=== PATIENT | male | born 1955 | race Caucasian/White ===

== ENCOUNTER → 2016-06-24 | Outpatient (CLI) | payer BC ==
[~2016-06-24] MED LIST: ASPI81TA28 PO; ATOR-22 PO; ETOD300C20 PO; IBUP600T44 PO; LISI-725 PO; PRLSR20 PO; VNTHFA/IN INH
--- NOTE | 2016-06-24 09:14 | DIAGNOSTIC IMAGING REPORT ---
LEFT SHOULDER MIN 2 VIEWS ROUTINE CLINICAL HISTORY: POLYARTHRITIS Nos, multiple Sites, arm PAIN, LEFT pain COMPARISON: None. DISCUSSION: The bones and joint spaces appear intact. There is no evidence of fracture, dislocation or bony disease. There is no evidence for soft tissue swelling. IMPRESSION: Negative study. Electronically signed by: Harrison Gore M.D. 06/24/2016 9:13 AM Dictated Date/Time: 06/24/2016 9:12 AM
== END | disposition home or self-care (01) ==
LOC: C.RAD 08:50
PROVIDERS: ATTEND Family Medicine
DX: M13.0 Polyarthritis, unspecified (principal); M79.602 Pain in left arm

== ENCOUNTER → 2016-06-27 | Outpatient (CLI) | payer BC ==
--- NOTE | 2016-07-01 14:34 | PULMONARY FUNCTION TEST ---
CLINICAL DATA: A 61-year-old male with a height of 73 inches and a weight of 243 pounds, referred for evaluation of dyspnea on exertion. Spirometry pre- and post-bronchodilator, lung volumes and DLCO were performed. FINDINGS: Pre-bronchodilator spirometry demonstrates moderate obstructive airways disease. FVC was 78% predicted. FEV1 was 60% of predicted. UGU23-03 was 28% of predicted. There was significant improvement after inhaled bronchodilator. FVC improved 7% to 83% of predicted. FEV1 improved 17% to 70% of predicted. CAM20-66 improved 33% to 38% of predicted. Lung volumes demonstrated mild to moderate air trapping with a residual volume of 174% of predicted. DLCO was normal at 95% of predicted. IMPRESSION: Moderate obstructive airways disease with improvement after inhaled bronchodilator with evidence of air trapping on lung volume testing. RECOMMENDATIONS: The patient may benefit from a trial of inhaled bronchodilators, inhaled steroids, and/or inhaled anticholinergic agents. Clinical correlation is needed. MTDD
== END | disposition home or self-care (01) ==
LOC: C.RC 08:53
PROVIDERS: ATTEND Family Medicine
DX: R06.02 Shortness of breath (principal)

== ENCOUNTER 2016-07-27 00:31 | Emergency (ER) | payer OTHER, BC ==
[~2016-07-27] VITALS: Ht 185.4 cm; Wt 112.0 kg
[~2016-07-27 00:31] MED LIST changes: -IBUP600T44 PO
[2016-07-27 00:38] VITALS: TEMP 36.7; Ht 185.4 cm; Wt 112.0 kg
[2016-07-27] MEDS ORDERED: IBUPROFEN 600 MG TAB PO STA (01:01)
[2016-07-27] MEDS ORDERED: IBUP600T44 PO (01:04)
--- NOTE | 2016-07-27 01:08 | EMERGENCY ROOM VISIT NOTE ---
History Report prepared by Blancaibfaby: Peri Adler Under the Supervision of: Dr. Farzad Sorenson M.D. First contact with patient: 00:47 Chief Complaint: LEG PAIN,LEG INJURY Stated Complaint: FELL AND HURT RIGHT UPPER LEG - History of Present Illness The patient is a 61 year old male who presents to the Emergency Room via EMS with complaints of worsening upper right leg pain with onset one hour ago after an episode of a fall. The patient works for [employer]. Tonight he was at work, collecting some papers that had fallen to the floor when a metal clip fell out of the pile of papers. The patient stepped on the metal clip and slipped on the clip and the marble floors. The patient states that he can walk, although the area is sore. He denies knee pain, hip pain, taking blood thinners , history of heart attack. The patient notes that he takes an aspirin daily. Source of History: patient Onset: one hour ago Position: leg (right) Symptom Intensity: 5/10 Quality: other (right leg pain) Timing: other (episode ) Modifying Factors (Worsening): movement (leg becomes sore) Note: He denies knee pain, hip pain. Review of Systems See HPI for pertinent positives & negatives. A total of 6 systems reviewed and were otherwise negative. Past Medical & Surgical Medical Problems: (1) GERD (gastroesophageal reflux disease) (2) High cholesterol (3) Hypertension Family History FH: heart disease Social History Smoking Status: Never Smoker Drug Use: none Marital Status: Housing Status: lives with family Occupation Status: employed Current/Historical Medications Scheduled Albuterol Hfa (Ventolin Hfa), 2 PUFFS INH q4-6h Aspirin (Aspirin Ec), 81 MG PO DAILY Atorvastatin (Lipitor), 20 MG PO DAILY Etodolac (Etodolac), 300 MG PO TID Ibuprofen (Motrin), 600 MG PO TID Lisinopril (Zestril), 20 MG PO QAM Omeprazole (Prilosec), 20 MG PO DAILY Allergies Coded Allergies: No Known Allergies (Verified , 07/27/16) Physical Exam Vital Signs Date Time Temp Pulse Resp B/P Pulse Ox O2 Delivery O2 Flow Rate FiO2 07/27/16 00:38 36.7 91 18 152/92 95 Room Air Physical Exam GENERAL: The patient is lying on the stretcher in no significant distress. NEUROLOGIC: He is awake, alert and oriented x3. EXTREMITIES: The right lower extremity is examined. He has soreness and some swelling of the mid portion of the anterior quadriceps. No large defect to suggest significant tear. Quadriceps tendon is intact, his knee and hip are nontender, there is no contusion, no neurovascular compromise. Medical Decision & Procedures Medications Administered Medications (Trade) Dose Ordered Sig/Arabella Route Start Time Stop Time Status Last Admin Dose Admin Ibuprofen (Motrin Tab) 600 mg NOW STAT PO 07/27/16 01:01 07/27/16 01:02 DC 07/27/16 01:16 600 MG ED Course 0047: The patient was evaluated in room B3. A complete history and physical exam was performed. 0101: Ibuprofen 600 mg PO 0102: Reevaluated the patient. Discussed results and discharge instructions: He verbalized understanding and agreement. The patient is ready for discharge. Medical Decision The patient is a 61 year old male who presents to the ED with complaints of right upper leg pain. Differential diagnoses considered include: hip or knee fracture/dislocation, quadriceps tear, muscle pull. Patient complains of pain in his right quadriceps after slipping and falling. He has no hip pain or knee pain. He can walk but it hurts in the right quadriceps when he walks. By exam, he appears to have a muscle strain/tear. There was no quadriceps tendon rupture. There was no large hematoma. No neurovascular compromise. The patient was given oral Motrin, he will be using Motrin, ice, rest. This injury should improve with some time, if worsening, he can return. Impression Primary Impression: Strain of right quadriceps Scribe Attestation The scribe's documentation has been prepared under my direction and personally reviewed by me in its entirety. I confirm that the note above accurately reflects all work, treatment, procedures, and medical decision making performed by me. Departure Information Dispostion Home / Self-Care Prescriptions Ibuprofen (Motrin) 600 Mg Tab 600 MG PO TID, #15 TAB With Food Prov: Farzad Sorenson M.D. 07/27/16 Referrals Joanna Baker PA-C (PCP) Forms HOME CARE DOCUMENTATION FORM, IMPORTANT VISIT INFORMATION, Work Instructions Patient Instructions My [facility] Additional Instructions ice to the area for 30 minutes at a time for 2 days and then after 2 days switch to using heat try to stay off the feet and use the leg less for a few days motrin 600 mg 3x per day for 5 days return if worsening
[2016-07-27 01:21] VITALS: BP 143/88; PULSE 84; O2SAT 96
== END 2016-07-27 01:23 | disposition home or self-care (01) ==
LOC: C.EDB 00:32
DX: S76.111A Strain of right quadriceps muscle, fascia and tendon, initial encounter (principal); W01.0XXA Fall on same level from slipping, tripping and stumbling without subsequent striking against object, initial encounter; Y99.0 Civilian activity done for income or pay; Y92.89 Other specified places as the place of occurrence of the external cause; Y93.89 Activity, other specified; Z79.82 Long term (current) use of aspirin; K21.9 Gastro-esophageal reflux disease without esophagitis; I10 Essential (primary) hypertension; E78.00 Pure hypercholesterolemia, unspecified; Z79.899 Other long term (current) drug therapy

== ENCOUNTER 2019-01-06 13:42 | Observation (INO) ==
[2019-01-06 14:39] LABS: Basophils # (auto) 0.03 K/uL (0-0.2); Basophils % (auto) 0.5 %; Eosinophils # (auto) 0.13 K/uL (0-0.5); Eosinophils % (auto) 2.2 %; Hematocrit (blood only) 43.2 % (42-52); Hemoglobin 15.7 g/dL (14.0-18.0); Immature Granulocytes # (auto) 0.02 K/uL (0.00-0.02); Immature Granulocytes % (auto) 0.3 %; Lymphocytes # (auto) 1.51 K/uL (1.2-3.4); Lymphocytes % (auto) 25.6 %; Mean Corpuscular Hgb Conc 36.3 g/dL (32-36); Mean Corpuscular Volume 87.1 fL (80-100); Mean Platelet Volume 8.4 fL (7.4-10.4); Monocytes # (auto) 0.46 K/uL (0.11-0.59); Monocytes % (auto) 7.8 %; Neutrophils # (auto) 3.74 K/uL (1.4-6.5); Neutrophils % (auto) 63.6 %; Platelet Count 126 K/uL (130-400); RDW Coefficient of Variation 13.6 % (11.5-14.5); RDW Standard Deviation 43.3 fL (36.4-46.3); Red Blood Count 4.96 M/uL (4.7-6.1); White Blood Count 5.89 K/uL (4.8-10.8)
[2019-01-06 15:12] LABS: Alanine Aminotransferase 54 U/L (12-78); Albumin Level 3.9 gm/dl (3.4-5.0); Aspartate Aminotransferase 26 U/L (15-37); Blood Urea Nitrogen 25 mg/dl (7-18); Calcium 9.5 mg/dl (8.5-10.1); Carbon Dioxide 23 mmol/L (21-32); Chloride 104 mmol/L (98-107); Creatinine Clr Calc Pharmacy 74.4 ml/min; Est GFR (African American) 65.8; Est GFR (Non-African American) 56.8; Glucose 170 mg/dl (70-99); Potassium 4.4 mmol/L (3.5-5.1); Sodium 135 mmol/L (136-145)
[2019-01-06 15:17] LABS: Albumin Globulin Ratio 1.1 (0.9-2); Alkaline Phosphatase 60 U/L (45-117); Bilirubin,Total 0.7 mg/dl (0.2-1); Globulin 3.4 gm/dl (2.5-4.0); NT Pro B Type Natriuretic Pept 13 pg/ml (0-900); Total Protein 7.3 gm/dl (6.4-8.2); Troponin I < 0.015 ng/ml (0-0.045)
[2019-01-06] MEDS ORDERED: OPTIRAY 320 125ml IV PRN (15:36)
--- NOTE | 2019-01-06 15:51 | CT Scan Report ---
CT ANGIOGRAM OF THE CHEST CLINICAL HISTORY: Atypical chest pain. COMPARISON STUDY: Chest x-ray dated 12/30/2018. TECHNIQUE: Following the IV administration of 116 cc of Optiray 320, CT angiogram of the chest was pe rformed from the upper abdomen to the thoracic inlet utilizing the pulmonary embolus protocol. Images are reviewed in the axial, sagittal, and coronal planes. 3-D MIPS images are created and assessed. I V contrast was administered without complication. A dose lowering technique was utilized adhering to the principles of ALARA. CT DOSE: 644.62 mGy.cm FINDINGS: Thyroid: Imaged portions of the thyroid gland are normal in size and attenuation. Thoracic aorta: The thoracic aorta is normal in caliber and demonstrates standard 3-vessel arch anato my. No dissection is seen. Pulmonary vasculature: The pulmonary trunk is normal in caliber. There are no filling defects identif ied in main, lobar, or segmental pulmonary branches to suggest pulmonary embolus. Heart: The heart is normal in size and without pericardial effusion. Lungs and pleural spaces: There is a 4 mm right upper lobe nodule seen on image #198. There are scatt ered calcified granulomas. No airspace consolidation or pleural effusion is identified. The trachea a nd central airways are clear. Mediastinum: There is no mediastinal lymphadenopathy. Georgie: Clear. Axillae: There is no axillary lymphadenopathy. Upper abdomen: Cholecystectomy clips are noted. The liver is enlarged and steatotic. A small hiatal h ernia is noted. The spleen is enlarged, measuring 14.6 cm in length. A calcified granuloma is noted i n the right hepatic lobe. Skeletal structures: No lytic or blastic bony lesions are seen. IMPRESSION: 1. There is no evidence of pulmonary embolus in the main, lobar, or segmental pulmonary arteries. 2. There is no airspace consolidation or pleural effusion. 3. There is a pathologically indeterminant 4 mm pulmonary nodule in the right upper lobe. This can be followed if clinically warranted. See below. 4. Hepatomegaly and hepatic steatosis. 5. Splenomegaly. Please refer to below summary of Fleischner criteria recommendations for follow-up of incidental CT n odules (Evaristo Couch, Guidelines for management of small pulmonary nodules detected on CT scans: A sta tement from the Fleischner [employer], Radiology 237: [phone].) SOLID NODULES Solitary nodule size: <6 mm * low risk patients: no follow-up needed * high risk patients: optional CT at 12 months Solitary nodule size: 6-8 mm * low risk patients: follow-up at 6-12 months, then consider further follow-up at 18-24 months * high risk patients: initial follow-up CT at 6-12 months and then at 18-24 months if no change Solitary nodule size: >8 mm * either low or high risk patients - consider follow-up CT at 3 months, and/or CT-PET, and/or biopsy Multiple nodules size: <6 mm * low risk patients: no routine follow-up * high risk patients: optional CT at 12 months Multiple nodules size: 6-8 mm * low risk patients: follow-up at 3-6 months, then consider further follow-up at 18-24 months * high risk patients: follow-up at 3-6 months, then at 18-24 months if no change Multiple nodules size: >8 mm * low risk patients: follow-up at 3-6 months, then consider further follow-up at 18-24 months * high risk patients: follow-up at 3-6 months, then at 18-24 months if no change Note: newly detected indeterminate nodule in persons 35 years of age or older. * low risk patients: minimal or absent history of smoking and/or other known risk factors * high risk patients: history of smoking or of other known risk factors (e.g. first degree relative with lung cancer, or exposure to asbestos, radon, uranium) * if a nodule up to 8 mm is partly solid or is ground glass further follow-up is required after 24 m onths to exclude possible slow growing adenocarcinoma (JAZMÍN) SUBSOLID NODULES Solitary pure ground-glass nodule * nodule size <6 mm - no CT follow-up required * nodule size >=6 mm - follow-up CT at 6-12 months, then every 2 years until 5 years Solitary part-solid nodule * nodule size <6 mm - no CT follow-up required * nodule size >=6 mm - follow-up CT at 3-6 months. If unchanged, and solid component remains <6 mm, then annual follow-up for 5 years Multiple subsolid nodules * nodule size <6 mm - follow-up CT at 3-6 months, consider further follow-up at 2 and 4 years if sta ble * nodule size >=6 mm - follow-up CT at 3-6 months, subsequent management based on the most suspiciou s nodule(s) Electronically signed by: Farzad Isidro M.D. 01/06/2019 3:49 PM
[2019-01-06] MEDS ORDERED: ACETAMINOPHEN 1,000 MG/100 ML VIAL IV STA (17:11)
[2019-01-06] MEDS ORDERED: ALUMINUM/MAGNESIUM SUSP 18 ML, LIDOCAINE HCL VISCOUS 2% 6 ML, BARCODE IDENTIFIER 1 EA PO ONE (17:11)
[2019-01-06] MEDS ORDERED: GI COCKTAIL ED USE PO ONE (17:49)
--- NOTE | 2019-01-06 18:08 | History & Physical Report ---
Date of Service January 06, 2019 Assessment & Plan (1) Atypical chest pain: Patient presently CP free. Does not seem to be pleuritic, exertional, positional or related to meals. BP is equal in both arms, no concern for dissection. Suspect GI etiology in patient with GERD, hiatal hernia. However, history of HTN, HLP and family history of CAD raises suspicion. Patient is quite active, he camps, hunts, hikes and rides bikes. He denies exertional dyspnea or CP, no limit to activity level. -Observation to medical floor with telemetry -Trend troponin x 3 set -If negative will obtain stress echocardiogram in AM -Continue ASA, Metoprolol, Lisinopril Present on Admission?: Yes (2) High cholesterol: Chronic. Uncertain why patient is not on statin -Consider initiating statin prior to DC Present on Admission?: Yes (3) Hypertension: Blood pressure well controlled. -Continue Lisinopril -Continue to monitor Present on Admission?: Yes (4) GERD (gastroesophageal reflux disease): Suspect this as etiology of discomfort -Initiate Protonix 40mg po BID -Continue Sucralfate -Maalox PRN F/E/N - Heplock. Monitor electrolytes and replete as needed. Heart healthy diet, NPO after midnight Ppx - Lovenox Code - Full Dispo - Observation to medical floor with telemetry Present on Admission?: Yes History of Present Illness Chief Complaint: chest pain Primary Care Provider: ELAINE Davila Mr. Ellis is a 63yo C male with history of HTN, HLP, FH of CAD in father/uncles at age 60 presenting with epigastric/substernal chest discomfort. Pain has been present for weeks, intermittent, lasts minutes to hours. 8/10 in severity, associated with mild SOB and diaphoresis. Pain is non-pleuritic, non- exertional and non-positional. Some relief provided with Mylanta. He recently saw his PCP and was prescribed sucralfate and Pepcid with no relief provided. Patient reports that he has indigestion as well but that discomfort is different than the pain he feels in his upper chest. ER Course: Tylenol, Maalox Allergies Allergy/AdvReac Type Severity Reaction Status Date / Time No Known Allergies Allergy Verified 01/06/19 14:46 Home Medications Home Medications Medication Instructions Recorded Confirmed Type albuterol sulfate [Ventolin HFA] 2 puff INHALATION Q4 PRN 12/30/18 01/06/19 Hist ory aspirin 81 mg PO QAM 12/30/18 01/06/19 History famotidine 20 mg PO BID #20 tab 12/30/18 01/06/19 Rx lisinopril 20 mg PO QAM 12/30/18 01/06/19 History metoprolol succinate 12.5 mg PO QPM 12/30/18 01/06/19 History omeprazole 20 mg PO QAM 12/30/18 01/06/19 History tiotropium bromide [Spiriva 2 puff INHALATION QAM 12/30/18 01/06/19 History Respimat] sucralfate 1 g PO ACHS 01/06/19 01/06/19 History Past Med/Surg History Medical History Chest pain (Acute) Hypertension (Chronic) High cholesterol (Chronic) GERD (gastroesophageal reflux disease) (Chronic) Acute kidney injury (Acute) Surgical History History of appendectomy History of cholecystectomy Hx of cardiac cath Family History Other Myocardial infarction Social History marital status: Current Living Situation: Spouse current occupational status: employed Feels Safe at Home: Yes Smoking Status: Never smoker Hx Alcohol Use: No Hx Substance Use: No Review of Systems Review of Systems: All systems reviewed & are unremarkable except as noted in HPI & below +indigestion Physical Exam Physical Exam: General: patient resting comfortably, NAD, non-toxic in appearance, AA&O x 4 Skin: warm, dry, intact, no rashes or lesions HEENT: NC/AT, PERRL, EOMI, anicteric sclera, conjunctiva without injection, external ear normal to inspection and nontender, nares patent, moist mucus membranes, dentition intact, no oropharyngeal lesions, neck supple, trachea midline, no LAD, no thyromegaly, no JVD Heart: +S1/S2, regular, no m/r/g, BP in LUE 123/70 BP in RUE 128/75 Lungs: equal air entry bilaterally, no rales/rhonchi/wheezes Abd: +BS, soft, NT/ND, no masses/organomegaly/ascites Ext: warm, 2+ pulses in UE/LE bilaterally, no clubbing/cyanosis or edema Neuro: nonfocal, patient AA&O x 4, speech intact, no facial droop, moving all ex tremities on command with equal strength 5/5 Results & Data Vital Signs (Past 12 Hours) Vital Signs Temp Pulse Resp BP Pulse Ox 01/06/19 17:30 71 14 123/70 97 01/06/19 17:00 74 25 H 157/100 H 97 01/06/19 16:30 69 14 134/77 97 01/06/19 16:01 76 28 H 96 01/06/19 15:30 73 18 123/80 95 01/06/19 15:00 78 20 122/78 94 01/06/19 14:30 82 19 132/78 01/06/19 14:00 80 19 127/72 96 01/06/19 13:56 82 16 96 01/06/19 13:53 88 19 139/73 98 01/06/19 13:45 36.7 C 78 20 130/75 97 Laboratory Results Lab Results 01/06/19 01/06/19 Range/Units 14:31 14:31 WBC 5.89 (4.8-10.8) K/uL RBC 4.96 (4.7-6.1) M/uL Hgb 15.7 (14.0-18.0) g/dL Hct 43.2 (42-52) % MCV 87.1 (80-100) fL MCH 31.7 (25-34) pg MCHC 36.3 H (32-36) g/dL RDW Std Deviation 43.3 (36.4-46.3) fL RDW Coeff of Alyssa 13.6 (11.5-14.5) % Plt Count 126 L (130-400) K/uL MPV 8.4 (7.4-10.4) fL Immature Gran % (Auto) 0.3 % Neut % (Auto) 63.6 % Lymph % (Auto) 25.6 % [place] % (Auto) 7.8 % Eos % (Auto) 2.2 % Baso % (Auto) 0.5 % Immature Gran # (Auto) 0.02 (0.00-0.02) K/uL Neut # (Auto) 3.74 (1.4-6.5) K/uL Lymph # (Auto) 1.51 (1.2-3.4) K/uL [place] # (Auto) 0.46 (0.11-0.59) K/uL Eos # (Auto) 0.13 (0-0.5) K/uL Baso # (Auto) 0.03 (0-0.2) K/uL Sodium 135 L (136-145) mmol/L Potassium 4.4 (3.5-5.1) mmol/L Chloride 104 (98-107) mmol/L Carbon Dioxide 23 (21-32) mmol/L Anion Gap 8.0 (3-11) BUN 25 H (7-18) mg/dl Creatinine 1.34 (0.6-1.4) mg/dl Est Cr Clr Drug Dosing 74.4 ml/min Est GFR ( Amer) 65.8 Est GFR (Non-Af Amer) 56.8 BUN/Creatinine Ratio 19.0 (10-20) Glucose 170 H (70-99) mg/dl Calcium 9.5 (8.5-10.1) mg/dl Total Bilirubin 0.7 (0.2-1) mg/dl AST 26 (15-37) U/L ALT 54 (12-78) U/L Alkaline Phosphatase 60 (45-117) U/L Troponin I < 0.015 (0-0.045) ng/ml NT-Pro-B Natriuret Pep 13 (0-900) pg/ml Total Protein 7.3 (6.4-8.2) gm/dl Albumin 3.9 (3.4-5.0) gm/dl Globulin 3.4 (2.5-4.0) gm/dl Albumin/Globulin Ratio 1.1 (0.9-2) Lipase 109 (73-393) U/L Diagnostic Findings CT ANGIOGRAM OF THE CHEST CLINICAL HISTORY: Atypical chest pain. COMPARISON STUDY: Chest x-ray dated 12/30/2018. TECHNIQUE: Following the IV administration of 116 cc of Optiray 320, CT angiogram of the chest was performed from the upper abdomen to the thoracic inlet utilizing the pulmonary embolus protocol. Images are reviewed in the axial, sagittal, and coronal planes. 3-D MIPS images are created and assessed. IV contrast was administered without complication. A dose lowering technique was utilized adhering to the principles of ALARA. CT DOSE: 644.62 mGy.cm FINDINGS: Thyroid: Imaged portions of the thyroid gland are normal in size and attenuation. Thoracic aorta: The thoracic aorta is normal in caliber and demonstrates standard 3-vessel arch anatomy. No dissection is seen. Pulmonary vasculature: The pulmonary trunk is normal in caliber. There are no filling defects identified in main, lobar, or segmental pulmonary branches to suggest pulmonary embolus. Heart: The heart is normal in size and without pericardial effusion. Lungs and pleural spaces: There is a 4 mm right upper lobe nodule seen on image #198. There are scattered calcified granulomas. No airspace consolidation or pleural effusion is identified. The trachea and central airways are clear. Mediastinum: There is no mediastinal lymphadenopathy. Georgie: Clear. Axillae: There is no axillary lymphadenopathy. Upper abdomen: Cholecystectomy clips are noted. The liver is enlarged and steatotic. A small hiatal hernia is noted. The spleen is enlarged, measuring 14.6 cm in length. A calcified granuloma is noted in the right hepatic lobe. Skeletal structures: No lytic or blastic bony lesions are seen. IMPRESSION: 1. There is no evidence of pulmonary embolus in the main, lobar, or segmental pulmonary arteries. 2. There is no airspace consolidation or pleural effusion. 3. There is a pathologically indeterminant 4 mm pulmonary nodule in the right upper lobe. This can be followed if clinically warranted. See below. 4. Hepatomegaly and hepatic steatosis. 5. Splenomegaly. Please refer to below summary of Fleischner criteria recommendations for follow- up of incidental CT nodules (Evaristo Couch, Guidelines for management of small pulmonary nodules detected on CT scans: A statement from the Fleischner [employer], Radiology 237: [phone].) SOLID NODULES Solitary nodule size: <6 mm * low risk patients: no follow-up needed * high risk patients: optional CT at 12 months Solitary nodule size: 6-8 mm * low risk patients: follow-up at 6-12 months, then consider further follow-up at 18-24 months * high risk patients: initial follow-up CT at 6-12 months and then at 18-24 months if no change Solitary nodule size: >8 mm * either low or high risk patients - consider follow-up CT at 3 months, and/or CT-PET, and/or biopsy Multiple nodules size: <6 mm * low risk patients: no routine follow-up * high risk patients: optional CT at 12 months Multiple nodules size: 6-8 mm * low risk patients: follow-up at 3-6 months, then consider further follow-up at 18-24 months * high risk patients: follow-up at 3-6 months, then at 18-24 months if no change Multiple nodules size: >8 mm * low risk patients: follow-up at 3-6 months, then consider further follow-up at 18-24 months * high risk patients: follow-up at 3-6 months, then at 18-24 months if no change Note: newly detected indeterminate nodule in persons 35 years of age or older. * low risk patients: minimal or absent history of smoking and/or other known risk factors * high risk patients: history of smoking or of other known risk factors (e.g. first degree relative with lung cancer, or exposure to asbestos, radon, uranium) * if a nodule up to 8 mm is partly solid or is ground glass further follow-up is required after 24 months to exclude possible slow growing adenocarcinoma (JAZMÍN) SUBSOLID NODULES Solitary pure ground-glass nodule * nodule size <6 mm - no CT follow-up required * nodule size >=6 mm - follow-up CT at 6-12 months, then every 2 years until 5 years Solitary part-solid nodule * nodule size <6 mm - no CT follow-up required * nodule size >=6 mm - follow-up CT at 3-6 months. If unchanged, and solid component remains <6 mm, then annual follow-up for 5 years Multiple subsolid nodules * nodule size <6 mm - follow-up CT at 3-6 months, consider further follow-up at 2 and 4 years if stable * nodule size >=6 mm - follow-up CT at 3-6 months, subsequent management based on the most suspicious nodule(s) Electronically signed by: Farzad Isidro M.D. 01/06/2019 3:49 PM Dictated: 01/06/19 1544 Transcribed: 01/06/19 1544 ECG Additional Comments: The study shows NSR at 82bpm, normal axis and intervals, no acute ischemic changes, no change from prior study Code Status & VTE Plan Code Status FULL VTE Prophylaxis Plan VTE Prophylaxis will be ordered: Yes PG Care Time/CCT Total # of Minutes Spent Total Time Spent with Patient: Total time spent is greater than 50% in coordination of care (as documented) at patient's floor/unit and/or counseling patient: (1) GERD (gastroesophageal reflux disease) Esophagitis presence: esophagitis presence not specified Qualified Code(s): K21.9 - Gastro-esophageal reflux disease without esophagitis (2) Hypertension Hypertension type: essential hypertension Qualified Code(s): I10 - Essential (primary) hypertension
[2019-01-06] MEDS ORDERED: ONDANSETRON INJ 2 MG/ML 2 ML VIAL IV PRN (19:27)
[2019-01-06] MEDS ORDERED: ALBUTEROL HFA 8 GM INHALER INH PRN (19:27)
[2019-01-06] MEDS ORDERED: ALUMINUM/MAGNESIUM SUSP 30 ML UDC PO PRN (19:27)
[2019-01-06] MEDS ORDERED: ACETAMINOPHEN 325 MG TAB PO PRN (19:27)
[2019-01-06] MEDS ORDERED: METOPROLOL SUCC 25MG EXT REL TAB PO SCH (21:00)
[2019-01-06] MEDS ORDERED: ENOXAPARIN INJ 40 MG/0.4 ML SYR SQ SCH (21:00)
[2019-01-06] MEDS: PANTOprazole 40 MG TAB PO SCH (21:05)
[2019-01-06] MEDS: SUCRALFATE 1 GM TAB PO SCH (21:06)
[2019-01-07] MEDS: SUCRALFATE 1 GM TAB PO SCH ×2 (07:59→12:32)
[2019-01-07] MEDS: PANTOprazole 40 MG TAB PO SCH (08:01)
[2019-01-07 08:34] LABS: Estimated Average Glucose 140 mg/dl; Hemoglobin A1C 6.5 % (4.5-5.6)
[2019-01-07 08:41] LABS: Chol HDL Ratio 7; Cholesterol 218 mg/dl (0-200); HDL Cholesterol 33 mg/dl; Triglycerides 462 mg/dl (0-150)
[2019-01-07] MEDS ORDERED: ASPIRIN 81 MG ECTAB PO SCH (09:00)
[2019-01-07] MEDS ORDERED: LISINOPRIL 20 MG TAB PO SCH (09:00)
[2019-01-07] MEDS ORDERED: TIOTROPIUM BROMIDE 5 PUFF/90 MCG INH INH SCH (09:00)
[2019-01-07] MEDS ORDERED: PERFLUTREN LIPID MICROSPHERE (DEFINITY) IV ONE (12:17)
--- NOTE | 2019-01-07 14:25 | Discharge Summary ---
Date of Service January 07, 2019 Admission HPI Per Admitting Provider Mr. Ellis is a 63yo C male with history of HTN, HLP, FH of CAD in father/uncles at age 62 presenting with epigastric/substernal chest discomfort. Pain has been present for weeks, intermittent, lasts minutes to hours. 8/10 in severity, associated with mild SOB and diaphoresis. Pain is non-pleuritic, non-exertional and non-positional. Some relief provided with Mylanta. He recently saw his PCP and was prescribed sucralfate and Pepcid with no relief provided. Patient reports that he has indigestion as well but that discomfort is different than the pain he feels in his upper chest. ER Course: Tylenol, Maalox Principal Diagnosis atypical chest pain, new diagnosis of diabetes Discharge Exam Vitals noted and within normal limits GENERAL: Awake, alert to person, place, and time, nontoxic-appearing, in no distress. HENT: Normocephalic, atraumatic. Mucus membranes appear moist. EYES: Normal conjunctiva. Sclera non-icteric. EOMI. NECK: Supple. Full range of motion. No JVD. RESPIRATORY: Clear to auscultation. Normal work of breathing. CARDIAC: Regular rate, normal rhythm. Extremities warm and well perfused, 2+ radial pulses bilaterally; 2+ posterior tibialis pulses bilaterally. ABDOMEN: Soft, non-distended. No tenderness to palpation in all four quadrants. No rebound or guarding. No masses. Bowel sounds are normal. No chest wall tenderness. LOWER EXTREMITIES: Inspection of calves reveal equal size bilaterally. They are non-tender. No edema. No discoloration. NEURO: No gross focal motor deficits noted. Sensation in tact. CN II-XII grossly in tact. . SKIN: Rash not present. No jaundice noted. Significant lesions not present. PSYCH: Appropriate mood and affect. Cooperative. Pt's is present for the exam. Exam as done by Rosibel Samayoa MD, Wearing Apparel Assembler. Discharge Data Allergies Allergy/AdvReac Type Severity Reaction Status Date / Time No Known Allergies Allergy Verified 01/06/19 14:46 Consultations 01/06/19 17:11 ED Decision to Admit Stat Ordered Studies 01/06/19 14:16 CT angio chest PE protocol Stat Negative for PE Stress Echocardiogram Negative for Ischemia, EF 55-60% Hospital Course (1) Atypical chest pain: 63 yo M here for atypical substernal chest pain. Observed overnight on telemetry with no EKG changes, remained normotensive, afebrile, not tachypneic. CTA negative for PE, and CXR shows no abnormalities. Stress echocardiogram was without evidence of ischemia, normal EF. Lipid profile shows hypercholesterolemia and triglyceridemia. A1C reveals diabetes 6.5%. Discussed at length with the primary team for lifestyle changes as well as medication changes. Pt is receptive, agrees with recommendations as below. Recommend: -resume statin -- intolerant of simvastatin (muscle aches) (and fenofibrates apparently). Recommend try atorvastatin. -Recommend close follow up with diet/exercise counseling, and with trial of metformin to follow if no significant change - defer to PCP. -continue lisinopril for HTN. -increase PPI medication as written and avoid triggers, as this may have been a component of uncontrolled GERD. Chao Samayoa MD (2) GERD (gastroesophageal reflux disease): (3) Hypertension: (4) High cholesterol: (5) Type 2 diabetes mellitus: Total Time Total Time Spent Total Time Spent (In Minutes): 30 Discharge Plan Discharge Items Patient Disposition: Home - Self-Care Reason For Visit: CHEST PAIN Discharge Diagnosis: CHest Pain Activity: Resume your previous activity Non-emergency contact: Primary Care Provider Call non-emergency contact if: you have any medication questions, your symptoms worsen and your pain is not controlled Follow-up/Referrals: Catalina Mccollum CRNP [Primary Care Provider] - Diet: Carb Consistent or DM2 Addtl Attending Provider Instructions: Mr. Ellis, It was our pleasure to evaluate you for your chest pain. We are always concerned with what could be a very serious symptom and gave you a throrough workup. Your initial (And subsequent) ECG's or electrocardiogram of your heart has looked completely normal showing no evidence of blockage or heart injury or electrical problems, Your blood work has been negative for any sign of infection or any heart enzyme that we often see leaked when there is damage to the heart which is reassuring, and finally a stress echo test done to induce ischemia or show a blockage was negative. We believe that your chest pain is likely due to GERD and we recommend continuing to take your omeprazole but I would recommend taking two 20 mg pills for a total of 40 mg of omeprazole once daily. While investigating your chest pain we also performed an A1C test to screen for diabetes. We found that your A1C level (WHich is a measure of your average blood sugar level over the past three months) was elevated to 6.5. This is just enough to qualify you for a diagnosis of diabetes, we recommend following up with your primary care provider in the next week to further discuss this diagnosis and treatment options. We will hold off on any medication at this time. We also noticed an abnormal lipid panel, I will be sending you home with a prescription for atorvastatin. This is to help lower your cholesterol and prevent heart disease and stroke risk. I have given you a one month supply sent to your local pharmacy. Please contact your primary care provider for further management. Sincerely, Jordan Vázquez MD Pending Studies at Discharge: No Stand-Alone Forms: Call Back Authorization, [facility], Work/School Release (Inpt) Medications and DC Order Prescriptions: New atorvastatin 20 mg tablet 20 mg PO DAILY Qty: 30 RF: 0 Continued lisinopril 20 mg tablet 20 mg PO QAM RF: 0 aspirin 81 mg Tablet,Delayed Release (Dr/Ec) 81 mg PO QAM RF: 0 metoprolol succinate 25 mg tablet extended release 24 hr 12.5 mg PO QPM RF: 0 albuterol sulfate [Ventolin HFA] 90 mcg/actuation Hfa Aerosol Inhaler 2 puff INHALATION Q4 PRN (Reason: Shortness Of Breath Or Wheezing) RF: 0 Spiriva Respimat 2.5 mcg/actuation mist 2 puff inhalation QAM RF: 0 famotidine 20 mg tablet 20 mg PO BID Qty: 20 RF: 0 sucralfate 1 gram tablet 1 g PO ACHS RF: 0 Changed omeprazole 20 mg capsule,delayed release(DR/EC) 40 mg PO QAM Qty: 0 RF: 0 Discharge Orders: Discharge Order (Routine); Ordered 01/07/19 Ordered By: Jordan Mendoza/Other Patient Handouts: Diabetes Heart Disease, Diabetes Telephone Station Repairer Complications, Diabetes Type 2 Coping, Diabetes Healthy Meals, Diabetes Carbs, Diabetes Exercise Benefits, Diabetes Exercise Get Started, Diabetes Activity Tips, Diabetes Manage A1C Test Admission Data Admit Date/Time: 01/06/19 18:00 Attending Provider: Rosas Epps Admit Provider: Yana Fallon Primary Care Provider: Catalina Mccollum Other Providers: Yana Fallon ; Rosibel Samayoa Other Interventions: Discharge Summary Assessment (RN) Last Done: 01/07/19 16:43 DC Date/Time DO NOT enter until pt leaves facility: 01/07/19 16:56 Supervising Physician Co-Signing Physician Notes Attending attestation Pt seen and examined in concert with Dr. Samayoa. In agreement with the documented findings as noted in the resident documentation with any exceptions or additions as noted here. Persistent epigastric and substernal pressure/burning sensation worse with food/position w/ h/o hiatal hernia reported by pt. On examination, S1/S2 nl RRR no MCG. CTAB. Abd NT/ND BS+ve Atypical chest pain - unremarkable stress echo w/ neg troponin x 3. Outpatient follow up through PCP. GERD w/ h/o hiatal hernia - increase PPI, consider increased BID H2 therapy if persistent symptoms. Hyperlipidemia - despite previous statin intolerance w/ simvastatin, will start trial of atorvastatin at discharge. DMII - recommend initiation for management through PCP Else see resident documentation as noted. Resident Activity Tracking Resident Involvement: Resident Care Provided Care Provided: Adult Hospital Medicine
--- NOTE | 2019-01-08 13:42 | Emergency Department Note ---
Entered by Lexi Dillard acting as a scribe for History of Present Illness General Chief complaint: Chest Pain Stated complaint: CHEST PAIN, PAIN IN BETWEEN SHOULDERS Time Seen by Provider: 01/06/19 13:58 Source: patient History of Present Illness Provider complaint: Chest Pain Onset (ago): day(s) 3 Location: chest Radiation: back Pain Consistency: + intermittent Maximum Pain Intensity: 5 Exacerbated By: + none Associated symptoms: + diaphoresis and + nausea/vomiting (Positive nausea. Negative vomiting. ); no shortness of breath The patient is a 63 year old male who presents to the Emergency Room with complaints of intermittent chest pain that began about 3 days ago. The patient states that the pain radiates to his back and is not exacerbated by anything. The patient reports experiencing diaphoresis and nausea but denies any vomiting. The patient denies experiencing any shortness of breath recently but does use an inhaler for occasional breathing issues. The patient mentioned that he was at the ED last week for similar symptoms and saw his doctor on Friday. The patient states the doctor prescribed the patient medication for acid reflux. The patient reports that he worked at the [employer] and likely has breathing problems from inhaling dust there. The patient mentioned he has a history of acid reflux and has a family history of heart disease. Pt has previously seen Dr. Knapp. States had a cardiac cath many years ago without any stenting. Last stress test was 2 years ago. Home Medications Home Medications Medication Instructions Recorded Confirmed Type Spiriva Respimat 2 puff INHALATION QAM 12/30/18 01/06/19 History albuterol sulfate [Ventolin HFA] 2 puff INHALATION Q4 PRN 12/30/18 01/06/19 History aspirin 81 mg PO QAM 12/30/18 01/06/19 History famotidine 20 mg PO BID #20 tab 12/30/18 01/06/19 Rx lisinopril 20 mg PO QAM 12/30/18 01/06/19 History metoprolol succinate 12.5 mg PO QPM 12/30/18 01/06/19 History sucralfate 1 g PO ACHS 01/06/19 01/06/19 History atorvastatin 20 mg PO DAILY #30 tab 01/07/19 Rx omeprazole 40 mg PO QAM #0 cap 01/07/19 01/06/19 Rx Allergies Allergy/AdvReac Type Severity Reaction Status Date / Time No Known Allergies Allergy Verified 01/06/19 14:46 Past Med/Surg History Medical History Type 2 diabetes mellitus Chest pain (Acute) Hypertension (Chronic) High cholesterol (Chronic) GERD (gastroesophageal reflux disease) (Chronic) Acute kidney injury (Acute) Surgical History History of appendectomy History of cholecystectomy Hx of cardiac cath Family History Other Myocardial infarction Social History Preferred Language: Swedish Communication Ability: Effective Rn Palliative Care Required: No Beliefs That Will Affect Care: None marital status: Current Living Situation: Spouse current occupational status: employed Feels Safe at Home: Yes Smoking Status: Never smoker Hx Alcohol Use: Yes Hx Substance Use: No Review of Systems See HPI for pertinent positives & negatives. and A total of 10 systems reviewed and were otherwise negative Physical Exam Vital Signs Vital Signs - 24 hr 01/06/19 13:45 01/06/19 13:53 01/06/19 13:56 Temperature 36.7 C Temperature Source Oral Sepsis Recent Fever Within 48 Hours No Sepsis New/Unexplained Change in Mental Status No Sepsis Action Taken by Nursing No Action Required Pulse Rate 78 88 82 Pulse Rate from SpO2 Sensor 84 82 Pulse Rhythm Regular Pulse Strength Normal Respiratory Rate 20 19 16 Respiratory Effort / Characteristics Non-Labored Spontaneous Respiratory Depth Normal Respiratory Pattern Regular Blood Pressure 130/75 139/73 Blood Pressure Mean 93 95 Pulse Oximetry 97 98 96 Oxygen Delivery Method Room Air 01/06/19 14:00 01/06/19 14:30 01/06/19 15:00 Temperature Temperature Source Sepsis Recent Fever Within 48 Hours Sepsis New/Unexplained Change in Mental Status Sepsis Action Taken by Nursing Pulse Rate 80 82 78 Pulse Rate from SpO2 Sensor 81 75 Pulse Rhythm Pulse Strength Respiratory Rate 19 19 20 Respiratory Effort / Characteristics Respiratory Depth Respiratory Pattern Blood Pressure 127/72 132/78 122/78 Blood Pressure Mean 90 96 92 Pulse Oximetry 96 94 Oxygen Delivery Method GENERAL: alert, well appearing, well nourished, no distress, non-toxic EYE EXAM: normal conjunctiva, PERRL and EOM's grossly intact OROPHARYNX: no exudate, no erythema, lips, buccal mucosa, and tongue normal and mucous membranes are moist NECK: supple, no nuchal rigidity, no adenopathy, non-tender LUNGS: Clear to auscultation. Normal chest wall mechanics, no w/r/r HEART: no murmurs, S1 normal and S2 normal. No reproducible chest wall tenderness. ABDOMEN: abdomen soft, non-tender, normo-active bowel sounds, no masses, no rebound or guarding. BACK: Back is symmetrical on inspection and there is no deformity, no midline tenderness, no CVA tenderness. SKIN: no rashes and no bruising UPPER EXTREMITIES: upper extremities are grossly normal. FROM, nml pulses b/l. LOWER EXTREMITIES: No pitting edema. FROM, nml pulses b/l. NEURO EXAM: Normal sensorium, cranial nerves II-XII grossly intact, normal speech, no gross weakness of arms, no gross weakness of legs. Course 1414: Past medical records reviewed. The patient was evaluated in room C11B. A complete history and physical exam was performed. 1615: I spoke with Dr. Vargas- Cardiology about the patient's case and he recommends the patient to stay overnight. 1647: I reevaluated and discussed the results with the patient. The patient is aware that he will stay overnight and verbalized his understanding and is agreeable with the plan. 1715: I spoke with Dr. Fallon about the patient's case and she will evaluate the patient for further evaluation. Administered Medications Discontinued Medications Al Hydrox/Mg Hydrox/Simethicone () Confirm Administered Dose 1 dose PO .STK-MED ONE Stop: 01/06/19 17:50 Last Admin: 01/06/19 17:56 Dose: 1 dose Documented by: [id number] Aspirin (Ecotrin Ectab) 81 mg PO QAM [facility] Stop: 02/06/19 08:59 Last Admin: 01/07/19 08:00 Dose: 81 mg Documented by: [id number] Al Hydrox/Mg Hydrox/Simethicone 18 ml/ Lidocaine HCl 6 ml/ [employer]CODE IDENTIFIER 1 ea 0 ml PO ONE ONE Stop: 01/06/19 17:12 Last Admin: 01/06/19 17:56 Dose: Not Given Documented by: [id number] Enoxaparin Sodium (Lovenox) 40 mg SQ Q24H [facility] Stop: 02/05/19 20:59 Last Admin: 01/06/19 21:06 Dose: 40 mg Documented by: [id number] Acetaminophen (Ofirmev) 1,000 mg in 100 mls @ 400 mls/hr IV NOW STA Stop: 09/11/19 17:25 Last Infusion: 01/06/19 18:26 Dose: 0 mls/hr Documented by: [id number] Admin: 01/06/19 17:56 Dose: 400 mls/hr Documented by: [id number] Ioversol (Optiray 320 125ml) 116 ml IV ONCE PRN PRN Reason: Interaction Checking Stop: 01/10/19 15:35 Last Admin: 01/06/19 15:37 Dose: 116 ml Documented by: [id number] Lisinopril (Zestril) 20 mg PO QAM [facility] Stop: 02/06/19 08:59 Last Admin: 01/07/19 07:59 Dose: 20 mg Documented by: [id number] Metoprolol Succinate (Toprol Xl) 12.5 mg PO QPM [facility] Stop: 02/05/19 20:59 Last Admin: 01/06/19 21:03 Dose: Not Given Documented by: [id number] Pantoprazole Sodium (Protonix) 40 mg PO BID [facility] Stop: 02/05/19 20:59 Last Admin: 01/07/19 08:01 Dose: 40 mg Documented by: [id number] Admin: 01/06/19 21:05 Dose: 40 mg Documented by: [id number] Perflutren Lipid Microsphere (Definity) 2 ml IV ONCE ONE Stop: 01/07/19 12:18 Last Admin: 01/07/19 12:19 Dose: 2 ml Documented by: [id number] Sucralfate (Carafate Tab) 1 gm PO ACHS [facility] Stop: 02/05/19 20:59 Last Admin: 01/07/19 12:32 Dose: 1 gm Documented by: [id number] Admin: 01/07/19 07:59 Dose: 1 gm Documented by: [id number] Admin: 01/06/19 21:06 Dose: 1 gm Documented by: [id number] Tiotropium Orange (Spiriva) 1 puffs INH DAILY [facility] Stop: 02/06/19 08:59 Last Admin: 01/07/19 08:00 Dose: 1 puffs Documented by: [id number] Medical Decision Making Differential Diagnosis Differential diagnosis: Etiologies such as shingles, musculoskeletal pain, pericarditis, myocarditis, cardiac ischemia, pericardial tamponade, pneumonia, pneumothorax, pleural effusion, hemothorax, pleurisy, aortic pathology, pulmonary embolism, intra- abdominal process, as well as others were considered. Medical Records Attestation: I reviewed the patient's medical records. Home Medications Current Medication List: was personally reviewed by me Laboratory Data Attestation: I reviewed the patient's lab results. Result diagrams: 01/06/19 14:31 01/06/19 14:31 Lab Results 01/06/19 01/06/19 01/06/19 Range/Units 14:31 14:31 14:31 WBC 5.89 (4.8-10.8) K/uL RBC 4.96 (4.7-6.1) M/uL Hgb 15.7 (14.0-18.0) g/dL Hct 43.2 (42-52) % MCV 87.1 (80-100) fL MCH 31.7 (25-34) pg MCHC 36.3 H (32-36) g/dL RDW Std Deviation 43.3 (36.4-46.3) fL RDW Coeff of Alyssa 13.6 (11.5-14.5) % Plt Count 126 L (130-400) K/uL MPV 8.4 (7.4-10.4) fL Immature Gran % (Auto) 0.3 % Neut % (Auto) 63.6 % Lymph % (Auto) 25.6 % Graves % (Auto) 7.8 % Eos % (Auto) 2.2 % Baso % (Auto) 0.5 % Immature Gran # (Auto) 0.02 (0.00-0.02) K/uL Neut # (Auto) 3.74 (1.4-6.5) K/uL Lymph # (Auto) 1.51 (1.2-3.4) K/uL Graves # (Auto) 0.46 (0.11-0.59) K/uL Eos # (Auto) 0.13 (0-0.5) K/uL Baso # (Auto) 0.03 (0-0.2) K/uL Sodium 135 L (136-145) mmol/L Potassium 4.4 (3.5-5.1) mmol/L Chloride 104 (98-107) mmol/L Carbon Dioxide 23 (21-32) mmol/L Anion Gap 8.0 (3-11) BUN 25 H (7-18) mg/dl Creatinine 1.34 (0.6-1.4) mg/dl Est Cr Clr Drug Dosing 74.4 ml/min Est GFR ( Amer) 65.8 Est GFR (Non-Af Amer) 56.8 BUN/Creatinine Ratio 19.0 (10-20) Glucose 170 H (70-99) mg/dl Estimat Average Glucose 140 mg/dl Hemoglobin A1c 6.5 H (4.5-5.6) % Calcium 9.5 (8.5-10.1) mg/dl Total Bilirubin 0.7 (0.2-1) mg/dl AST 26 (15-37) U/L ALT 54 (12-78) U/L Alkaline Phosphatase 60 (45-117) U/L Troponin I < 0.015 (0-0.045) ng/ml NT-Pro-B Natriuret Pep 13 (0-900) pg/ml Total Protein 7.3 (6.4-8.2) gm/dl Albumin 3.9 (3.4-5.0) gm/dl Globulin 3.4 (2.5-4.0) gm/dl Albumin/Globulin Ratio 1.1 (0.9-2) Lipase 109 (73-393) U/L Imaging Data Radiologist's Impression: Radiology results as stated below per my review and the radiologist's interpretation: CT ANGIOGRAM OF THE CHEST CLINICAL HISTORY: Atypical chest pain. COMPARISON STUDY: Chest x-ray dated 12/30/2018. TECHNIQUE: Following the IV administration of 116 cc of Optiray 320, CT angiogram of the chest was performed from the upper abdomen to the thoracic inlet utilizing the pulmonary embolus protocol. Images are reviewed in the axial, sagittal, and coronal planes. 3-D MIPS images are created and assessed. IV contrast was administered without complication. A dose lowering technique was utilized adhering to the principles of ALARA. CT DOSE: 644.62 mGy.cm FINDINGS: Thyroid: Imaged portions of the thyroid gland are normal in size and attenuation. Thoracic aorta: The thoracic aorta is normal in caliber and demonstrates standard 3-vessel arch anatomy. No dissection is seen. Pulmonary vasculature: The pulmonary trunk is normal in caliber. There are no filling defects identified in main, lobar, or segmental pulmonary branches to suggest pulmonary embolus. Heart: The heart is normal in size and without pericardial effusion. Lungs and pleural spaces: There is a 4 mm right upper lobe nodule seen on image #198. There are scattered calcified granulomas. No airspace consolidation or pleural effusion is identified. The trachea and central airways are clear. Mediastinum: There is no mediastinal lymphadenopathy. Georgie: Clear. Axillae: There is no axillary lymphadenopathy. Upper abdomen: Cholecystectomy clips are noted. The liver is enlarged and steatotic. A small hiatal hernia is noted. The spleen is enlarged, measuring 14.6 cm in length. A calcified granuloma is noted in the right hepatic lobe. Skeletal structures: No lytic or blastic bony lesions are seen. IMPRESSION: 1. There is no evidence of pulmonary embolus in the main, lobar, or segmental pulmonary arteries. 2. There is no airspace consolidation or pleural effusion. 3. There is a pathologically indeterminant 4 mm pulmonary nodule in the right upper lobe. This can be followed if clinically warranted. See below. 4. Hepatomegaly and hepatic steatosis. 5. Splenomegaly. Please refer to below summary of Fleischner criteria recommendations for follow- up of incidental CT nodules (Evaristo Couch, Guidelines for management of small pulmonary nodules detected on CT scans: A statement from the Fleischner Society, Radiology 237: [phone].) SOLID NODULES Solitary nodule size: <6 mm * low risk patients: no follow-up needed * high risk patients: optional CT at 12 months Solitary nodule size: 6-8 mm * low risk patients: follow-up at 6-12 months, then consider further follow-up at 18-24 months * high risk patients: initial follow-up CT at 6-12 months and then at 18-24 months if no change Solitary nodule size: >8 mm * either low or high risk patients - consider follow-up CT at 3 months, and/or CT-PET, and/or biopsy Multiple nodules size: <6 mm * low risk patients: no routine follow-up * high risk patients: optional CT at 12 months Multiple nodules size: 6-8 mm * low risk patients: follow-up at 3-6 months, then consider further follow-up at 18-24 months * high risk patients: follow-up at 3-6 months, then at 18-24 months if no change Multiple nodules size: >8 mm * low risk patients: follow-up at 3-6 months, then consider further follow-up at 18-24 months * high risk patients: follow-up at 3-6 months, then at 18-24 months if no change Note: newly detected indeterminate nodule in persons 35 years of age or older. * low risk patients: minimal or absent history of smoking and/or other known risk factors * high risk patients: history of smoking or of other known risk factors (e.g. first degree relative with lung cancer, or exposure to asbestos, radon, uranium) * if a nodule up to 8 mm is partly solid or is ground glass further follow-up is required after 24 months to exclude possible slow growing adenocarcinoma (JAZMÍN) SUBSOLID NODULES Solitary pure ground-glass nodule * nodule size <6 mm - no CT follow-up required * nodule size >=6 mm - follow-up CT at 6-12 months, then every 2 years until 5 years Solitary part-solid nodule * nodule size <6 mm - no CT follow-up required * nodule size >=6 mm - follow-up CT at 3-6 months. If unchanged, and solid component remains <6 mm, then annual follow-up for 5 years Multiple subsolid nodules * nodule size <6 mm - follow-up CT at 3-6 months, consider further follow-up at 2 and 4 years if stable * nodule size >=6 mm - follow-up CT at 3-6 months, subsequent management based on the most suspicious nodule(s) Electronically signed by: Farzad Isidro M.D. 01/06/2019 3:49 PM ECG Data Attestation: I personally reviewed and interpreted this ECG as follows: Indication: chest pain Rate (beats per minute): 82 Rhythm: normal sinus Findings: + other (Normal axis, normal intervals, ); no PVC and no acute ischemic change Blood Pressure Blood Pressure Findings: Normal blood pressure Blood Pressure Disposition: further management by hospitalist [facility] Narrative HEART score 4 Pt here for the 2nd time in two weeks for evaluation of atypical chest pain radiating into back. Pt did follow up with PCP and sucralfate was added to his daily meds given his hx of GERD. No improvement in symptoms. Given risk factors for ACS, persistent pain, labs sent and CT angio performed. Both reassuring. Case discussed with cardiology who recommended additional inpatient evaluation. Pt made aware of all results and recommendation and in agreement with plan. Case discussed with hospitalist for admission. I do not suspect PE, dissection, tamponade, perforation, active GI bleed, pneumonia, effusion. VS stable while in the ER. Impression & Plan Chest pain, GERD (gastroesophageal reflux disease) Discharge Plan Visit Data *Final* Discharge Date/Time: 01/06/19 18:29 Chief Complaint: Chest Pain Stated Complaint: CHEST PAIN, PAIN IN BETWEEN SHOULDERS ED Provider: Pat Bustamante Discharge Problem: Chest pain, GERD (gastroesophageal reflux disease) Patient Disposition: Admitted As Inpatient Condition: Good Discharge Instructions Interventions: ED Discharge Assessment Last Done: 01/06/19 18:29 The scribe's documentation has been prepared under my direction and personally reviewed by me in its entirety. I confirm that the note above accurately reflects all work, treatment, procedures, and medical decision making performed by me.
== END 2019-01-07 16:56 | disposition home or self-care (01) ==
LOC: 2N 13:42 → ED 13:42 → SUATTDRO 18:00 → 2N 18:29

== ENCOUNTER 2019-12-18 09:39 | Observation (INO) ==
--- NOTE | 2019-12-18 09:57 | Emergency Department Note ---
Impression & Plan Transient global amnesia ED Provider Note INFORMANT: Patient ED PROVIDER(S): Chidi Castle MD CHIEF COMPLAINT: Memory loss PLAN: Disposition: admitted Condition: Good MEDICAL DECISION MAKING: Patient presented and was made a stroke alert. He was taken emergently to CT imaging. I did evaluate the patient immediately after CT imaging when he arrived back in his room. The patient had a nonfocal examination however had significant memory impairment to the recent events. He had an unremarkable head CT as well as CT angiography. I did discuss the case with Dr. Cheney of [facility] per protocol. The history seems to be very consistent with possible global amnesia and she was in agreement. The patient is still symptomatic and therefore will be admitted. She recommended a baby aspirin and the patient had already taken this. Consultation was made with the hospitalist service, Dr. Abreu. On reassessment the patient was feeling well however still had memory impairment. I discussed this with the patient and his . I gave my usual and customary discussion regarding this issue. Triage Nursing notes reviewed and agree them. Additional history obtained from the patient's . Vital Signs: reviewed and remarkable for mild hypertension Differential diagnosis: TIA, CVA, TGA, Infection, dehydration, metabolic abnormality, hypo/hyperglycemia, electrolyte disturbance, anemia, hypoxia, cardiac sources, intracerebral event, toxicologic, neurologic, as well as other pathologies. Diagnostics interpreted by me: ECG: Rate: 81 Rhythm:Normal sinus Schwertner:Normal QRS:Normal ST segements:No elevation or depression Other:No PACs or PVCs Cardiac Monitoring:Cardiac monitoring ordered by me: The patient was placed on continuous cardiac monitoring and observed. It revealed a normal sinus rhythm at 84 beats per minute without ectopy or evidence of dysrhythmia. Imaging studies: Chest x-ray. Findings: A chest x-ray was performed and revealed no pneumothorax, effusion, infiltrate, pulmonary edema, free air under the diaphragm, or wide mediastinum. Impression: No acute disease. Head CT: A noncontrast CT scan of the head was performed and was negative for tumor, fracture, intracranial hemorrhage, or other acute pathology. CT angiography of the head and neck did not reveal any acute vessel occlusion, aneurysm or stroke. Consultation(s): Dr. Cheney, [place] tele-stroke Dr. Abreu, [facility] hospitalist HPI: The patient is a 64 year old male who presents to the Emergency Room with complaints of memory loss. This started 0815 and is persisting. The patient also notes the following associated symptoms, headache last night. The patient has found no relieving factors. Current pain is rated as 0/10. noted he was asking questions and couldn't remember details about this week and even events this morning. Woke up today without issues per . Pt denies LOC, headache, fevers, chills, diaphoresis, visual changes, neck pain, chest pain, breathing difficulties, nausea, vomiting, abdominal pain, back pain, melena, hematochezia, urinary symptoms, numbness, weakness, lymphadenopathy, rash, or other complaints. ROS: See above HPI for pertinent positives & negatives. A total of 10 systems reviewed and were otherwise negative. PAST MEDICAL HISTORY:See Below HTN PAST SURGICAL HISTORY:See Below FAMILY HISTORY:See Below SOCIAL HISTORY:See Below HOME MEDICATIONS:See Below ALLERGIES:See Below VITALS:See Below PHYSICAL EXAMINATION: GENERAL: Awake, alert, well appearing, no distress HENT: Normocephalic, atraumatic. Oropharynx unremarkable. EYES: PERRL. EOMI. Normal conjunctiva. Sclera non-icteric. NECK: Supple. Normal inspection. Non-tender. No nuchal rigidity. FROM. No bruit. RESPIRATORY: Breath sounds equal. No wheezes. No rhonchi. Normal respiratory effort. CARDIAC: Normal rate. Regular rhythm. No murmurs. No rubs. No JVD. GI: Soft, non distended. No tenderness to palpation. No rebound or guarding. No masses. RECTAL: Deferred. MUSCULOSKELETAL: Unremarkable. No edema. No discoloration. Gross motor strength symmetric. NEURO: Cranial nerves 2-12 grossly intact. Normal sensorium. No sensory or motor deficits noted. Speech normal. No pronator drift. Normal rapid alternating movements. NML heel to hunter. SKIN: No rash or jaundice noted. LYMPH: No adenopathy. ED COURSE: Critical Care: None Chidi Castle MD Past Med/Surg History Medical History (Updated 12/18/19 @ 18:41 by Chidi Castle MD) Acute kidney injury Chest pain GERD (gastroesophageal reflux disease) High cholesterol Hypertension Peripheral neuropathy Rheumatoid arthritis Type 2 diabetes mellitus Surgical History (Updated 01/06/19 @ 19:44 by Yana Fallon DO) History of appendectomy History of cholecystectomy Hx of cardiac cath Family History Other Myocardial infarction Social History (Updated 01/06/19 @ 19:45 by Yana Fallon DO) Smoking Status: Never smoker Hx Alcohol Use: No Hx Substance Use: No Preferred Language: Citizen Of [place] Communication Ability: Effective Valet Parker Required: No Beliefs That Will Affect Care: None marital status: Current Living Situation: Spouse Current Living Situation Comment: , Evelin current occupational status: employed Other Information That Helps Us Care for You: No Feels Safe at Home: Yes Safety Concerns: Feels Safe At This Time Allergies Allergies Allergy/AdvReac Type Severity Reaction Status Date / Time No Known Allergies Allergy Verified 01/06/19 14:46 Home Meds Home Medications Medication Instructions Recorded Confirmed Spiriva Respimat 2 puff INHALATION QAM 12/30/18 12/18/19 albuterol sulfate [Ventolin HFA] 2 puff INHALATION Q4 PRN 12/30/18 12/18/19 aspirin 81 mg PO QAM 12/30/18 12/18/19 lisinopril 20 mg PO QAM 12/30/18 12/18/19 metoprolol succinate 12.5 mg PO HS 12/30/18 12/18/19 atorvastatin 20 mg PO DAILY 12/18/19 12/18/19 hydroxychloroquine 200 mg PO BID 12/18/19 12/18/19 omeprazole 40 mg PO QAM 12/18/19 12/18/19 Results & Data (ED) Vital Signs Vital Signs - 24 hr 12/18/19 09:44 12/18/19 09:48 12/18/19 10:00 Temperature 37.0 C Temperature Source Oral Pulse Rate 80 Pulse Rate from SpO2 Sensor 93 H Respiratory Rate 18 Respiratory Effort / Characteristics Non-Labored Spontaneous Respiratory Depth Normal Blood Pressure 178/94 H Blood Pressure Mean 122 Blood Pressure Position Sitting Pulse Oximetry 98 97 97 Oxygen Delivery Method Room Air Room Air Sepsis Recent Fever Within 48 Hours No Sepsis New/Unexplained Change in Mental Status No Sepsis Action Taken by Nursing No Action Required 12/18/19 10:02 12/18/19 10:15 12/18/19 10:16 Temperature Temperature Source Pulse Rate 85 70 70 Pulse Rate from SpO2 Sensor 85 73 70 Respiratory Rate 21 22 15 Respiratory Effort / Characteristics Respiratory Depth Blood Pressure 175/101 H 148/85 H Blood Pressure Mean 131 97 Blood Pressure Position Pulse Oximetry 97 98 97 Oxygen Delivery Method Sepsis Recent Fever Within 48 Hours Sepsis New/Unexplained Change in Mental Status Sepsis Action Taken by Nursing 12/18/19 10:30 12/18/19 10:40 12/18/19 10:45 Temperature Temperature Source Pulse Rate 73 93 H 72 Pulse Rate from SpO2 Sensor 74 89 71 Respiratory Rate 19 22 20 Respiratory Effort / Characteristics Respiratory Depth Blood Pressure 148/95 H 141/101 H Blood Pressure Mean 114 106 Blood Pressure Position Pulse Oximetry 97 99 97 Oxygen Delivery Method Sepsis Recent Fever Within 48 Hours Sepsis New/Unexplained Change in Mental Status Sepsis Action Taken by Nursing 12/18/19 10:50 12/18/19 11:00 12/18/19 11:01 Temperature Temperature Source Pulse Rate 76 81 78 Pulse Rate from SpO2 Sensor 76 81 79 Respiratory Rate 18 19 20 Respiratory Effort / Characteristics Respiratory Depth Blood Pressure 152/94 H Blood Pressure Mean 123 Blood Pressure Position Pulse Oximetry 97 93 97 Oxygen Delivery Method Sepsis Recent Fever Within 48 Hours Sepsis New/Unexplained Change in Mental Status Sepsis Action Taken by Nursing 12/18/19 11:10 12/18/19 11:15 12/18/19 11:20 Temperature Temperature Source Pulse Rate 73 83 75 Pulse Rate from SpO2 Sensor 75 82 74 Respiratory Rate 19 16 21 Respiratory Effort / Characteristics Respiratory Depth Blood Pressure 165/100 H Blood Pressure Mean 121 Blood Pressure Position Pulse Oximetry 97 95 97 Oxygen Delivery Method Sepsis Recent Fever Within 48 Hours Sepsis New/Unexplained Change in Mental Status Sepsis Action Taken by Nursing 12/18/19 11:30 12/18/19 11:34 12/18/19 11:35 Temperature Temperature Source Pulse Rate 72 78 71 Pulse Rate from SpO2 Sensor 71 78 73 Respiratory Rate 18 18 16 Respiratory Effort / Characteristics Respiratory Depth Blood Pressure 154/93 H 140/86 Blood Pressure Mean 109 91 Blood Pressure Position Pulse Oximetry 96 96 97 Oxygen Delivery Method Sepsis Recent Fever Within 48 Hours Sepsis New/Unexplained Change in Mental Status Sepsis Action Taken by Nursing 12/18/19 11:40 Temperature Temperature Source Pulse Rate 72 Pulse Rate from SpO2 Sensor 72 Respiratory Rate 16 Respiratory Effort / Characteristics Respiratory Depth Blood Pressure Blood Pressure Mean Blood Pressure Position Pulse Oximetry 96 Oxygen Delivery Method Sepsis Recent Fever Within 48 Hours Sepsis New/Unexplained Change in Mental Status Sepsis Action Taken by Nursing Laboratory Data Result diagrams: 12/18/19 10:04 12/18/19 10:04 Lab Results 12/18/19 12/18/19 12/18/19 Range/Units 10:03 10:03 10:04 WBC (4.8-10.8) K/uL RBC (4.7-6.1) M/uL Hgb (14.0-18.0) g/dL POC Hgb (14.0-18.0) g/dl Hct (42-52) % POC Hct (42-52) % MCV (80-100) fL MCH (25-34) pg MCHC (32-36) g/dL RDW Std Deviation (36.4-46.3) fL RDW Coeff of Alyssa (11.5-14.5) % Plt Count (130-400) K/uL MPV (7.4-10.4) fL Immature Gran % (Auto) % Neut % (Auto) % Lymph % (Auto) % Cameron % (Auto) % Eos % (Auto) % Baso % (Auto) % Neut # (Auto) (1.4-6.5) K/uL Lymph # (Auto) (1.2-3.4) K/uL Cameron # (Auto) (0.11-0.59) K/uL Eos # (Auto) (0-0.5) K/uL Baso # (Auto) (0-0.2) K/uL Immature Gran # (Auto) (0.00-0.02) K/uL PT 11.7 (9.0-12.0) Seconds INR 1.1 (0.9-1.1) APTT 28.8 (21.0-31.0) Seconds PTT Ratio 1.0 POC Sodium (135-144) mmol/L Sodium (136-145) mmol/L POC Potassium (3.3-5.0) mmol/L Potassium (3.5-5.1) mmol/L POC Chloride (101-112) mmol/L Chloride (98-107) mmol/L Carbon Dioxide (21-32) mmol/L POC Total CO2 (24-31) mmol/L Anion Gap (3-11) POC Anion Gap (16-25) mmol/L POC BUN (7-18) mg/dl BUN (7-18) mg/dl Creatinine (0.6-1.4) mg/dl POC Creatinine (0.6-1.3) mg/dl Est Cr Clr Drug Dosing ml/min Est GFR ( Amer) Est GFR (Non-Af Amer) BUN/Creatinine Ratio (10-20) Glucose (70-99) mg/dl POC Glucose 150 H (70-99) mg/dl POC Glucose (other) (70-99) mg/dl Calcium (8.5-10.1) mg/dl POC Ioniz Calcium Maxime (1.12-1.32) mmol/l Magnesium (1.8-2.4) mg/dl Total Bilirubin (0.2-1) mg/dl AST (15-37) U/L ALT (12-78) U/L Alkaline Phosphatase (45-117) U/L Troponin I (0-0.045) ng/ml Total Protein (6.4-8.2) gm/dl Albumin (3.4-5.0) gm/dl Globulin (2.5-4.0) gm/dl Albumin/Globulin Ratio (0.9-2) Urine Color Urine Appearance (Clear) Urine pH (4.5-7.5) Ur Specific [place] (1.000-1.030) Urine Protein (Negative) Urine Glucose (UA) (Negative) Urine Ketones (Negative) Urine Blood (Negative) Urine Nitrite (Negative) Urine Bilirubin (Negative) Urine Urobilinogen (Negative) Ur Leukocyte Esterase (Negative) Blood Type O Positive Antibody Screen NEGATIVE 12/18/19 12/18/19 12/18/19 Range/Units 10:04 10:04 10:14 WBC 6.14 (4.8-10.8) K/uL RBC 5.03 (4.7-6.1) M/uL Hgb 15.5 (14.0-18.0) g/dL POC Hgb 14.6 (14.0-18.0) g/dl Hct 43.1 (42-52) % POC Hct 43 (42-52) % MCV 85.7 (80-100) fL MCH 30.8 (25-34) pg MCHC 36.0 (32-36) g/dL RDW Std Deviation 41.8 (36.4-46.3) fL RDW Coeff of Alyssa 13.4 (11.5-14.5) % Plt Count 110 L (130-400) K/uL MPV 8.5 (7.4-10.4) fL Immature Gran % (Auto) 0.3 % Neut % (Auto) 65.8 % Lymph % (Auto) 23.8 % Cameron % (Auto) 7.8 % Eos % (Auto) 2.0 % Baso % (Auto) 0.3 % Neut # (Auto) 4.04 (1.4-6.5) K/uL Lymph # (Auto) 1.46 (1.2-3.4) K/uL Cameron # (Auto) 0.48 (0.11-0.59) K/uL Eos # (Auto) 0.12 (0-0.5) K/uL Baso # (Auto) 0.02 (0-0.2) K/uL Immature Gran # (Auto) 0.02 (0.00-0.02) K/uL PT (9.0-12.0) Seconds INR (0.9-1.1) APTT (21.0-31.0) Seconds PTT Ratio POC Sodium 138 (135-144) mmol/L Sodium 138 (136-145) mmol/L POC Potassium 4.0 (3.3-5.0) mmol/L Potassium 3.9 (3.5-5.1) mmol/L POC Chloride 100 L (101-112) mmol/L Chloride 105 (98-107) mmol/L Carbon Dioxide 27 (21-32) mmol/L POC Total CO2 24 (24-31) mmol/L Anion Gap 5.0 (3-11) POC Anion Gap 19.0 (16-25) mmol/L POC BUN 10 (7-18) mg/dl BUN 10 (7-18) mg/dl Creatinine 0.99 (0.6-1.4) mg/dl POC Creatinine 0.9 (0.6-1.3) mg/dl Est Cr Clr Drug Dosing 101.0 ml/min Est GFR ( Amer) 94.2 Est GFR (Non-Af Amer) 81.3 BUN/Creatinine Ratio 9.8 L (10-20) Glucose 143 H (70-99) mg/dl POC Glucose (70-99) mg/dl POC Glucose (other) 145 H (70-99) mg/dl Calcium 8.6 (8.5-10.1) mg/dl POC Ioniz Calcium Maxime 1.25 (1.12-1.32) mmol/l Magnesium 1.8 (1.8-2.4) mg/dl Total Bilirubin 0.4 (0.2-1) mg/dl AST 24 (15-37) U/L ALT 42 (12-78) U/L Alkaline Phosphatase 80 (45-117) U/L Troponin I < 0.015 (0-0.045) ng/ml Total Protein 6.8 (6.4-8.2) gm/dl Albumin 3.6 (3.4-5.0) gm/dl Globulin 3.2 (2.5-4.0) gm/dl Albumin/Globulin Ratio 1.1 (0.9-2) Urine Color Urine Appearance (Clear) Urine pH (4.5-7.5) Ur Specific [place] (1.000-1.030) Urine Protein (Negative) Urine Glucose (UA) (Negative) Urine Ketones (Negative) Urine Blood (Negative) Urine Nitrite (Negative) Urine Bilirubin (Negative) Urine Urobilinogen (Negative) Ur Leukocyte Esterase (Negative) Blood Type Antibody Screen 12/18/19 Range/Units 10:15 WBC (4.8-10.8) K/uL RBC (4.7-6.1) M/uL Hgb (14.0-18.0) g/dL POC Hgb (14.0-18.0) g/dl Hct (42-52) % POC Hct (42-52) % MCV (80-100) fL MCH (25-34) pg MCHC (32-36) g/dL RDW Std Deviation (36.4-46.3) fL RDW Coeff of Alyssa (11.5-14.5) % Plt Count (130-400) K/uL MPV (7.4-10.4) fL Immature Gran % (Auto) % Neut % (Auto) % Lymph % (Auto) % Cameron % (Auto) % Eos % (Auto) % Baso % (Auto) % Neut # (Auto) (1.4-6.5) K/uL Lymph # (Auto) (1.2-3.4) K/uL Cameron # (Auto) (0.11-0.59) K/uL Eos # (Auto) (0-0.5) K/uL Baso # (Auto) (0-0.2) K/uL Immature Gran # (Auto) (0.00-0.02) K/uL PT (9.0-12.0) Seconds INR (0.9-1.1) APTT (21.0-31.0) Seconds PTT Ratio POC Sodium (135-144) mmol/L Sodium (136-145) mmol/L POC Potassium (3.3-5.0) mmol/L Potassium (3.5-5.1) mmol/L POC Chloride (101-112) mmol/L Chloride (98-107) mmol/L Carbon Dioxide (21-32) mmol/L POC Total CO2 (24-31) mmol/L Anion Gap (3-11) POC Anion Gap (16-25) mmol/L POC BUN (7-18) mg/dl BUN (7-18) mg/dl Creatinine (0.6-1.4) mg/dl POC Creatinine (0.6-1.3) mg/dl Est Cr Clr Drug Dosing ml/min Est GFR ( Amer) Est GFR (Non-Af Amer) BUN/Creatinine Ratio (10-20) Glucose (70-99) mg/dl POC Glucose (70-99) mg/dl POC Glucose (other) (70-99) mg/dl Calcium (8.5-10.1) mg/dl POC Ioniz Calcium Maxime (1.12-1.32) mmol/l Magnesium (1.8-2.4) mg/dl Total Bilirubin (0.2-1) mg/dl AST (15-37) U/L ALT (12-78) U/L Alkaline Phosphatase (45-117) U/L Troponin I (0-0.045) ng/ml Total Protein (6.4-8.2) gm/dl Albumin (3.4-5.0) gm/dl Globulin (2.5-4.0) gm/dl Albumin/Globulin Ratio (0.9-2) Urine Color Yellow Urine Appearance Clear (Clear) Urine pH 6.0 (4.5-7.5) Ur Specific [place] 1.033 H (1.000-1.030) Urine Protein Negative (Negative) Urine Glucose (UA) Negative (Negative) Urine Ketones Negative (Negative) Urine Blood Negative (Negative) Urine Nitrite Negative (Negative) Urine Bilirubin Negative (Negative) Urine Urobilinogen Negative (Negative) Ur Leukocyte Esterase Negative (Negative) Blood Type Antibody Screen Administered Medications Sodium Chloride (Nss 1000ml) 1,000 mls @ 125 mls/hr IV .Q8H BENITO Stop: 12/18/19 22:14 Last Admin: 12/18/19 14:14 Dose: 125 mls/hr Documented by: [id number] Insulin Aspart (Insulin Aspart 100 Units/Ml 3 Ml Pen) 0 units SC ACHS BENITO Stop: 01/17/20 16:29 Last Admin: 12/18/19 17:22 Dose: Not Given Documented by: [id number] Cosigned by: [id number] Discontinued Medications Aspirin (Aspirin 81 Mg Ectab) 81 mg PO NOW STA Stop: 12/18/19 12:48 Last Admin: 12/18/19 13:20 Dose: Not Given Documented by: [id number] Sodium Chloride (Nss 1000ml) 1,000 mls @ 125 mls/hr IV .Q8H BENITO Stop: 12/18/19 17:59 Last Infusion: 12/18/19 14:09 Dose: 0 mls/hr Documented by: [id number] Admin: 12/18/19 10:37 Dose: 50 mls/hr Documented by: [id number] Ioversol (Optiray 320 125ml) 119 ml IV ONCE ONE Stop: 12/18/19 10:06 Last Admin: 12/18/19 10:06 Dose: 119 ml Documented by: [id number] Lisinopril (Lisinopril 20 Mg Tab) 20 mg PO NOW ONE Stop: 12/18/19 14:16 Last Admin: 12/18/19 16:25 Dose: 20 mg Documented by: [id number] Pantoprazole Sodium (Pantoprazole 40 Mg Tab) 40 mg PO NOW STA Stop: 12/18/19 12:48 Last Admin: 12/18/19 13:24 Dose: 40 mg Documented by: [id number] Discharge Plan Visit Data Chief Complaint: Stroke/CVA Symptoms Stated Complaint: NO MEMORY ED Provider: Chidi Castle Discharge Problem: Transient global amnesia Patient Disposition: Admitted As Inpatient Discharge Instructions Interventions: ED Discharge Assessment Last Done: 12/18/19 13:31
[2019-12-18] MEDS ORDERED: SODIUM CHLORIDE 0.9% 1000ML 1,000 ML IV SCH ×3 (10:00→14:15)
--- NOTE | 2019-12-18 10:04 | CT Scan Report ---
HEAD CT NONCONTRAST CT DOSE: HISTORY: Stroke evaluation TECHNIQUE: Multiaxial CT images of the head were performed without the use of intravenous contrast. A utomated exposure control was utilized for this study. A dose lowering technique was utilized adheri ng to the principles of ALARA. Comparison: None. Findings: Small retention cyst within the left maxillary sinus. The mastoid air cells are clear. The calvarium and skull base are intact. The ventricles and sulci are within normal limits. There is no m ass, hematoma, midline shift, or acute infarct. Impression: No acute intracranial abnormality. ACT 112: Negative or not required by law. Electronically signed by: Skyler Naylor M.D. 12/18/2019 10:03 AM
[2019-12-18] MEDS ORDERED: OPTIRAY 320 125ml IV ONE (10:05)
--- NOTE | 2019-12-18 10:12 | CT Scan Report ---
HEAD & NECK CTA HISTORY: Disorientation. Stroke evaluation TECHNIQUE: Multiaxial CT images of the head were performed following the intravenous administration o f contrast to evaluate the major cerebral vessels. Multiaxial CT images of the neck were also perform ed following the intravenous administration of contrast to evaluate the major cervical vessels. Maxim um intensity projection images were also obtained. A dose lowering technique was utilized adhering to the principles of ALARA. COMPARISON: None. FINDINGS: There is no mass, hematoma, midline shift, or acute infarct. Visualized intracranial internal carotid arteries, distal vertebral arteries, and basilar artery are widely patent. There is no significant s tenosis, occlusion, or aneurysm seen within the bilateral ACAs, MCAs, or facility worker. The major dural venous structures are patent. The aortic arch and proximal great vessels are widely patent. There is no significant stenosis, occ lusion, or dissection identified within the bilateral common carotid, internal carotid, or vertebral arteries. IMPRESSION: 1. No significant stenosis, occlusion, or aneurysm within the [place]. 2. No significant stenosis, occlusion, or dissection identified within the carotid or vertebral arter ies. ACT 112: Negative or not required by law. Electronically signed by: Skyler Naylor M.D. 12/18/2019 10:11 AM
--- NOTE | 2019-12-18 10:12 | CT Scan Report ---
HEAD & NECK CTA HISTORY: Disorientation. Stroke evaluation TECHNIQUE: Multiaxial CT images of the head were performed following the intravenous administration o f contrast to evaluate the major cerebral vessels. Multiaxial CT images of the neck were also perform ed following the intravenous administration of contrast to evaluate the major cervical vessels. Maxim um intensity projection images were also obtained. A dose lowering technique was utilized adhering to the principles of ALARA. COMPARISON: None. FINDINGS: There is no mass, hematoma, midline shift, or acute infarct. Visualized intracranial internal carotid arteries, distal vertebral arteries, and basilar artery are widely patent. There is no significant s tenosis, occlusion, or aneurysm seen within the bilateral ACAs, MCAs, or horse exerciser. The major dural venous structures are patent. The aortic arch and proximal great vessels are widely patent. There is no significant stenosis, occ lusion, or dissection identified within the bilateral common carotid, internal carotid, or vertebral arteries. IMPRESSION: 1. No significant stenosis, occlusion, or aneurysm within the [place]. 2. No significant stenosis, occlusion, or dissection identified within the carotid or vertebral arter ies. ACT 112: Negative or not required by law. Electronically signed by: Skyler Naylor M.D. 12/18/2019 10:11 AM
--- NOTE | 2019-12-18 10:17 | XRay Report ---
XR chest 1V portable HISTORY: Disoriented. Stroke symptoms. COMPARISON: Chest 12/30/2018. FINDINGS: The lungs are clear. Cardiac silhouette is normal in size. No pleural effusions. No pneumot horax. IMPRESSION: No acute process. ACT 112: Negative or not required by law. Electronically signed by: Skyler Naylor M.D. 12/18/2019 10:16 AM
[2019-12-18 10:21] LABS: Basophils # (auto) 0.02 K/uL (0-0.2); Basophils % (auto) 0.3 %; Eosinophils # (auto) 0.12 K/uL (0-0.5); Hematocrit (blood only) 43.1 % (42-52); Hemoglobin 15.5 g/dL (14.0-18.0); Immature Granulocytes # (auto) 0.02 K/uL (0.00-0.02); Immature Granulocytes % (auto) 0.3 %; Lymphocytes # (auto) 1.46 K/uL (1.2-3.4); Lymphocytes % (auto) 23.8 %; Mean Corpuscular Hemoglobin 30.8 pg (25-34); Mean Corpuscular Volume 85.7 fL (80-100); Mean Platelet Volume 8.5 fL (7.4-10.4); Monocytes # (auto) 0.48 K/uL (0.11-0.59); Monocytes % (auto) 7.8 %; Neutrophils # (auto) 4.04 K/uL (1.4-6.5); Neutrophils % (auto) 65.8 %; Platelet Count 110 K/uL (130-400); RDW Coefficient of Variation 13.4 % (11.5-14.5); RDW Standard Deviation 41.8 fL (36.4-46.3); Red Blood Count 5.03 M/uL (4.7-6.1); White Blood Count 6.14 K/uL (4.8-10.8)
[2019-12-18 10:26] LABS: Appearance Urine Clear (Clear); Bilirubin Urine Negative (Negative); Blood Urine Negative (Negative); Color Urine Yellow; Glucose Urine UA Negative (Negative); Ketones Urine Negative (Negative); Leukocyte Esterase Urine Negative (Negative); Nitrite Urine Negative (Negative); Protein Urine Negative (Negative); Specific Gravity Urine 1.033 (1.000-1.030); Urobilinogen Urine Negative (Negative)
[2019-12-18 10:31] LABS: iSTAT Creatinine 0.9 mg/dl (0.6-1.3); iSTAT Hemoglobin 14.6 g/dl (14.0-18.0); iSTAT Ionized Calcium 1.25 mmol/l (1.12-1.32)
[2019-12-18 10:33] LABS: INR 1.1 (0.9-1.1); Partial Thromboplastin Time 28.8 Seconds (21.0-31.0); Prothrombin Time 11.7 Seconds (9.0-12.0)
[2019-12-18 10:42] LABS: Alanine Aminotransferase 42 U/L (12-78); Albumin Level 3.6 gm/dl (3.4-5.0); Aspartate Aminotransferase 24 U/L (15-37); BUN Creatinine Ratio 9.8 (10-20); Blood Urea Nitrogen 10 mg/dl (7-18); Calcium 8.6 mg/dl (8.5-10.1); Carbon Dioxide 27 mmol/L (21-32); Chloride 105 mmol/L (98-107); Est GFR (African American) 94.2; Est GFR (Non-African American) 81.3; Glucose 143 mg/dl (70-99); Magnesium 1.8 mg/dl (1.8-2.4); Potassium 3.9 mmol/L (3.5-5.1); Sodium 138 mmol/L (136-145)
[2019-12-18 10:47] LABS: Albumin Globulin Ratio 1.1 (0.9-2); Alkaline Phosphatase 80 U/L (45-117); Bilirubin,Total 0.4 mg/dl (0.2-1); Globulin 3.2 gm/dl (2.5-4.0); Total Protein 6.8 gm/dl (6.4-8.2); Troponin I < 0.015 ng/ml (0-0.045)
--- NOTE | 2019-12-18 12:11 | History & Physical Report ---
Date of Service December 18, 2019 Assessment & Plan (1) Transient global amnesia: MRI Brain w/wo IV contrast Expected resolution of symptoms within 24 hours Avoid sedating anti-histamines and phenylephrine/pseudoephedrine Discussed with Dr Mckeon - if MRI shows no acute pathology he can follow up outpatient (patient already has a [facility] neurology appointment in December for peripheral neuropathy). (2) Type 2 diabetes mellitus: Borderline on HbA1c 6.5 in December 2018. Type II diabetic diet BSG AC at bedtime with NovoLog for correction only. (3) Hypertension: Continue lisinopril 20 mg p.o. daily, metoprolol succinate 12.5 mg p.o. at bedtime with hold parameters. (4) High cholesterol: Continue atorvastatin 20 mg p.o. daily. (5) GERD (gastroesophageal reflux disease): Switch omeprazole for pantoprazole as per hospital formulary. (6) Peripheral neuropathy: Workup pending for this. He is recently diagnosed borderline diabetic however unlikely to explain acuity of his symptoms ?rheumatoid arthritis. Follow-up with neurology outpatient. (7) Tension headache: "Sinus" headaches appear more consistent with tension with associated neck pain. No current headache on admission. No history of migraines and this headache last night does not appear consistent with migraine. (8) DVT prophylaxis: Not indicated given observation status and patient mobile Admission and Anticipated Discharge Date Admission Date: 12/18/2019 History of Present Illness Chief Complaint: Amnesia Primary Care Provider: ELAINE Davila Kali Ellis is a 64 year old male who presents to the ER with loss of memory for the last week. Occurred suddenly this morning around 8:15am. Found by his confused about a car appointment he didn't remember making. Rapid p rogression to the point where he was unable to remember what he was doing in the previous minutes. Appeared to get increasingly confused. He thinks he took his meds this morning but his found his pill packet and he had not taken them for that day. No extremity weakness, facial droop, change in speech, vision, hearing. No history of migraines but had headache last night and took a cold and flu tablet containing doxylamine and phenylephrine. His reports he gets these " sinus headaches" across the front of his head very intermittently. Recent history of peripheral neuropathy for which she has an appointment in December to see a neurologist for further work-up of this. Unknown work-up so far. He also has a recent diagnosis of rheumatoid arthritis and was started on hydroxychloroquine in August. Allergies Allergy/AdvReac Type Severity Reaction Status Date / Time No Known Allergies Allergy Verified 01/06/19 14:46 Home Medications Home Medications Medication Instructions Recorded Confirmed Type Spiriva Respimat 2 puff INHALATION QAM 12/30/18 12/18/19 History albuterol sulfate [Ventolin HFA] 2 puff INHALATION Q4 PRN 12/30/18 12/18/19 History aspirin 81 mg PO QAM 12/30/18 12/18/19 History lisinopril 20 mg PO QAM 12/30/18 12/18/19 History metoprolol succinate 12.5 mg PO HS 12/30/18 12/18/19 History atorvastatin 20 mg PO DAILY 12/18/19 12/18/19 History hydroxychloroquine 200 mg PO BID 12/18/19 12/18/19 History omeprazole 40 mg PO QAM 12/18/19 12/18/19 History Past Med/Surg History Medical History Acute kidney injury Chest pain GERD (gastroesophageal reflux disease) High cholesterol Hypertension Peripheral neuropathy Rheumatoid arthritis Type 2 diabetes mellitus Surgical History History of appendectomy History of cholecystectomy Hx of cardiac cath Family History Other Myocardial infarction Social History Smoking Status: Never smoker Hx Alcohol Use: No Hx Substance Use: No Preferred Language: Bulgarian Communication Ability: Effective Client Liaison Required: No Beliefs That Will Affect Care: None marital status: Current Living Situation: Spouse Current Living Situation Comment: , Evelin current occupational status: employed Other Information That Helps Us Care for You: No Feels Safe at Home: Yes Safety Concerns: Feels Safe At This Time Review of Systems Review of Systems: All systems reviewed & are unremarkable except as noted in HPI & below Physical Exam 2 Constitutional: well developed and well nourished; no acute distress Eyes: PERRL, conjunctivae normal, anicteric sclerae EOM intact bilaterally; no nystagmus ENMT: external ear and nose normal, oropharynx normal Ears: no TM abnormali ty Neck: trachea midline, no thyromegaly Respiratory: normal respiratory effort, lungs clear to auscultation Cardiovascular: RRR, no murmur, no edema Gastrointestinal (Abdomen): normal bowel sounds, soft, nontender, no hepatosplenomegaly Musculoskeletal: no cyanosis or clubbing, extremities motor strength 5/5 Skin: no rashes, warm and dry Neurologic: deep tendon reflexes 2+ bilaterally, moves all extremities and awake; no focal motor deficits and not confused Speech / Cognition: normal speech Motor/Sensory: + sensory deficit (Stocking distribution numbness in his toes bilaterally); no tremor and no pronator drift Cranial Nerves: PERRL, EOM intact bilaterally, normal facial strength, tongue midline, normal hearing, able to rotate head bilaterally, able to elevate shoulders bilaterally, no nystagmus and symmetric palate elevation Coordination: normal kufyfy-oc-mivm test and normal fiyv-ns-rqcq test Psychiatric: A+Ox3, euthymic affect Cognition: remote memory grossly intact; + recent memory not intact Genitourinary: no CVA tenderness Lymphatic: no cervical or axillary lymphadenopathy Results & Data Results & Data ([facility]) Vital Signs (Past 12 Hours) Vital Signs Temp Pulse Resp BP Pulse Ox 12/18/19 11:40 72 16 96 12/18/19 11:35 71 16 140/86 97 12/18/19 11:34 78 18 96 12/18/19 11:30 72 18 154/93 H 96 12/18/19 11:20 75 21 97 12/18/19 11:15 83 16 165/100 H 95 12/18/19 11:10 73 19 97 12/18/19 11:01 78 20 97 12/18/19 11:00 81 19 152/94 H 93 12/18/19 10:50 76 18 97 12/18/19 10:45 72 20 141/101 H 97 12/18/19 10:40 93 H 22 99 12/18/19 10:30 73 19 148/95 H 97 12/18/19 10:16 70 15 148/85 H 97 12/18/19 10:15 70 22 98 12/18/19 10:02 85 21 175/101 H 97 12/18/19 10:00 97 12/18/19 09:48 97 12/18/19 09:44 37.0 C 80 18 178/94 H [address] NONCONTRAST Impression: No acute intracranial abnormality. HEAD & NECK CTA IMPRESSION: 1. No significant stenosis, occlusion, or aneurysm within the [place]. 2. No significant stenosis, occlusion, or dissection identified within the carotid or vertebral arteries. XR chest 1V portable IMPRESSION: No acute process. ECG Indication: altered mental status Rate (beats per minute): 81 Rhythm: normal sinus Findings: no acute ischemic change Comparison ECG Date: from (January 06, 2019) Change: no significant change Code Status & VTE Plan Code Status Full VTE Prophylaxis Plan VTE Prophylaxis will be ordered: No PG Care Time/CCT Total # of Minutes Spent Total Time Spent with Patient: Total time spent is greater than 50% in coordination of care (as documented) at patient's floor/unit and/or counseling patient: Coding Level of Care Code 37889 OBS Care - Level 3 Diagnoses Transient global amnesia G45.4 Type 2 diabetes mellitus E11.9 Hypertension I10 Hypertension type: essential hypertension High cholesterol E78.00 GERD (gastroesophageal reflux disease) K21.9 Peripheral neuropathy G62.9 Tension headache G44.209 DVT prophylaxis Z29.9 (1) Hypertension Hypertension type: essential hypertension Qualified Code(s): I10 - Essential (primary) hypertension
[2019-12-18] MEDS ORDERED: PANTOprazole 40 MG TAB PO STA (12:47)
[2019-12-18] MEDS ORDERED: ASPIRIN 81 MG ECTAB PO STA (12:47)
[2019-12-18] MEDS ORDERED: DEXTROSE 50% 50 ML SYRINGE IV PRN (14:04)
[2019-12-18] MEDS ORDERED: CARBOHYDRATES FOR HYPOGLYCEMIA PO PRN (14:04)
[2019-12-18] MEDS ORDERED: GLUCAGON FOR INJ 1 MG VIAL SQ PRN (14:04)
[2019-12-18] MEDS ORDERED: GLUCOSE 40% GEL 15 GM TUBE PO PRN (14:04)
[2019-12-18] MEDS ORDERED: GLUCOSE 10 TABS/TUBE PO PRN (14:04)
[2019-12-18] MEDS ORDERED: POLYETHYLENE (MIRALAX) 17 GM PACK PO PRN (14:04)
[2019-12-18] MEDS ORDERED: ALUMINUM/MAGNESIUM SUSP 30 ML UDC PO PRN (14:04)
[2019-12-18] MEDS ORDERED: lisinopriL 20 MG TAB PO ONE (14:15)
[2019-12-18] MEDS: INSULIN ASPART 100 UNITS/ML 3 ML PEN SC SCH ×2 (17:22→21:06)
[2019-12-18] MEDS: HYDROXYCHLOROQUINE SULFATE 200 MG TAB PO SCH (20:20)
[2019-12-18] MEDS: ACETAMINOPHEN 325 MG TAB PO PRN (20:20)
[2019-12-18] MEDS ORDERED: METOPROLOL SUCC 25MG EXT REL TAB PO SCH (21:00)
[2019-12-18] MEDS ORDERED: GABAPENTIN 100 MG CAP PO STA (22:40)
[2019-12-18] MEDS ORDERED: SODIUM CHLORIDE 0.9% 1000ML 1,000 ML IV ONE (22:42)
[2019-12-18] MEDS ORDERED: IBUPROFEN 200 MG TAB PO STA (22:42)
[2019-12-19] MEDS: LACTATED RINGER'S 1,000 ML IV SCH ×2 (00:28→07:59)
[2019-12-19 06:12] LABS: Hematocrit (blood only) 41.8 % (42-52); Hemoglobin 14.5 g/dL (14.0-18.0); Mean Corpuscular Hemoglobin 30.5 pg (25-34); Mean Corpuscular Hgb Conc 34.7 g/dL (32-36); Mean Platelet Volume 8.6 fL (7.4-10.4); Platelet Count 110 K/uL (130-400); RDW Coefficient of Variation 13.4 % (11.5-14.5); RDW Standard Deviation 43.2 fL (36.4-46.3); Red Blood Count 4.75 M/uL (4.7-6.1)
[2019-12-19 06:52] LABS: Albumin Globulin Ratio 1.2 (0.9-2); Albumin Level 3.3 gm/dl (3.4-5.0); BUN Creatinine Ratio 13.4 (10-20); Bilirubin,Total 0.8 mg/dl (0.2-1); Calcium 8.2 mg/dl (8.5-10.1); Creatinine Clr Calc Pharmacy 116.4 ml/min; Est GFR (African American) 107.7; Est GFR (Non-African American) 92.9; Globulin 2.8 gm/dl (2.5-4.0); Potassium 3.8 mmol/L (3.5-5.1); Total Protein 6.1 gm/dl (6.4-8.2)
[2019-12-19 07:05] LABS: Thyroid Stimulating Hormone 2.3 uIu/ml (0.300-4.500)
[2019-12-19] MEDS: HYDROXYCHLOROQUINE SULFATE 200 MG TAB PO SCH (07:57)
[2019-12-19] MEDS: ACETAMINOPHEN 325 MG TAB PO PRN (07:57)
[2019-12-19] MEDS: INSULIN ASPART 100 UNITS/ML 3 ML PEN SC SCH ×2 (08:36→12:30)
--- NOTE | 2019-12-19 08:55 | XRay Report ---
XR chest 1V portable CLINICAL HISTORY: SOB, Hypoxia COMPARISON STUDY: Chest CT January 06, 2019. Chest radiograph December 18, 2019. FINDINGS: Lung volumes are normal. Lungs are clear. There is no pneumothorax or pleural effusion. Car diac size is normal. Mediastinal contours are normal. There is no evidence for pulmonary edema. IMPRESSION: No acute cardiopulmonary findings. ACT 112: Negative or not required by law. Electronically signed by: Shivam Wylie M.D. 12/19/2019 8:53 AM
[2019-12-19] MEDS ORDERED: ATORVASTATIN 20 MG TAB PO SCH (09:00)
[2019-12-19] MEDS ORDERED: lisinopriL 20 MG TAB PO SCH (09:00)
[2019-12-19] MEDS ORDERED: PANTOprazole 40 MG TAB PO SCH (09:00)
[2019-12-19] MEDS ORDERED: ASPIRIN 81 MG ECTAB PO SCH (09:00)
[2019-12-19] MEDS ORDERED: LORazepam 0.5 MG/1 ML VIAL IV STA (10:34)
[2019-12-19] MEDS ORDERED: OXYCODONE HCL IR 5 MG TAB (IMMEDIATE RELEASE) PO PRN (10:34)
[2019-12-19] MEDS ORDERED: ONDANSETRON 4 MG OD TAB PO PRN (10:36)
[2019-12-19] MEDS ORDERED: GADOBUTROL 30ML VIAL IV ONE (11:25)
--- NOTE | 2019-12-19 11:40 | Magnetic Resonance Report ---
MRI OF THE BRAIN WITHOUT AND WITH IV CONTRAST CLINICAL HISTORY: Transient global amnesia, ?temporal lobe pathology COMPARISON STUDY: Head CT and CTA of the head December 18, 2019. TECHNIQUE: Utilizing a 1.5 Tova magnet and dedicated coil, multiplanar, multiecho imaging of the br ain was performed pre and postcontrast administration. IV administration of 11 mL of [address] contra st was uneventful. FINDINGS: There are no foci of restricted diffusion to suggest acute infarct. No acute intracranial m idline shift or mass effect is present. Brain findings normal. Ventricular system is normal. Basilar cisterns are patent. There are no extra-axial collections. Flow-voids for the major intracranial vess els are present. There is no intracranial mass or pathologic enhancement. A few punctate white matter T2 hyperintense foci within the bilateral frontal lobes suggest minimal small vessel disease. Calvar ial signal is normal. Orbits are unremarkable. Mucous retention cysts within left maxillary and front al sinuses are incidentally noted. IMPRESSION: 1. No acute intracranial findings. 2. No intracranial masses or pathologic enhancement. 3. Unremarkable MRI of the brain. A few punctate white matter T2 hyperintense foci which suggest mini mal small vessel disease. ACT 112: Negative or not required by law. Electronically signed by: Shivam Wylie M.D. 12/19/2019 11:39 AM
[2019-12-19] MEDS ORDERED: SODIUM CHLORIDE 0.65% NA SOLN 45 ML (OCEAN) ONE (12:12)
--- NOTE | 2019-12-19 14:44 | Discharge Summary ---
Date of Service December 19, 2019 Admission HPI Per Admitting Provider Kali Ellis is a 64 year old male who presents to the ER with loss of memory for the last week. Occurred suddenly this morning around 8:15am. Found by his confused about a car appointment he didn't remember making. Rapid progression to the point where he was unable to remember what he was doing in the previous minutes. Appeared to get increasingly confused. He thinks he took his meds this morning but his found his pill packet and he had not taken them for that day. No extremity weakness, facial droop, change in speech, vision, hearing. No history of migraines but had headache last night and took a cold and flu tablet containing doxylamine and phenylephrine. His reports he gets these " sinus headaches" across the front of his head very intermittently. Recent history of peripheral neuropathy for which she has an appointment in December to see a neurologist for further work-up of this. Unknown work-up so far. He also has a recent diagnosis of rheumatoid arthritis and was started on hydroxychloroquine in August. Admission Exam Per Admitting Provider Constitutional: well developed and well nourished; no acute distress Eyes: PERRL, conjunctivae normal, anicteric sclerae EOM intact bilaterally; no nystagmus ENMT: external ear and nose normal, oropharynx normal Ears: no TM abnormality Neck: trachea midline, no thyromegaly Respiratory: normal respiratory effort, lungs clear to auscultation Cardiovascular: RRR, no murmur, no edema Gastrointestinal (Abdomen): normal bowel sounds, soft, nontender, no hepatosplenomegaly Musculoskeletal: no cyanosis or clubbing, extremities motor strength 5/5 Skin: no rashes, warm and dry Neurologic: deep tendon reflexes 2+ bilaterally, moves all extremities and awake; no focal motor deficits and not confused Speech / Cognition: normal speech Motor/Sensory: + sensory deficit (Stocking distribution numbness in his toes bilaterally); no tremor and no pronator drift Cranial Nerves: PERRL, EOM intact bilaterally, normal facial strength, tongue midline, normal hearing, able to rotate head bilaterally, able to elevate shoulders bilaterally, no nystagmus and symmetric palate elevation Coordination: normal msluel-fx-jybg test and normal quzu-hq-qvdz test Psychiatric: A+Ox3, euthymic affect Cognition: remote memory grossly intact; + recent memory not intact Genitourinary: no CVA tenderness Lymphatic: no cervical or axillary lymphadenopathy Principal Diagnosis Transient amnesia versus migraine versus tension headache Discharge Exam GENERAL : No acute distress. Sitting in bedside chair. No slurred speech. EYES: No icterus, gaze conjugate. Pupils equal round and reactive to light. No extraocular movement. NOSE: No evidence of epistaxis MOUTH: No lesions or candidiasis. Tongue midline. No facial droop. NECK: Supple. No carotid bruits appreciated LUNGS: CTA B/L, no wheezes, rales or rhonchi HEART: Regular, rate controlled. No appreciation of ectopic beats ABDOMEN: Soft, NT, ND, BS Present EXTREMITIES: No LE edema, pedal pulses intact. NEURO: A&OX3. No trauma to the head. Pupils equal round and react to light. Extraocular movement intact. Cerebellar function intact with wqjibs-oc-fdag rapid alternating movements and jijn-ik-lcub. No facial droop or slurred speech. Tongue is midline. Strength is equal and appropriate bilaterally upper and lower extremities. Negative pronator drift. Toes are downgoing bilaterally. No focal deficits appreciated. Discharge Data Allergies Allergy/AdvReac Type Severity Reaction Status Date / Time No Known Allergies Allergy Verified 01/06/19 14:46 Consultations 12/18/19 14:22 ED Decision to Admit Stat Ordered Studies 12/18/19 09:48 CT angio head w con Stat CT angio neck with con Stat HEAD & NECK CTA HISTORY: Disorientation. Stroke evaluation TECHNIQUE: Multiaxial CT images of the head were performed following the intravenous administration of contrast to evaluate the major cerebral vessels. Multiaxial CT images of the neck were also performed following the intravenous administration of contrast to evaluate the major cervical vessels. Maximum intensity projection images were also obtained. A dose lowering technique was utilized adhering to the principles of ALARA. COMPARISON: None. FINDINGS: There is no mass, hematoma, midline shift, or acute infarct. Visualized intracranial internal carotid arteries, distal vertebral arteries, and basilar artery are widely patent. There is no significant stenosis, occlusion, or aneurysm seen within the bilateral ACAs, MCAs, or sportspersons. The major dural venous structures are patent. The aortic arch and proximal great vessels are widely patent. There is no significant stenosis, occlusion, or dissection identified within the bilateral common carotid, internal carotid, or vertebral arteries. IMPRESSION: 1. No significant stenosis, occlusion, or aneurysm within the [place] of [place]. 2. No significant stenosis, occlusion, or dissection identified within the carotid or vertebral arteries. ACT 112: Negative or not required by law. Electronically signed by: Skyler Naylor M.D. 12/18/2019 10:[address] head/brain wo con Stat HEAD CT NONCONTRAST CT DOSE: HISTORY: Stroke evaluation TECHNIQUE: Multiaxial CT images of the head were performed without the use of intravenous contrast. Automated exposure control was utilized for this study. A dose lowering technique was utilized adhering to the principles of ALARA. Comparison: None. Findings: Small retention cyst within the left maxillary sinus. The mastoid air cells are clear. The calvarium and skull base are intact. The ventricles and sulci are within normal limits. There is no mass, hematoma, midline shift, or acute infarct. Impression: No acute intracranial abnormality. Electronically signed by: Skyler Naylor M.D. 12/18/2019 10:03 AM 12/19/19 09:00 MR brain wo/w con Routine MRI OF THE BRAIN WITHOUT AND WITH IV CONTRAST CLINICAL HISTORY: Transient global amnesia, ?temporal lobe pathology COMPARISON STUDY: Head CT and CTA of the head December 18, 2019. TECHNIQUE: Utilizing a 1.5 Tova magnet and dedicated coil, multiplanar, multiecho imaging of the brain was performed pre and postcontrast administration. IV administration of 11 mL of Gadavist contrast was uneventful. FINDINGS: There are no foci of restricted diffusion to suggest acute infarct. No acute intracranial midline shift or mass effect is present. Brain findings normal. Ventricular system is normal. Basilar cisterns are patent. There are no extra-axial collections. Flow-voids for the major intracranial vessels are present. There is no intracranial mass or pathologic enhancement. A few punctate white matter T2 hyperintense foci within the bilateral frontal lobes suggest minimal small vessel disease. Calvarial signal is normal. Orbits are unremarkable. Mucous retention cysts within left maxillary and frontal sinuses are incidentally noted. IMPRESSION: 1. No acute intracranial findings. 2. No intracranial masses or pathologic enhancement. 3. Unremarkable MRI of the brain. A few punctate white matter T2 hyperintense foci which suggest minimal small vessel disease. Electronically signed by: Shivam Wylie M.D. 12/19/2019 11:39 AM 12/19/19 05:15 12/19/19 05:15 Diabetes Follow up Patient that he follows regularly with his PCP Hospital Course (1) Transient global amnesia: There is a 64-year-old male that presented yesterday for transient amnesia. His noticed that he was forgetful about things he done in the morning. She also reports that he forgot what he did earlier in the week. Apparently he drove to get a registration card for his car for inspection and then noticed the cart on the table and could not remember where it came from. Today the patient is completely resolved of all symptoms. He does have a headache but this is improved. He denies history of migraine, seizures, dementia, Parkinson's, other neurological dysfunction. He reports that he does have a neurology appointment set up in [place] for Friday but would prefer to see a neurologist with the [facility]. He has no other acute complaints today. Patient had full imaging with a CT of the head, CTA of the head, CTA of the neck, and brain MRI which were all negative for acute findings. There is no evidence of mass-effect or midline shift. There is no evidence of bleeding. There is no evidence of early dementia. We discussed the possibility of seizures versus migraine versus other etiologies. At this time the patient would like to be discharged home and follow-up as an outpatient with neurology We will attempt to get the patient an appointment [place] [facility] [place]. In the event that we cannot get an appointment early this week, patient does already have an appointment set up in [place] with Femi [place]. In the meantime I have instructed the patient not to drive, operate any power equipment, and not to work until seen by neurology and cleared (2) Peripheral neuropathy: Patient does have rheumatoid arthritis as well as diabetes mellitus type 2. He had previously been scheduled a neurology appointment for this coming 12/21/2019 with [facility] and [place] Patient would prefer to follow with neurology here in [place] We will attempt to get an outpatient appointment as a new patient. (3) Type 2 diabetes mellitus: Hemoglobin A1c is 6.5 Recommend patient to follow-up with primary care as he may benefit from oral control Glucose is fairly well controlled now with a high of 154 this hospital stay. He is trending between 107 and 129 Continue diabetic diet (4) Hypertension: Continue lisinopril and metoprolol succinate on discharge (5) GERD (gastroesophageal reflux disease): Continue omeprazole 40 mg p.o. daily (6) Rheumatoid arthritis: Continue Plaquenil Continue follow-up with outpatient mental retardation aide Total Time Total Time Spent Total Time Spent (In Minutes): 60 Total Time Includes: Examination of the Patient, Discharge Planning, Medication Reconciliation and Communication With Other Providers Discharge Plan Discharge Items Patient Disposition: Home - Self-Care Reason For Visit: TRANSIENT GLOBAL AMNESIA Discharge Diagnosis: Transient amnesia, atypical migraine, tension headache Condition on Discharge: Good Activity: As commented below Activity Comment: No driving, operating equipment, work until cleared by neurology Lifting: Gradually increase as tolerated Bathing: No limitations Sexual Activity: When tolerated Exercise/Sports: Gradually increase as tolerated Driving/Machine Use: Until cleared with neurology Weightbearing: Full weightbearing Non-emergency contact: Primary Care Provider and Neurologist Call non-emergency contact if: your pain is worsening, your pain is concerning for you and your temperature is above 101.5 Follow-up/Referrals: Catalina Mccollum CRNP [Primary Care Provider] - Diet: Carb Consistent or DM2 and Heart Healthy Addtl Attending Provider Instructions: No driving, operating equipment, work until cleared by neurology Pending Studies at Discharge: No Stand-Alone Forms: My [facility], Work/School Release (Inpt) Medications and DC Order Prescriptions: Continued hydroxychloroquine 200 mg Tablet 200 mg PO BID RF: 0 atorvastatin 20 mg tablet 20 mg PO DAILY RF: 0 omeprazole 20 mg capsule,delayed release(DR/EC) 40 mg PO QAM RF: 0 lisinopril 20 mg tablet 20 mg PO QAM RF: 0 aspirin 81 mg Tablet,Delayed Release (Dr/Ec) 81 mg PO QAM RF: 0 metoprolol succinate 25 mg tablet extended release 24 hr 12.5 mg PO HS RF: 0 albuterol sulfate [Ventolin HFA] 90 mcg/actuation Hfa Aerosol Inhaler 2 puff INHALATION Q4 PRN (Reason: Shortness Of Breath Or Wheezing) RF: 0 Spiriva Respimat 2.5 mcg/actuation mist 2 puff inhalation QAM RF: 0 Discharge Orders: Discharge Order (Routine); Ordered 12/19/19 Ordered By: Farzad Marsh Admission Data Admit Date/Time: 12/18/19 12:04 Attending Provider: Tye Abreu Admit Provider: Tye Abreu Primary Care Provider: Catalina Mccollum Other Providers: Tye Abreu Other Interventions: Discharge Summary Assessment (RN) Last Done: 12/19/19 14:41 Supervising Physician Co-Signing Physician Notes During my face to face encounter with the patient, I discussed discharge plan with the patient and performed a physical examination. Patient had no further questions. I reviewed above document and agree with it after discussing case with Farzad GODWIN. Patient was evaluated for global transient amnesia. Imaging was negative. Patient will be evaluated by [facility] [place]. Coding Level of Care Code Admit/DC Same Day >8hr Level 3 Diagnoses Transient global amnesia G45.4 Peripheral neuropathy G62.9 Type 2 diabetes mellitus E11.9 Hypertension I10 Hypertension type: essential hypertension GERD (gastroesophageal reflux disease) K21.9 Rheumatoid arthritis M06.9 Time Spent (min) 60
[2019-12-20 07:52] LABS: Estimated Average Glucose 114 mg/dl; Hemoglobin A1C 5.6 % (4.5-5.6)
--- NOTE | 2019-12-20 09:06 | Electrocardiogram Report ---
Test Reason : Blood Pressure : / mmHG Vent. Rate : 081 BPM Atrial Rate : 082 BPM P-R Int : 146 ms QRS Dur : 094 ms QT Int : 346 ms P-R-T Axes : 048 -06 048 degrees QTc Int : 401 ms Normal sinus rhythm Normal ECG When compared with ECG of 06-JAN-2019 13:47, No significant change was found Confirmed by James Irene ([id number]) on 12/20/2019 9:05:58 AM Referred By: REFERRED SELF Confirmed By:James Irene
== END 2019-12-19 15:31 | disposition home or self-care (01) ==
LOC: ED 09:39 → 2N 09:39

== ENCOUNTER 2021-06-25 10:15 | Observation (INO) ==
[2021-06-25 10:49] LABS: Basophils # (auto) 0.02 K/uL (0-0.2); Basophils % (auto) 0.3 %; Eosinophils # (auto) 0.08 K/uL (0-0.5); Eosinophils % (auto) 1.2 %; Hematocrit (blood only) 43.8 % (42-52); Hemoglobin 15.6 g/dL (14.0-18.0); Immature Granulocytes # (auto) 0.02 K/uL (0.00-0.02); Immature Granulocytes % (auto) 0.3 %; Lymphocytes % (auto) 22.8 %; Mean Corpuscular Hemoglobin 30.8 pg (25-34); Mean Corpuscular Hgb Conc 35.6 g/dL (32-36); Mean Corpuscular Volume 86.6 fL (80-100); Mean Platelet Volume 8.5 fL (7.4-10.4); Monocytes % (auto) 9.1 %; Neutrophils # (auto) 4.37 K/uL (1.4-6.5); Neutrophils % (auto) 66.3 %; Platelet Count 137 K/uL (130-400); RDW Coefficient of Variation 13.4 % (11.5-14.5); RDW Standard Deviation 42.5 fL (36.4-46.3); Red Blood Count 5.06 M/uL (4.7-6.1); White Blood Count 6.59 K/uL (4.8-10.8)
[2021-06-25] MEDS ORDERED: NITROGLYCERIN 2% OINTMENT 30GM TUBE EXT STA (10:56)
[2021-06-25] MEDS ORDERED: ASPIRIN CHEW 324 MG PO STA (10:56)
--- NOTE | 2021-06-25 11:04 | XRay Report ---
XR chest 1V portable HISTORY: Atypical Chest Pain COMPARISON: Chest 06/14/2021. FINDINGS: The lungs are clear. Cardiac silhouette is normal in size. No pleural effusions. No pneumot horax. IMPRESSION: No acute process. ACT 112: Negative or not required by law. Electronically signed by: Skyler Naylor M.D. 06/25/2021 11:02 AM
[2021-06-25 11:05] LABS: INR 1.1 (0.9-1.1); Partial Thromboplastin Ratio 1.2; Partial Thromboplastin Time 30.8 Seconds (21.0-31.0); Prothrombin Time 10.9 Seconds (9.0-12.0)
--- NOTE | 2021-06-25 11:05 | Emergency Department Note ---
Impression & Plan Precordial chest pain, SOB (shortness of breath) ED Provider Note NAME: YESICA COFFEY AGE: 66 SEX: M : 1955 ARRIVES VIA: Walk-In INFORMANT: [Patient] ED PROVIDER(S): [Farzad Sorenson MD] CHIEF COMPLAINT: Cardiac assessment HISTORY OF PRESENT ILLNESS: The patient is a 66-year-old male who has been dealing with intermittent chest pain for weeks. He was in our ED about a week and a half ago and things were okay. He presents back today with the same symptoms. Patient has intermittent central chest pain which radiates to his left arm. He feels a bit short of breath and a bit nauseated with it. The pain comes on at a 4 on a scale of 1- 10. The pain lasts for an hour or so then seems up to subside on its own. He does not notice it with exertion, he has no known coronary disease. He did have a cardiac catheterization in 2018. He has had some stress tests since and has done well. The patient was referred in for a recheck today. He states that his doctor has been trying to schedule a stress test but, he still does not have anything pending. REVIEW OF SYSTEMS: See HPI for pertinent positives and negatives. A total of ten systems were reviewed and were otherwise negative. PMHx/PSHx: See Below SOCIAL HISTORY: See Below. PHYSICAL EXAM: GENERAL: Patient is in no acute distress. HEENT: No acute trauma, normocephalic atraumatic, mucous membranes moist, no nasal congestion, no scleral icterus. NECK: No stridor, no adenopathy, no meningismus, trachea is midline. LUNGS: Clear to auscultation bilaterally, no wheeze, no rhonchi, breath sounds equal. Chest: Nontender chest wall. HEART: Without murmurs gallops or rubs, regular rate and rhythm. ABDOMEN: Soft, nontender, bowel sounds positive, no hernias, no peritonitis. EXTREMITIES: No cyanosis or edema, full range of motion of all the joints without pain or difficulty, no signs for acute trauma. NEUROLOGIC: Oriented x 3, no acute motor or sensory deficits, no focal weakness. SKIN: No rash, no jaundice, no diaphoresis. DIFFERENTIAL DIAGNOSIS: Cardiac ischemia, aortic dissection, pulmonary embolism, pneumothorax, pneumonia, pericarditis, myocarditis, esophageal rupture, GERD, cholecystitis, pancreatitis, musculoskeletal, as well as other pathologies. EMERGENCY DEPARTMENT COURSE/PROCEDURES: ECG: Indication was chest pain. The ECG shows a normal sinus rhythm with a rate of 80. There is no ST elevation, no PVCs. The QTc is 396. Continuous Cardiac Monitoring: An order was placed for continuous cardiac monitoring. The monitor shows a rate of 99 with normal sinus rhythm. MEDICAL DECISION MAKING: There is no leukocytosis or concerning anemia. There is a normal platelet count. No coagulopathy. No significant electrolyte abnormality or kidney failure. No concerning liver enzyme elevation. ECG shows a normal sinus rhythm, no obvious ischemia. Cardiac enzyme testing x1 is not consistent with acute cardiac injury. Covid testing is negative. Chest film does not show mediastinal widening, pneumonia or pneumothorax. On exam, the chest pain was not reproducible with palpation. The patient was given oral aspirin, nitroglycerin paste. The Nitropaste helped his pain some but the pain did not completely resolve. I spoke with cardiology. The patient deserves a cardiac work-up/hospital stay. He will likely require a stress test and/or potentially a cardiac catheterization. I spoke with the patient about his findings, case management has been involved. The on-call hospitalist was consulted. 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 Emphysema, unspecified GERD (gastroesophageal reflux disease) Hyperlipidemia Hypertension IBS (irritable bowel syndrome) IFG (impaired fasting glucose) Peripheral neuropathy Pulmonary nodule Rheumatoid arthritis Rupture of left rectus femoris tendon Surgical History History of appendectomy History of cholecystectomy Hx of cardiac cath S/P repair of hydrocele Status post surgery (2009) TUNA procedure, Dr Swanson Family History Sister Breast cancer, Onset Age: 40 Father Myocardial infarction Uncle Myocardial infarction Grandfather (Maternal) Myocardial infarction Mother Diabetes Denies family history of Ovarian cancer Prostate cancer Colorectal cancer Social History Smoking Status: Never smoker Second Hand Exposure: No; Hx Alcohol Use: Yes Alcohol Intake Frequency: Monthly or Less Hx Substance Use: No Preferred Language: Mexican Communication Ability: Effective Visual Impairment: Limited Hearing Ability: Normal [employer] Required: No Beliefs That Will Affect Care: None marital status: Current Living Situation: Spouse Current Living Situation Comment: , Evelin current occupational status: retired How many Children do You have: 2 Feels Safe at Home: Yes Childhood Exposure to Second-Hand Smoke: No caffeine: Yes during the past year weight has: remained stable Dental Care, Regularly: No Physical Activity Frequency: Daily Seatbelt Use: always Sunscreen Use: No Assistive Devices: Glasses Allergies Allergies Allergy/AdvReac Type Severity Reaction Status Date / Time No Known Allergies Allergy Verified 06/25/21 11:10 Home Meds Home Medications Medication Instructions Recorded Confirmed aspirin 81 mg tablet,delayed 81 mg PO QAM 12/30/18 06/25/21 release hydroxychloroquine 200 mg tablet 200 mg PO BID 12/18/19 06/25/21 gabapentin 300 mg capsule 300 mg PO TID cap 02/20/21 06/25/21 amlodipine 10 mg tablet 10 mg PO QAM 06/14/21 06/25/21 finasteride 5 mg tablet 5 mg PO QAM 06/14/21 06/25/21 tamsulosin 0.4 mg capsule (Flomax) 0.4 mg PO QAM 06/14/21 06/25/21 Previous Rx's Medication Instructions Recorded tiotropium bromide 2.5 2 puff INHALATION QAM #4 g 02/20/21 mcg/actuation mist for inhalation (Spiriva Respimat) metoprolol succinate 25 mg 25 mg PO HS #90 tab 05/10/21 tablet,extended release 24 hr omeprazole 20 mg capsule,delayed 40 mg PO QAM #180 cap 05/10/21 release lisinopril 40 mg tablet 40 mg PO QAM #90 tab 05/16/21 atorvastatin 40 mg tablet 40 mg PO DAILY #90 tab 06/19/21 Results & Data (ED) Vital Signs Vital Signs - 24 hr 06/25/21 10:17 06/25/21 10:30 06/25/21 10:40 Temperature 36.6 C Temperature Source Temporal Artery Scan Pulse Rate 100 H 82 76 Pulse Rate [Apical] Pulse Rate from SpO2 Sensor Pulse Rhythm Regular Pulse Strength Normal Respiratory Rate 20 17 16 Respiratory Effort / Characteristics Non-Labored Spontaneous Respiratory Depth Normal Respiratory Pattern Regular Blood Pressure 144/90 H Blood Pressure [Right Arm] Blood Pressure Mean 108 Blood Pressure Mean [Right Arm] Blood Pressure Position Sitting Pulse Oximetry 96 Oxygen Delivery Method Room Air Sepsis Recent Fever Within 48 Hours No Sepsis New/Unexplained Change in Mental Status No Sepsis Action Taken by Nursing No Action Required 06/25/21 10:43 06/25/21 10:45 06/25/21 10:50 Temperature Temperature Source Pulse Rate 83 92 H Pulse Rate [Apical] Pulse Rate from SpO2 Sensor 83 88 Pulse Rhythm Pulse Strength Respiratory Rate 19 15 Respiratory Effort / Characteristics Respiratory Depth Respiratory Pattern Blood Pressure 136/75 Blood Pressure [Right Arm] Blood Pressure Mean 95 Blood Pressure Mean [Right Arm] Blood Pressure Position Pulse Oximetry 98 98 Oxygen Delivery Method Room Air Sepsis Recent Fever Within 48 Hours Sepsis New/Unexplained Change in Mental Status Sepsis Action Taken by Nursing 06/25/21 11:00 06/25/21 11:09 06/25/21 11:10 Temperature Temperature Source Pulse Rate 84 78 Pulse Rate [Apical] 81 Pulse Rate from SpO2 Sensor 83 81 Pulse Rhythm Pulse Strength Respiratory Rate 26 H 20 19 Respiratory Effort / Characteristics Respiratory Depth Respiratory Pattern Blood Pressure 136/75 Blood Pressure [Right Arm] 136/75 Blood Pressure Mean 95 Blood Pressure Mean [Right Arm] 95 Blood Pressure Position Pulse Oximetry 99 97 97 Oxygen Delivery Method Room Air Sepsis Recent Fever Within 48 Hours Sepsis New/Unexplained Change in Mental Status Sepsis Action Taken by Nursing 06/25/21 11:20 06/25/21 11:30 06/25/21 11:40 Temperature Temperature Source Pulse Rate 75 75 81 Pulse Rate [Apical] Pulse Rate from SpO2 Sensor 75 75 81 Pulse Rhythm Pulse Strength Respiratory Rate 19 18 17 Respiratory Effort / Characteristics Respiratory Depth Respiratory Pattern Blood Pressure Blood Pressure [Right Arm] Blood Pressure Mean Blood Pressure Mean [Right Arm] Blood Pressure Position Pulse Oximetry 95 95 96 Oxygen Delivery Method Sepsis Recent Fever Within 48 Hours Sepsis New/Unexplained Change in Mental Status Sepsis Action Taken by Nursing 06/25/21 11:50 Temperature Temperature Source Pulse Rate 74 Pulse Rate [Apical] Pulse Rate from SpO2 Sensor 75 Pulse Rhythm Pulse Strength Respiratory Rate 17 Respiratory Effort / Characteristics Respiratory Depth Respiratory Pattern Blood Pressure Blood Pressure [Right Arm] Blood Pressure Mean Blood Pressure Mean [Right Arm] Blood Pressure Position Pulse Oximetry 97 Oxygen Delivery Method Sepsis Recent Fever Within 48 Hours Sepsis New/Unexplained Change in Mental Status Sepsis Action Taken by Intermediate Medications Current Medication List: was personally reviewed by nv Laboratory Data Attestation: I reviewed the patient's lab results. Result diagrams: 06/25/21 10:39 06/25/21 10:39 Lab Results 06/25/21 06/25/21 06/25/21 Range/Units 10:39 10:39 10:39 WBC 6.59 (4.8-10.8) K/uL RBC 5.06 (4.7-6.1) M/uL Hgb 15.6 (14.0-18.0) g/dL Hct 43.8 (42-52) % MCV 86.6 (80-100) fL MCH 30.8 (25-34) pg MCHC 35.6 (32-36) g/dL RDW Std Deviation 42.5 (36.4-46.3) fL RDW Coeff of Alyssa 13.4 (11.5-14.5) % Plt Count 137 (130-400) K/uL MPV 8.5 (7.4-10.4) fL Immature Gran % (Auto) 0.3 % Neut % (Auto) 66.3 % Lymph % (Auto) 22.8 % Mccone % (Auto) 9.1 % Eos % (Auto) 1.2 % Baso % (Auto) 0.3 % Neut # (Auto) 4.37 (1.4-6.5) K/uL Lymph # (Auto) 1.50 (1.2-3.4) K/uL Mccone # (Auto) 0.60 H (0.11-0.59) K/uL Eos # (Auto) 0.08 (0-0.5) K/uL Baso # (Auto) 0.02 (0-0.2) K/uL Immature Gran # (Auto) 0.02 (0.00-0.02) K/uL PT 10.9 (9.0-12.0) Seconds INR 1.1 (0.9-1.1) APTT 30.8 (21.0-31.0) Seconds PTT Ratio 1.2 Sodium 136 (136-145) mmol/L Potassium 4.8 (3.5-5.1) mmol/L Chloride 104 (98-107) mmol/L Carbon Dioxide 25 (21-32) mmol/L Anion Gap 7 (3-11) BUN 21 (6-23) mg/dl Creatinine 1.23 (0.6-1.4) mg/dl Est Cr Clr Drug Dosing 78.4 ml/min Est GFR ( Amer) 71.5 ml/min Est GFR (Non-Af Amer) 61.7 ml/min BUN/Creatinine Ratio 17.1 (10-20) Glucose 143 H (70-99(Fasting)) mg/dl Calcium 10.2 H (8.5-10.1) mg/dl Magnesium (1.7-2.4) mg/dl Total Bilirubin 0.7 (0.2-1.0) mg/dl AST 23 (13-39) U/L ALT 32 (7-52) U/L Alkaline Phosphatase 61 (34-104) U/L Troponin I < 0.03 (0-0.04) ng/ml Total Protein 7.3 (6.0-8.3) gm/dl Albumin 4.7 (3.4-5.0) gm/dl Globulin 2.6 (2.5-4.0) gm/dl Albumin/Globulin Ratio 1.8 (0.9-2) 06/25/21 Range/Units 10:39 WBC (4.8-10.8) K/uL RBC (4.7-6.1) M/uL Hgb (14.0-18.0) g/dL Hct (42-52) % MCV (80-100) fL MCH (25-34) pg MCHC (32-36) g/dL RDW Std Deviation (36.4-46.3) fL RDW Coeff of Alyssa (11.5-14.5) % Plt Count (130-400) K/uL MPV (7.4-10.4) fL Immature Gran % (Auto) % Neut % (Auto) % Lymph % (Auto) % Mccone % (Auto) % Eos % (Auto) % Baso % (Auto) % Neut # (Auto) (1.4-6.5) K/uL Lymph # (Auto) (1.2-3.4) K/uL Mccone # (Auto) (0.11-0.59) K/uL Eos # (Auto) (0-0.5) K/uL Baso # (Auto) (0-0.2) K/uL Immature Gran # (Auto) (0.00-0.02) K/uL PT (9.0-12.0) Seconds INR (0.9-1.1) APTT (21.0-31.0) Seconds PTT Ratio Sodium (136-145) mmol/L Potassium (3.5-5.1) mmol/L Chloride (98-107) mmol/L Carbon Dioxide (21-32) mmol/L Anion Gap (3-11) BUN (6-23) mg/dl Creatinine (0.6-1.4) mg/dl Est Cr Clr Drug Dosing ml/min Est GFR ( Amer) ml/min Est GFR (Non-Af Amer) ml/min BUN/Creatinine Ratio (10-20) Glucose (70-99(Fasting)) mg/dl Calcium (8.5-10.1) mg/dl Magnesium 1.9 (1.7-2.4) mg/dl Total Bilirubin (0.2-1.0) mg/dl AST (13-39) U/L ALT (7-52) U/L Alkaline Phosphatase (34-104) U/L Troponin I (0-0.04) ng/ml Total Protein (6.0-8.3) gm/dl Albumin (3.4-5.0) gm/dl Globulin (2.5-4.0) gm/dl Albumin/Globulin Ratio (0.9-2) Administered Medications Discontinued Medications Aspirin (Aspirin Chew 324 Mg) 324 mg PO NOW STA Stop: 06/25/21 10:57 Last Admin: 06/25/21 11:08 Dose: 324 mg Documented by: [id number] Atropine Sulfate (Atropine Sulfate 0.1 Mg/Ml 10ml Syr) Confirm Administered Dose 2 mg IV .STK-MED ONE Stop: 06/25/21 14:03 Last Admin: 06/25/21 14:43 Dose: 0.25 mg Documented by: [id number] Dobutamine HCl (Dobutamine Hcl 12.5 Mg/Ml 20 Ml Vial) Confirm Administered Dose 250 mg IV .STK-MED ONE Stop: 06/25/21 14:03 Last Admin: 06/25/21 14:44 Dose: 1 dose Documented by: [id number] Metoprolol Tartrate (Metoprolol Tartrate 1 Mg/Ml Vial) Confirm Administered Dose 10 mg IV .STK-MED ONE Stop: 06/25/21 14:03 Last Admin: 06/25/21 14:44 Dose: 5 mg Documented by: [id number] Nitroglycerin (Nitroglycerin 2% Ointment 30gm Tube) 2 inch EXT NOW STA Stop: 06/25/21 10:57 Last Admin: 06/25/21 11:09 Dose: 2 inch Documented by: [id number] Nitroglycerin (Nitroglycerin Sl 0.4 Mg/Tab Tab) Confirm Administered Dose 0.4 mg .ROUTE .STK-MED ONE Stop: 06/25/21 14:04 Last Admin: 06/25/21 14:45 Dose: Not Given Documented by: [id number] Imaging Data Radiologist's Impression: Chest X-Ray 06/25/21 10:42 XR chest 1V portable HISTORY: Atypical Chest Pain COMPARISON: Chest 06/14/2021. FINDINGS: The lungs are clear. Cardiac silhouette is normal in size. No pleural effusions. No pneumothorax. IMPRESSION: No acute process. ACT 112: Negative or not required by law. Electronically signed by: Skyler Naylor M.D. 06/25/2021 11:02 AM Discharge Plan Visit Data Chief Complaint: Cardiac Assessment Stated Complaint: PAIN IN LT ARM, CHEST PAIN, NAUSESA, SOB ED Provider: Farzad Sorenson Discharge Problem: Precordial chest pain, SOB (shortness of breath) Patient Disposition: Admitted As Inpatient Condition: Good Discharge Instructions Interventions: ED Discharge Assessment Last Done: 06/25/21 13:58
[2021-06-25 11:14] LABS: Troponin I < 0.03 ng/ml (0-0.04)
[2021-06-25 11:16] LABS: Alanine Aminotransferase 32 U/L (7-52); Albumin Globulin Ratio 1.8 (0.9-2); Albumin Level 4.7 gm/dl (3.4-5.0); Alkaline Phosphatase 61 U/L (34-104); Anion Gap 7 (3-11); Aspartate Aminotransferase 23 U/L (13-39); BUN Creatinine Ratio 17.1 (10-20); Bilirubin,Total 0.7 mg/dl (0.2-1.0); Blood Urea Nitrogen 21 mg/dl (6-23); Calcium 10.2 mg/dl (8.5-10.1); Carbon Dioxide 25 mmol/L (21-32); Chloride 104 mmol/L (98-107); Creatinine Clr Calc Pharmacy 78.4 ml/min; Est GFR (African American) 71.5 ml/min; Est GFR (Non-African American) 61.7 ml/min; Globulin 2.6 gm/dl (2.5-4.0); Glucose 143 mg/dl (70-99(Fasting)); Potassium 4.8 mmol/L (3.5-5.1); Sodium 136 mmol/L (136-145); Total Protein 7.3 gm/dl (6.0-8.3)
--- NOTE | 2021-06-25 11:46 | History & Physical Report ---
Date of Service June 25, 2021 Assessment & Plan (1) Chest pain: Plan: Differential includes angina vs exacerbation of reflux disease. ACS less likely as the chest pain is typical and intermittent, ongoing for several weeks lasting minutes to hours. Last occurrence was last evening around 6PM. No elevated troponin or EKG changes in ED today to indicate an acute process has occurred. Patient has several risk factors for cardiac dz including HTN, hyperlipidemia, as well as a strong family history for cardiac disease. Has had previous cardiac caths and stress tests which were unremarkable. -Follows with Dr. Knapp @ [facility] -Observation on telemetry. -SL nitro prn for chest pain, continue daily ASA for primary prevention. -Troponin recheck this evening. -NPO at midnight for stress echo in AM. (2) Hypertension: Plan: -Continue amlodipine 10 mg, metoprolol succ 25 mg, and lisinopril 40mg daily. (3) Hyperlipidemia: Plan: -Continue atorvastatin 40 mg daily. (4) GERD (gastroesophageal reflux disease): Plan: -Continue PPI daily. (5) Emphysema, unspecified: Plan: -No evidence of acute exacerbation today. On room air. -Continue Spiriva daily. (6) IFG (impaired fasting glucose): Plan: -Glucose 143 today in ED, per PCP notes, this is stable, patient has a1c checked ever 6 months. Last a1c 5.7 on 06/12/21. -Heart healthy/CC diet, will check BGs achs, can consider sliding scale insulin for consistently elevated sugars. (7) Benign prostatic hyperplasia with urinary obstruction: Plan: -Continue flomax .4 mg and finasteride 5mg daily. (8) Rheumatoid arthritis: Plan: -Continue Plaquenil 200mg BID per rheumatology. (9) Peripheral neuropathy: Plan: -Continue gabapentin 300mg TID. Plan: -Observation med surg w/ tele -SCDs with Lovenox for DVT ppx. -Full code. History of Present Illness Chief Complaint: chest pain Primary Care Provider: Apmaro Chadwick DO Patient is a 66 y/o male with a PMH of HTN, hyperlipidemia, GERD, RA, peripheral neuropathy, emphysema, and BPH who presents today with complaints of chest pain. This has been ongoing and intermittent over the past several weeks. He reports onset both in morning and evenings, with exertion, and at rest. No association with meals, is not positional, exacerbated by respirations, or reproducible. The chest pain is sternal, achy, and radiates to his left arm usually, sometimes radiating between his shoulder blades. It lasts anywhere from several minutes to several hours. It is associated with nausea and mild SOB. Last occurrence was last evening around 6 pm, states it lasted several hours. He notes he has perhaps been belching more frequently than usual, so he initially thought it may be his acid reflux, prompting him to take Mylanta in addition to his daily PPI, however this has not provided alleviation. He denies fever/chills, diaphoresis, myalgias, palpitations, sour brash, vomiting, abdominal pain, diarrhea, back pain, dizziness, weakness, syncope. Patient follows with Dr. Knapp at [facility], has had a cardiac cath in 2007 which was unremarkable and several stress tests, most recently in 2019 which he reports was "normal". Patient was seen in [facility] ED on 06/14 for a similar presentation, at which time he had normal EKGs and serial troponins and discharged home with recommendations to avoid strenuous activity and follow up with PCP to schedules a stress test as an outpatient. Vital signs stable, winthing normal limits in ED. CBC and BMP within normal limits, initial troponin negative, EKG with NSR, regular rate. CXR showed no acute process. ED provider called Dr. knapp who recommended patient be admitted for a cardiac workup and stress test in AM. Allergies Allergy/AdvReac Type Severity Reaction Status Date / Time No Known Allergies Allergy Verified 06/25/21 11:10 Home Medications Medication Instructions Recorded Confirmed Type aspirin 81 mg tablet,delayed 81 mg PO QAM 12/30/18 06/25/21 History release hydroxychloroquine 200 mg tablet 200 mg PO BID 12/18/19 06/25/21 History gabapentin 300 mg capsule 300 mg PO TID cap 02/20/21 06/25/21 History tiotropium bromide 2.5 2 puff INHALATION QAM #4 g 02/20/21 06/25/21 Rx mcg/actuation mist for inhalation (Spiriva Respimat) metoprolol succinate 25 mg 25 mg PO HS #90 tab 05/10/21 06/25/21 Rx tablet,extended release 24 hr omeprazole 20 mg capsule,delayed 40 mg PO QAM #180 cap 05/10/21 06/25/21 Rx release lisinopril 40 mg tablet 40 mg PO QAM #90 tab 05/16/21 06/25/21 Rx amlodipine 10 mg tablet 10 mg PO QAM 06/14/21 06/25/21 History finasteride 5 mg tablet 5 mg PO QAM 06/14/21 06/25/21 History tamsulosin 0.4 mg capsule (Flomax) 0.4 mg PO QAM 06/14/21 06/25/21 History atorvastatin 40 mg tablet 40 mg PO DAILY #90 tab 06/19/21 06/25/21 Rx 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 Emphysema, unspecified GERD (gastroesophageal reflux disease) Hyperlipidemia Hypertension IBS (irritable bowel syndrome) IFG (impaired fasting glucose) Peripheral neuropathy Pulmonary nodule Rheumatoid arthritis Rupture of left rectus femoris tendon Surgical History History of appendectomy History of cholecystectomy Hx of cardiac cath S/P repair of hydrocele Status post surgery (2009) TUNA procedure, Dr Swanson Family History Sister Breast cancer, Onset Age: 40 Father Myocardial infarction Uncle Myocardial infarction Grandfather (Maternal) Myocardial infarction Mother Diabetes Denies family history of Ovarian cancer Prostate cancer Colorectal cancer Social History Smoking Status: Never smoker Second Hand Exposure: No; Hx Alcohol Use: Yes Alcohol Intake Frequency: Monthly or Less Hx Substance Use: No Preferred Language: Kenyan Communication Ability: Effective Visual Impairment: Limited Hearing Ability: Normal 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 Beliefs That Will Affect Care: None marital status: Current Living Situation: Spouse Current Living Situation Comment: , Evelin current occupational status: retired How many Children do You have: 2 Feels Safe at Home: Yes Childhood Exposure to Second-Hand Smoke: No caffeine: Yes during the past year weight has: remained stable Dental Care, Regularly: No Physical Activity Frequency: Daily Seatbelt Use: always Sunscreen Use: No Assistive Devices: Glasses Review of Systems Review of Systems: Review of systems: Constitutional: No fever, sweats or chills Eyes: No diplopia, no worsening or blurred vision ENT: normal hearing, no trouble swallowing Respiratory: reports SOB with onset of chest pain; otherwise no cough, sputum, dyspnea at rest or on exertion Cardiovascular: Intermittent chest pain with exertion and at rest that lasts for several minutes-hours; no tightness or palpitations Abdomen: Nausea with chest pain, increased dyspepsia; No pain, vomiting, diarrhea or constipation Musculoskeletal: No joint pain, calf pain, swelling Neurologic: No weakness, numbness/tingling, or balance problems Psychiatric: No anxiety or depression Skin: No rash or itch Physical Exam Physical Exam: General: awake, alert, no apparent distress Head: Normocephalic, atraumatic ENT: PERRL, EOMI, no pharyngeal exudate, mucous membranes moist Chest: Clear to auscultation, on room air, no adventitious breath sounds Cardiac: Regular rate and rhythm, no murmur, no JVD, normal peripheral pulses, good capillary refill Abdominal: NABS x 4 quadrants, soft, nontender to palpation, no rebound, guarding or tenderness Extremities: Normal inspection, no peripheral edema or erythema, calfs nontender to palpation Psych: Normal mood and affect Neuro: AAO x 3, strength intact bilaterally and rated 5/5, no motor deficits, speech is clear, no peripheral sensory deficits Skin: no rash or erythema Results & Data Results & Data ([facility]) Vital Signs (Past 12 Hours) Vital Signs Temp Pulse Pulse Resp BP BP Pulse Ox 06/25/21 11:09 81 20 136/75 97 06/25/21 10:17 36.6 C 100 H 20 144/90 H 96 Laboratory Results Abnormal lab results 06/25/21 06/25/21 Range/Units 10:39 10:39 Kershaw # (Auto) 0.60 H (0.11-0.59) K/uL Glucose 143 H (70-99(Fasting)) mg/dl Calcium 10.2 H (8.5-10.1) mg/dl Diagnostic Findings Chest X-Ray 06/25/21 10:42 XR chest 1V portable HISTORY: Atypical Chest Pain COMPARISON: Chest 06/14/2021. FINDINGS: The lungs are clear. Cardiac silhouette is normal in size. No pleural effusions. No pneumothorax. IMPRESSION: No acute process. ACT 112: Negative or not required by law. Electronically signed by: Skyler Naylor M.D. 06/25/2021 11:02 AM ECG Additional Comments: Normal sinus rhythm Normal ECG When compared with ECG of 14-JUN-2021 08:49, No significant change was found Code Status & VTE Plan Code Status Full code. VTE Prophylaxis Plan VTE Prophylaxis will be ordered: Yes Supervising Physician Co-Signing Physician Notes I personally saw and examined the patient. I verified all perkins points and agree with Tia Olmos PA-C with the following exceptions and/or additions: 66 year old male admission for chest pain. Non exertional, positional, inspirational. Increased eructation. O/E No acute distress, HS1+2, no murmurs, Chest CTAB, Abdo SNT A/P Chest pain - low suspicion of angina from history however patient with elevated risk Heart score 3 - patient with recurrent ER visits for same. Stress echo today to r/o cardiac cause. More likely reflux related although lack of positional nature or change with food unable to confirm this. If stress echo negative will add famotidine to home regimen and consider GI referral if still persistent with PCP. PG Care Time/CCT Total # of Minutes Spent Total Time Spent with Patient: Total time spent is greater than 50% in coordination of care (as documented) at patient's floor/unit and/or counseling patient: Coding Level of Care Code INT OBSERVATION CARE 70M LVL 3 Diagnoses Chest pain R07.9 Hypertension I10 Hypertension type: essential hypertension Hyperlipidemia E78.5 GERD (gastroesophageal reflux disease) K21.9 Emphysema, unspecified J43.9 IFG (impaired fasting glucose) R73.01 Benign prostatic hyperplasia with urinary obstruction N40.1; N13.8 Rheumatoid arthritis M06.9 Peripheral neuropathy G62.9 (1) Hypertension Hypertension type: essential hypertension Qualified Code(s): I10 - Essential (primary) hypertension
--- NOTE | 2021-06-25 12:09 | Cardiology Consultation ---
Date of Consultation June 25, 2021 Assessment & Plan (1) Chest pain: (2) Hyperlipidemia: (3) Hypertension: (4) Peripheral neuropathy: Patient is a 66-year-old male with multiple cardiovascular risk factors who presents now with chest pain discomfort without specific exertional relatio nship. Evaluations initially by EKG and cardiac enzymes negative for injury. Plan for for dobutamine stress echocardiogram today with further recommendations pending testing. History of Present Illness Reason for Consultation: Chest and left arm pain Requesting Physician: Dr. Sorenson Attending Physician: Dr. Abreu History of Present Illness Patient is a 66-year-old male with ongoing issues which include 1.Familial history of coronary artery disease. 2.Hyperlipidemia, dyslipidemia with elevated triglycerides. 3.Past noncardiac chest pain with cardiac catheterization 2007 without obstructive coronary disease. Negative stress testing in September 2015 and February 2017, December 2018 4.Mild hyperglycemia. 5. Peripheral neuropathy, hereditary Patient presented to the emergency room for second visit this month with symptoms of chest pressure pain radiating to left shoulder and left arm. Pain occasionally associated with nausea and shortness of breath. No specific relationship to exercise or activity. Symptoms generally spontaneously resolve after 1 hour. Patient evaluated in the emergency room on 06/14/2021 without revealing finding. He presents with similar complaints again today. EKG normal, troponin negative He has no prior history of known structural heart disease. Denies recent symptoms of TIA or stroke. No orthopnea PND or peripheral edema. No fevers chills or unexplained infections. No bleeding difficulties. Appetite and weight have been stable. No sleep disruption. Main ongoing issue of chronic neuropathic changes of his feet and hands limiting activity though still active about home Did recently discontinue rosuvastatin due to pelvic pain and cramping. Restarted on atorvastatin earlier this past week Allergies Allergy/AdvReac Type Severity Reaction Status Date / Time No Known Allergies Allergy Verified 06/25/21 11:10 Home Medications Medication Instructions Recorded Confirmed Type aspirin 81 mg tablet,delayed 81 mg PO QAM 12/30/18 06/25/21 History release hydroxychloroquine 200 mg tablet 200 mg PO BID 12/18/19 06/25/21 History gabapentin 300 mg capsule 300 mg PO TID cap 02/20/21 06/25/21 History tiotropium bromide 2.5 2 puff INHALATION QAM #4 g 02/20/21 06/25/21 Rx mcg/actuation mist for inhalation (Spiriva Respimat) metoprolol succinate 25 mg 25 mg PO HS #90 tab 05/10/21 06/25/21 Rx tablet,extended release 24 hr omeprazole 20 mg capsule,delayed 40 mg PO QAM #180 cap 05/10/21 06/25/21 Rx release lisinopril 40 mg tablet 40 mg PO QAM #90 tab 05/16/21 06/25/21 Rx amlodipine 10 mg tablet 10 mg PO QAM 06/14/21 06/25/21 History finasteride 5 mg tablet 5 mg PO QAM 06/14/21 06/25/21 History tamsulosin 0.4 mg capsule (Flomax) 0.4 mg PO QAM 06/14/21 06/25/21 History atorvastatin 40 mg tablet 40 mg PO DAILY #90 tab 06/19/21 06/25/21 Rx Patient History Medical History Allergic rhinitis Benign prostatic hyperplasia with urinary obstruction 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 Emphysema, unspecified GERD (gastroesophageal reflux disease) Hyperlipidemia Hypertension IBS (irritable bowel syndrome) IFG (impaired fasting glucose) Peripheral neuropathy Pulmonary nodule Rheumatoid arthritis Rupture of left rectus femoris tendon Surgical History History of appendectomy History of cholecystectomy Hx of cardiac cath S/P repair of hydrocele Status post surgery (2009) TUNA procedure, Dr Swanson Family History Sister Breast cancer, Onset Age: 40 Father Myocardial infarction Uncle Myocardial infarction Grandfather (Maternal) Myocardial infarction Mother Diabetes Denies family history of Ovarian cancer Prostate cancer Colorectal cancer Social History Smoking Status: Never smoker Second Hand Exposure: No; Hx Alcohol Use: Yes Alcohol Intake Frequency: Monthly or Less Hx Substance Use: No Preferred Language: Kazakh Communication Ability: Effective Visual Impairment: Limited Hearing Ability: Normal Treasurer Required: No Beliefs That Will Affect Care: None marital status: Current Living Situation: Spouse Current Living Situation Comment: , Evelin current occupational status: retired How many Children do You have: 2 Feels Safe at Home: Yes Childhood Exposure to Second-Hand Smoke: No caffeine: Yes during the past year weight has: remained stable Dental Care, Regularly: No Physical Activity Frequency: Daily Seatbelt Use: always Sunscreen Use: No Assistive Devices: Glasses Review of Systems Review of Systems: All systems reviewed & are unremarkable except as noted in HPI & below Physical Exam Constitutional: WD/WN, vitals as above Eyes: PERRL, conjunctivae normal, anicteric sclerae ENMT: external ear and nose normal, oropharynx normal Neck: trachea midline, no thyromegaly Respiratory: normal respiratory effort, lungs clear to auscultation Cardiovascular: Rate/Rhythm: regular rate and regular rhythm Heart Sounds: normal S1 and normal S2; no gallop and no murmur Palpation: normal PMI Vessels: normal carotid upstroke and radial pulses present; no JVD and no car otid bruit Extremities: no edema Gastrointestinal (Abdomen): normal bowel sounds, soft, nontender, no hepatosplenomegaly Musculoskeletal: no cyanosis or clubbing, extremities motor strength 5/5 Skin: no rashes, warm and dry Neurologic: PERRL, EOMI, accommodation nl, no face palsy, no dysarthria Psychiatric: A+Ox3, euthymic affect Results & Data ([facility]) Vital Signs (Past 12 Hours) Vital Signs Temp Pulse Pulse Resp BP BP Pulse Ox 06/25/21 11:09 81 20 136/75 97 06/25/21 10:17 36.6 C 100 H 20 144/90 H 96 Laboratory Results Laboratory Results - last 24 hr 06/25/21 06/25/21 06/25/21 10:39 10:39 10:39 WBC 6.59 RBC 5.06 Hgb 15.6 Hct 43.8 MCV 86.6 MCH 30.8 MCHC 35.6 RDW Std Deviation 42.5 RDW Coeff of Alyssa 13.4 Plt Count 137 MPV 8.5 Immature Gran % (Auto) 0.3 Neut % (Auto) 66.3 Lymph % (Auto) 22.8 Starr % (Auto) 9.1 Eos % (Auto) 1.2 Baso % (Auto) 0.3 Neut # (Auto) 4.37 Lymph # (Auto) 1.50 Starr # (Auto) 0.60 H Eos # (Auto) 0.08 Baso # (Auto) 0.02 Immature Gran # (Auto) 0.02 PT 10.9 INR 1.1 APTT 30.8 PTT Ratio 1.2 Sodium 136 Potassium 4.8 Chloride 104 Carbon Dioxide 25 Anion Gap 7 BUN 21 Creatinine 1.23 Est Cr Clr Drug Dosing 78.4 Est GFR ( Amer) 71.5 Est GFR (Non-Af Amer) 61.7 BUN/Creatinine Ratio 17.1 Glucose 143 H Calcium 10.2 H Magnesium Total Bilirubin 0.7 AST 23 ALT 32 Alkaline Phosphatase 61 Troponin I < 0.03 Total Protein 7.3 Albumin 4.7 Globulin 2.6 Albumin/Globulin Ratio 1.8 SARS-CoV-2, RNA, NAAT 06/25/21 06/25/21 10:39 12:42 WBC RBC Hgb Hct MCV MCH MCHC RDW Std Deviation RDW Coeff of Alyssa Plt Count MPV Immature Gran % (Auto) Neut % (Auto) Lymph % (Auto) Starr % (Auto) Eos % (Auto) Baso % (Auto) Neut # (Auto) Lymph # (Auto) Starr # (Auto) Eos # (Auto) Baso # (Auto) Immature Gran # (Auto) PT INR APTT PTT Ratio Sodium Potassium Chloride Carbon Dioxide Anion Gap BUN Creatinine Est Cr Clr Drug Dosing Est GFR ( Amer) Est GFR (Non-Af Amer) BUN/Creatinine Ratio Glucose Calcium Magnesium 1.9 Total Bilirubin AST ALT Alkaline Phosphatase Troponin I Total Protein Albumin Globulin Albumin/Globulin Ratio SARS-CoV-2, RNA, NAAT NEGATIVE (1) Hypertension Hypertension type: essential hypertension Qualified Code(s): I10 - Essential (primary) hypertension
--- NOTE | 2021-06-25 13:07 | Electrocardiogram Report ---
Test Reason : Blood Pressure : / mmHG Vent. Rate : 080 BPM Atrial Rate : 080 BPM P-R Int : 144 ms QRS Dur : 090 ms QT Int : 344 ms P-R-T Axes : 028 -03 044 degrees QTc Int : 396 ms Normal sinus rhythm Normal ECG When compared with ECG of 14-JUN-2021 08:49, No significant change was found Confirmed by Michele Badillo ([id number]) on 06/25/2021 1:06:36 PM Referred By: Confirmed By:Michele Badillo
[2021-06-25] MEDS ORDERED: DOBUTamine HCL 12.5 MG/ML 20 ML VIAL IV ONE (14:02)
[2021-06-25] MEDS ORDERED: ATROPINE SULFATE 0.1 MG/ML 10ML SYR IV ONE (14:02)
[2021-06-25] MEDS ORDERED: METOPROLOL TARTRATE 1 MG/ML VIAL IV ONE (14:02)
[2021-06-25] MEDS ORDERED: NITROGLYCERIN SL 0.4 MG/TAB TAB ONE (14:03)
[2021-06-25] MEDS ORDERED: NITROGLYCERIN SL 0.4 MG/TAB TAB SL PRN (15:12)
[2021-06-25] MEDS ORDERED: ACETAMINOPHEN 325 MG TAB PO PRN (15:12)
[2021-06-25] MEDS ORDERED: ENOXAPARIN INJ 40 MG/0.4 ML SYR SQ SCH (15:12)
[2021-06-25] MEDS ORDERED: POLYETHYLENE (MIRALAX) 17 GM PACK PO PRN (15:12)
[2021-06-25] MEDS ORDERED: MoRPHine SULFATE 2 MG/ML CARP IV PRN (15:12)
[2021-06-25] MEDS ORDERED: ONDANSETRON INJ 2 MG/ML 2 ML VIAL IV PRN (15:12)
--- NOTE | 2021-06-25 20:16 | Discharge Summary ---
Date of Service June 25, 2021 Admission HPI Per Admitting Provider Patient is a 66 y/o male with a PMH of HTN, hyperlipidemia, GERD, RA, peripheral neuropathy, emphysema, and BPH who presents today with complaints of chest pain. This has been ongoing and intermittent over the past several weeks. He reports onset both in morning and evenings, with exertion, and at rest. No association with meals, is not positional, exacerbated by respirations, or reproducible. The chest pain is sternal, achy, and radiates to his left arm usually, sometimes radiating between his shoulder blades. It lasts anywhere from several minutes to several hours. It is associated with nausea and mild SOB. Last occurrence was last evening around 6 pm, states it lasted several hours. He notes he has perhaps been belching more frequently than usual, so he initially thought it may be his acid reflux, prompting him to take Mylanta in addition to his daily PPI, however this has not provided alleviation. He denies fever/chills, diaphoresis, myalgias, palpitations, sour brash, vomiting, abdominal pain, diarrhea, back pain, dizziness, weakness, syncope. Patient follows with Dr. Knapp at [facility], has had a cardiac cath in 2007 which was unremarkable and several stress tests, most recently in 2019 which he reports was "normal". Patient was seen in [facility] ED on 06/14 for a similar presentation, at which time he had normal EKGs and serial troponins and discharged home with recommendations to avoid strenuous activity and follow up with PCP to schedules a stress test as an outpatient. Vital signs stable, winthing normal limits in ED. CBC and BMP within normal limits, initial troponin negative, EKG with NSR, regular rate. CXR showed no acute process. ED provider called Dr. knapp who recommended patient be admitted for a cardiac workup and stress test in AM. Admission Exam Per Admitting Provider General: awake, alert, no apparent distress Head: Normocephalic, atraumatic ENT: PERRL, EOMI, no pharyngeal exudate, mucous membranes moist Chest: Clear to auscultation, on room air, no adventitious breath sounds Cardiac: Regular rate and rhythm, no murmur, no JVD, normal peripheral pulses, good capillary refill Abdominal: NABS x 4 quadrants, soft, nontender to palpation, no rebound, guarding or tenderness Extremities: Normal inspection, no peripheral edema or erythema, calfs nontender to palpation Psych: Normal mood and affect Neuro: AAO x 3, strength intact bilaterally and rated 5/5, no motor deficits, speech is clear, no peripheral sensory deficits Skin: no rash or erythema Principal Diagnosis GERD Discharge Exam General: awake, alert, no apparent distress Head: Normocephalic, atraumatic ENT: PERRL, EOMI, no pharyngeal exudate, mucous membranes moist Chest: Clear to auscultation, on room air, no adventitious breath sounds Cardiac: Regular rate and rhythm, no murmur, no JVD, normal peripheral pulses, good capillary refill Abdominal: NABS x 4 quadrants, soft, nontender to palpation, no rebound, guarding or tenderness Extremities: Normal inspection, no peripheral edema or erythema, calfs nontender to palpation Psych: Normal mood and affect Neuro: AAO x 3, strength intact bilaterally and rated 5/5, no motor deficits, speech is clear, no peripheral sensory deficits Skin: no rash or erythema Discharge Data Allergies Allergy/AdvReac Type Severity Reaction Status Date / Time No Known Allergies Allergy Verified 06/25/21 11:10 Consultations 06/25/21 11:39 ED Decision to Admit Stat 06/25/21 11:39 ED Decision to Admit Stat Comment: Consulting Provider: Tye Abreu Reason For Exam: cp Decision to Admit: Admit from Emergency Rm Ordered Studies Chest X-Ray 06/25/21 10:42 XR chest 1V portable HISTORY: Atypical Chest Pain COMPARISON: Chest 06/14/2021. FINDINGS: The lungs are clear. Cardiac silhouette is normal in size. No pleural effusions. No pneumothorax. IMPRESSION: No acute process. ACT 112: Negative or not required by law. Electronically signed by: Skyler Naylor M.D. 06/25/2021 11:02 AM Hospital Course (1) Chest pain: -Original ddx included angina vs exacerbation of reflux disease. ACS less likely as the chest pain is typical and intermittent, ongoing for several weeks lasting minutes to hours. Last occurrence was last evening around 6PM. No elevated troponin or EKG changes in ED today to indicate an acute process has occurred. Patient has several risk factors for cardiac dz including HTN, hyperlipidemia, as well as a strong family history for cardiac disease. Has had previous cardiac caths and stress tests which were unremarkable. -Follows with Dr. Knpap @ [facility] who was able to perform a dobutamine echo today which did not show evidence of myocardial ischemia. This, along with negative serial troponins and no EKG changes is reassuring that this chest pain is most likely due to reflux disease. (2) Hypertension: -Continue amlodipine 10 mg, metoprolol succ 25 mg, and lisinopril 40mg daily. (3) Hyperlipidemia: -Continue atorvastatin 40 mg daily. (4) GERD (gastroesophageal reflux disease): -Continue PPI daily. -Recommended that patient also start taking Pepcid daily in addition to PPI. (5) Emphysema, unspecified: -No evidence of acute exacerbation today. On room air. -Continue Spiriva daily. (6) IFG (impaired fasting glucose): -Glucose 143 today in ED, per PCP notes, this is stable, patient has a1c checked ever 6 months. Last a1c 5.7 on 06/12/21. (7) Benign prostatic hyperplasia with urinary obstruction: -Continue flomax .4 mg and finasteride 5mg daily. (8) Rheumatoid arthritis: -Continue Plaquenil 200mg BID per rheumatology. (9) Peripheral neuropathy: -Continue gabapentin 300mg TID. -Observation med surg w/ tele -SCDs with Lovenox for DVT ppx. -Full code. Total Time Total Time Spent Total Time Spent (In Minutes): 60 Discharge Plan Discharge Items Patient Disposition: Home - Self-Care Reason For Visit: CHEST PAIN Discharge Diagnosis: Acid reflux Condition on Discharge: Good Activity: Resume your previous activity Exercise/Sports: As tolerated Driving/Machine Use: No limitations Non-emergency contact: Primary Care Provider Call non-emergency contact if: you have any medication questions, your symptoms worsen, your pain is not controlled and your pain is worsening Follow-up/Referrals: Amparo Chadwick DO [Primary Care Provider] - Diet: Heart Healthy Addtl Attending Provider Instructions: You were admitted to [facility] on 06/25/2021 for chest pain. While you were here, a troponin level was checked, an EKG was performed, and a stress echocardiogram was performed which all showed no evidence of myocardial ischemia or heart disease requiring further intervention. This is reassuring that the origin of your chest pain is related to your GERD (acid reflux). We recommend adding Pepcid to your daily medication regimen in addition to the omeprazole that you are already taking. We also recommend that you follow up with your PCP for further evaluation and possible referral to GI for your ongoing acid reflux. Pending Studies at Discharge: No Stand-Alone Forms: [facility] Medications and DC Order Prescriptions: Continued metoprolol succinate 25 mg tablet extended release 24 hr 25 mg PO HS Qty: 90 RF: 1 omeprazole 20 mg capsule,delayed release(DR/EC) 40 mg PO QAM Qty: 180 RF: 1 lisinopril 40 mg tablet 40 mg PO QAM Qty: 90 RF: 1 gabapentin 300 mg capsule 300 mg PO TID RF: 0 Spiriva Respimat 2.5 mcg/actuation mist 2 puff inhalation QAM Qty: 4 RF: 5 atorvastatin 40 mg tablet 40 mg PO DAILY Qty: 90 RF: 1 hydroxychloroquine 200 mg Tablet 200 mg PO BID RF: 0 aspirin 81 mg Tablet,Delayed Release (Dr/Ec) 81 mg PO QAM RF: 0 tamsulosin [Flomax] 0.4 mg capsule 0.4 mg PO QAM RF: 0 amlodipine 10 mg tablet 10 mg PO QAM RF: 0 finasteride 5 mg tablet 5 mg PO QAM RF: 0 Discharge Orders: Discharge Order (Routine); Ordered 06/25/21 Ordered By: Tia Mendoza/Other Patient Handouts: What Is GERD?, GERD Lifestyle Changes, GERD Dc Admission Data Admit Date/Time: 06/25/21 11:52 Attending Provider: Tye Abreu Admit Provider: Tye Abreu Primary Care Provider: Amparo Chadwick Other Providers: Tye Abreu Other Interventions: Discharge Summary Assessment (RN) Last Done: 06/25/21 16:54 Supervising Physician Co-Signing Physician Notes I personally saw and examined the patient. I verified all perkins points and agree with Tia Olmos PA-C with the following exceptions and/or additions: 66 year old male admission for chest pain. Non exertional, positional or inspirational. Currently chest pain free but can last for hours at a time. Associated increased eructation. O/E No acute distress, HS1+2, no murmurs, Chest CTAB, Abdo SNT A/P Chest pain - low suspicion of angina from history however patient with elevated risk Heart score 3 - patient with recurrent ER visits for same therefore underwent stress echo today. Dobutamine stress echo negative for inducible ischemia. More likely reflux related although lack of positional nature or change with food unable to confirm this. Add famotidine to his usual PPI and follow up with PCP for possible need to refer to gastroenterology since he already takes a PPI. Coding Level of Care Code None Diagnoses Chest pain R07.9 Hypertension I10 Hypertension type: essential hypertension Hyperlipidemia E78.5 GERD (gastroesophageal reflux disease) K21.9 Emphysema, unspecified J43.9 IFG (impaired fasting glucose) R73.01 Benign prostatic hyperplasia with urinary obstruction N40.1; N13.8 Rheumatoid arthritis M06.9 Peripheral neuropathy G62.9 Comment obs/discharge same day < 8 hours
[2021-06-25] MEDS ORDERED: METOPROLOL SUCC 25MG EXT REL TAB PO SCH (21:00)
[2021-06-25] MEDS ORDERED: GABAPENTIN 300 MG CAP PO SCH (21:00)
[2021-06-25] MEDS ORDERED: HYDROXYCHLOROQUINE SULFATE 200 MG TAB PO SCH (21:00)
[2021-06-26] MEDS ORDERED: amLODIPine BESYLATE 5 MG TAB PO SCH (09:00)
[2021-06-26] MEDS ORDERED: FINASTERIDE 5 MG TAB PO SCH (09:00)
[2021-06-26] MEDS ORDERED: UMECLIDINIUM BROMIDE 62.5MCG/BLISTER 7 PUFFS/INHALER INH SCH (09:00)
[2021-06-26] MEDS ORDERED: ASPIRIN 81 MG ECTAB PO SCH (09:00)
[2021-06-26] MEDS ORDERED: lisinopril 40 MG TAB PO SCH (09:00)
[2021-06-26] MEDS ORDERED: ATORVASTATIN 40 MG TAB PO SCH (09:00)
[2021-06-26] MEDS ORDERED: PANTOprazole 40 MG TAB PO SCH (09:00)
[2021-06-26] MEDS ORDERED: TAMSULOSIN HCL 0.4 MG CAP PO SCH (09:00)
== END 2021-06-25 17:01 | disposition home or self-care (01) ==
LOC: ED 10:15 → EDINP 10:15

== ENCOUNTER 2022-10-09 15:56 | Observation (INO) ==
--- NOTE | 2022-10-09 16:12 | ED Triage Note ---
Date of Service October 09, 2022 History of Present Illness This patient was briefly evaluated while in triage. An abbreviated physical exam was performed. This patient is a 67-year-old Male who presents to the ED for evaluation of left sided chest pain with radiation into arm. Seen in ED 2 weeks ago for same symptoms and diagnosed with muscular pain. Saw [employer] Dr. Knapp on Friday and is scheduled for stress test in November. States symptoms aren't getting any better with conservative measures which is why he returns today. Denies fever/chills, shortness of breath, abdominal pain. Physical Exam Constitutional: alert and oriented x3. no acute distress. HEENT: normocephalic, atraumatic. normal conjunctiva.PERRLA. EOM's grossly intact. Respiratory: lungs are clear to auscultation without wheezes, rhonchi, or rales bilaterally. equal chest rise. normal respiratory effort, no accessory muscle use. Cardiovascular: normal heart sounds without murmur. regular rate and rhythm. GI: abdomen is soft, nontender. No palpable masses. No rebound tenderness or guarding. MSK: moves all 4 extremities spontaneously Psych:appropriate mood and affect. Initial orders for labs and / or imaging were placed and patient was placed in the waiting area until a bed is available. Please see further documentation for the full ED course.
[2022-10-09 17:03] LABS: Albumin Globulin Ratio 1.8 (0.9-2); Albumin Level 4.8 gm/dl (3.4-5.0); BUN Creatinine Ratio 21.2 (10-20); Bilirubin,Total 0.7 mg/dl (0.2-1.0); Calcium 9.8 mg/dl (8.6-10.3); Est GFR (African American) 78.6 ml/min; Est GFR (Non-African American) 67.8 ml/min; Globulin 2.7 gm/dl (2.5-4.0); Potassium 4.8 mmol/L (3.5-5.1); Total Protein 7.5 gm/dl (6.0-8.3)
[2022-10-09 17:06] LABS: Troponin I High Sensitivity 4.1 pg/ml (0-20)
--- NOTE | 2022-10-09 17:14 | XRay Report ---
XR chest 1V not portable CLINICAL HISTORY: Atypical chest pain. COMPARISON STUDY: Chest radiograph September 21, 2022. Chest CT January 06, 2019. FINDINGS: Lung volumes are normal. Lungs are clear. There is no pneumothorax or pleural effusion. Car diac size is normal. Mediastinal contours are normal. There is no evidence for pulmonary edema. IMPRESSION: No acute cardiopulmonary findings. ACT 112: Negative or not required by law. Electronically signed by: Shivam Wylie M.D. 10/09/2022 5:13 PM
--- NOTE | 2022-10-09 17:55 | Emergency Department Note ---
Impression & Plan Chest pain, Arm pain ED Provider Note NAME: YESICA COFFEY AGE: 67 SEX: M : 1955 ARRIVES VIA: Walk-In INFORMANT: Patient ED PROVIDER(S): Chinedu Beth DO CHIEF COMPLAINT: Chest pain HPI: Patient is a 67-year-old male who presents the ER for chest pain which has been present on the left side of his chest. He describes as a tightness associate with shortness of breath and some tightness in his left elbow. This has been coming going for the past 2 weeks. Is been coming more frequently. He admits to shortness of breath with it. He does not believe that it specifically tied to exertion. Intermittently it does go through to the back. No dysuria urgency or frequency. No other exacerbating or remitting factors. Does have a history of hyperlipidemia, borderline diabetic as well as hypertension. PAST MEDICAL HISTORY:See Below PAST SURGICAL HISTORY:See Below FAMILY HISTORY:See Below SOCIAL HISTORY:See Below HOME MEDICATIONS:See Below ALLERGIES:See Below VITALS:See Below PHYSICAL EXAMINATION: GENERAL: Sitting up in bed, alert, well appearing, well nourished, no distress, non-toxic EYE EXAM: normal conjunctiva. OROPHARYNX: no exudate, no erythema, lips, buccal mucosa, and tongue normal and mucous membranes are moist NECK: supple, no nuchal rigidity, no adenopathy, non-tender LUNGS: Clear to auscultation. Normal chest wall mechanics HEART: no murmurs, S1 normal and S2 normal ABDOMEN: abdomen soft, non-tender, normo-active bowel sounds, no masses, no rebound or guarding. BACK: Back is symmetrical on inspection and there is no deformity, no midline tenderness, no CVA tenderness. UPPER EXTREMITIES: upper extremities are grossly normal. LOWER EXTREMITIES: No pitting edema. Calves are equal bilateral. NEURO EXAM: Normal sensorium, cranial nerves II-XII grossly intact, normal speech, no gross weakness of arms, no gross weakness of legs. No drift. Finger to nose intact. Gross sensation intact. MEDICAL DECISION MAKING: Patient is a 67-year-old male who presents ER for above-stated complaint. IV was established blood work is obtained. External records were reviewed. Labs show no significant leukocytosis or anemia. BMP with mild hyponatremia at 134. Glucose slightly up at 220. LFTs bilirubin was unremarkable. Troponin was neg ative. Lipase was normal. COVID-negative. Chest x-ray was clean. EKG was nondiagnostic. He was given aspirin. He was chest pain-free upon arrival. He was updated bedside. Discussed the case with the hospitalist for further evaluation management treatment with his history and presentation. Triage Nursing notes reviewed. Limited review of prior medical records performed Vital Signs: reviewed and remarkable for no significant abnormalities Differential diagnosis: Cardiac ischemia, aortic dissection, pulmonary embolism, pneumothorax, pne umonia, pericarditis, myocarditis, esophageal rupture, GERD, cholecystitis, pancreatitis, musculoskeletal, as well as other pathologies. ER treatment provided: See below Diagnostics interpreted by me include EKG and cardiac monitoring as listed below: -Cardiac Monitoring: An order was placed for continuous cardiac monitoring. The monitor shows a rate of 80 with sinus rhythm. -ECG: Sinus rhythm rate 82 Normal axis PVC QTc 401 -Laboratory studies:Interpreted by me as stated above in MDM and shown below. 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 Emphysema, unspecified GERD (gastroesophageal reflux disease) Hyperlipidemia Hypertension IBS (irritable bowel syndrome) Peripheral neuropathy Pulmonary nodule Rheumatoid arthritis Rupture of left rectus femoris tendon Surgical History History of appendectomy History of cholecystectomy History of colonoscopy History of esophagogastroduodenoscopy (EGD) History of tooth extraction Hx of cardiac cath (~01/2008) S/P repair of hydrocele Status post surgery (2009) Family History Sister Breast cancer, Onset Age: 40 Father Myocardial infarction Uncle Myocardial infarction Grandfather (Maternal) Myocardial infarction Mother Diabetes Denies family history of Ovarian cancer Prostate cancer Colorectal cancer Social History Smoking Status: Never smoker Second Hand Exposure: No; Do You Dip or Chew Tobacco: No; Hx Alcohol Use: Yes Alcohol type: beer Alcohol Intake Frequency: Monthly or Less Hx Substance Use: No Preferred Language: Scottish Communication Ability: Effective Visual Impairment: Limited Hearing Ability: Normal Registered Safety Engineer Required: No Beliefs That Will Affect Care: None marital status: Current Living Situation: Spouse current occupational status: retired How many Children do You have: 2 Feels Safe at Home: Yes Childhood Exposure to Second-Hand Smoke: No Diet: regular caffeine: Yes during the past year weight has: remained stable Dental Care, Regularly: No Physical Activity Frequency: Daily Seatbelt Use: always Sunscreen Use: No Assistive Devices: Denture - Upper and Glasses Allergies Allergies Allergy/AdvReac Type Severity Reaction Status Date / Time No Known Allergies Allergy Verified 10/09/22 18:51 Home Meds Home Medications Medication Instructions Recorded Confirmed aspirin 81 mg tablet,delayed 81 mg PO QAM 12/30/18 10/09/22 release hydroxychloroquine 200 mg tablet 200 mg PO BID 12/18/19 10/09/22 gabapentin 600 mg tablet 600 mg PO TID 09/21/22 10/09/22 Previous Rx's Medication Instructions Recorded tamsulosin 0.4 mg capsule (Flomax) 0.4 mg PO QAM #90 caps 11/13/21 atorvastatin 40 mg tablet 40 mg PO QAM #90 tabs 01/08/22 metoprolol succinate 25 mg 25 mg PO HS #90 tabs 01/08/22 tablet,extended release 24 hr tadalafil 5 mg tablet 5 mg PO DAILY #90 tabs 02/05/22 finasteride 5 mg tablet 5 mg PO QAM #90 tabs 04/10/22 levothyroxine 50 mcg tablet 50 mcg PO DAILY #90 tabs 09/24/22 amlodipine 10 mg tablet 10 mg PO QAM #90 tabs 09/26/22 lisinopril 40 mg tablet 40 mg PO QAM blood pressure #90 09/26/22 tabs omeprazole 20 mg capsule,delayed 40 mg PO QAM acid refulx #180 caps 09/26/22 release tiotropium bromide 2.5 2 puff inhalation QAM #4 grams 09/26/22 mcg/actuation mist for inhalation (Spiriva Respimat) Results & Data (ED) Vital Signs Vital Signs - 24 hr 10/09/22 16:09 10/09/22 17:35 10/09/22 17:39 Temperature 36.5 C Temperature Source Temporal Artery Scan Pulse Rate 79 74 Pulse Rate [Right Apical] 86 Pulse Rate from SpO2 Sensor Respiratory Rate 18 13 Respiratory Effort / Characteristics Non-Labored Non-Labored Spontaneous Respiratory Depth Normal Normal Respiratory Pattern Regular Blood Pressure 138/80 Blood Pressure [Left Arm] 157/79 H Blood Pressure Mean 99 Blood Pressure Mean [Left Arm] 105 Pulse Oximetry 98 99 Oxygen Delivery Method Room Air Room Air Sepsis Recent Fever Within 48 Hours No Sepsis New/Unexplained Change in Mental Status No Sepsis Action Taken by Nursing No Action Required 10/09/22 19:06 Temperature Temperature Source Pulse Rate 68 Pulse Rate [Right Apical] Pulse Rate from SpO2 Sensor 68 Respiratory Rate 17 Respiratory Effort / Characteristics Respiratory Depth Respiratory Pattern Blood Pressure 130/81 Blood Pressure [Left Arm] Blood Pressure Mean 97 Blood Pressure Mean [Left Arm] Pulse Oximetry 96 Oxygen Delivery Method Room Air Sepsis Recent Fever Within 48 Hours Sepsis New/Unexplained Change in Mental Status Sepsis Action Taken by Nursing Laboratory Data 10/09/22 16:28 10/09/22 16:28 Lab Results 10/09/22 10/09/22 10/09/22 Range/Units 16:28 16:28 17:52 WBC Cancelled 10.33 RBC Cancelled 4.81 Hgb Cancelled 14.6 Hct Cancelled 40.1 L MCV Cancelled 83.4 MCH Cancelled 30.4 MCHC Cancelled 36.4 H RDW Std Deviation Cancelled 40.9 RDW Coeff of Alyssa Cancelled 13.5 Plt Count Cancelled 141 MPV Cancelled 8.4 L Immature Gran % (Auto) Cancelled 1.6 Neut % (Auto) Cancelled 74.0 Lymph % (Auto) Cancelled 17.0 [place] % (Auto) Cancelled 6.4 Eos % (Auto) Cancelled 0.6 Baso % (Auto) Cancelled 0.4 Neut # (Auto) Cancelled 7.64 H Lymph # (Auto) Cancelled 1.76 [place] # (Auto) Cancelled 0.66 H Eos # (Auto) Cancelled 0.06 Baso # (Auto) Cancelled 0.04 Immature Gran # (Auto) Cancelled 0.17 Absolute Nucleated RBC Cancelled Nucleated RBC % (auto) Cancelled Neutrophils % (Manual) Cancelled Band Neutrophils % Cancelled Lymphocytes % (Manual) Cancelled Prolymphocyte % Cancelled Reactive Lymphs % (Man) Cancelled Monocytes % (Manual) Cancelled Eosinophils % (Manual) Cancelled Basophils % (Manual) Cancelled Metamyelocytes % (Man) Cancelled Myelocytes % (Man) Cancelled Promyelocytes % (Man) Cancelled Blast Cells % (Manual) Cancelled Plasma Cell % (Manual) Cancelled Other Cells % Cancelled Nucleated RBC % Cancelled Neutrophils # (Manual) Cancelled Band Neutrophils # Cancelled Total Absolute Neuts Cancelled Lymphocytes # (Manual) Cancelled Prolymphocyte # Cancelled Reactive Lymphs # Cancelled Total Abs Lymphocytes Cancelled Monocytes # (Manual) Cancelled Eosinophils # (Manual) Cancelled Basophils # (Manual) Cancelled Metamyelocytes # (Man) Cancelled Myelocytes # (Manual) Cancelled Promyelocytes # (Man) Cancelled Blast Cells # (Man) Cancelled Plasma Cell # (Manual) Cancelled Other Cells # Cancelled Nucleated RBCs # (Man) Cancelled Hypersegmented Neuts Cancelled Hyposegmented Neuts Cancelled Hypogranular Neuts Cancelled Large Granular Lymphs Cancelled # Lrg Granular Lymphs Cancelled Hairy Cells Cancelled Smudge Cells Cancelled Toxic Granulation Cancelled Toxic Vacuolation Cancelled Dohle Bodies Cancelled Sara Rods Cancelled Platelet Estimate Cancelled Hypogranular Platelets Cancelled Giant Platelets Cancelled Platelet Satelliting Cancelled RBC Morphology Cancelled Polychromasia Cancelled Hypochromasia Cancelled Poikilocytosis Cancelled Basophilic Stippling Cancelled Anisocytosis Cancelled Microcytosis Cancelled Macrocytosis Cancelled Spherocytes Cancelled Pappenheimer Bodies Cancelled Sickle Cells Cancelled Target Cells Cancelled Tear Drop Cells Cancelled Ovalocytes Cancelled Stomatocytes Cancelled Acharya-Socastee Bodies Cancelled Echinocytes Cancelled Acanthocytes (Spur) Cancelled Rouleaux Cancelled RBC Agglutinates Cancelled Schistocytes Cancelled Sezary Cell Cancelled Sodium 134 L (136-145) mmol/L Potassium 4.8 (3.5-5.1) mmol/L Chloride 104 (98-107) mmol/L Carbon Dioxide 21 (21-32) mmol/L Anion Gap 9 (3-11) BUN 24 H (6-23) mg/dl Creatinine 1.13 (0.6-1.4) mg/dl Est Cr Clr Drug Dosing 85.0 ml/min Est GFR ( Amer) 78.6 ml/min Est GFR (Non-Af Amer) 67.8 ml/min BUN/Creatinine Ratio 21.2 H (10-20) Glucose 228 H (70-99(Fasting)) mg/dl Calcium 9.8 (8.6-10.3) mg/dl Total Bilirubin 0.7 (0.2-1.0) mg/dl AST 24 (13-39) U/L ALT 38 (7-52) U/L Alkaline Phosphatase 71 (34-104) U/L Troponin I High Sens 4.1 (0-20) pg/ml Total Protein 7.5 (6.0-8.3) gm/dl Albumin 4.8 (3.4-5.0) gm/dl Globulin 2.7 (2.5-4.0) gm/dl Albumin/Globulin Ratio 1.8 (0.9-2) Lipase 25 (11-82) U/L SARS-CoV-2, RNA, NAAT (NEGATIVE) Blood Parasites ID Cancelled 10/09/22 Range/Units 18:30 WBC RBC Hgb Hct MCV MCH MCHC RDW Std Deviation RDW Coeff of Alyssa Plt Count MPV Immature Gran % (Auto) Neut % (Auto) Lymph % (Auto) [place] % (Auto) Eos % (Auto) Baso % (Auto) Neut # (Auto) Lymph # (Auto) [place] # (Auto) Eos # (Auto) Baso # (Auto) Immature Gran # (Auto) Absolute Nucleated RBC Nucleated RBC % (auto) Neutrophils % (Manual) Band Neutrophils % Lymphocytes % (Manual) Prolymphocyte % Reactive Lymphs % (Man) Monocytes % (Manual) Eosinophils % (Manual) Basophils % (Manual) Metamyelocytes % (Man) Myelocytes % (Man) Promyelocytes % (Man) Blast Cells % (Manual) Plasma Cell % (Manual) Other Cells % Nucleated RBC % Neutrophils # (Manual) Band Neutrophils # Total Absolute Neuts Lymphocytes # (Manual) Prolymphocyte # Reactive Lymphs # Total Abs Lymphocytes Monocytes # (Manual) Eosinophils # (Manual) Basophils # (Manual) Metamyelocytes # (Man) Myelocytes # (Manual) Promyelocytes # (Man) Blast Cells # (Man) Plasma Cell # (Manual) Other Cells # Nucleated RBCs # (Man) Hypersegmented Neuts Hyposegmented Neuts Hypogranular Neuts Large Granular Lymphs # Lrg Granular Lymphs Hairy Cells Smudge Cells Toxic Granulation Toxic Vacuolation Dohle Bodies Sara Rods Platelet Estimate Hypogranular Platelets Giant Platelets Platelet Satelliting RBC Morphology Polychromasia Hypochromasia Poikilocytosis Basophilic Stippling Anisocytosis Microcytosis Macrocytosis Spherocytes Pappenheimer Bodies Sickle Cells Target Cells Tear Drop Cells Ovalocytes Stomatocytes Acharya-[place] Bodies Echinocytes Acanthocytes (Spur) Rouleaux RBC Agglutinates Schistocytes Sezary Cell Sodium (136-145) mmol/L Potassium (3.5-5.1) mmol/L Chloride (98-107) mmol/L Carbon Dioxide (21-32) mmol/L Anion Gap (3-11) BUN (6-23) mg/dl Creatinine (0.6-1.4) mg/dl Est Cr Clr Drug Dosing ml/min Est GFR ( Amer) ml/min Est GFR (Non-Af Amer) ml/min BUN/Creatinine Ratio (10-20) Glucose (70-99(Fasting)) mg/dl Calcium (8.6-10.3) mg/dl Total Bilirubin (0.2-1.0) mg/dl AST (13-39) U/L ALT (7-52) U/L Alkaline Phosphatase (34-104) U/L Troponin I High Sens (0-20) pg/ml Total Protein (6.0-8.3) gm/dl Albumin (3.4-5.0) gm/dl Globulin (2.5-4.0) gm/dl Albumin/Globulin Ratio (0.9-2) Lipase (11-82) U/L SARS-CoV-2, RNA, NAAT NEGATIVE (NEGATIVE) Blood Parasites ID Administered Medications Enoxaparin Sodium (Enoxaparin Inj 40 Mg/0.4 Ml Syr) 40 mg SQ Q24H BENITO Stop: 11/08/22 21:59 Last Admin: 10/09/22 21:55 Dose: 40 mg Documented By: MERON Gabapentin (Gabapentin 600 Mg Tab) 600 mg PO TID BENITO Stop: 11/08/22 21:09 Last Admin: 10/09/22 21:56 Dose: 600 mg Documented By: MERON Hydroxychloroquine Sulfate (Hydroxychloroquine Sulfate 200 Mg Tab) 200 mg PO BID BENITO Stop: 11/08/22 21:09 Last Admin: 10/09/22 21:55 Dose: 200 mg Documented By: MERON Insulin Aspart (Insulin Aspart Per Unit Charge) 0 units SC ACHS BENITO Stop: 11/08/22 20:59 Last Admin: 10/09/22 21:54 Dose: 1 units Documented By: MERON Co-signed By: SABI Metoprolol Succinate (Metoprolol Succ 25mg Ext Rel Tab) 25 mg PO HS BENITO Stop: 11/08/22 21:09 Last Admin: 10/09/22 21:55 Dose: 25 mg Documented By: MERON Discontinued Medications Aspirin (Aspirin Chew 324 Mg) 324 mg PO NOW STA Stop: 10/09/22 18:10 Last Admin: 10/09/22 18:30 Dose: 324 mg Documented By: DONOVAN Famotidine (Famotidine 20 Mg Tab) 20 mg PO NOW ONE Stop: 10/09/22 19:46 Last Admin: 10/09/22 19:50 Dose: 20 mg Documented By: DONOVAN Lidocaine (Lidocaine 5% 1 Patch) 1 patch TD NOW STA Stop: 10/09/22 19:46 Last Admin: 10/09/22 19:50 Dose: 1 patch Documented By: DONOVAN Imaging Data Radiologist's Impression: Chest X-Ray 10/09/22 16:12 XR chest 1V not portable CLINICAL HISTORY: Atypical chest pain. COMPARISON STUDY: Chest radiograph September 21, 2022. Chest CT January 06, 2019. FINDINGS: Lung volumes are normal. Lungs are clear. There is no pneumothorax or pleural effusion. Cardiac size is normal. Mediastinal contours are normal. There is no evidence for pulmonary edema. IMPRESSION: No acute cardiopulmonary findings. ACT 112: Negative or not required by law. Electronically signed by: Shivam Wylie M.D. 10/09/2022 5:13 PM Discharge Plan Visit Data Chief Complaint: Illness Stated Complaint: NAUSEA,LIGHT HEADEDNESS,PAIN LEFT SHOULDER/ARM ED Provider: Chinedu Beth Discharge Problem: Chest pain, Arm pain Patient Disposition: Admitted As Inpatient Discharge Instructions Interventions: ED Discharge Assessment Last Done: 10/09/22 20:07
[2022-10-09 18:06] LABS: Basophils # (auto) 0.04 K/uL (0-0.2); Basophils % (auto) 0.4 %; Eosinophils # (auto) 0.06 K/uL (0-0.50); Eosinophils % (auto) 0.6 %; Hematocrit (blood only) 40.1 % (42.0-52.0); Hemoglobin 14.6 g/dl (14.0-18.0); Immature Granulocytes # (auto) 0.17 K/uL (0.01-0.20); Immature Granulocytes % (auto) 1.6 %; Lymphocytes # (auto) 1.76 K/uL (1.2-3.4); Mean Corpuscular Hemoglobin 30.4 pg (25.0-34.0); Mean Corpuscular Hgb Conc 36.4 g/dL (32.0-36.0); Mean Corpuscular Volume 83.4 fL (80.0-100.0); Mean Platelet Volume 8.4 fL (9.4-12.4); Monocytes # (auto) 0.66 K/uL (0.11-0.59); Monocytes % (auto) 6.4 %; Neutrophils # (auto) 7.64 K/uL (1.40-6.50); Platelet Count 141 K/uL (130-400); RDW Coefficient of Variation 13.5 % (11.5-14.5); RDW Standard Deviation 40.9 fL (36.4-46.3); Red Blood Count 4.81 M/uL (4.70-6.10); White Blood Count 10.33 K/ul (4.8-10.8)
[2022-10-09] MEDS ORDERED: ASPIRIN CHEW 324 MG PO STA (18:09)
--- NOTE | 2022-10-09 19:10 | History & Physical Report ---
Date of Service October 09, 2022 Assessment & Plan (1) Chest pain: Plan: -Admit to med/tele -Currently stable -Has been having ongoing episodes of LUE pain which radiates to the left shoulder/chest -Cardiac workup today as been unremarkable -Had a negative stress test in January, completed a course of prednisone and PRN baclofen for the same symptoms after his last ED visit 2 weeks ago -Spoke to Dr. Oglesby of [facility], appreciate his quick response, he will see the patient tomorrow and will determine if a repeat dobutamine stress echo needs to be completed during this admission -Will continue to monitor on tele and trend trop q6h overnight -BL SCD's and Sub-Q lovenox for DVT PPX -AM CBC, BMP (2) Back pain: Plan: -I believe that his thoracic back pain is musculoskeletal in nature -He has easily reproducible pain on palpation of the paraspinal muscles between the thoracic spine and right scapula -Will place a lidocaine patch, start a heating pad, and use prn tylenol for now, continue to monitor (3) Erectile dysfunction: Plan: -Continue daily Cialias (4) GERD (gastroesophageal reflux disease): Plan: -Will switch omeprazole to Pantoprazole and start daily famotidine to see if it improves any of his symtpoms (5) Hypertension: Plan: -Stable -Continue amlodipine, lisinopril, metoprolol (6) Rheumatoid arthritis: Plan: -Continue plaquenil and (7) Hyperlipidemia: Plan: -Contnue statin (8) Emphysema, unspecified: Plan: -Stable on RA, no wheezing on exam -Continue Spiriva (9) DM II (diabetes mellitus, type II), controlled: Plan: -Diet controlled -Monitor BSG ACHS, goal is 110-140 -Start with CF of 50 ACHS for now -AM A1C as last in May was 6.2 Plan The patient was discussed with Dr. Abreu at the time of the admission History of Present Illness Chief Complaint: Chest pain, LUE pain, lightheadedness Primary Care Provider: DO Kali Arora is a 67 year old male with a PMH significant for HTN, hyperlipidemia, DMII (diet controlled), GERD, RA, peripheral neuropathy, emphysema, [hypothyroidism and BPHwho presented to the [facility] ED on 10/09/22 due to chest p ain radiating to the LUE and associated lightheadedness. In the ED vitals were stable. Labs were significant for a glucose of 228 and high sen trop WNL. ECG was without acute ST segment or T-wave changes. Prior to admission the patient was given 324 mg Aspirin. At the time of the exam the patient was sitting in bed in no acute distress with is sitting bedside, history was obtained from both. He states that he has been having recurrent episodes of LUE, chest and back pain, he was last seen in the ED approximately 2 weeks ago for the same symptoms. He states that the symptoms always started with pain/discomfort in the LUE around the forearm/elbow. The pain the moves proximally to the left shoulder and into the left chest, substernal chest, and then to the back, between his shoulder blades. There are times where he will have associated nausea, but this doesn't occur each time. He was seen by his PCP on 09/30 and was given a tapering dose of prednisone and prn baclofen for possible musculoskeletal pain but these did not improve his symptoms. Since then he has been having multiple episodes of the same symptoms daily. They occur at rest and during times of activity, such as yard work. He will also experience episodes of lightheadedness/dizziness but these occur with positional changes only. The episodes last for approximately one hour and typically resolve spontaneously. Per chart review, the patient had a negative dobutamine stress test last January. He states that he was seen by his Woven Label Designer (Dr. Knapp of [facility]) on Friday of this week. He states that Dr. Knapp ordered a Dobutamine stress test but it is not until December 09. He is currently without symptoms at the time of the exam. He is a full code. Please refer to Dr. Abreu's attestation for any changes to the treatment plan Allergies Allergy/AdvReac Type Severity Reaction Status Date / Time No Known Allergies Allergy Verified 10/09/22 18:51 Home Medications Medication Instructions Recorded Confirmed Type aspirin 81 mg tablet,delayed 81 mg PO QAM 12/30/18 10/09/22 History release hydroxychloroquine 200 mg tablet 200 mg PO BID 12/18/19 10/09/22 History tamsulosin 0.4 mg capsule (Flomax) 0.4 mg PO QAM #90 caps 11/13/21 10/09/22 Rx atorvastatin 40 mg tablet 40 mg PO QAM #90 tabs 01/08/22 10/09/22 Rx metoprolol succinate 25 mg 25 mg PO HS #90 tabs 01/08/22 10/09/22 Rx tablet,extended release 24 hr tadalafil 5 mg tablet 5 mg PO DAILY #90 tabs 02/05/22 10/09/22 Rx finasteride 5 mg tablet 5 mg PO QAM #90 tabs 04/10/22 10/09/22 Rx gabapentin 600 mg tablet 600 mg PO TID 09/21/22 10/09/22 History levothyroxine 50 mcg tablet 50 mcg PO DAILY #90 tabs 09/24/22 10/09/22 Rx amlodipine 10 mg tablet 10 mg PO QAM #90 tabs 09/26/22 10/09/22 Rx lisinopril 40 mg tablet 40 mg PO QAM blood pressure #90 09/26/22 10/09/22 Rx tabs omeprazole 20 mg capsule,delayed 40 mg PO QAM acid refulx #180 caps 09/26/22 10/09/22 Rx release tiotropium bromide 2.5 2 puff inhalation QAM #4 grams 09/26/22 10/09/22 Rx mcg/actuation mist for inhalation (Spiriva Respimat) 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 Emphysema, unspecified GERD (gastroesophageal reflux disease) Hyperlipidemia Hypertension IBS (irritable bowel syndrome) Peripheral neuropathy Pulmonary nodule Rheumatoid arthritis Rupture of left rectus femoris tendon Surgical History History of appendectomy History of cholecystectomy History of colonoscopy History of esophagogastroduodenoscopy (EGD) History of tooth extraction Hx of cardiac cath (~01/2008) S/P repair of hydrocele Status post surgery (2009) Family History Sister Breast cancer, Onset Age: 40 Father Myocardial infarction Uncle Myocardial infarction Grandfather (Maternal) Myocardial infarction Mother Diabetes Denies family history of Ovarian cancer Prostate cancer Colorectal cancer Social History Smoking Status: Never smoker Second Hand Exposure: No; Do You Dip or Chew Tobacco: No; Hx Alcohol Use: No Hx Substance Use: No Preferred Language: Qatari Communication Ability: Effective Visual Impairment: Limited Hearing Ability: Normal Automat Watcher Required: No Beliefs That Will Affect Care: None marital status: Current Living Situation: Spouse Current Living Situation Comment: lives at home with current occupational status: retired How many Children do You have: 2 Feels Safe at Home: Yes Safety Concerns: Feels Safe At This Time Childhood Exposure to Second-Hand Smoke: No Diet: regular caffeine: Yes during the past year weight has: remained stable Dental Care, Regularly: No Physical Activity Frequency: Daily Seatbelt Use: always Sunscreen Use: No Assistive Devices: Denture - Upper and Glasses Physical Exam Physical Exam: Physical Exam: General: In no acute distress, stated age, well-nourished, good hygiene HEENT: Normocephalic, atraumatic, no scleral icterus, pupils around round, symmetrical, and reactive to light, moist mucus membranes, trachea midline, no thyromegaly Chest/Pulm: No respiratory distress, no reproducible chest pain on palpation, symmetrical chest expansion, clear breath sounds throughout Cardiac: RRR, no murmurs noted Abdomen: Negative for ascites and bruising, normoactive bowel sounds, soft, non-tender to palpation throughout Musculoskeletal: Symmetrical and without signs of acute trauma, upper and lower extremities with full ROM, no atrophy, spasticity, or flaccidity. Tenderness to palpation over the paraspinal muscles between the thoracic spine and the right scapula, no tenderness over the vertebrae Extremities: Radial, dorsalis pedis, and posterior tibial pulses are intact and symmetrical, no edema noted in the BL LE's Skin: Warm, dry, no rashes , lesions, or scars noted Neuro: Alert and oriented to person, place, month, year, and president, no focal defects, CN II-XII tested and intact, no tremors noted Psych: No acute distress, calm and cooperative during the exam Results & Data Results & Data Vital Signs (Past 12 Hours) Vital Signs Temp Pulse Pulse Resp BP BP Pulse Ox 10/09/22 17:39 86 13 157/79 H 99 10/09/22 17:35 74 10/09/22 16:09 36.5 C 79 18 138/80 98 O2 Del Method 10/09/22 17:39 Room Air 10/09/22 17:35 10/09/22 16:09 Room Air Laboratory Results Abnormal lab results 10/09/22 10/09/22 Range/Units 16:28 17:52 Hct 40.1 L (42.0-52.0) % MCHC 36.4 H (32.0-36.0) g/dL MPV 8.4 L (9.4-12.4) fL Neut # (Auto) 7.64 H (1.40-6.50) K/uL [place] # (Auto) 0.66 H (0.11-0.59) K/uL Sodium 134 L (136-145) mmol/L BUN 24 H (6-23) mg/dl BUN/Creatinine Ratio 21.2 H (10-20) Glucose 228 H (70-99(Fasting)) mg/dl Diagnostic Findings Chest X-Ray 10/09/22 16:12 XR chest 1V not portable CLINICAL HISTORY: Atypical chest pain. COMPARISON STUDY: Chest radiograph September 21, 2022. Chest CT January 06, 2019. FINDINGS: Lung volumes are normal. Lungs are clear. There is no pneumothorax or pleural effusion. Cardiac size is normal. Mediastinal contours are normal. There is no evidence for pulmonary edema. IMPRESSION: No acute cardiopulmonary findings. ACT 112: Negative or not required by law. Electronically signed by: Shivam Wylie M.D. 10/09/2022 5:13 PM ECG Additional Comments: Poor data quality, interpretation may be adversely affected Sinus rhythm with occasional Premature ventricular complexes Otherwise normal ECG When compared with ECG of 21-SEP-2022 17:21, Premature ventricular complexes are now Present Criteria for Septal infarct are no longer Present Code Status & VTE Plan Code Status Full code VTE Prophylaxis Plan VTE Prophylaxis will be ordered: Yes Supervising Physician Co-Signing Physician Notes I personally saw and examined the patient. I verified all perkins points and agree with Wu Slaughter PA-C with the following exceptions and/or additions: 67 year old male presents to the ER with chest pain lasting for 10 minutes radiating to left upper extremity. Planned stress testing with outpatient construction equipment overhauler. O/E HS RRR, no murmurs, Chest CTAB, Abdo SNT A/P Chest pain - multiple prior troponins normal however pain also very intermittent and not long lasting. PA discussed with cardiology and recommend consult for them to evaluate in AM regarding further testing if warranted. PG Care Time/CCT Total # of Minutes Spent Total Time Spent with Patient: Total time spent is greater than 50% in coordination of care (as documented) at patient's floor/unit and/or counseling patient: [place] [address] INT INP/OBS CARE 2/55MIN Patient Type Established Medical Decision Making High Complexity Diagnoses Chest pain R07.9 Chest pain type: unspecified Back pain M54.9 Erectile dysfunction N52.9 GERD (gastroesophageal reflux disease) K21.9 Hypertension I10 Hypertension type: essential hypertension Rheumatoid arthritis M06.9 Hyperlipidemia E78.5 Emphysema, unspecified J43.9 DM II (diabetes mellitus, type II), controlled E11.9 (1) Chest pain Chest pain type: unspecified Qualified Code(s): R07.9 - Chest pain, unspecified (5) Hypertension Hypertension type: essential hypertension Qualified Code(s): I10 - Essential (primary) hypertension
[2022-10-09] MEDS ORDERED: LIDOCAINE 5% 1 PATCH TD STA (19:45)
[2022-10-09] MEDS ORDERED: FAMOTIDINE 20 MG TAB PO ONE (19:45)
[2022-10-09] MEDS ORDERED: GLUCAGON FOR INJ 1 MG VIAL SQ PRN (20:13)
[2022-10-09] MEDS ORDERED: CARBOHYDRATES FOR HYPOGLYCEMIA PO PRN (20:13)
[2022-10-09] MEDS ORDERED: DEXTROSE 50% 50 ML SYRINGE IV PRN (20:13)
[2022-10-09] MEDS ORDERED: GLUCOSE 10 TAB/TUBE PO PRN (20:13)
[2022-10-09] MEDS ORDERED: GLUCOSE 40% GEL 15 GM TUBE PO PRN (20:13)
[2022-10-09] MEDS ORDERED: METOPROLOL SUCC 25MG EXT REL TAB PO SCH (21:10)
[2022-10-09] MEDS ORDERED: ACETAMINOPHEN 325 MG TAB PO PRN (21:10)
[2022-10-09] MEDS: INSULIN ASPART PER UNIT CHARGE SC SCH (21:54)
[2022-10-09] MEDS: HYDROXYCHLOROQUINE SULFATE 200 MG TAB PO SCH (21:55)
[2022-10-09] MEDS: GABAPENTIN 600 MG TAB PO SCH (21:56)
[2022-10-09] MEDS ORDERED: ENOXAPARIN INJ 40 MG/0.4 ML SYR SQ SCH (22:00)
[2022-10-10] MEDS ORDERED: LEVOTHYROXINE SODIUM 50 MCG TABLET PO SCH (06:30)
[2022-10-10 08:29] LABS: Hematocrit (blood only) 40.3 % (42.0-52.0); Hemoglobin 14.5 g/dl (14.0-18.0); Mean Corpuscular Volume 83.4 fL (80.0-100.0); Mean Platelet Volume 8.4 fL (9.4-12.4); Platelet Count 143 K/uL (130-400); RDW Coefficient of Variation 13.4 % (11.5-14.5); RDW Standard Deviation 41.1 fL (36.4-46.3); Red Blood Count 4.83 M/uL (4.70-6.10); White Blood Count 9.31 K/ul (4.8-10.8)
[2022-10-10 08:35] LABS: Estimated Average Glucose 140 mg/dl; Hemoglobin A1C 6.5 % (4.5-5.6)
[2022-10-10 08:37] LABS: Calcium 9.6 mg/dl (8.6-10.3); Creatinine Clr Calc Pharmacy 95.9 ml/min; Est GFR (African American) 91.1 ml/min; Est GFR (Non-African American) 78.6 ml/min; Potassium 4.2 mmol/L (3.5-5.1)
[2022-10-10] MEDS: INSULIN ASPART PER UNIT CHARGE SC SCH (08:53)
[2022-10-10] MEDS: GABAPENTIN 600 MG TAB PO SCH (08:55)
[2022-10-10] MEDS: HYDROXYCHLOROQUINE SULFATE 200 MG TAB PO SCH (08:55)
[2022-10-10] MEDS ORDERED: ATORVASTATIN 40 MG TAB PO SCH (09:00)
[2022-10-10] MEDS ORDERED: lisinopril 40 MG TAB PO SCH (09:00)
[2022-10-10] MEDS ORDERED: ASPIRIN 81 MG ECTAB PO SCH (09:00)
[2022-10-10] MEDS ORDERED: amLODIPine BESYLATE 5 MG TAB PO SCH (09:00)
[2022-10-10] MEDS ORDERED: TAMSULOSIN HCL 0.4 MG CAP PO SCH (09:00)
[2022-10-10] MEDS ORDERED: UMECLIDINIUM BROMIDE 62.5MCG/BLISTER 7 PUFFS/INHALER INH SCH (09:00)
[2022-10-10] MEDS ORDERED: NON-FORMULARY MEDICATION (Tiotropium Bromide [Spiriva Respimat] 2.5 mcg/actuation mist) INH SCH (09:00)
[2022-10-10] MEDS ORDERED: FAMOTIDINE 20 MG TAB PO SCH (09:00)
[2022-10-10] MEDS ORDERED: FINASTERIDE 5 MG TAB PO SCH (09:00)
[2022-10-10] MEDS ORDERED: PANTOprazole 40 MG TAB PO SCH (09:00)
--- NOTE | 2022-10-10 09:02 | Cardiology Consultation ---
Date of Consultation October 10, 2022 Assessment & Plan (1) Chest pain: (2) Arm pain: -EKG , Troponin normal. -Unable to walk on treadmill due to neuropathy -proceed with dobutamine stress echo. (3) Hyperlipidemia: -Continue atorvastatin History of Present Illness Attending Physician: Kali Block MD History of Present Illness Kali Ellis is a 67-year-old male seen in cardiology consultation per the request of Wu Slaughter PA-C for the evaluation of chest discomfort radiating to the left arm. Patient had recently been seen in cardiology follow-up by Dr. Knapp of our practice on 10/07/2022 with noted recent emergency department visit on 09/21/2022 for left shoulder pain. A pharmacologic nuclear stress test was tentatively scheduled as an outpatient per patient presented again to the emergency room yesterday with recurrent symptoms. Patient notes intermittent left chest pain that radiates to his left shoulder, arm, and back between the shoulder blades . Since the ED visit on 09/21 , has had a course of prednisone , but this did not help. Notes the symptoms at rest and with activity. The stress test performed in 02/2022 was for different symptoms of HIDALGO at that time. Outpatient Problem List: 1.Familial history of coronary artery disease. 2.Hyperlipidemia, dyslipidemia with elevated triglycerides. 3.Past noncardiac chest pain with cardiac catheterization 2007 without obstructive coronary disease. Negative stress testing in September 2015 and February 2017, December 2018, January 4.Mild hyperglycemia. 5. Rheumatoid Arthritis Allergies Allergy/AdvReac Type Severity Reaction Status Date / Time No Known Allergies Allergy Verified 10/09/22 18:51 Home Medications Medication Instructions Recorded Confirmed Type aspirin 81 mg tablet,delayed 81 mg PO QAM 12/30/18 10/09/22 History release hydroxychloroquine 200 mg tablet 200 mg PO BID 12/18/19 10/09/22 History tamsulosin 0.4 mg capsule (Flomax) 0.4 mg PO QAM #90 caps 11/13/21 10/09/22 Rx atorvastatin 40 mg tablet 40 mg PO QAM #90 tabs 01/08/22 10/09/22 Rx metoprolol succinate 25 mg 25 mg PO HS #90 tabs 01/08/22 10/09/22 Rx tablet,extended release 24 hr tadalafil 5 mg tablet 5 mg PO DAILY #90 tabs 02/05/22 10/09/22 Rx finasteride 5 mg tablet 5 mg PO QAM #90 tabs 04/10/22 10/09/22 Rx gabapentin 600 mg tablet 600 mg PO TID 09/21/22 10/09/22 History levothyroxine 50 mcg tablet 50 mcg PO DAILY #90 tabs 09/24/22 10/09/22 Rx amlodipine 10 mg tablet 10 mg PO QAM #90 tabs 09/26/22 10/09/22 Rx lisinopril 40 mg tablet 40 mg PO QAM blood pressure #90 09/26/22 10/09/22 Rx tabs omeprazole 20 mg capsule,delayed 40 mg PO QAM acid refulx #180 caps 09/26/22 10/09/22 Rx release tiotropium bromide 2.5 2 puff inhalation QAM #4 grams 09/26/22 10/09/22 Rx mcg/actuation mist for inhalation (Spiriva Respimat) Patient History Medical History Allergic rhinitis Benign prostatic hyperplasia with urinary obstruction 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 Emphysema, unspecified inhaler daily GERD (gastroesophageal reflux disease) Hyperlipidemia Hypertension IBS (irritable bowel syndrome) Peripheral neuropathy Pulmonary nodule Rheumatoid arthritis Rupture of left rectus femoris tendon hx of 08/2020--no surgery Surgical History History of appendectomy History of cholecystectomy History of colonoscopy History of esophagogastroduodenoscopy (EGD) History of tooth extraction all teeth removed Hx of cardiac cath (~01/2008) @ [facility]--no stents S/P repair of hydrocele Status post surgery (2009) SANJIV procedure, Dr Swanson Family History Sister Breast cancer, Onset Age: 40 Father Myocardial infarction Uncle Myocardial infarction Grandfather (Maternal) Myocardial infarction Mother Diabetes Denies family history of Ovarian cancer Prostate cancer Colorectal cancer Social History Smoking Status: Never smoker Second Hand Exposure: No; Do You Dip or Chew Tobacco: No; Hx Alcohol Use: No Hx Substance Use: No Preferred Language: Colombian Communication Ability: Effective Visual Impairment: Limited Hearing Ability: Normal Crater And Packer Required: No Beliefs That Will Affect Care: None marital status: Current Living Situation: Spouse Current Living Situation Comment: lives at home with current occupational status: retired How many Children do You have: 2 Feels Safe at Home: Yes Safety Concerns: Feels Safe At This Time Childhood Exposure to Second-Hand Smoke: No Diet: regular caffeine: Yes during the past year weight has: remained stable Dental Care, Regularly: No Physical Activity Frequency: Daily Seatbelt Use: always Sunscreen Use: No Assistive Devices: Denture - Upper and Glasses Review of Systems Review of Systems: All systems reviewed & are unremarkable except as noted in HPI & below Physical Exam Constitutional: WD/WN, vitals as above Respiratory: normal respiratory effort, lungs clear to auscultation Cardiovascular: RRR, no murmur, no edema Gastrointestinal (Abdomen): normal bowel sounds, soft, nontender, no hepatosplenomegaly Neurologic: PERRL, EOMI, accommodation nl, no face palsy, no dysarthria Psychiatric: A+Ox3, euthymic affect Results & Data Vital Signs (Past 12 Hours) Vital Signs Temp Pulse Pulse Resp BP Pulse Ox O2 Del Method 10/10/22 08:41 36.6 C 61 18 132/80 96 Room Air 10/10/22 01:00 73 10/10/22 04:00 36.8 C 59 L 20 113/70 96 Room Air 10/09/22 22:00 37 C 68 18 141/76 H 96 Room Air 10/09/22 22:00 37 C 64 20 126/73 96 Room Air Laboratory Results Cardiac Enzymes 10/09/22 10/09/22 10/10/22 Range/Units 16:28 20:11 01:18 AST 24 (13-39) U/L Troponin I High Sens 4.1 5.1 5.9 (0-20) pg/ml 10/10/22 Range/Units 07:44 AST (13-39) U/L Troponin I High Sens 5.0 (0-20) pg/ml CBC 10/09/22 10/09/22 10/10/22 Range/Units 16:28 17:52 07:44 WBC Cancelled 10.33 9.31 RBC Cancelled 4.81 4.83 Hgb Cancelled 14.6 14.5 Hct Cancelled 40.1 L 40.3 L Plt Count Cancelled 141 143 Neut # (Auto) Cancelled 7.64 H Lymph # (Auto) Cancelled 1.76 [place] # (Auto) Cancelled 0.66 H Eos # (Auto) Cancelled 0.06 Baso # (Auto) Cancelled 0.04 Comprehensive Metabolic Panel 10/09/22 10/10/22 Range/Units 16:28 07:44 Sodium 134 L 137 (136-145) mmol/L Potassium 4.8 4.2 (3.5-5.1) mmol/L Chloride 104 104 (98-107) mmol/L Carbon Dioxide 21 27 (21-32) mmol/L BUN 24 H 19 (6-23) mg/dl Creatinine 1.13 1.00 (0.6-1.4) mg/dl Glucose 228 H 137 H (70-99(Fasting)) mg/dl Calcium 9.8 9.6 (8.6-10.3) mg/dl AST 24 (13-39) U/L ALT 38 (7-52) U/L Alkaline Phosphatase 71 (34-104) U/L Total Protein 7.5 (6.0-8.3) gm/dl Albumin 4.8 (3.4-5.0) gm/dl Intake and Output 10/09/22 10/10/22 10/10/22 22:59 06:59 14:59 Intake Total 200 / 350 150 / 350 Balance 200 / 350 150 / 350 Intake: Oral 200 / 350 150 / 350 Other: Weight 110.2 kg Weight Measurement Method Standing Scale Diagnostic Findings EKG performed 10/09/2022 revealed sinus rhythm 82 bpm. Longer present. Occasional PVCs observed. Compared to the previous dated 09/21/2022, the age- indeterminate septal infarction pattern Most recent lipid panel available in the outpatient record dates back to November,, with triglycerides of 379, total cholesterol 128, HDL 28, LDL 24
[2022-10-10] MEDS ORDERED: DOBUTamine HCL 12.5 MG/ML 20 ML VIAL IV ONE (11:17)
[2022-10-10] MEDS ORDERED: METOPROLOL TARTRATE 1 MG/ML VIAL IV ONE (11:17)
[2022-10-10] MEDS ORDERED: ATROPINE SULFATE 0.1 MG/ML 10ML SYR IV ONE (11:17)
--- NOTE | 2022-10-10 12:14 | Communication Note ---
Date of Service: October 10, 2022 Dobutamine stress echo is negative for ischemia. Full report to follow. Stable for discharge from a cardiac perspective.
--- NOTE | 2022-10-10 13:16 | Discharge Summary ---
Date of Service October 10, 2022 Admission HPI Per Admitting Provider Kali is a 67 year old male with a PMH significant for HTN, hyperlipidemia, DMII (diet controlled), GERD, RA, peripheral neuropathy, emphysema, [hypothyroidism and BPHwho presented to the [facility] ED on 10/09/22 due to chest pain radiating to the LUE and associated lightheadedness. In the ED vitals were stable. Labs were significant for a glucose of 228 and high sen trop WNL. ECG was without acute ST segment or T-wave changes. Prior to admission the patient was given 324 mg Aspirin. At the time of the exam the patient was sitting in bed in no acute distress with is sitting bedside, history was obtained from both. He states that he has been having recurrent episodes of LUE, chest and back pain, he was last seen in the ED approximately 2 weeks ago for the same symptoms. He states that the symptoms always started with pain/discomfort in the LUE around the forearm/elbow. The pain the moves proximally to the left shoulder and into the left chest, substernal chest, and then to the back, between his shoulder blades. There are times where he will have associated nausea, but this doesn't occur each time. He was seen by his PCP on 09/30 and was given a tapering dose of prednisone and prn baclofen for possible musculoskeletal pain but these did not improve his symptoms. Since then he has been having multiple episodes of the same symptoms daily. They occur at rest and during times of activity, such as yard work. He will also experience episodes of lightheadedness/dizziness but these occur with positional changes only. The episodes last for approximately one hour and typically resolve spontaneously. Per chart review, the patient had a negative dobutamine stress test last January. He states that he was seen by his [employer]ed Teacher (Dr. Knapp of [facility]) on Friday of this week. He states that Dr. Knapp ordered a Dobutamine stress test but it is not until December 09. He is currently without symptoms at the time of the exam. He is a full code. Please refer to Dr. Abreu's attestation for any changes to the treatment plan Principal Diagnosis Noncardiac chest pain Discharge Exam General-alert and oriented x3, no fevers, no chills HEENT-head atraumatic and normocephalic, pupils equal and reactive to light, extraocular muscles intact Neck-no lymphadenopathy or thyromegaly, trachea midline Chest-clear to auscultation percussion. No rales wheezing or rhonchi Cardiac-regular rate and rhythm, normal S1 and S2 Abdomen-normal bowel sounds, nontender, no hepatosplenomegaly Extremities-no cyanosis, clubbing, or edema Neuro-cranial nerves II through XII intact, motor and sensory function within normal limits, strength symmetrical 5/5, no focal deficits Psych-normal affect, normal mood Discharge Data Allergies Allergy/AdvReac Type Severity Reaction Status Date / Time No Known Allergies Allergy Verified 10/09/22 18:51 Consultations 10/09/22 18:09 ED Decision to Admit Stat 10/09/22 19:30 Consult Cardiology Routine Hospital Course (1) Chest pain: Noncardiac. No acute EKG changes. Troponin series normal. Dobutamine stress echo today was normal. Cardiology consultation appreciated. (2) Back pain: Appears to be musculoskeletal in nature. Treated while hospitalized with lidocaine patch and heat (3) Erectile dysfunction: Continue daily Cialias (4) GERD (gastroesophageal reflux disease): Stable. Continue PPI therapy (5) Hypertension: Stable . Continue amlodipine, lisinopril, metoprolol (6) Rheumatoid arthritis: Stable. Continue plaquenil and (7) Hyperlipidemia: Stable. Contnue statin (8) Emphysema, unspecified: Stable . Continue Spiriva (9) DM II (diabetes mellitus, type II), controlled: ADA diet. Sliding scale insulin as needed. Continue current medical management Plan Dobutamine stress echo was negative for ischemia. He will be discharged home today, October 10 Total Time Total Time Spent Total Time Spent (In Minutes): 40 minutes Discharge Plan Discharge Items Patient Disposition: Home - Self-Care Reason For Visit: CHEST PAIN Discharge Diagnosis: Noncardiac chest pain Activity: Resume your previous activity Non-emergency contact: Primary Care Provider Call non-emergency contact if: your symptoms worsen Follow-up/Referrals: Amparo Chadwick DO [Primary Care Provider] - Diet: Carb Consistent or DM2 and Heart Healthy Addtl Attending Provider Instructions: All medications remain the same Pending Studies at Discharge: No Stand-Alone Forms: [employer], Smoking Cessation Medications and DC Order Prescriptions: Continued atorvastatin 40 mg tablet 40 mg PO QAM Qty: 90 3RF metoprolol succinate 25 mg tablet extended release 24 hr 25 mg PO HS Qty: 90 3RF tadalafil 5 mg tablet 5 mg PO DAILY Qty: 90 3RF finasteride 5 mg tablet 5 mg PO QAM Qty: 90 3RF levothyroxine 50 mcg tablet 50 mcg PO DAILY Qty: 90 1RF amlodipine 10 mg tablet 10 mg PO QAM Qty: 90 3RF lisinopril 40 mg tablet 40 mg PO QAM Qty: 90 3RF omeprazole 20 mg capsule,delayed release(DR/EC) 40 mg PO QAM Qty: 180 3RF Spiriva Respimat 2.5 mcg/actuation mist 2 puff inhalation QAM Qty: 4 5RF tamsulosin [Flomax] 0.4 mg capsule 0.4 mg PO QAM Qty: 90 3RF hydroxychloroquine 200 mg Tablet 200 mg PO BID aspirin 81 mg Tablet,Delayed Release (Dr/Ec) 81 mg PO QAM gabapentin 600 mg tablet 600 mg PO TID Discharge Orders: Discharge Order (Routine); Ordered 10/10/22 Ordered By: Kali Mendoza/Other Patient Handouts: Managing Type 2 Diabetes, Diabetes: Meal Planning Admission Data Admit Date/Time: 10/09/22 19:11 Attending Provider: Kali Block Admit Provider: Tye Abreu Primary Care Provider: Amparo Chadwick Other Providers: Tye Abreu ; Gagan Oglesby Coding Level of Care Code 55151 INP/OBS DISCH >30 MIN Diagnoses Chest pain R07.9 Chest pain type: unspecified Back pain M54.9 Erectile dysfunction N52.9 GERD (gastroesophageal reflux disease) K21.9 Hypertension I10 Hypertension type: essential hypertension Rheumatoid arthritis M06.9 Hyperlipidemia E78.5 Emphysema, unspecified J43.9 DM II (diabetes mellitus, type II), controlled E11.9
--- NOTE | 2022-10-10 18:58 | Electrocardiogram Report ---
Test Reason : Blood Pressure : / mmHG Vent. Rate : 082 BPM Atrial Rate : 082 BPM P-R Int : 130 ms QRS Dur : 086 ms QT Int : 344 ms P-R-T Axes : 029 -08 046 degrees QTc Int : 401 ms Poor data quality, interpretation may be adversely affected Sinus rhythm with occasional Premature ventricular complexes Otherwise normal ECG When compared with ECG of 21-SEP-2022 17:21, Premature ventricular complexes are now Present Criteria for Septal infarct are no longer Present Confirmed by Duy Faust ([id number]) on 10/10/2022 6:57:39 PM Referred By: REFERRED SELF Confirmed By:Pieter Faust
== END 2022-10-10 13:30 | disposition home or self-care (01) ==
LOC: ED 15:56 → 2N 15:56 → SUATTDRO 19:11 → 2N 20:07

== ENCOUNTER 2022-10-10 22:28 | Inpatient (IN) ==
[2022-10-10 22:58] LABS: Appearance Urine Clear (Clear); Bilirubin Urine Negative (Negative); Blood Urine Negative (Negative); Color Urine Dark Yellow; Glucose Urine UA Negative (Negative); Ketones Urine Trace (Negative); Leukocyte Esterase Urine Negative (Negative); Nitrite Urine Negative (Negative); Protein Urine Negative (Negative); Urobilinogen Urine Negative (Negative)
[2022-10-10] MEDS ORDERED: ACETAMINOPHEN 1,000 MG/100 ML VIAL IV STA (23:10)
[2022-10-10] MEDS ORDERED: FAMOTIDINE 20MG IV PUSH 20 MG/5 ML SYR IV STA (23:11)
[2022-10-10] MEDS ORDERED: SODIUM CHLORIDE 0.9% 1000ML 1,000 ML IV SCH (23:15)
[2022-10-10 23:17] LABS: Basophils # (auto) 0.03 K/uL (0-0.2); Basophils % (auto) 0.2 %; Eosinophils # (auto) 0.06 K/uL (0-0.50); Eosinophils % (auto) 0.3 %; Hematocrit (blood only) 41.7 % (42.0-52.0); Immature Granulocytes % (auto) 0.6 %; Lymphocytes # (auto) 1.12 K/uL (1.2-3.4); Lymphocytes % (auto) 6.5 %; Mean Corpuscular Hemoglobin 30.1 pg (25.0-34.0); Mean Corpuscular Volume 83.7 fL (80.0-100.0); Mean Platelet Volume 8.6 fL (9.4-12.4); Monocytes # (auto) 0.98 K/uL (0.11-0.59); Monocytes % (auto) 5.7 %; Neutrophils % (auto) 86.7 %; Platelet Count 148 K/uL (130-400); RDW Coefficient of Variation 13.7 % (11.5-14.5); RDW Standard Deviation 41.7 fL (36.4-46.3); Red Blood Count 4.98 M/uL (4.70-6.10); White Blood Count 17.29 K/ul (4.8-10.8)
--- NOTE | 2022-10-10 23:27 | Emergency Department Note ---
Impression & Plan Abdominal pain, Diarrhea ED Provider Note ED Provider Note NAME: YESICA COFFEY AGE:67 SEX: Male : 1955 ARRIVES VIA: Private vehicle INFORMANT: Patient ED PROVIDER(s): Pat Bustamante DO CHIEF COMPLAINT: Abdominal pain HPI: This is a 67-year-old male presents emergency department due to concern for abdominal pain. Patient was discharged earlier today from the hospital following an evaluation for chest pain. He states he did undergo a stress test. He states he felt no sense of abdominal discomfort during his stay here and symptoms began upon returning home. He states the pain was initially centrally located but now seems worse on the right lower quadrant. Patient has had a prior appendectomy. He denies any sense of a mass or bulge in that area. He denies any change in his urine or stools. Patient states after the pain started he did have 2-3 episodes of nonbloody loose stools. No recent change in diet or new medications. He states he does have a history of IBS although this feels different. He is also had a prior cholecystectomy. Patient states he has had chills to the point of shaking, no sense of fevers. He states has had accompanying nausea and dry heaving. PAST MEDICAL HISTORY:See Below PAST SURGICAL HISTORY:See Below FAMILY HISTORY:See Below SOCIAL HISTORY:See Below HOME MEDICATIONS:See Below ALLERGIES:See Below VITALS:See Below PHYSICAL EXAMINATION: GENERAL: alert, well appearing, well nourished, no distress, non-toxic EYE EXAM: normal conjunctiva, PERRL and EOM's grossly intact OROPHARYNX: no exudate, no erythema, lips, buccal mucosa, and tongue normal and mucous membranes are moist NECK: supple, no nuchal rigidity, no adenopathy, non-tender LUNGS: Clear to auscultation. Normal chest wall mechanics, no w/r/r HEART: no murmurs, S1 normal and S2 normal ABDOMEN: abdomen soft, nondistended, tenderness with palpation in the right lower quadrant, normo-active bowel sounds, no masses, no rebound or guarding. BACK: Back is symmetrical on inspection and there is no deformity, no midline tenderness, no CVA tenderness. SKIN: no rashes, petechiae, orbruising UPPER EXTREMITIES: upper extremities are grossly normal. FROM, nml pulses b/l. LOWER EXTREMITIES: No pitting edema. FROM, nml pulses b/l. NEURO EXAM: Normal sensorium, cranial nerves II-XII grossly intact, normal speech, no facial droop,nogross weakness of arms, no gross weakness of legs. Gross sensation intact. No ataxia. Vital Signs: reviewed and remarkable Differential Diagnosis: Colitis, SBO, ureterolithiasis, UTI, volvulus, mesenteric ischemia, enteritis, perforation, viral syndrome, as well as others were considered MEDICAL DECISION MAKING: This is a 67-year-old male who presents to the emergency room complaining of abdominal pain. Patient was afebrile and vital signs stable. Labs drawn and sent, IV established, EKG and chest x-ray performed at bedside interpreted by me and patient monitored on telemetry. Patient sent for CT of the abdomen and pelvis. He was given gentle IV fluid rehydration as well as IV Tylenol, IV Pepcid, and IV morphine. CT with concerning findings for bowel inflammation as well as pneumoperitoneum. Case discussed with on-call general surgery. After their bedside evaluation and discussion of findings as well as review of imaging, they requested hospitalist evaluation as they do not feel patient would benefit from emergency surgery at this time. Patient was given IV Zosyn while in the emergency room. Case discussed with on-call [facility] hospitalist for additional inpatient management. Patient hemodynamically stable while in the emergency room. Consultation(s): 0112: Discussed with general surgery PABrian. 0202: Disussed with Dr. Fallon, [facility] hospitalist. ER Treatment Provided: See below 0120: Patient updated on CT results and plan for gen surg evaluation at bedside. 0140: Patient seen by GEN lenora SANCHEZ at bedside who discussed the case with his attending. At this time they recommend admission to hospitalist service and they will follow in consult. They do not feel patient requires urgent surgical intervention at this time. Diagnostics Interpreted By Me: -ECG: Normal sinus at 82, normal axis, normal intervals, no acute ST/T wave changes -Cardiac Monitoring: An order was placed for continuous cardiac monitoring. The monitor shows a rate of 82 with normal sinus rhythm. -Laboratory studies: As stated above and show below. -Imaging studies: X-ray Chest: A single view study of the chest was reviewed and was negative for cardiomegaly, focal infiltrate, effusion, pulmonary edema, or wide mediastinum. Triage Nursing Note Reviewed Prior/Outside Records Reviewed - recent cardiology evaluation 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 Emphysema, unspecified inhaler daily GERD (gastroesophageal reflux disease) Hyperlipidemia Hypertension IBS (irritable bowel syndrome) Peripheral neuropathy Pulmonary nodule Rheumatoid arthritis Rupture of left rectus femoris tendon hx of 08/2020--no surgery Surgical History History of appendectomy History of cholecystectomy History of colonoscopy History of esophagogastroduodenoscopy (EGD) History of tooth extraction all teeth removed Hx of cardiac cath (~01/2008) @ [facility]--no stents S/P repair of hydrocele Status post surgery (2009) TUNA procedure, Dr Swanson Family History Sister Breast cancer, Onset Age: 40 Father Myocardial infarction Uncle Myocardial infarction Grandfather (Maternal) Myocardial infarction Mother Diabetes Denies family history of Ovarian cancer Prostate cancer Colorectal cancer Social History Smoking Status: Never smoker Second Hand Exposure: No; Do You Dip or Chew Tobacco: No; Hx Alcohol Use: No Hx Substance Use: No Preferred Language: Nepali Communication Ability: Effective Visual Impairment: Limited Hearing Ability: Normal Billing Representative Required: No Beliefs That Will Affect Care: None marital status: Current Living Situation: Spouse Current Living Situation Comment: lives at home with current occupational status: retired How many Children do You have: 2 Feels Safe at Home: Yes Childhood Exposure to Second-Hand Smoke: No Diet: regular caffeine: Yes during the past year weight has: remained stable Dental Care, Regularly: No Physical Activity Frequency: Daily Seatbelt Use: always Sunscreen Use: No Assistive Devices: Denture - Upper and Glasses Allergies Allergies Allergy/AdvReac Type Severity Reaction Status Date / Time No Known Allergies Allergy Verified 10/11/22 00:17 Home Meds Home Medications Medication Instructions Recorded Confirmed aspirin 81 mg tablet,delayed 81 mg PO QAM 12/30/18 10/11/22 release hydroxychloroquine 200 mg tablet 200 mg PO BID 12/18/19 10/11/22 gabapentin 600 mg tablet 600 mg PO TID 09/21/22 10/11/22 Previous Rx's Medication Instructions Recorded tamsulosin 0.4 mg capsule (Flomax) 0.4 mg PO QAM #90 caps 11/13/21 atorvastatin 40 mg tablet 40 mg PO QAM #90 tabs 01/08/22 metoprolol succinate 25 mg 25 mg PO HS #90 tabs 01/08/22 tablet,extended release 24 hr tadalafil 5 mg tablet 5 mg PO DAILY #90 tabs 02/05/22 finasteride 5 mg tablet 5 mg PO QAM #90 tabs 04/10/22 levothyroxine 50 mcg tablet 50 mcg PO DAILY #90 tabs 09/24/22 amlodipine 10 mg tablet 10 mg PO QAM #90 tabs 09/26/22 lisinopril 40 mg tablet 40 mg PO QAM blood pressure #90 09/26/22 tabs omeprazole 20 mg capsule,delayed 40 mg PO QAM acid refulx #180 caps 09/26/22 release tiotropium bromide 2.5 2 puff inhalation QAM #4 grams 09/26/22 mcg/actuation mist for inhalation (Spiriva Respimat) Results & Data (ED) Vital Signs Vital Signs - 24 hr 10/10/22 22:30 10/10/22 23:02 10/10/22 23:37 Temperature 36.6 C Temperature Source Temporal Artery Scan Pulse Rate 80 92 H Pulse Rate [Finger] 83 Pulse Strength [Finger] Respiratory Rate 18 18 Respiratory Effort / Characteristics Non-Labored Spontaneous Non-Labored Spontaneous Respiratory Depth Normal Normal Blood Pressure 90/56 L Blood Pressure [Left Arm] 119/72 Blood Pressure Mean 67 Blood Pressure Mean [Left Arm] 87 Blood Pressure Position Sitting Pulse Oximetry 95 95 Oxygen Delivery Method Room Air Room Air Sepsis Recent Fever Within 48 Hours No Sepsis New/Unexplained Change in Mental Status No Sepsis Action Taken by Nursing No Action Required 10/10/22 23:30 10/11/22 00:04 10/11/22 00:39 Temperature Temperature Source Pulse Rate Pulse Rate [Finger] 86 87 Pulse Strength [Finger] Respiratory Rate 18 16 Respiratory Effort / Characteristics Non-Labored Spontaneous Non-Labored Spontaneous Respiratory Depth Normal Normal Blood Pressure Blood Pressure [Left Arm] 121/68 134/63 Blood Pressure Mean Blood Pressure Mean [Left Arm] 85 86 Blood Pressure Position Pulse Oximetry 94 94 96 Oxygen Delivery Method Room Air Room Air Room Air Sepsis Recent Fever Within 48 Hours Sepsis New/Unexplained Change in Mental Status Sepsis Action Taken by Nursing 10/11/22 01:00 10/11/22 01:30 10/11/22 02:00 Temperature Temperature Source Pulse Rate Pulse Rate [Finger] 80 80 81 Pulse Strength [Finger] Weak Respiratory Rate 17 16 16 Respiratory Effort / Characteristics Respiratory Depth Blood Pressure Blood Pressure [Left Arm] 120/63 116/65 120/67 Blood Pressure Mean Blood Pressure Mean [Left Arm] 82 82 84 Blood Pressure Position Pulse Oximetry 93 95 94 Oxygen Delivery Method Room Air Room Air Room Air Sepsis Recent Fever Within 48 Hours Sepsis New/Unexplained Change in Mental Status Sepsis Action Taken by Nursing 10/11/22 02:30 10/11/22 03:00 Temperature Temperature Source Pulse Rate Pulse Rate [Finger] 78 77 Pulse Strength [Finger] Respiratory Rate 17 16 Respiratory Effort / Characteristics Respiratory Depth Blood Pressure Blood Pressure [Left Arm] 120/66 114/63 Blood Pressure Mean Blood Pressure Mean [Left Arm] 84 80 Blood Pressure Position Pulse Oximetry 95 94 Oxygen Delivery Method Room Air Room Air Sepsis Recent Fever Within 48 Hours Sepsis New/Unexplained Change in Mental Status Sepsis Action Taken by Nursing Laboratory Data 10/10/22 22:40 10/10/22 22:40 Lab Results 10/10/22 10/10/22 10/10/22 Range/Units 22:40 22:40 22:40 WBC 17.29 H (4.8-10.8) K/ul RBC 4.98 (4.70-6.10) M/uL Hgb 15.0 (14.0-18.0) g/dl Hct 41.7 L (42.0-52.0) % MCV 83.7 (80.0-100.0) fL MCH 30.1 (25.0-34.0) pg MCHC 36.0 (32.0-36.0) g/dL RDW Std Deviation 41.7 (36.4-46.3) fL RDW Coeff of Alyssa 13.7 (11.5-14.5) % Plt Count 148 (130-400) K/uL MPV 8.6 L (9.4-12.4) fL Immature Gran % (Auto) 0.6 % Neut % (Auto) 86.7 % Lymph % (Auto) 6.5 % [place] % (Auto) 5.7 % Eos % (Auto) 0.3 % Baso % (Auto) 0.2 % Neut # (Auto) 15.00 H (1.40-6.50) K/uL Lymph # (Auto) 1.12 L (1.2-3.4) K/uL [place] # (Auto) 0.98 H (0.11-0.59) K/uL Eos # (Auto) 0.06 (0-0.50) K/uL Baso # (Auto) 0.03 (0-0.2) K/uL Immature Gran # (Auto) 0.10 (0.01-0.20) K/uL Sodium 135 L (136-145) mmol/L Potassium 4.5 (3.5-5.1) mmol/L Chloride 101 (98-107) mmol/L Carbon Dioxide 25 (21-32) mmol/L Anion Gap 9 (3-11) BUN 31 H (6-23) mg/dl Creatinine 1.47 H D (0.6-1.4) mg/dl Est Cr Clr Drug Dosing 66.2 ml/min Est GFR ( Amer) 57.2 ml/min Est GFR (Non-Af Amer) 49.4 ml/min BUN/Creatinine Ratio 21.1 H (10-20) Glucose 176 H (70-99(Fasting)) mg/dl Lactate (0.4-2.0) mmol/L Calcium 9.6 (8.6-10.3) mg/dl Magnesium 1.6 L (1.7-2.4) mg/dl Total Bilirubin 1.0 (0.2-1.0) mg/dl AST 20 (13-39) U/L ALT 31 (7-52) U/L Alkaline Phosphatase 55 (34-104) U/L Troponin I High Sens 5.3 (0-20) pg/ml Total Protein 6.9 (6.0-8.3) gm/dl Albumin 4.5 (3.4-5.0) gm/dl Globulin 2.4 L (2.5-4.0) gm/dl Albumin/Globulin Ratio 1.9 (0.9-2) Lipase 17 (11-82) U/L Procalcitonin (0-0.5) ng/ml Urine Color Dark Yellow Urine Appearance Clear (Clear) Urine pH 5.0 (4.5-7.5) Ur Specific Hartman 1.030 (1.000-1.030) Urine Protein Negative (Negative) Urine Glucose (UA) Negative (Negative) Urine Ketones Trace H (Negative) Urine Blood Negative (Negative) Urine Nitrite Negative (Negative) Urine Bilirubin Negative (Negative) Urine Urobilinogen Negative (Negative) Ur Leukocyte Esterase Negative (Negative) SARS-CoV-2, RNA, NAAT (NEGATIVE) 10/10/22 10/11/22 10/11/22 Range/Units 22:40 00:07 01:42 WBC (4.8-10.8) K/ul RBC (4.70-6.10) M/uL Hgb (14.0-18.0) g/dl Hct (42.0-52.0) % MCV (80.0-100.0) fL MCH (25.0-34.0) pg MCHC (32.0-36.0) g/dL RDW Std Deviation (36.4-46.3) fL RDW Coeff of Alyssa (11.5-14.5) % Plt Count (130-400) K/uL MPV (9.4-12.4) fL Immature Gran % (Auto) % Neut % (Auto) % Lymph % (Auto) % [place] % (Auto) % Eos % (Auto) % Baso % (Auto) % Neut # (Auto) (1.40-6.50) K/uL Lymph # (Auto) (1.2-3.4) K/uL [place] # (Auto) (0.11-0.59) K/uL Eos # (Auto) (0-0.50) K/uL Baso # (Auto) (0-0.2) K/uL Immature Gran # (Auto) (0.01-0.20) K/uL Sodium (136-145) mmol/L Potassium (3.5-5.1) mmol/L Chloride (98-107) mmol/L Carbon Dioxide (21-32) mmol/L Anion Gap (3-11) BUN (6-23) mg/dl Creatinine (0.6-1.4) mg/dl Est Cr Clr Drug Dosing ml/min Est GFR ( Amer) ml/min Est GFR (Non-Af Amer) ml/min BUN/Creatinine Ratio (10-20) Glucose (70-99(Fasting)) mg/dl Lactate 1.9 (0.4-2.0) mmol/L Calcium (8.6-10.3) mg/dl Magnesium (1.7-2.4) mg/dl Total Bilirubin (0.2-1.0) mg/dl AST (13-39) U/L ALT (7-52) U/L Alkaline Phosphatase (34-104) U/L Troponin I High Sens (0-20) pg/ml Total Protein (6.0-8.3) gm/dl Albumin (3.4-5.0) gm/dl Globulin (2.5-4.0) gm/dl Albumin/Globulin Ratio (0.9-2) Lipase (11-82) U/L Procalcitonin < 0.05 (0-0.5) ng/ml Urine Color Urine Appearance (Clear) Urine pH (4.5-7.5) Ur Specific Hartman (1.000-1.030) Urine Protein (Negative) Urine Glucose (UA) (Negative) Urine Ketones (Negative) Urine Blood (Negative) Urine Nitrite (Negative) Urine Bilirubin (Negative) Urine Urobilinogen (Negative) Ur Leukocyte Esterase (Negative) SARS-CoV-2, RNA, NAAT NEGATIVE (NEGATIVE) Administered Medications Lactated Ringer's (Lr) 1,000 mls @ 125 mls/hr IV .Q8H BENITO Stop: 11/10/22 01:44 Last Admin: 10/11/22 02:01 Dose: 125 mls/hr Documented By: AN Discontinued Medications Sodium Chloride (Nss 1000ml) 1,000 mls @ 999 mls/hr IV .Q1H1M BENITO Stop: 10/11/22 00:15 Last Infusion: 10/11/22 00:41 Dose: 0 mls/hr Documented By: Admin: 10/10/22 23:35 Dose: 999 mls/hr Documented By: AN Acetaminophen (Ofirmev) 1,000 mg in 100 mls @ 400 mls/hr IV NOW STA Stop: 10/10/22 23:24 Last Infusion: 10/11/22 00:01 Dose: 0 mls/hr Documented By: Admin: 10/10/22 23:35 Dose: 400 mls/hr Documented By: AN Famotidine (Pepcid 20mg Iv Push) 20 mg in 5 mls @ 2.5 mls/min IV NOW STA Stop: 10/10/22 23:12 Last Admin: 10/10/22 23:35 Dose: 2.5 mls/min Documented By: AN Magnesium Sulfate/Dextrose (Magnesium Sulfate / D5w) 1 gm in 100 mls @ 100 mls/hr IV NOW STA Stop: 10/11/22 01:03 Last Infusion: 10/11/22 01:46 Dose: 0 mls/hr Documented By: Admin: 10/11/22 00:37 Dose: 100 mls/hr Documented By: AN Piperacillin Sod/Tazobactam Sod (Zosyn) 4.5 gm in 120 mls @ 240 mls/hr IV NOW ONE Stop: 10/11/22 01:42 Last Infusion: 10/11/22 02:11 Dose: 0 mls/hr Documented By: Admin: 10/11/22 01:41 Dose: 240 mls/hr Documented By: AN Ioversol (Optiray 320 100ml) 94 ml IV ONCE ONE Stop: 10/11/22 00:31 Last Admin: 10/11/22 00:33 Dose: 94 ml Documented By: RYAN Morphine Sulfate (Morphine Sulfate 2 Mg/Ml Carp) 2 mg IV NOW STA Stop: 10/11/22 00:47 Last Admin: 10/11/22 00:55 Dose: 2 mg Documented By: AN Imaging Data Radiologist's Impression: Abdomen/Pelvis CT 10/10/22 23:09 CR Exam(s): CT ABDOMEN + PELVIS With Contrast IV Amt: 94ml of otiray 320 EXAM: CT Abdomen and Pelvis With Intravenous Contrast CLINICAL HISTORY: Reason for exam: rlq pain. TECHNIQUE: Axial computed tomography images of the abdomen and pelvis with intravenous contrast. CTDI is 27.31 mGy and DLP is 1626.67 mGy-cm. Automated exposure control was utilized for the study. A dose lowering technique was utilized adhering to the principles of ALARA. CONTRAST: Patient received 94ml of otiray 320 of IV contrast COMPARISON: No relevant prior studies available. FINDINGS: Lung bases: Unremarkable. No mass. No consolidation. ABDOMEN: Liver: There is portal venous gas (image 26 series 300). Gallbladder and bile ducts: Unremarkable. No calcified stones. No ductal dilation. Pancreas: Unremarkable. No mass. No ductal dilation. Spleen: Unremarkable. No splenomegaly. Adrenals: Unremarkable. No mass. Kidneys and ureters: There are multiple left-sided parapelvic and renal cysts. No hydronephrosis. Stomach and bowel: Unremarkable. No obstruction. No mucosal thickening. PELVIS: Appendix: The appendix is not clearly visualized. The patient is status post appendectomy. Bladder: Unremarkable. No mass. Reproductive: Unremarkable as visualized. ABDOMEN and PELVIS: Intraperitoneal space: There is moderate pericolonic inflammatory change involving the right large bowel with small locules of adjacent pneumoperitoneum. No significant fluid collection. Bones/joints: There are degenerative changes of the thoracolumbar spine. No acute fracture. No dislocation. Soft tissues: Unremarkable. Vasculature: Aortic calcification. Lymph nodes: Unremarkable. No enlarged lymph nodes. IMPRESSION: Moderate inflammation of the right large bowel with small locules of adjacent pneumoperitoneum concerning for perforation. Small focal areas of portal venous gas which could reflect bowel ischemia. Communications: Verify Receipt Electronically signed by: Damian Ny MD 10/11/22 01:04 AM Discharge Plan Visit Data Chief Complaint: Kidney Stone Stated Complaint: VOMIT,NAUSEA,ABDOMINAL PAIN,KIDNEY STONE ED Provider: Pat Bustamante Discharge Problem: Abdominal pain, Diarrhea Forms Stand Alone Forms: [facility] [employer] Prescriptions Prescriptions: No Action atorvastatin 40 mg tablet 40 mg PO QAM Qty: 90 3RF metoprolol succinate 25 mg tablet extended release 24 hr 25 mg PO HS Qty: 90 3RF tadalafil 5 mg tablet 5 mg PO DAILY Qty: 90 3RF finasteride 5 mg tablet 5 mg PO QAM Qty: 90 3RF levothyroxine 50 mcg tablet 50 mcg PO DAILY Qty: 90 1RF amlodipine 10 mg tablet 10 mg PO QAM Qty: 90 3RF lisinopril 40 mg tablet 40 mg PO QAM Qty: 90 3RF omeprazole 20 mg capsule,delayed release(DR/EC) 40 mg PO QAM Qty: 180 3RF Spiriva Respimat 2.5 mcg/actuation mist 2 puff inhalation QAM Qty: 4 5RF tamsulosin [Flomax] 0.4 mg capsule 0.4 mg PO QAM Qty: 90 3RF hydroxychloroquine 200 mg Tablet 200 mg PO BID aspirin 81 mg Tablet,Delayed Release (Dr/Ec) 81 mg PO QAM gabapentin 600 mg tablet 600 mg PO TID Referrals Referrals: Amparo Chadwick DO [Primary Care Provider] -
[2022-10-10 23:50] LABS: Albumin Globulin Ratio 1.9 (0.9-2); Albumin Level 4.5 gm/dl (3.4-5.0); BUN Creatinine Ratio 21.1 (10-20); Calcium 9.6 mg/dl (8.6-10.3); Creatinine Clr Calc Pharmacy 66.2 ml/min; Est GFR (African American) 57.2 ml/min; Est GFR (Non-African American) 49.4 ml/min; Globulin 2.4 gm/dl (2.5-4.0); Magnesium 1.6 mg/dl (1.7-2.4); Potassium 4.5 mmol/L (3.5-5.1); Total Protein 6.9 gm/dl (6.0-8.3)
[2022-10-10 23:56] LABS: Troponin I High Sensitivity 5.3 pg/ml (0-20)
[2022-10-11] MEDS ORDERED: MAGNESIUM SULFATE / D5W 1 GM/100 ML BAG IV STA (00:04)
[2022-10-11] MEDS ORDERED: OPTIRAY 320 100ml IV ONE (00:30)
[2022-10-11] MEDS ORDERED: MoRPHine SULFATE 2 MG/ML CARP IV STA ×2 (00:46→06:01)
--- NOTE | 2022-10-11 01:05 | CT Scan Report ---
Exam(s): CT ABDOMEN + PELVIS With Contrast IV Amt: 94ml of otiray 320 EXAM: CT Abdomen and Pelvis With Intravenous Contrast CLINICAL HISTORY: Reason for exam: rlq pain. TECHNIQUE: Axial computed tomography images of the abdomen and pelvis with intravenous contrast. CTDI is 27.31 mGy and DLP is 1626.67 mGy-cm. Automated exposure control was utilized for the study. A dose lowering technique was utilized adhering to the principles of ALARA. CONTRAST: Patient received 94ml of otiray 320 of IV contrast COMPARISON: No relevant prior studies available. FINDINGS: Lung bases: Unremarkable. No mass. No consolidation. ABDOMEN: Liver: There is portal venous gas (image 26 series 300). Gallbladder and bile ducts: Unremarkable. No calcified stones. No ductal dilation. Pancreas: Unremarkable. No mass. No ductal dilation. Spleen: Unremarkable. No splenomegaly. Adrenals: Unremarkable. No mass. Kidneys and ureters: There are multiple left-sided parapelvic and renal cysts. No hydronephrosis. Stomach and bowel: Unremarkable. No obstruction. No mucosal thickening. PELVIS: Appendix: The appendix is not clearly visualized. The patient is status post appendectomy. Bladder: Unremarkable. No mass. Reproductive: Unremarkable as visualized. ABDOMEN and PELVIS: Intraperitoneal space: There is moderate pericolonic inflammatory change involving the right large bowel with small locules of adjacent pneumoperitoneum. No significant fluid collection. Bones/joints: There are degenerative changes of the thoracolumbar spine. No acute fracture. No dislocation. Soft tissues: Unremarkable. Vasculature: Aortic calcification. Lymph nodes: Unremarkable. No enlarged lymph nodes. IMPRESSION: Moderate inflammation of the right large bowel with small locules of adjacent pneumoperitoneum concerning for perforation. Small focal areas of portal venous gas which could reflect bowel ischemia. Communications: Verify Receipt Electronically signed by: Damian Ny MD 10/11/22 01:04 AM
[2022-10-11] MEDS ORDERED: PIPERACILLIN/TAZOBACTAM 4.5 GM/120 ML BAG IV ONE (01:13)
[2022-10-11] MEDS: LACTATED RINGER'S 1,000 ML IV SCH ×3 (02:01→19:45)
--- NOTE | 2022-10-11 02:04 | Surgery Consultation ---
Date of Consultation October 11, 2022 Assessment & Plan (1) Abdominal pain: I discussed with the treating emergency room physician and the patient is going to be admitted on the hospitalist service. The cause of patient's abdominal pain and findings on CT scan could include etiologies such as a nonspecific colitis, diverticulitis, or bowel ischemia. From a surgical perspective we recommend proceeding as follows: At the present time it does not appear that the patient requires an emergent operation as he is normotensive without tachycardia or fever. He also does not have peritoneal signs on his physical exam. Implement n.p.o. status Provide IV fluid for resuscitation/hydrationThus far the treating emergency room physician is given 1 L of normal saline solution. I have ordered maintenance fluids in the form of lactated Ringer's at 125 cc/h and have asked the nurses to start this immediately Initiate broad-spectrum antibiotics. The treating emergency room physician has already initiated Zosyn and this should continue Analgesics should be provided Antiemetics to be provided Serial labs should be followedI have ordered the patient's next set of labs to be drawn at approximate 4:00 AM on 10/11/2022 including a CBC, PRP, magnesium, and repeat lactate level. Appropriate electrolyte supplementation should be provided. The treating emergency room physician has already supplemented the patient's low magnesium levels noted on his initial labs. Consideration should be given to obtaining a gastroenterology consultation Would recommend utilizing SCDs for DVT prevention. Would avoid chemical means for the present time until it is ascertain whether or not the patient requires any type of procedural intervention Additional recommendations to be forthcoming based on the patient's clinical course as it unfolds as well as serial labs when completed Addendum: As noted in the above plan serial labs were to be followed. Repeat labs were drawn approximately 3-1/2 to 4 hours following patient's initial labs. A CBC revealed white blood cell count remained stable at 17.4. Hemoglobin and hematocrit are 14.3 and 39.1 which did not represent a significant drop in these values. The patient's platelet count is 109,000. Chemistry profile shows sodium is 132 with a normal potassium. BUN is 28 which represents a slight decrease from his initial values. Creatinine is now within the normal range at 1.2. Patient did have a repeat lactic acid level that is now increased/elevated at 3.4 (initial value was 1.9 which was nonelevated) Patient was revisited at bedside at approximately 4:45 AM. The patient notes he continues to have abdominal pain greatest on the right side of his abdomen as noted before. He notes that the pain does not seem to be any worse but is still present. He has not had any nausea or vomiting. He denies any fevers, shakes, or chills. On physical exam the patient remains normotensive with a blood pressure of 142/62. He remains without tachycardia as his heart rate is in the 70s. Respirations are 16 and nonlabored and he is afebrile. Pulse ox is 94% on room air. The patient's abdominal exam is similar to what was noted at time of admissionhis abdomen remains soft and nonrigid without significant distention. He continues to have pain with palpation of the right lower quadrant without guarding but again slight rebound tenderness is noted. I discussed the above with my attending physician and we will continue with the current treatment plan of n.p.o. status, IV antibiotics, and intravenous fluid resuscitation. We will repeat another lactic acid level approximately 4 hours from the most recent value which will be at approximately 7:30 AM. Addendum: The patient was revisited at the bedside at approximately 6:15 AM. Lactic acid level was repeated approximately 30 minutes ago and has decreased to 2.5 from his most recent value of 3.4. The patient's abdominal exam has remained essentially unchanged from what was noted previously. The patient notes that his pain does not appear to any worse but he does have some nausea. He remains normotensive without tachycardia. Supervising Physician Co-Signing Physician Notes Patient was discussed with Francis Andersen overnight, labs and imaging reviewed, agree with above. See today's progress note for further details. History of Present Illness Reason for Consultation: Abdominal pain History of Present Illness This is a 67-year-old male who presented to the emergency department at [facility] secondary to sudden onset of abdominal pain. Patient says that he underwent a chemical stress test earlier today and on the drive home from the hospital at approximately 4:00 PM on 10/10/2022 he developed sudden onset of abdominal pain. He does note that the abdominal pain was generalized but has since localized to the right lower quadrant of his abdomen. He says that the pain is non- radiating without any provocative factors. He does note the pain was improved with medicines that were administered in the emergency department. With his chest pain he had some nausea and vomiting along with chills and cold sweats. To the best of his knowledge he did not have a fever. The patient does note that he had did have a loose bowel movement since his ab dominal pain began but denies any melena, hematochezia, or bright blood per rectum. Patient notes that he has had prior abdominal surgeries in the form of an appendectomy and a cholecystectomy. In addition the patient reports that he has had a colonoscopy within the last 1-2 years His records were reviewed and the patient did have a colonoscopy on August 14, 2021. During the study the patient was noted to have some nonspecific proctosigmoid colitis. Pathology from this study was reviewed which showed a nonspecific colitis. Since arrival to the emergency department the patient has had labs and imaging which I independently reviewed. The patient had a CT scan of the abdomen and pelvis that showed moderate inflammation of the right-sided large bowel with some small locules of adjacent pneumoperitoneum which were concerning for perforation. He did have some small focal areas of portal venous gas which could potentially zoila bowel ischemia. A chest x-ray was performed which did not show any pleural effusions or pneumonia. An EKG showed normal sinus rhythm without changes indicative of acute ischemia. Labs included a CBC her white blood cell count was elevated 17.2. Hemoglobin was normal and his hematocrit was slightly low at 41.7. Platelet count was normal. Chemistry profile showed sodium was 135 with a normal potassium. BUN and creatinine were both elevated at 31 and 1.4. (The patient's labs were reviewed and baseline creatinine runs from 0.9-1.2). Magnesium was slightly low at 1.6. The patient did have a troponin that was nonelevated. There is no elevation of patient's LFTs or lipase. Lactic acid level was normal at 1.9. Urinalysis was not indicative of infection. As noted above the patient did undergo a stress test earlier today. I questioned the patient on why he underwent a stress test and the patient says that he has been getting random episodes of left-sided chest pain radiating down his arm and sometimes into the center of his back. He says he did see his primary care team for this problem and they initially thought this was a musculoskeletal problem and therefore placed the patient on a prednisone taper which he says he completed approximately 3 days ago. The results of patient's stress test were reviewed and he did undergo a dobutamine stress echo. There was no echocardiographic or EKG evidence of myocardial ischemia during the study. The study also revealed that patient had an ejection fraction of 55 to 60% and there were no stress-induced areas of wall motion abnormality. Since arrival to the emergency department the patient has had analgesics in the form of 2 mg of intravenous morphine and 1000 mg of intravenous Tylenol. The patient does note that he has had significant relief of his pain since arrival to the emergency department and he was in no distress at the time of my exam. Allergies Allergy/AdvReac Type Severity Reaction Status Date / Time No Known Allergies Allergy Verified 10/11/22 00:17 Home Medications Medication Instructions Recorded Confirmed Type aspirin 81 mg tablet,delayed 81 mg PO QAM 12/30/18 10/11/22 History release hydroxychloroquine 200 mg tablet 200 mg PO BID 12/18/19 10/11/22 History tamsulosin 0.4 mg capsule (Flomax) 0.4 mg PO QAM #90 caps 11/13/21 10/11/22 Rx atorvastatin 40 mg tablet 40 mg PO QAM #90 tabs 01/08/22 10/11/22 Rx metoprolol succinate 25 mg 25 mg PO HS #90 tabs 01/08/22 10/11/22 Rx tablet,extended release 24 hr tadalafil 5 mg tablet 5 mg PO DAILY #90 tabs 02/05/22 10/11/22 Rx finasteride 5 mg tablet 5 mg PO QAM #90 tabs 04/10/22 10/11/22 Rx gabapentin 600 mg tablet 600 mg PO TID 09/21/22 10/11/22 History levothyroxine 50 mcg tablet 50 mcg PO DAILY #90 tabs 09/24/22 10/11/22 Rx amlodipine 10 mg tablet 10 mg PO QAM #90 tabs 09/26/22 10/11/22 Rx lisinopril 40 mg tablet 40 mg PO QAM blood pressure #90 09/26/22 10/11/22 Rx tabs omeprazole 20 mg capsule,delayed 40 mg PO QAM acid refulx #180 caps 09/26/22 10/11/22 Rx release tiotropium bromide 2.5 2 puff inhalation QAM #4 grams 09/26/22 10/11/22 Rx mcg/actuation mist for inhalation (Spiriva Respimat) Patient History Medical History Allergic rhinitis Benign prostatic hyperplasia with urinary obstruction 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 Emphysema, unspecified inhaler daily GERD (gastroesophageal reflux disease) Hyperlipidemia Hypertension IBS (irritable bowel syndrome) Peripheral neuropathy Pulmonary nodule Rheumatoid arthritis Rupture of left rectus femoris tendon hx of 08/2020--no surgery Surgical History History of appendectomy History of cholecystectomy History of colonoscopy History of esophagogastroduodenoscopy (EGD) History of tooth extraction all teeth removed Hx of cardiac cath (~01/2008) @ [facility]--no stents S/P repair of hydrocele Status post surgery (2009) SANJIV procedure, Dr Swanson Family History Sister Breast cancer, Onset Age: 40 Father Myocardial infarction Uncle Myocardial infarction Grandfather (Maternal) Myocardial infarction Mother Diabetes Denies family history of Ovarian cancer Prostate cancer Colorectal cancer Social History Smoking Status: Never smoker Second Hand Exposure: No; Do You Dip or Chew Tobacco: No; Hx Alcohol Use: No Hx Substance Use: No Preferred Language: Hebrew Communication Ability: Effective Visual Impairment: Limited Hearing Ability: Normal Education Research Analyst Required: No Beliefs That Will Affect Care: None marital status: Current Living Situation: Spouse Current Living Situation Comment: lives at home with current occupational status: retired How many Children do You have: 2 Feels Safe at Home: Yes Childhood Exposure to Second-Hand Smoke: No Diet: regular caffeine: Yes during the past year weight has: remained stable Dental Care, Regularly: No Physical Activity Frequency: Daily Seatbelt Use: always Sunscreen Use: No Assistive Devices: Denture - Upper and Glasses Review of Systems Constitutional: + chills and + sweats; no fever Eyes: + corrective lenses Ear, Nose, Mouth, Throat: no ear pain Respiratory: no cough and no dyspnea Cardiovascular: + chest pain (As described in the HPI) Gastrointestinal: as per Subjective / HPI, + abdominal pain, + nausea and + vomiting; no blood in stools Genitourinary: no dysuria Musculoskeletal: no back pain Integumentary: no rash Neurologic: no localized weakness Physical Exam Constitutional: WD/WN, vitals as above Eyes: no conjunctival abnormality Wears glasses ENMT: Ears: no hearing impairment and no external ear abnormality Mouth: no oropharynx abnormality Neck: trachea midline Respiratory: normal respiratory effort, lungs clear to auscultation Cardiovascular: Rate/Rhythm: regular rate and regular rhythm Vessels: dorsalis pedis pulses present and radial pulses present Gastrointestinal (Abdomen): Abdomen is rotund but soft. It is nondistended. His abdomen is also nonrigid. Bowel sounds are present but hypoactive. The patient did have pain with palpation in the right lower quadrant of his abdomen. There is no guarding. There is slight rebound tenderness. No other peritoneal signs were noted. A rectal examination was performed by myselfthe patient was noted to have normal sphincter tone and stool was noted to be heme positive by Hemoccult. Musculoskeletal: No calf tenderness. No lower extremity edema. The patient's feet are warm and well-perfused with palpable pulses as noted above. He was also noted to have palpable pulses in his upper extremities. Skin: no rashes Neurologic: moves all extremities Psychiatric: A+Ox3, euthymic affect Results & Data Vital Signs (Past 12 Hours) Vital Signs Temp Pulse Pulse Resp BP BP Pulse Ox 10/11/22 01:30 80 16 116/65 95 10/11/22 01:00 80 17 120/63 93 10/11/22 00:39 87 16 134/63 96 10/11/22 00:04 94 10/10/22 23:30 86 18 121/68 94 10/10/22 23:37 92 H 10/10/22 23:02 83 18 119/72 95 10/10/22 22:30 36.6 C 80 18 90/56 L 95 O2 Del Method 10/11/22 01:30 Room Air 10/11/22 01:00 Room Air 10/11/22 00:39 Room Air 10/11/22 00:04 Room Air 10/10/22 23:30 Room Air 10/10/22 23:37 10/10/22 23:02 Room Air 10/10/22 22:30 Room Air PG Care Time/CCT Total # of Minutes Spent Total Time Spent with Patient: Total time spent is greater than 50% in coordination of care (as documented) at patient's floor/unit and/or counseling patient: Coding Level of Care Code 07281 INT INP/OBS CARE 75MIN Diagnoses Abdominal pain R10.9
--- NOTE | 2022-10-11 02:28 | History & Physical Report ---
Date of Service October 11, 2022 Assessment & Plan (1) Abdominal pain: Plan: 67yo male presenting with abdominal pain that started yesterday 10/10/22 around 16:00. Pain initially central abdomen now located in the RLQ. He is non-toxic in appearance. Mild abdominal discomfort with palpation in the RLQ but abdomen is soft with out peritonitis. Labs significant for elevated WBC=17.29 with neutrophil predominance which is new. Mildly elevated BUN of 31 (increased from 19) and Cr of 1.47 (increased from 1). CT of the abdomen per STAT-rad with moderate inflammation of the right large bowel with small locules of adjacent pneumoperitoneum concerning for perforation. Small focal areas of portal venous gas which could reflect bowel ischemia. Lactate is normal. No anion gap -Admit to medical with telemetry -Maintain NPO status -Continue gentle IVF with LR -Pain control with Morphine PRN -Zosyn -Repeat BMP, CBC, Lactate now and again today at 16:00 -General Surgery consultation appreciated (2) DM II (diabetes mellitus, type II), controlled: Plan: Diet controlled DM -Monitor blood sugar (3) Benign prostatic hyperplasia with urinary obstruction: Plan: Chronic -Continue Finasteride and Flomax -Bladder scan as needed (4) Hyperlipidemia: Plan: Chronic. Stable -Hold Atorvastatin for now (5) Rheumatoid arthritis: Plan: Chronic -Continue Hydroxychloroquine (6) Hypertension: Plan: Blood pressure adequately controlled at present -Hold Amlodipine and Lisinopril for now -Monitor (7) GERD (gastroesophageal reflux disease): Plan: Well controlled. Patient is on Omeprazole at home -Continue Protonix while inpatient F/E/N - LR at 125mL/hr, electrolytes WNL, continue to monitor, NPO for now Ppx - SCDs to bilateral LE Code - Full per discussion with patient Dispo - Admit to medical with telemetry History of Present Illness Chief Complaint: Abdominal pain Primary Care Provider: DO Kali Arora Rhonda is a pleasant 67yo male presenting with abdominal pain. Patient was recently admitted from 10/09- 10/10/22 with left sided chest discomfort. Workup included normal troponin series, normal EKG and normal dobutamine stress echo. Thought to be musculoskeletal in nature. Patient was discharged home in stable condition. On his way home at 16:00 he developed some central abdominal pain, severe 10/10, episodic. His pain persisted throughout the day. Now with predominantly RLQ pain as well as nausea with dry heaving. He had several episodes of non-bloody diarrhea. He has returned to the ER with these complaints. No fever, chills, abdominal distention. He reports eating normally during his hospitalization with normal BMs. No urinary complaints. No additional co mplaints at this time. In the ER he is afebrile, HD stable, NAD. Patient was evaluated by the Surgical team due to abdominal CT findings concerning for possible perforation. ER Course: Tylenol 1gm NSS x 1L Pepcid 20mg IV Magnesium 1gm Mmorphine 2mg Zosyn 4.5gm LR x 1L Allergies Allergy/AdvReac Type Severity Reaction Status Date / Time No Known Allergies Allergy Verified 10/11/22 00:17 Home Medications Medication Instructions Recorded Confirmed Type aspirin 81 mg tablet,delayed 81 mg PO QAM 12/30/18 10/11/22 History release hydroxychloroquine 200 mg tablet 200 mg PO BID 12/18/19 10/11/22 History tamsulosin 0.4 mg capsule (Flomax) 0.4 mg PO QAM #90 caps 11/13/21 10/11/22 Rx atorvastatin 40 mg tablet 40 mg PO QAM #90 tabs 01/08/22 10/11/22 Rx metoprolol succinate 25 mg 25 mg PO HS #90 tabs 01/08/22 10/11/22 Rx tablet,extended release 24 hr tadalafil 5 mg tablet 5 mg PO DAILY #90 tabs 02/05/22 10/11/22 Rx finasteride 5 mg tablet 5 mg PO QAM #90 tabs 04/10/22 10/11/22 Rx gabapentin 600 mg tablet 600 mg PO TID 09/21/22 10/11/22 History levothyroxine 50 mcg tablet 50 mcg PO DAILY #90 tabs 09/24/22 10/11/22 Rx amlodipine 10 mg tablet 10 mg PO QAM #90 tabs 09/26/22 10/11/22 Rx lisinopril 40 mg tablet 40 mg PO QAM blood pressure #90 09/26/22 10/11/22 Rx tabs omeprazole 20 mg capsule,delayed 40 mg PO QAM acid refulx #180 caps 09/26/22 10/11/22 Rx release tiotropium bromide 2.5 2 puff inhalation QAM #4 grams 09/26/22 10/11/22 Rx mcg/actuation mist for inhalation (Spiriva Respimat) 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 Emphysema, unspecified inhaler daily GERD (gastroesophageal reflux disease) Hyperlipidemia Hypertension IBS (irritable bowel syndrome) Peripheral neuropathy Pulmonary nodule Rheumatoid arthritis Rupture of left rectus femoris tendon hx of 08/2020--no surgery Surgical History History of appendectomy History of cholecystectomy History of colonoscopy History of esophagogastroduodenoscopy (EGD) History of tooth extraction all teeth removed Hx of cardiac cath (~01/2008) @ [facility]--no stents S/P repair of hydrocele Status post surgery (2009) SANJIV procedure, Dr Swanson Family History Sister Breast cancer, Onset Age: 40 Father Myocardial infarction Uncle Myocardial infarction Grandfather (Maternal) Myocardial infarction Mother Diabetes Denies family history of Ovarian cancer Prostate cancer Colorectal cancer Social History Smoking Status: Never smoker Second Hand Exposure: No; Do You Dip or Chew Tobacco: No; Hx Alcohol Use: No Hx Substance Use: No Preferred Language: Turkish Communication Ability: Effective Visual Impairment: Limited Hearing Ability: Normal Architectural Administrative Assistant Required: No Beliefs That Will Affect Care: None marital status: Current Living Situation: Spouse Current Living Situation Comment: lives at home with current occupational status: retired How many Children do You have: 2 Feels Safe at Home: Yes Childhood Exposure to Second-Hand Smoke: No Diet: regular caffeine: Yes during the past year weight has: remained stable Dental Care, Regularly: No Physical Activity Frequency: Daily Seatbelt Use: always Sunscreen Use: No Assistive Devices: Denture - Upper and Glasses Review of Systems Review of Systems: All systems reviewed & are unremarkable except as noted in HPI & below Physical Exam Physical Exam: General: patient resting comfortably, NAD, non-toxic in appearance, AA&O x 4 Skin: warm, dry, intact, no rashes or lesions HEENT: NC/AT, PERRL, EOMI, anicteric sclera, conjunctiva without injection, external ear normal to inspection and nontender, nares patent, moist mucus membranes, dentition intact, no oropharyngeal lesions, neck supple, trachea midline, no LAD, no thyromegaly, no JVD Heart: +S1/S2, regular, no m/r/g Lungs: equal air entry bilaterally, no rales/rhonchi/wheezes Abd: +BS mildly hyperactive, soft, ND, tender in RLQ with some voluntary guarding, no rebound tenderness, no masses/organomegaly/ascites Ext: warm, 2+ pulses in UE/LE bilaterally, no clubbing/cyanosis or edema Neuro: nonfocal, patient AA&O x 4, speech intact, no facial droop, moving all extremities on command with equal strength 5/5 Results & Data Results & Data Vital Signs (Past 12 Hours) Vital Signs Temp Pulse Pulse Resp BP BP Pulse Ox 10/11/22 02:00 81 16 120/67 94 10/11/22 01:30 80 16 116/65 95 10/11/22 01:00 80 17 120/63 93 10/11/22 00:39 87 16 134/63 96 10/11/22 00:04 94 10/10/22 23:30 86 18 121/68 94 10/10/22 23:37 92 H 10/10/22 23:02 83 18 119/72 95 10/10/22 22:30 36.6 C 80 18 90/56 L 95 O2 Del Method 10/11/22 02:00 Room Air 10/11/22 01:30 Room Air 10/11/22 01:00 Room Air 10/11/22 00:39 Room Air 10/11/22 00:04 Room Air 10/10/22 23:30 Room Air 10/10/22 23:37 10/10/22 23:02 Room Air 10/10/22 22:30 Room Air Laboratory Results Laboratory Results WBC 17.29 K/ul (4.8-10.8) H 10/10/22 22:40 RBC 4.98 M/uL (4.70-6.10) 10/10/22 22:40 Hgb 15.0 g/dl (14.0-18.0) 10/10/22 22:40 Hct 41.7 % (42.0-52.0) L 10/10/22 22:40 MCV 83.7 fL (80.0-100.0) 10/10/22 22:40 MCH 30.1 pg (25.0-34.0) 10/10/22 22:40 MCHC 36.0 g/dL (32.0-36.0) 10/10/22:40 RDW Std Deviation 41.7 fL (36.4-46.3) 10/10/22 22:40 RDW Coeff of Alyssa 13.7 % (11.5-14.5) 10/10/22:40 Plt Count 148 K/uL (130-400) 10/10/22:40 MPV 8.6 fL (9.4-12.4) L 10/10/22 22:40 Immature Gran % (Auto) 0.6 % 10/10/22 22:40 Neut % (Auto) 86.7 % 10/10/22 22:40 Lymph % (Auto) 6.5 % 10/10/22 22:40 [place] % (Auto) 5.7 % 10/10/22 22:40 Eos % (Auto) 0.3 % 10/10/22 22:40 Baso % (Auto) 0.2 % 10/10/22 22:40 Neut # (Auto) 15.00 K/uL (1.40-6.50) H 10/10/22 22:40 Lymph # (Auto) 1.12 K/uL (1.2-3.4) L 10/10/22 22:40 [place] # (Auto) 0.98 K/uL (0.11-0.59) H 10/10/22 22:40 Eos # (Auto) 0.06 K/uL (0-0.50) 10/10/22 22:40 Baso # (Auto) 0.03 K/uL (0-0.2) 10/10/22 22:40 Immature Gran # (Auto) 0.10 K/uL (0.01-0.20) 10/10/22 22:40 Sodium 135 mmol/L (136-145) L 10/10/22 22:40 Potassium 4.5 mmol/L (3.5-5.1) 10/10/22 22:40 Chloride 101 mmol/L (98-107) 10/10/22 22:40 Carbon Dioxide 25 mmol/L (21-32) 10/10/22 22:40 Anion Gap 9 (3-11) 10/10/22 22:40 BUN 31 mg/dl (6-23) H 10/10/22 22:40 Creatinine 1.47 mg/dl (0.6-1.4) H D 10/10/22 22:40 Est Cr Clr Drug Dosing 66.2 ml/min 10/10/22 22:40 Est GFR ( Amer) 57.2 ml/min 10/10/22 22:40 Est GFR (Non-Af Amer) 49.4 ml/min 10/10/22 22:40 BUN/Creatinine Ratio 21.1 (10-20) H 10/10/22 22:40 Glucose 176 mg/dl (70-99(Fasting)) H 10/10/22 22:40 Lactate 1.9 mmol/L (0.4-2.0) 10/11/22 00:07 Calcium 9.6 mg/dl (8.6-10.3) 10/10/22 22:40 Magnesium 1.6 mg/dl (1.7-2.4) L 10/10/22 22:40 Total Bilirubin 1.0 mg/dl (0.2-1.0) 10/10/22 22:40 AST 20 U/L (13-39) 10/10/22 22:40 ALT 31 U/L (7-52) 10/10/22 22:40 Alkaline Phosphatase 55 U/L (34-104) 10/10/22 22:40 Troponin I High Sens 5.3 pg/ml (0-20) 10/10/22 22:40 Total Protein 6.9 gm/dl (6.0-8.3) 10/10/22 22:40 Albumin 4.5 gm/dl (3.4-5.0) 10/10/22 22:40 Globulin 2.4 gm/dl (2.5-4.0) L 10/10/22 22:40 Albumin/Globulin Ratio 1.9 (0.9-2) 10/10/22 22:40 Lipase 17 U/L (11-82) 10/10/22 22:40 Procalcitonin < 0.05 ng/ml (0-0.5) 10/10/22 22:40 Urine Color Dark Yellow 10/10/22 22:40 Urine Appearance Clear (Clear) 10/10/22 22:40 Urine pH 5.0 (4.5-7.5) 10/10/22 22:40 Ur Specific [place] 1.030 (1.000-1.030) 10/10/22 22:40 Urine Protein Negative (Negative) 10/10/22 22:40 Urine Glucose (UA) Negative (Negative) 10/10/22 22:40 Urine Ketones Trace (Negative) H 10/10/22 22:40 Urine Blood Negative (Negative) 10/10/22 22:40 Urine Nitrite Negative (Negative) 10/10/22 22:40 Urine Bilirubin Negative (Negative) 10/10/22 22:40 Urine Urobilinogen Negative (Negative) 10/10/22 22:40 Ur Leukocyte Esterase Negative (Negative) 10/10/22 22:40 SARS-CoV-2, RNA, NAAT NEGATIVE (NEGATIVE) 10/11/22 01:42 Impressions Abdomen/Pelvis CT 10/10/22 23:09 CR Exam(s): CT ABDOMEN + PELVIS With Contrast IV Amt: 94ml of otiray 320 EXAM: CT Abdomen and Pelvis With Intravenous Contrast CLINICAL HISTORY: Reason for exam: rlq pain. TECHNIQUE: Axial computed tomography images of the abdomen and pelvis with intravenous contrast. CTDI is 27.31 mGy and DLP is 1626.67 mGy-cm. Automated exposure control was utilized for the study. A dose lowering technique was utilized adhering to the principles of ALARA. CONTRAST: Patient received 94ml of otiray 320 of IV contrast COMPARISON: No relevant prior studies available. FINDINGS: Lung bases: Unremarkable. No mass. No consolidation. ABDOMEN: Liver: There is portal venous gas (image 26 series 300). Gallbladder and bile ducts: Unremarkable. No calcified stones. No ductal dilation. Pancreas: Unremarkable. No mass. No ductal dilation. Spleen: Unremarkable. No splenomegaly. Adrenals: Unremarkable. No mass. Kidneys and ureters: There are multiple left-sided parapelvic and renal cysts. No hydronephrosis. Stomach and bowel: Unremarkable. No obstruction. No mucosal thickening. PELVIS: Appendix: The appendix is not clearly visualized. The patient is status post appendectomy. Bladder: Unremarkable. No mass. Reproductive: Unremarkable as visualized. ABDOMEN and PELVIS: Intraperitoneal space: There is moderate pericolonic inflammatory change involving the right large bowel with small locules of adjacent pneumoperitoneum. No significant fluid collection. Bones/joints: There are degenerative changes of the thoracolumbar spine. No acute fracture. No dislocation. Soft tissues: Unremarkable. Vasculature: Aortic calcification. Lymph nodes: Unremarkable. No enlarged lymph nodes. IMPRESSION: Moderate inflammation of the right large bowel with small locules of adjacent pneumoperitoneum concerning for perforation. Small focal areas of portal venous gas which could reflect bowel ischemia. Communications: Verify Receipt Electronically signed by: Damian Ny MD 10/11/22 01:04 AM ECG Additional Comments: EKG with NSR at 82bpm, normal axis, PN=756, QRS=86, TNd=310 No acute ischemic changes PG Care Time/CCT Total # of Minutes Spent Total Time Spent with Patient: Total time spent is greater than 50% in coordination of care (as documented) at patient's floor/unit and/or counseling patient: Coding Level of Care Code 38386 INT INP/OBS CARE 3/75MIN Diagnoses Abdominal pain R10.9 DM II (diabetes mellitus, type II), controlled E11.9 Benign prostatic hyperplasia with urinary obstruction N40.1; N13.8 Hyperlipidemia E78.5 Rheumatoid arthritis M06.9 Hypertension I10 Hypertension type: essential hypertension GERD (gastroesophageal reflux disease) K21.9 (6) Hypertension Hypertension type: essential hypertension Qualified Code(s): I10 - Essential (primary) hypertension
[2022-10-11 03:53] LABS: Basophils # (auto) 0.03 K/uL (0-0.2); Basophils % (auto) 0.2 %; Eosinophils # (auto) 0.03 K/uL (0-0.50); Eosinophils % (auto) 0.2 %; Hematocrit (blood only) 39.1 % (42.0-52.0); Hemoglobin 14.3 g/dl (14.0-18.0); Immature Granulocytes # (auto) 0.11 K/uL (0.01-0.20); Immature Granulocytes % (auto) 0.6 %; Lymphocytes # (auto) 0.75 K/uL (1.2-3.4); Lymphocytes % (auto) 4.3 %; Mean Corpuscular Hemoglobin 30.4 pg (25.0-34.0); Mean Corpuscular Hgb Conc 36.6 g/dL (32.0-36.0); Mean Corpuscular Volume 83.2 fL (80.0-100.0); Mean Platelet Volume 8.9 fL (9.4-12.4); Monocytes # (auto) 1.04 K/uL (0.11-0.59); Neutrophils # (auto) 15.47 K/uL (1.40-6.50); Neutrophils % (auto) 88.7 %; Platelet Count 109 K/uL (130-400); RDW Coefficient of Variation 13.6 % (11.5-14.5); RDW Standard Deviation 41.8 fL (36.4-46.3); White Blood Count 17.43 K/ul (4.8-10.8)
[2022-10-11] MEDS ORDERED: ACETAMINOPHEN 325 MG TAB PO PRN (03:56)
[2022-10-11] MEDS ORDERED: DOCUSATE SODIUM 100 MG CAP PO PRN (03:56)
[2022-10-11] MEDS ORDERED: POLYETHYLENE (MIRALAX) 17 GM PACK PO PRN (03:56)
[2022-10-11] MEDS ORDERED: MoRPHine SULFATE 2 MG/ML CARP IV PRN ×2 (03:56)
[2022-10-11 04:10] LABS: BUN Creatinine Ratio 23.1 (10-20); Creatinine Clr Calc Pharmacy 80.4 ml/min; Est GFR (African American) 72.4 ml/min; Est GFR (Non-African American) 62.4 ml/min; Potassium 4.7 mmol/L (3.5-5.1)
[2022-10-11] MEDS: ONDANSETRON INJ 2 MG/ML 2 ML VIAL IV PRN (04:15)
[2022-10-11] MEDS: PIPERACILLIN/TAZOBACTAM 4.5 GM in DEXTROSE 5% 100 ML IV SCH ×3 (06:12→22:21)
[2022-10-11] MEDS: LEVOTHYROXINE SODIUM 50 MCG TABLET PO SCH (06:12)
--- NOTE | 2022-10-11 07:11 | XRay Report ---
XR chest 1V portable HISTORY: 67 years-old Male Sepsis acute shortness of breath with sepsis COMPARISON: 10/09/2022 TECHNIQUE: AP view of the chest FINDINGS: Cardiomediastinal and hilar silhouettes are within normal limits. No pneumothorax, pleural effusion, airspace consolidation or pulmonary edema. Bones appear grossly intact. IMPRESSION: No acute process. ACT 112: Negative or not required by law. The above report was generated using voice recognition software. It may contain grammatical, syntax o r spelling errors. Electronically signed by: Giovani Brooks M.D. 10/11/2022 7:09 AM
[2022-10-11] MEDS: TAMSULOSIN HCL 0.4 MG CAP PO SCH (07:35)
[2022-10-11] MEDS: GABAPENTIN 600 MG TAB PO SCH ×3 (07:35→22:15)
[2022-10-11] MEDS: HYDROXYCHLOROQUINE SULFATE 200 MG TAB PO SCH ×2 (07:36→22:15)
[2022-10-11] MEDS: PANTOprazole 40 MG TAB PO SCH (07:36)
[2022-10-11] MEDS: FINASTERIDE 5 MG TAB PO SCH (07:36)
[2022-10-11] MEDS: UMECLIDINIUM BROMIDE 62.5MCG/BLISTER 7 PUFFS/INHALER INH SCH (07:37)
[2022-10-11] MEDS ORDERED: NON-FORMULARY MEDICATION (Tiotropium Bromide [Spiriva Respimat] 2.5 mcg/actuation mist) INH SCH (09:00)
--- NOTE | 2022-10-11 09:53 | Surgery Progress Note ---
Date of Service October 11, 2022 Assessment & Plan (1) Right sided colitis: Plan: 67-year-old male presenting with right-sided colitis of unknown etiology. Given his persistent pain medication requirements and concern for possible ischemia with microperforation on CT, I believe surgical aspiration is warranted. Plan for diagnostic laparoscopy, possible bowel resection, possible open Risk of the procedure were discussed to include but not limited to bleeding, inf ection, ostomy, need for future more extensive surgery, damage to surrounding structures, abscess, and the risk of anesthesia Postop recovery determined by extent of surgical intervention Dr. Stephen covering over the weekend (2) Abdominal pain: (3) DM II (diabetes mellitus, type II), controlled: (4) Hypertension: (5) GERD (gastroesophageal reflux disease): Admission and Anticipated Discharge Date Admission Date: October 11, 2022 Subjective 67-year-old male admitted for colitis with concern for ischemia. Feels better than he did last night, but still requiring pain meds. He did have a fever to 38.2 early this morning that was treated with Tylenol and has resolved. Physical Exam Constitutional: WD/WN, vitals as above + obese Respiratory: normal respiratory effort, lungs clear to auscultation Cardiovascular: RRR, no murmur, no edema Gastrointestinal (Abdomen): Percussion/Palpation: + abdomen tender (Significant tenderness in right lower quadrant) and abdomen soft; no guarding, abdomen not rigid and no hernia Results & Data Vital Signs (Past 12 Hours) Vital Signs Temp Pulse Pulse Resp BP BP Pulse Ox 10/11/22 09:16 37.3 C 10/11/22 07:51 38.2 C H 87 18 124/69 93 10/11/22 04:14 80 10/11/22 04:00 36.6 C 84 16 107/65 95 10/11/22 03:30 79 16 142/62 H 94 10/11/22 03:00 77 16 114/63 94 10/11/22 02:30 78 17 120/66 95 10/11/22 02:00 81 16 120/67 94 10/11/22 01:30 80 16 116/65 95 10/11/22 01:00 80 17 120/63 93 10/11/22 00:39 87 16 134/63 96 10/11/22 00:04 94 10/10/22 23:30 86 18 121/68 94 10/10/22 23:37 92 H 10/10/22 23:02 83 18 119/72 95 10/10/22 22:30 36.6 C 80 18 90/56 L 95 O2 Del Method 10/11/22 09:16 10/11/22 07:51 Room Air 10/11/22 04:14 10/11/22 04:00 Room Air 10/11/22 03:30 Room Air 10/11/22 03:00 Room Air 10/11/22 02:30 Room Air 10/11/22 02:00 Room Air 10/11/22 01:30 Room Air 10/11/22 01:00 Room Air 10/11/22 00:39 Room Air 10/11/22 00:04 Room Air 10/10/22 23:30 Room Air 10/10/22 23:37 10/10/22 23:02 Room Air 10/10/22 22:30 Room Air Laboratory Results Laboratory Results - last 24 hr 10/10/22 10/10/22 10/10/22 22:40 22:40 22:40 WBC 17.29 H RBC 4.98 Hgb 15.0 Hct 41.7 L MCV 83.7 MCH 30.1 MCHC 36.0 RDW Std Deviation 41.7 RDW Coeff of Alyssa 13.7 Plt Count 148 MPV 8.6 L Immature Gran % (Auto) 0.6 Neut % (Auto) 86.7 Lymph % (Auto) 6.5 [place] % (Auto) 5.7 Eos % (Auto) 0.3 Baso % (Auto) 0.2 Neut # (Auto) 15.00 H Lymph # (Auto) 1.12 L [place] # (Auto) 0.98 H Eos # (Auto) 0.06 Baso # (Auto) 0.03 Immature Gran # (Auto) 0.10 Sodium 135 L Potassium 4.5 Chloride 101 Carbon Dioxide 25 Anion Gap 9 BUN 31 H Creatinine 1.47 H D Est Cr Clr Drug Dosing 66.2 Est GFR ( Amer) 57.2 Est GFR (Non-Af Amer) 49.4 BUN/Creatinine Ratio 21.1 H Glucose 176 H Lactate Calcium 9.6 Magnesium 1.6 L Total Bilirubin 1.0 AST 20 ALT 31 Alkaline Phosphatase 55 Troponin I High Sens 5.3 Total Protein 6.9 Albumin 4.5 Globulin 2.4 L Albumin/Globulin Ratio 1.9 Lipase 17 Procalcitonin Urine Color Dark Yellow Urine Appearance Clear Urine pH 5.0 Ur Specific [place] 1.030 Urine Protein Negative Urine Glucose (UA) Negative Urine Ketones Trace H Urine Blood Negative Urine Nitrite Negative Urine Bilirubin Negative Urine Urobilinogen Negative Ur Leukocyte Esterase Negative SARS-CoV-2, RNA, NAAT 10/10/22 10/11/22 10/11/22 22:40 00:07 01:42 WBC RBC Hgb Hct MCV MCH MCHC RDW Std Deviation RDW Coeff of Alyssa Plt Count MPV Immature Gran % (Auto) Neut % (Auto) Lymph % (Auto) [place] % (Auto) Eos % (Auto) Baso % (Auto) Neut # (Auto) Lymph # (Auto) [place] # (Auto) Eos # (Auto) Baso # (Auto) Immature Gran # (Auto) Sodium Potassium Chloride Carbon Dioxide Anion Gap BUN Creatinine Est Cr Clr Drug Dosing Est GFR ( Amer) Est GFR (Non-Af Amer) BUN/Creatinine Ratio Glucose Lactate 1.9 Calcium Magnesium Total Bilirubin AST ALT Alkaline Phosphatase Troponin I High Sens Total Protein Albumin Globulin Albumin/Globulin Ratio Lipase Procalcitonin < 0.05 Urine Color Urine Appearance Urine pH Ur Specific [place] Urine Protein Urine Glucose (UA) Urine Ketones Urine Blood Urine Nitrite Urine Bilirubin Urine Urobilinogen Ur Leukocyte Esterase SARS-CoV-2, RNA, NAAT NEGATIVE 10/11/22 10/11/22 10/11/22 03:34 03:34 03:34 WBC 17.43 H RBC 4.70 Hgb 14.3 Hct 39.1 L MCV 83.2 MCH 30.4 MCHC 36.6 H RDW Std Deviation 41.8 RDW Coeff of Alyssa 13.6 Plt Count 109 L MPV 8.9 L Immature Gran % (Auto) 0.6 Neut % (Auto) 88.7 Lymph % (Auto) 4.3 [place] % (Auto) 6.0 Eos % (Auto) 0.2 Baso % (Auto) 0.2 Neut # (Auto) 15.47 H Lymph # (Auto) 0.75 L [place] # (Auto) 1.04 H Eos # (Auto) 0.03 Baso # (Auto) 0.03 Immature Gran # (Auto) 0.11 Sodium 132 L Potassium 4.7 Chloride 102 Carbon Dioxide 22 Anion Gap 8 BUN 28 H Creatinine 1.21 Est Cr Clr Drug Dosing 80.4 Est GFR ( Amer) 72.4 Est GFR (Non-Af Amer) 62.4 BUN/Creatinine Ratio 23.1 H Glucose 196 H Lactate 3.4 H* Calcium 9.0 Magnesium 2.0 Total Bilirubin AST ALT Alkaline Phosphatase Troponin I High Sens Total Protein Albumin Globulin Albumin/Globulin Ratio Lipase Procalcitonin Urine Color Urine Appearance Urine pH Ur Specific [place] Urine Protein Urine Glucose (UA) Urine Ketones Urine Blood Urine Nitrite Urine Bilirubin Urine Urobilinogen Ur Leukocyte Esterase SARS-CoV-2, RNA, NAAT 10/11/22 10/11/22 05:43 07:48 WBC RBC Hgb Hct MCV MCH MCHC RDW Std Deviation RDW Coeff of Alyssa Plt Count MPV Immature Gran % (Auto) Neut % (Auto) Lymph % (Auto) [place] % (Auto) Eos % (Auto) Baso % (Auto) Neut # (Auto) Lymph # (Auto) [place] # (Auto) Eos # (Auto) Baso # (Auto) Immature Gran # (Auto) Sodium Potassium Chloride Carbon Dioxide Anion Gap BUN Creatinine Est Cr Clr Drug Dosing Est GFR ( Amer) Est GFR (Non-Af Amer) BUN/Creatinine Ratio Glucose Lactate 2.5 H* 1.9 Calcium Magnesium Total Bilirubin AST ALT Alkaline Phosphatase Troponin I High Sens Total Protein Albumin Globulin Albumin/Globulin Ratio Lipase Procalcitonin Urine Color Urine Appearance Urine pH Ur Specific [place] Urine Protein Urine Glucose (UA) Urine Ketones Urine Blood Urine Nitrite Urine Bilirubin Urine Urobilinogen Ur Leukocyte Esterase SARS-CoV-2, RNA, NAAT Diagnostic Findings I personally reviewed and interpreted the CT scan. There is evidence of right- sided colitis with evidence of possible microperforation. There is a minimal amount of portal venous gas which could suggest ischemia. Exam(s): CT ABDOMEN + PELVIS With Contrast IV Amt: 94ml of otiray 320 EXAM: CT Abdomen and Pelvis With Intravenous Contrast CLINICAL HISTORY: Reason for exam: rlq pain. TECHNIQUE: Axial computed tomography images of the abdomen and pelvis with intravenous contrast. CTDI is 27.31 mGy and DLP is 1626.67 mGy-cm. Automated exposure control was utilized for the study. A dose lowering technique was utilized adhering to the principles of ALARA. CONTRAST: Patient received 94ml of otiray 320 of IV contrast COMPARISON: No relevant prior studies available. FINDINGS: Lung bases: Unremarkable. No mass. No consolidation. ABDOMEN: Liver: There is portal venous gas (image 26 series 300). Gallbladder and bile ducts: Unremarkable. No calcified stones. No ductal dilation. Pancreas: Unremarkable. No mass. No ductal dilation. Spleen: Unremarkable. No splenomegaly. Adrenals: Unremarkable. No mass. Kidneys and ureters: There are multiple left-sided parapelvic and renal cysts. No hydronephrosis. Stomach and bowel: Unremarkable. No obstruction. No mucosal thickening. PELVIS: Appendix: The appendix is not clearly visualized. The patient is status post appendectomy. Bladder: Unremarkable. No mass. Reproductive: Unremarkable as visualized. ABDOMEN and PELVIS: Intraperitoneal space: There is moderate pericolonic inflammatory change involving the right large bowel with small locules of adjacent pneumoperitoneum. No significant fluid collection. Bones/joints: There are degenerative changes of the thoracolumbar spine. No acute fracture. No dislocation. Soft tissues: Unremarkable. Vasculature: Aortic calcification. Lymph nodes: Unremarkable. No enlarged lymph nodes. IMPRESSION: Moderate inflammation of the right large bowel with small locules of adjacent pneumoperitoneum concerning for perforation. Small focal areas of portal venous gas which could reflect bowel ischemia. PG Care Time/CCT Total # of Minutes Spent Total Time Spent with Patient: Total time spent is greater than 50% in coordination of care (as documented) at patient's floor/unit and/or counseling patient: Coding Level of Care Code 29444 SUB INP/OBS CARE 05/22MIN Diagnoses Right sided colitis K52.9 Abdominal pain R10.9 DM II (diabetes mellitus, type II), controlled E11.9 Hypertension I10 Hypertension type: essential hypertension GERD (gastroesophageal reflux disease) K21.9 (4) Hypertension Hypertension type: essential hypertension Qualified Code(s): I10 - Essential (primary) hypertension
--- NOTE | 2022-10-11 10:18 | Anesthesiology Consultation ---
Date of Service October 11, 2022 Assessment & Plan Chart Review Chart Review: Acceptable Risk for Surgery Consults Requested none History Surgery Operation Date: 10/11/22 08:25 Proposed Procedures p Diagnostic Laparoscopy, Possible Bowel Resection, Possible Exploratory Laparotomy - Tomas Richardson DO, FACS Height/Weight Height: 6 ft 1 in Weight: 109.5 kg Allergies Allergy/AdvReac Type Severity Reaction Status Date / Time No Known Allergies Allergy Verified 10/11/22 00:17 Medications Home Medications Medication Instructions Recorded Confirmed Last Taken aspirin 81 mg tablet,delayed 81 mg PO QAM 12/30/18 10/11/22 10/10/22 release hydroxychloroquine 200 mg tablet 200 mg PO BID 12/18/19 10/11/22 10/10/22 08:00 tamsulosin 0.4 mg capsule (Flomax) 0.4 mg PO QAM #90 caps 11/13/21 10/11/22 10/10/22 atorvastatin 40 mg tablet 40 mg PO QAM #90 tabs 01/08/22 10/11/22 10/10/22 metoprolol succinate 25 mg 25 mg PO HS #90 tabs 01/08/22 10/11/22 10/09/22 tablet,extended release 24 hr tadalafil 5 mg tablet 5 mg PO DAILY #90 tabs 02/05/22 10/11/22 10/10/22 finasteride 5 mg tablet 5 mg PO QAM #90 tabs 04/10/22 10/11/22 10/10/22 gabapentin 600 mg tablet 600 mg PO TID 09/21/22 10/11/22 10/10/22 14:00 levothyroxine 50 mcg tablet 50 mcg PO DAILY #90 tabs 09/24/22 10/11/22 10/10/22 amlodipine 10 mg tablet 10 mg PO QAM #90 tabs 09/26/22 10/11/22 10/10/22 lisinopril 40 mg tablet 40 mg PO QAM blood pressure #90 09/26/22 10/11/22 10/10/22 tabs omeprazole 20 mg capsule,delayed 40 mg PO QAM acid refulx #180 caps 09/26/22 10/11/22 10/10/22 release tiotropium bromide 2.5 2 puff inhalation QAM #4 grams 09/26/22 10/11/22 10/10/22 mcg/actuation mist for inhalation (Spiriva Respimat) Active Medications Generic Name Dose Route Start Last Admin Trade Name Freq PRN Reason Stop Dose Admin Acetaminophen 650 mg 10/11/22 03:56 10/11/22 07:34 Acetaminophen 325 Mg Tab PO 11/10/22 03:55 650 mg Q4H PRN Administration pain/fever Finasteride 5 mg 10/11/22 09:00 10/11/22 07:36 Finasteride 5 Mg Tab PO 11/10/22 08:59 5 mg QAM BENITO Administration Gabapentin 600 mg 10/11/22 09:00 10/11/22 07:35 Gabapentin 600 Mg Tab PO 11/10/22 08:59 600 mg TID BENITO Administration Hydroxychloroquine Sulfate 200 mg 10/11/22 09:00 10/11/22 07:36 Hydroxychloroquine Sulfate 200 Mg Tab PO 11/10/22 08:59 200 mg BID BENITO Administration Lactated Ringer's 1,000 mls @ 125 mls/hr 10/11/22 01:45 10/11/22 02:01 Lr IV 11/10/22 01:44 125 mls/hr .Q8H BENITO Administration Piperacillin Sod/Tazobactam 120 mls @ 30 mls/hr 10/11/22 06:00 10/11/22 06:12 Sod 4.5 gm/ Dextrose IV 10/21/22 05:59 30 mls/hr Q8H BENITO Administration Protocol Levothyroxine Sodium 50 mcg 10/11/22 06:30 10/11/22 06:12 Levothyroxine Sodium 50 Mcg Tablet PO 11/10/22 06:29 50 mcg DAILYBB BENITO Administration Morphine Sulfate 2 mg 10/11/22 03:56 10/11/22 04:16 Morphine Sulfate 2 Mg/Ml Carp IV 10/25/22 03:55 2 mg Q3H PRN Administration Pain (6,7,8,9,10) Ondansetron HCl 4 mg 10/11/22 04:04 10/11/22 04:15 Ondansetron Inj 2 Mg/Ml 2 Ml Vial IV 11/10/22 04:03 4 mg Q4H PRN Administration Nausea Pantoprazole Sodium 40 mg 10/11/22 09:00 10/11/22 07:36 Pantoprazole 40 Mg Tab PO 11/10/22 08:59 40 mg DAILY BENITO Administration Tamsulosin HCl 0.4 mg 10/11/22 09:00 10/11/22 07:35 Tamsulosin Hcl 0.4 Mg Cap PO 11/10/22 08:59 0.4 mg QAM BENITO Administration Umeclidinium [place] 1 puffs 10/11/22 09:00 10/11/22 07:37 Umeclidinium [place] 62.5mcg/Blister 7 Puffs/Inhaler INH 11/10/22 08:59 1 puffs DAILY BENITO Administration Past Medical History Medical History (Updated 10/11/22 @ 09:51 by Tomas Richardson DO, FACS) Allergic rhinitis Benign prostatic hyperplasia with urinary obstruction 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 Emphysema, unspecified inhaler daily GERD (gastroesophageal reflux disease) Hyperlipidemia Hypertension IBS (irritable bowel syndrome) Peripheral neuropathy Pulmonary nodule Rheumatoid arthritis Right sided colitis Rupture of left rectus femoris tendon hx of 08/2020--no surgery Past Family History Family History Sister Breast cancer, Onset Age: 40 Father Myocardial infarction Uncle Myocardial infarction Grandfather (Maternal) Myocardial infarction Mother Diabetes Denies family history of Ovarian cancer Prostate cancer Colorectal cancer Past Surgical History Surgical History History of appendectomy History of cholecystectomy History of colonoscopy History of esophagogastroduodenoscopy (EGD) History of tooth extraction all teeth removed Hx of cardiac cath (~01/2008) @ [facility]--no stents S/P repair of hydrocele Status post surgery (2009) SANJIV procedure, Dr Swanson Social History Smoking Status: Never smoker Do You Dip or Chew Tobacco: No Hx Alcohol Use: No Alcohol type: beer alcohol intake frequency: holidays/special occasions only Hx Substance Use: No substance use type: does not use Physical Exam Vital Signs Last Vital Signs Temp 37.3 C 10/11/22 09:16 Pulse 87 10/11/22 07:51 Resp 18 10/11/22 07:51 BP 124/69 10/11/22 07:51 Pulse Ox 93 10/11/22 07:51 O2 Del Method Room Air 10/11/22 07:51 Testing Laboratory Results 10/11/22 03:34 10/11/22 03:34 Urine Color Dark Yellow 10/10/22 22:40 Urine Appearance Clear (Clear) 10/10/22 22:40 Urine pH 5.0 (4.5-7.5) 10/10/22 22:40 Ur Specific [place] 1.030 (1.000-1.030) 10/10/22 22:40 Urine Protein Negative (Negative) 10/10/22 22:40 Urine Glucose (UA) Negative (Negative) 10/10/22 22:40 Urine Ketones Trace (Negative) H 10/10/22 22:40 Urine Nitrite Negative (Negative) 10/10/22 22:40 Ur Leukocyte Esterase Negative (Negative) 10/10/22 22:40
[2022-10-11] MEDS ORDERED: LIDOCAINE 2% 2 ML VIAL/AMP(20MG/ML) INFIL ONE (10:30)
[2022-10-11] MEDS ORDERED: ONDANSETRON INJ 2 MG/ML 2 ML VIAL ONE (10:30)
[2022-10-11] MEDS ORDERED: ROCURONIUM BROMIDE 10 MG/ML 5 ML VIAL IV ONE ×3 (10:30→12:56)
[2022-10-11] MEDS ORDERED: PROPOFOL IV EMULSION 10 MG/ML 20 ML VIAL IV ONE (10:30)
[2022-10-11] MEDS ORDERED: DEXAMETHASONE SOD INJ 4 MG/ML VIAL ONE (10:30)
[2022-10-11] MEDS ORDERED: fentaNYL citrate PF 100 MCG/2 ML VIAL ONE (10:30)
[2022-10-11] MEDS ORDERED: MIDAZOLAM HCL 1 MG/ML 2ML VIAL ONE (10:31)
[2022-10-11] MEDS ORDERED: BUPIVACAINE 0.5 % 5 MG/1 ML MPF 30ML VIAL ONE (10:49)
[2022-10-11] MEDS ORDERED: KETOROLAC 30 MG/ML VIAL IV PRN (10:54)
[2022-10-11] MEDS ORDERED: ATROPINE SULFATE 0.1 MG/ML 10ML SYR IV PRN (10:54)
[2022-10-11] MEDS ORDERED: HYDROmorphone INJ 2 MG/ML SYR/VIAL IV PRN (10:54)
[2022-10-11] MEDS ORDERED: ONDANSETRON INJ 2 MG/ML 2 ML VIAL IV PRN (10:54)
[2022-10-11] MEDS ORDERED: DEXAMETHASONE SOD INJ 4 MG/ML VIAL IV PRN (10:54)
[2022-10-11] MEDS ORDERED: ePHEDrine sulfate 50 MG/ML AMP IV PRN (10:54)
[2022-10-11] MEDS ORDERED: fentaNYL citrate PF 100 MCG/2 ML VIAL IV PRN (10:54)
[2022-10-11] MEDS ORDERED: PROMETHAZINE HCL 12.5 MG in SODIUM CHLORIDE 0.9% 50 ML IV PRN (10:54)
[2022-10-11] MEDS ORDERED: PIPERACILLIN/TAZOBACTAM 4.5 GM in DEXTROSE 5% 100 ML IV ONE (11:02)
[2022-10-11] MEDS ORDERED: PHENYLEPHRINE HCL 10 MG/ML VIAL ONE (11:24)
--- NOTE | 2022-10-11 11:34 | Electrocardiogram Report ---
Test Reason : Blood Pressure : / mmHG Vent. Rate : 082 BPM Atrial Rate : 082 BPM P-R Int : 138 ms QRS Dur : 086 ms QT Int : 338 ms P-R-T Axes : 040 012 019 degrees QTc Int : 394 ms Normal sinus rhythm Normal ECG When compared with ECG of 09-OCT-2022 16:21, Premature ventricular complexes are no longer Present Confirmed by Duy Faust ([id number]) on 10/11/2022 11:33:43 AM Referred By: REFERRED SELF Confirmed By:Pieter Faust
[2022-10-11] MEDS ORDERED: HYDROmorphone INJ 2 MG/ML SYR/VIAL ONE (11:56)
[2022-10-11] MEDS ORDERED: KETAMINE 50 MG/5 ML SYRINGE ONE (12:44)
[2022-10-11] MEDS ORDERED: SUGAMMADEX SODIUM 200 MG/2 ML VIAL IV ONE (13:49)
[2022-10-11] MEDS ORDERED: BUPIVACAINE LIPOSOME 1.3% 266 MG/20 ML VIAL ONE (13:52)
--- NOTE | 2022-10-11 14:41 | Operative Report ---
PG Post Operative Report Pre & Post Diagnosis Operation Date: 10/11/22 08:25 Pre-Op Diagnosis: Right sided colitis Post-Op Diagnosis: Right sided ischemia colitis I identified the patient and participated in the time-out.: Yes Procedure Operation Date: 10/11/22 08:25 Actual Procedures p Laparoscopic Assisted Ileocecectomy(Not Applicable) - Tomas Richardson DO, ARELI Surgeon Tomas Richardson DO, ARELI [employer] Albina Echeverria Estimated Blood Loss 75 Findings Consistent with Post-Op Diagnosis Patches of ischemia on right colon. Laparoscopic mobilization of right colon performed. Bowel exteriorized, ischemic bowel resected. Ileocolic [id number] functional end-to-end anastomosis performed using Endo WU stapler. Reinforced with silk Lembert's. NIURKA drains placed in pelvis. Exparel injected Specimens Ischemic right colon Drains Gil catheter 10 mm NIURKA and pelvis Anesthesia Type General Complications none Disposition Accompanied Patient To Recovery: No Disposition: Recovery Room Indications 67-year-old male presented after recent hospital discharge with right-sided abdominal pain. CT scan showed colitis with potential flecks of pneumoperitoneum and possible ischemia. He was observed overnight however his pain increased. His lactate did normalize. After discussion with the patient we elected for diagnostic laparoscopy, possible bowel resection, possible open the risks of the procedure were discussed, all questions were answered, and the patient agreed to proceed with surgery as planned. Description of Procedure The patient was properly identified, consented, and taken to the operating room where he was placed in the supine position. General endotracheal anesthesia was induced. SCDs and a safety belt were placed. Preoperative antibiotics were administered. A Gil catheter and an NG tube was placed. The patient's abdomen was prepped and draped in the standard sterile fashion. Surgical timeout was performed and all parties were in agreement that this was the correct patient and procedure to be performed and we continued as planned. An incision was made in the left upper quadrant and the Veress needle was inserted. Saline drop test confirmed entry to the abdomen. It was insufflated carbon dioxide to the patient without incident. Using the Optiview technique, a 5 mm trocar and a 5 mm 30 degree camera were inserted. No damage from initial trocar placement was noted. There was some adhesions in the right lower quadrant, no evidence of abscess or spillage 5 mm ports were then placed in the left lateral abdomen in the left lower quadrant. Patient was placed in Trendelenburg position and rotated towards the left. Later an additional 12 mm port was placed in the left lower quadrant to accommodate the stapler Omental adhesions were taken down from the anterior abdominal wall at the site of the prior appendectomy using the Sonicision. The omentum was then mobilized off of portion of the colon. This revealed that there was a significant colitis with some patches of ischemia. There is no perforation or purulent or feculent drainage identified. To further examine the colon, mobilized the right colon by taking down the white line of Toldt using Sonicision. This was continued up to the hepatic flexure. The omentum was taken off of the transverse colon to aid in mobilization. Hepatic flexure was taken down. Continued the dissection down to the right lower quadrant. There were some dense adhesions likely secondary to the prior appendectomy. The ileum was densely adhesed to the lateral abdominal wall. This was eventually taken down using the Sonicision and blunt dissection. Once the ileum and bowel were completely mobilized, I then divided the terminal branch of the ileocolic artery. The cecum was grasped and elevated towards the abdominal wall. The ileocolic pedicle was identified. The main branch of the ileocolic artery and vein was ligated using 45 mm vascular Endo WU stapler. The mesentery was then taken down erring on staying close to the colon and small bowel using the Sonicision. Hemostasis appeared excellent. It then appeared that the ileum and cecum would reach easily to the abdominal wall, and we decided exteriorize the colon. An oblique incision was made through his prior appendectomy incision. This was deepened down to the anterior fascia. The anterior fascia was opened in an oblique fashion and the muscles were . The posterior fascia was then opened in an oblique fashion and entry to the abdomen was confirmed. The wound protector was placed. The colon was then exteriorized. At a supple and healthy area of the colon we then performed our resection. This was performed using a 60 mm purple loaded Endo WU stapler x2. I then resected the ileum about 10 cm from the ileocecal valve. This was also performed with a 60 mm purple loaded Endo WU stapler. The bowels were then aligned and the corner of the staple lines were taken off. A [id number]-[id number] functional end-to-end anastomosis was created using sequential fires of the purple loaded Endo WU stapler. The common enterotomy was then closed using the same stapler. Staple line was then reinforced using interrupted 3-0 silk Lembert sutures. The anastomosis appeared patent. The submerged water there is no evidence of leak. Hemostasis appeared excellent. Care was taken not to allow for twisting about the creation of the anastomosis. Once this was completed and the anastomosis appeared viable, and noted to drop back into the abdomen. We then reentered laparoscopically and the anastomosis appeared healthy with no twisting. The mesenteric defect was not closed. The remainder of the bowel appeared healthy. The right lower quadrant and pelvis were suctioned and irrigated. I attempted to confirm placement of the NG tube but was unable to. Anesthesia then remove the NG tube and were unable to replace it. There was no NG tube at the conclusion of the case. 10 mm flat NIURKA drain was placed in the pelvis and exited through the left lower quadrant port site. This was carried in place with a 2-0 nylon suture. The fascia of the 12 mm port site was closed with a zwvbec-zf-lqher 0 Vicryl suture using the Jimmy-Garo device. The ports were then removed and the abdomen was allowed to collapse The wound protector was then removed and the posterior fascia of the right lower quadrant incision was closed using a running 0 PDS suture. The wound was irrigated. The anterior fascia was then closed in the same fashion. Exparel was injected. The wound was again irrigated and hemostasis confirmed. The right lower quadrant incision was then closed with interrupted 3-0 Vicryl deep dermal sutures followed by jammie. Sterile dressing was placed over this at the conclusion of the case. The remaining port sites were closed with 4-0 Monocryl suture and Dermabond was placed over the incisions. Sterile dressing was applied to the NIURKA drain. The patient was extubated in the operating room and taken to the PACU where he recovered without apparent incident. All sponge, instrument, and needle counts were correct. The patient tolerated the procedure well. The colon specimen was sent to Pathology. The physician's instructional assistant was present and scrubbed for the entirety of the case. She was critical in positioning the patient, prepping and draping, retraction and exposure, driving the laparoscope, resection of the specimen and creation of the anastomosis, closure the incisions, and placement of the dressings. I attest to the content of the Intraoperative Record and any orders documented therein. Any exceptions are noted below.
[2022-10-11] MEDS ORDERED: INSULIN HUMAN REGULAR PER UNIT 10 UNITS in SYRINGE 0 ML IV STA (15:03)
[2022-10-11] MEDS ORDERED: INSULIN ASPART PER UNIT CHARGE ONE (15:06)
[2022-10-11] MEDS ORDERED: NovoLIN-R INSULIN PER UNIT CHARGE ONE (15:06)
--- NOTE | 2022-10-11 15:57 | Anesthesiology Progress Note ---
Date of Service October 11, 2022 Anesthesia Post Procedure Vital Signs Vital Signs: Temp Pulse Pulse Pulse Resp BP BP 10/11/22 15:45 76 20 116/62 10/11/22 15:35 74 16 107/53 L 10/11/22 15:25 79 15 101/62 10/11/22 15:15 73 17 110/64 10/11/22 15:05 82 14 108/64 10/11/22 14:55 84 12 105/67 10/11/22 14:47 36.6 C 82 20 120/53 L 10/11/22 10:54 83 10/11/22 10:43 37.3 C 90 18 118/63 10/11/22 09:16 37.3 C 10/11/22 07:51 38.2 C H 87 18 124/69 10/11/22 04:14 80 10/11/22 04:00 36.6 C 84 16 107/65 10/11/22 03:30 79 16 142/62 H 10/11/22 03:00 77 16 114/63 10/11/22 02:30 78 17 120/66 10/11/22 02:00 81 16 120/67 10/11/22 01:30 80 16 116/65 10/11/22 01:00 80 17 120/63 10/11/22 00:39 87 16 134/63 10/11/22 00:04 10/10/22 23:30 86 18 121/68 10/10/22 23:37 92 H 10/10/22 23:02 83 18 119/72 10/10/22 22:30 36.6 C 80 18 90/56 L Pulse Ox O2 Del Method O2 Flow Rate 10/11/22 15:45 94 Nasal Cannula 2 10/11/22 15:35 94 Nasal Cannula 2 10/11/22 15:25 96 Nasal Cannula 3 10/11/22 15:15 95 Nasal Cannula 3 10/11/22 15:05 93 Nasal Cannula 3 10/11/22 14:55 93 Nasal Cannula 3 10/11/22 14:47 95 Oxymask 5 10/11/22 10:54 10/11/22 10:43 93 Room Air 10/11/22 09:16 10/11/22 07:51 93 Room Air 10/11/22 04:14 10/11/22 04:00 95 Room Air 10/11/22 03:30 94 Room Air 10/11/22 03:00 94 Room Air 10/11/22 02:30 95 Room Air 10/11/22 02:00 94 Room Air 10/11/22 01:30 95 Room Air 10/11/22 01:00 93 Room Air 10/11/22 00:39 96 Room Air 10/11/22 00:04 94 Room Air 10/10/22 23:30 94 Room Air 10/10/22 23:37 10/10/22 23:02 95 Room Air 10/10/22 22:30 95 Room Air Pain Intensity Right Abdomen: Pain Intensity: 8 Transfer of Care Handoff Completed per policy Notes Mental Status: alert / awake / arousable Patient Amnestic to Procedure: Yes Nausea / Vomiting: adequately controlled Pain: adequately controlled Airway Patency, RR, SpO2: stable & adequate BP & HR: stable & adequate Hydration State: stable & adequate Anesthetic Complications: no major complications apparent
[2022-10-11] MEDS: ACETAMINOPHEN 1,000 MG/100 ML VIAL IV SCH ×2 (16:32→22:14)
[2022-10-11 17:16] LABS: Hematocrit (blood only) 36.3 % (42.0-52.0); Mean Corpuscular Hemoglobin 30.5 pg (25.0-34.0); Mean Corpuscular Hgb Conc 35.8 g/dL (32.0-36.0); Mean Corpuscular Volume 85.2 fL (80.0-100.0); Mean Platelet Volume 8.8 fL (9.4-12.4); Platelet Count 118 K/uL (130-400); RDW Coefficient of Variation 13.8 % (11.5-14.5); RDW Standard Deviation 43.1 fL (36.4-46.3); Red Blood Count 4.26 M/uL (4.70-6.10)
[2022-10-11 17:29] LABS: BUN Creatinine Ratio 20.9 (10-20); Calcium 8.6 mg/dl (8.6-10.3); Creatinine Clr Calc Pharmacy 83.1 ml/min; Est GFR (Non-African American) 66.4 ml/min; Potassium 4.3 mmol/L (3.5-5.1)
[2022-10-11 17:33] LABS: Basophils # (auto) 0.04 K/uL (0-0.2); Basophils % (auto) 0.2 %; Eosinophils # (auto) 0.01 K/uL (0-0.50); Immature Granulocytes # (auto) 0.14 K/uL (0.01-0.20); Immature Granulocytes % (auto) 0.7 %; Lymphocytes # (auto) 0.62 K/uL (1.2-3.4); Lymphocytes % (auto) 3.1 %; Monocytes # (auto) 1.16 K/uL (0.11-0.59); Monocytes % (auto) 5.8 %; Neutrophils # (auto) 18.13 K/uL (1.40-6.50); Neutrophils % (auto) 90.2 %
[2022-10-11] MEDS: METOPROLOL SUCC 25MG EXT REL TAB PO SCH (22:15)
[2022-10-12] MEDS: MoRPHine SULFATE 4 MG/ML 1 ML CARP\\VIAL IV PRN ×3 (01:50→22:02)
[2022-10-12] MEDS: LACTATED RINGER'S 1,000 ML IV SCH ×3 (03:53→17:24)
[2022-10-12] MEDS: PIPERACILLIN/TAZOBACTAM 4.5 GM in DEXTROSE 5% 100 ML IV SCH ×3 (06:15→22:02)
[2022-10-12] MEDS: LEVOTHYROXINE SODIUM 50 MCG TABLET PO SCH (06:15)
[2022-10-12] MEDS: MoRPHine SULFATE 2 MG/ML CARP IV PRN ×3 (06:23→12:04)
[2022-10-12] MEDS: ACETAMINOPHEN 1,000 MG/100 ML VIAL IV SCH ×2 (07:41→15:50)
[2022-10-12] MEDS: UMECLIDINIUM BROMIDE 62.5MCG/BLISTER 7 PUFFS/INHALER INH SCH (08:53)
[2022-10-12] MEDS: TAMSULOSIN HCL 0.4 MG CAP PO SCH (08:55)
[2022-10-12] MEDS: GABAPENTIN 600 MG TAB PO SCH ×3 (08:55→22:01)
[2022-10-12] MEDS: FINASTERIDE 5 MG TAB PO SCH (08:55)
[2022-10-12] MEDS: PANTOprazole 40 MG TAB PO SCH (08:55)
[2022-10-12] MEDS: HYDROXYCHLOROQUINE SULFATE 200 MG TAB PO SCH ×2 (08:55→22:01)
--- NOTE | 2022-10-12 10:37 | Surgery Progress Note ---
Date of Service October 12, 2022 Assessment & Plan (1) Right sided colitis: Plan: s/p R colon resection remove mercado ambulate await bowel function Present on Admission?: Yes Admission and Anticipated Discharge Date Admission Date: October 11, 2022 Subjective pain controlled no flatus yet good BS remove mercado ambulate Review of Systems Constitutional: no fever and no chills Respiratory: no cough and no dyspnea Cardiovascular: no chest pain Gastrointestinal: + abdominal pain and + change in bowel habits; no nausea and no vomiting Genitourinary: no dysuria Neurologic: no localized weakness and no generalized weakness Physical Exam Constitutional: WD/WN, vitals as above ENMT: external ear and nose normal, oropharynx normal Neck: trachea midline Respiratory: normal respiratory effort, lungs clear to auscultation Gastrointestinal (Abdomen): Inspection/Auscultation: abdomen normal to inspection, normal bowel sounds and + abdominal surgical incision; abdomen not distended Percussion/Palpation: + abdomen tender and abdomen soft; no guarding and abdomen not rigid Musculoskeletal: Head/Neck/Chest: normocephalic and head atraumatic Results & Data Vital Signs (Past 12 Hours) Vital Signs Temp Pulse Pulse Resp BP Pulse Ox O2 Del Method 10/12/22 08:32 72 20 120/64 92 Room Air 10/12/22 05:49 66 10/12/22 05:49 88 10/12/22 03:20 36.9 C 73 18 115/69 93 Room Air 10/12/22 00:06 36.9 C 73 18 113/67 92 Room Air
[2022-10-12] MEDS: METOPROLOL SUCC 25MG EXT REL TAB PO SCH (22:01)
--- NOTE | 2022-10-12 23:21 | Hospitalist Progress Note ---
Date of Service October 12, 2022 Assessment & Plan (1) Abdominal pain: Plan: Possible diverticulitis of large colon with perforation 67yo male presenting with abdominal pain that started yesterday 10/10/22 around 16:00. Pain initially central abdomen now located in the RLQ. He is non-toxic in appearance. Mild abdominal discomfort with palpation in the RLQ but abdomen is soft with out peritonitis. Labs significant for elevated WBC=17.29 with neutrophil predominance which is new. Mildly elevated BUN of 31 (increased from 19) and Cr of 1.47 (increased from 1). CT of the abdomen per STAT-rad with moderate inflammation of the right large bowel with small locules of adjacent pneumoperitoneum concerning for perforation. Small focal areas of portal venous gas which could reflect bowel ischemia. Lactate is normal. No anion gap -Admit to medical with telemetry -Maintain NPO status -Continue gentle IVF with LR -Pain control with Morphine PRN -Zosyn -Repeat BMP, CBC, Lactate now and again today at 16:00 -General Surgery consultation appreciated S/P R colon resection. Patient appears to be clinically improving. vitals improving. Early sepsis in the setting of right colon microperforation SOFA score of 3, Hypotension 90/56 MAP 67, Leukocytosis 17.43, platelet count 109, BUN 31, creatinine 1.47, serum lactate 3.4, IV NS bolus then lactated Ringer's primary, IV Zosyn, BC x2 Acute kidney injury: Creatinine has improved. (2) DM II (diabetes mellitus, type II), controlled: Plan: Diet controlled DM -Monitor blood sugar (3) Benign prostatic hyperplasia with urinary obstruction: Plan: Chronic -Continue Finasteride and Flomax -Bladder scan as needed (4) Hyperlipidemia: Plan: Chronic. Stable -Hold Atorvastatin for now (5) Rheumatoid arthritis: Plan: Chronic -Continue Hydroxychloroquine (6) Hypertension: Plan: Blood pressure adequately controlled at present -Hold Amlodipine and Lisinopril for now -Monitor (7) GERD (gastroesophageal reflux disease): Plan: Well controlled. Patient is on Omeprazole at home -Continue Protonix while inpatient F/E/N - LR at 125mL/hr, electrolytes WNL, continue to monitor, NPO for now Ppx - SCDs to bilateral LE Code - Full per discussion with patient Dispo - Admit to medical with telemetry Admission and Anticipated Discharge Date Admission Date: October 11, 2022 Subjective Patient reports no new symptoms. Review of Systems Review of Systems: All systems reviewed & are unremarkable except as noted in HPI & below Physical Exam Physical Exam: General: patient resting comfortably, NAD, non-toxic in appearance, AA&O x 4 Skin: warm, dry, intact, no rashes or lesions HEENT: NC/AT, PERRL, EOMI, anicteric sclera, conjunctiva without injection, external ear normal to inspection and nontender, nares patent, moist mucus membranes, dentition intact, no oropharyngeal lesions, neck supple, trachea midline, no LAD, no thyromegaly, no JVD Heart: +S1/S2, regular, no m/r/g Lungs: equal air entry bilaterally, no rales/rhonchi/wheezes Abd: +BS mildly hyperactive, soft, ND, tender in RLQ with some voluntary guarding, no rebound tenderness, no masses/organomegaly/ascites Ext: warm, 2+ pulses in UE/LE bilaterally, no clubbing/cyanosis or edema Neuro: nonfocal, patient AA&O x 4, speech intact, no facial droop, moving all extremities on command with equal strength 5/5 Results & Data Results & Data Vital Signs (Past 12 Hours) Vital Signs Temp Pulse Pulse Resp BP Pulse Ox O2 Del Method 10/12/22 23:05 36.6 C 77 18 114/68 94 Room Air 10/12/22 19:52 36.6 C 69 18 131/62 94 Room Air 10/12/22 15:54 37.1 C 78 18 109/64 94 Room Air 10/12/22 14:05 77 10/12/22 12:15 36.9 C 72 18 122/69 92 Room Air PG Care Time/CCT Total # of Minutes Spent Total Time Spent with Patient: Total time spent is greater than 50% in coordination of care (as documented) at patient's floor/unit and/or counseling patient: Coding Level of Care Code 42244 SUB INP/OBS CARE 3/50MIN Diagnoses Abdominal pain R10.9 DM II (diabetes mellitus, type II), controlled E11.9 Benign prostatic hyperplasia with urinary obstruction N40.1; N13.8 Hyperlipidemia E78.5 Rheumatoid arthritis M06.9 Hypertension I10 Hypertension type: essential hypertension GERD (gastroesophageal reflux disease) K21.9 (6) Hypertension Hypertension type: essential hypertension Qualified Code(s): I10 - Essential (primary) hypertension
[2022-10-13] MEDS: ACETAMINOPHEN 1,000 MG/100 ML VIAL IV SCH ×3 (00:31→15:07)
[2022-10-13] MEDS: LACTATED RINGER'S 1,000 ML IV SCH ×3 (01:21→16:53)
[2022-10-13] MEDS: MoRPHine SULFATE 4 MG/ML 1 ML CARP\\VIAL IV PRN ×4 (03:53→23:02)
[2022-10-13] MEDS: PIPERACILLIN/TAZOBACTAM 4.5 GM in DEXTROSE 5% 100 ML IV SCH ×3 (05:25→21:09)
[2022-10-13] MEDS: LEVOTHYROXINE SODIUM 50 MCG TABLET PO SCH (05:25)
[2022-10-13 07:27] LABS: Hematocrit (blood only) 37.3 % (42.0-52.0); Hemoglobin 12.9 g/dl (14.0-18.0); Mean Corpuscular Hemoglobin 30.1 pg (25.0-34.0); Mean Corpuscular Hgb Conc 34.6 g/dL (32.0-36.0); Mean Corpuscular Volume 87.1 fL (80.0-100.0); Mean Platelet Volume 8.9 fL (9.4-12.4); Platelet Count 154 K/uL (130-400); RDW Standard Deviation 44.8 fL (36.4-46.3); Red Blood Count 4.28 M/uL (4.70-6.10); White Blood Count 12.58 K/ul (4.8-10.8)
[2022-10-13 07:38] LABS: BUN Creatinine Ratio 18.4 (10-20); Calcium 9.2 mg/dl (8.6-10.3); Creatinine Clr Calc Pharmacy 83.7 ml/min; Est GFR (African American) 77.8 ml/min; Est GFR (Non-African American) 67.1 ml/min
[2022-10-13] MEDS: PANTOprazole 40 MG TAB PO SCH (08:00)
[2022-10-13] MEDS: FINASTERIDE 5 MG TAB PO SCH (08:00)
[2022-10-13] MEDS: GABAPENTIN 600 MG TAB PO SCH ×3 (08:00→21:09)
[2022-10-13] MEDS: HYDROXYCHLOROQUINE SULFATE 200 MG TAB PO SCH ×2 (08:00→21:09)
[2022-10-13] MEDS: TAMSULOSIN HCL 0.4 MG CAP PO SCH (08:00)
[2022-10-13] MEDS: UMECLIDINIUM BROMIDE 62.5MCG/BLISTER 7 PUFFS/INHALER INH SCH (08:00)
[2022-10-13] MEDS: ONDANSETRON INJ 2 MG/ML 2 ML VIAL IV PRN ×2 (10:56→23:07)
--- NOTE | 2022-10-13 11:20 | Surgery Progress Note ---
Date of Service October 13, 2022 Assessment & Plan (1) Right sided colitis: Plan: await bowel function no N/V ambulate con't IVF NPO Admission and Anticipated Discharge Date Admission Date: October 11, 2022 Subjective complains of gas pain no flatus yet AF/VSS Review of Systems Constitutional: no fever and no chills Respiratory: no cough and no dyspnea Cardiovascular: no chest pain Gastrointestinal: + abdominal pain and + change in bowel habits; no nausea and no vomiting Genitourinary: no dysuria Psychiatric: no behavioral changes Physical Exam Constitutional: WD/WN, vitals as above Eyes: PERRL, conjunctivae normal, anicteric sclerae ENMT: external ear and nose normal, oropharynx normal Neck: trachea midline Respiratory: normal respiratory effort, lungs clear to auscultation Cardiovascular: RRR, no murmur, no edema Gastrointestinal (Abdomen): Inspection/Auscultation: abdomen normal to inspection, + abdomen distended and normal bowel sounds Percussion/Palpation: + abdomen tender (minimal) and abdomen soft; no guarding and abdomen not rigid Musculoskeletal: Head/Neck/Chest: normocephalic and head atraumatic Results & Data Vital Signs (Past 12 Hours) Vital Signs Temp Pulse Resp BP Pulse Ox O2 Del Method 10/13/22 07:55 18 10/13/22 07:45 36.8 C 72 18 111/71 94 Room Air 10/13/22 03:59 36.6 C 68 18 108/57 L 93 Room Air
[2022-10-13] MEDS ORDERED: FAMOTIDINE 40 MG TABLET PO ONE (17:18)
[2022-10-13] MEDS ORDERED: PANTOprazole 40 MG in SYRINGE 0 ML IV ONE (19:00)
[2022-10-13] MEDS: METOPROLOL SUCC 25MG EXT REL TAB PO SCH (21:09)
[2022-10-13] MEDS: MoRPHine SULFATE 2 MG/ML CARP IV PRN (21:11)
[2022-10-13] MEDS ORDERED: FAMOTIDINE 20 MG TAB PO STA (21:29)
[2022-10-13] MEDS ORDERED: SIMETHICONE 80 MG CHEW PO ONE (21:36)
--- NOTE | 2022-10-13 22:15 | Hospitalist Progress Note ---
Date of Service October 13, 2022 Assessment & Plan (1) Abdominal pain: Plan: Possible diverticulitis of large colon with perforation 67yo male presenting with abdominal pain that started yesterday 10/10/22 around 16:00. Pain initially central abdomen now located in the RLQ. He is non-toxic in appearance. Mild abdominal discomfort with palpation in the RLQ but abdomen is soft with out peritonitis. Labs significant for elevated WBC=17.29 with neutrophil predominance which is new. Mildly elevated BUN of 31 (increased from 19) and Cr of 1.47 (increased from 1). CT of the abdomen per STAT-rad with moderate inflammation of the right large bowel with small locules of adjacent pneumoperitoneum concerning for perforation. Small focal areas of portal venous gas which could reflect bowel ischemia. Lactate is normal. No anion gap -Admit to medical with telemetry -Maintain NPO status -Continue gentle IVF with LR -Pain control with Morphine PRN -Zosyn -Repeat BMP, CBC, Lactate now and again today at 16:00 -General Surgery consultation appreciated S/P R colon resection. Patient appears to be clinically improving. vitals improving. Patient not having any bowel movements, not passing gas. WIll consider relistor on 10/14 if no improvement. Early sepsis in the setting of right colon microperforation SOFA score of 3, Hypotension 90/56 MAP 67, Leukocytosis 17.43, platelet count 109, BUN 31, creatinine 1.47, serum lactate 3.4, IV NS bolus then lactated Ringer's primary, IV Zosyn, BC x2 Acute kidney injury: Creatinine has improved. (2) DM II (diabetes mellitus, type II), controlled: Plan: Diet controlled DM -Monitor blood sugar (3) Benign prostatic hyperplasia with urinary obstruction: Plan: Chronic -Continue Finasteride and Flomax -Bladder scan as needed (4) Hyperlipidemia: Plan: Chronic. Stable (5) Rheumatoid arthritis: Plan: Chronic -Continue Hydroxychloroquine (6) Hypertension: Plan: Blood pressure adequately controlled at present -Hold Amlodipine and Lisinopril for now -Monitor (7) GERD (gastroesophageal reflux disease): Plan: Well controlled. Patient is on Omeprazole at home -Continue Protonix while inpatient F/E/N - LR at 125mL/hr, electrolytes WNL, continue to monitor, NPO for now Ppx - SCDs to bilateral LE Code - Full per discussion with patient Dispo - Admit to medical with telemetry Admission and Anticipated Discharge Date Admission Date: October 11, 2022 Subjective Patient complaining of heartburn Review of Systems Review of Systems: All systems reviewed & are unremarkable except as noted in HPI & below Physical Exam Physical Exam: General: patient resting comfortably, NAD, non-toxic in appearance, AA&O x 4 Skin: warm, dry, intact, no rashes or lesions HEENT: NC/AT, PERRL, EOMI, anicteric sclera, conjunctiva without injection, external ear normal to inspection and nontender, nares patent, moist mucus membranes, dentition intact, no oropharyngeal lesions, neck supple, trachea midline, no LAD, no thyromegaly, no JVD Heart: +S1/S2, regular, no m/r/g Lungs: equal air entry bilaterally, no rales/rhonchi/wheezes Abd: negative BS, soft, ND, tender in RLQ with some voluntary guarding, no rebound tenderness, no masses/organomegaly/ascites Ext: warm, 2+ pulses in UE/LE bilaterally, no clubbing/cyanosis or edema Neuro: nonfocal, patient AA&O x 4, speech intact, no facial droop, moving all extremities on command with equal strength 5/5 Results & Data Results & Data Vital Signs (Past 12 Hours) Vital Signs Temp Pulse Pulse Resp BP Pulse Ox O2 Del Method 10/13/22 19:56 36.8 C 77 18 129/78 94 Room Air 10/13/22 14:16 67 10/13/22 15:15 36.6 C 70 18 144/82 H 91 Room Air 10/13/22 12:04 36.8 C 64 18 135/80 92 Room Air PG Care Time/CCT Total # of Minutes Spent Total Time Spent with Patient: Total time spent is greater than 50% in coordination of care (as documented) at patient's floor/unit and/or counseling patient: Coding Level of Care Code 81591 SUB INP/OBS CARE 2/35MIN Diagnoses Abdominal pain R10.9 DM II (diabetes mellitus, type II), controlled E11.9 Benign prostatic hyperplasia with urinary obstruction N40.1; N13.8 Hyperlipidemia E78.5 Rheumatoid arthritis M06.9 Hypertension I10 Hypertension type: essential hypertension GERD (gastroesophageal reflux disease) K21.9 (6) Hypertension Hypertension type: essential hypertension Qualified Code(s): I10 - Essential (primary) hypertension
[2022-10-14] MEDS: ACETAMINOPHEN 1,000 MG/100 ML VIAL IV SCH ×2 (00:10→07:37)
[2022-10-14] MEDS: LACTATED RINGER'S 1,000 ML IV SCH ×4 (00:11→23:04)
[2022-10-14] MEDS: MoRPHine SULFATE 4 MG/ML 1 ML CARP\\VIAL IV PRN ×7 (02:01→21:00)
[2022-10-14] MEDS: LEVOTHYROXINE SODIUM 50 MCG TABLET PO SCH (05:24)
[2022-10-14] MEDS: PIPERACILLIN/TAZOBACTAM 4.5 GM in DEXTROSE 5% 100 ML IV SCH ×3 (05:24→22:16)
[2022-10-14] MEDS: ONDANSETRON INJ 2 MG/ML 2 ML VIAL IV PRN ×3 (08:58→21:51)
[2022-10-14] MEDS: PANTOprazole 40 MG TAB PO SCH (09:02)
[2022-10-14 09:36] LABS: Basophils # (auto) 0.05 K/uL (0-0.2); Basophils % (auto) 0.4 %; Eosinophils # (auto) 0.16 K/uL (0-0.50); Eosinophils % (auto) 1.2 %; Hematocrit (blood only) 39.6 % (42.0-52.0); Immature Granulocytes # (auto) 0.16 K/uL (0.01-0.20); Immature Granulocytes % (auto) 1.2 %; Lymphocytes # (auto) 1.84 K/uL (1.2-3.4); Lymphocytes % (auto) 13.9 %; Mean Corpuscular Hemoglobin 30.2 pg (25.0-34.0); Mean Corpuscular Hgb Conc 35.4 g/dL (32.0-36.0); Mean Corpuscular Volume 85.5 fL (80.0-100.0); Mean Platelet Volume 8.6 fL (9.4-12.4); Monocytes # (auto) 0.86 K/uL (0.11-0.59); Monocytes % (auto) 6.5 %; Neutrophils # (auto) 10.13 K/uL (1.40-6.50); Neutrophils % (auto) 76.8 %; Platelet Count 188 K/uL (130-400); RDW Coefficient of Variation 13.9 % (11.5-14.5); RDW Standard Deviation 43.5 fL (36.4-46.3); Red Blood Count 4.63 M/uL (4.70-6.10)
[2022-10-14 09:53] LABS: BUN Creatinine Ratio 18.7 (10-20); Calcium 9.1 mg/dl (8.6-10.3); Creatinine Clr Calc Pharmacy 89.3 ml/min; Est GFR (Non-African American) 72.5 ml/min; Potassium 4.1 mmol/L (3.5-5.1)
[2022-10-14] MEDS: SUCRALFATE 1 GM/10 ML UDC PO SCH ×4 (10:30→22:13)
[2022-10-14] MEDS: UMECLIDINIUM BROMIDE 62.5MCG/BLISTER 7 PUFFS/INHALER INH SCH (10:33)
[2022-10-14] MEDS: GABAPENTIN 600 MG TAB PO SCH ×3 (10:33→22:20)
[2022-10-14] MEDS: HYDROXYCHLOROQUINE SULFATE 200 MG TAB PO SCH ×2 (10:33→22:20)
[2022-10-14] MEDS: TAMSULOSIN HCL 0.4 MG CAP PO SCH (10:33)
[2022-10-14] MEDS: FINASTERIDE 5 MG TAB PO SCH (10:33)
--- NOTE | 2022-10-14 12:23 | Surgery Progress Note ---
Date of Service October 14, 2022 Assessment & Plan (1) Right sided colitis: Plan: POD#3 laparoscopic assisted ileocecectomy WBC 13 (12), Hbg 14. Vital signs are stable Awaiting return of bowel function. KUB ordered for further evaluation Incisions c/d/i and yoana drain serosanguineous May have some sips/chips Continue IV abx Encourage ambulation Admission and Anticipated Discharge Date Admission Date: October 11, 2022 Supervising Physician Co-Signing Physician Notes Patient seen examined, labs reviewed, agree with above. POD #3 laparoscopic assisted right hemicolectomy for right-sided ischemic colitis. Awaiting return of bowel function. Had some increased heartburn and some mild nausea today controlled with meds. No flatus. On exam he is afebrile stable vitals. Incisions without infection. YOANA serosanguineous. Labs unremarkable, WBC relatively stable. KUB ordered, we will await return of bowel function. We will discuss work-up for embolic source with medicine. Subjective Patient feeling a bit better than this AM, was having some heartburn and nausea which have improved after some medications. Pain present, but manageable on current regimen. Not passing flatus/BM yet. Physical Exam Physical Exam: awake/alert Respiratory: normal respiratory effort Gastrointestinal (Abdomen): Inspection/Auscultation: + abdomen distended (mild), + abdominal surgical incision (c/d/i no signs of infection) and + abdominal surgical drain present (serousangenous) Percussion/Palpation: + abdomen tender (some expected cassandra incisional discomfort to palpation) and abdomen soft Results & Data Vital Signs (Past 12 Hours) Vital Signs Temp Pulse Pulse Resp BP BP Pulse Ox 10/14/22 11:41 37.2 C 71 18 131/79 95 10/14/22 07:08 37 C 71 18 146/83 H 93 10/14/22 06:20 66 10/14/22 07:00 18 10/14/22 02:44 36.7 C 65 18 145/81 H 93 O2 Del Method 10/14/22 11:41 Room Air 10/14/22 07:08 Room Air 10/14/22 06:20 10/14/22 07:00 10/14/22 02:44 Room Air PG Care Time/CCT Total # of Minutes Spent Total Time Spent with Patient: Total time spent is greater than 50% in coordination of care (as documented) at patient's floor/unit and/or counseling patient: Coding Level of Care Code 48182 Post Operative Follow-Up Diagnoses Right sided colitis K52.9
--- NOTE | 2022-10-14 15:00 | XRay Report ---
KUB HISTORY: Acute generalized abdominal pain post op delayed return of bowel function COMPARISON: CT 10/11/2022 FINDINGS: Surgical clips and jammie project over the abdominal right lower quadrant. Drainage cathet er is in the dependent pelvis. Cholecystectomy. Air-filled distended loops of large and small bowel w ith small bowel loops measuring up to 4.9 cm. No renal calculi. No ureteral calculi. No pneumoperito neum or pneumatosis. No fracture. IMPRESSION: Air-filled distended loops of large and small bowel suggestive of probable postoperative ileus. Follo w-up recommended in order to exclude an obstruction. ACT 112: Negative or not required by law. The above report was generated using voice recognition software. It may contain grammatical, syntax o r spelling errors. Electronically signed by: Giovani Brooks M.D. 10/14/2022 2:59 PM
--- NOTE | 2022-10-14 16:15 | XCELERA ---
[id number]
[2022-10-14] MEDS ORDERED: PROCHLORPERAZINE 5 MG in SYRINGE 4 ML IV PRN (18:54)
[2022-10-14] MEDS ORDERED: PROCHLORPERAZINE 5 MG in SYRINGE 4 ML IV ONE (19:15)
[2022-10-14] MEDS: METOPROLOL SUCC 25MG EXT REL TAB PO SCH (22:18)
[2022-10-14] MEDS: PROCHLORPERAZINE 5 MG in SYRINGE 4 ML IV ONE ×2 (22:26→22:43)
--- NOTE | 2022-10-14 23:24 | Hospitalist Progress Note ---
Date of Service October 14, 2022 Assessment & Plan (1) Abdominal pain: Plan: Possible diverticulitis of large colon with perforation 67yo male presenting with abdominal pain that started yesterday 10/10/22 around 16:00. Pain initially central abdomen now located in the RLQ. He is non-toxic in appearance. Mild abdominal discomfort with palpation in the RLQ but abdomen is soft with out peritonitis. Labs significant for elevated WBC=17.29 with neutrophil predominance which is new. Mildly elevated BUN of 31 (increased from 19) and Cr of 1.47 (increased from 1). CT of the abdomen per STAT-rad with moderate inflammation of the right large bowel with small locules of adjacent pneumoperitoneum concerning for perforation. Small focal areas of portal venous gas which could reflect bowel ischemia. Lactate is normal. No anion gap -Admit to medical with telemetry -Maintain NPO status -Continue gentle IVF with LR -Pain control with Morphine PRN -Zosyn -Repeat BMP, CBC, Lactate now and again today at 16:00 -General Surgery consultation appreciated S/P R colon resection. Patient appears to be clinically improving. vitals improving. Patient not having any bowel movements, not passing gas. WIll consider relistor on 10/15 if no improvement. added compazine for nausea. ordered bubble study to rule out R to left cardiac shunt. Early sepsis in the setting of right colon microperforation SOFA score of 3, Hypotension 90/56 MAP 67, Leukocytosis 17.43, platelet count 109, BUN 31, creatinine 1.47, serum lactate 3.4, IV NS bolus then lactated Ringer's primary, IV Zosyn, BC x2 Acute kidney injury: Creatinine has improved. (2) DM II (diabetes mellitus, type II), controlled: Plan: Diet controlled DM -Monitor blood sugar (3) Benign prostatic hyperplasia with urinary obstruction: Plan: Chronic -Continue Finasteride and Flomax -Bladder scan as needed (4) Hyperlipidemia: Plan: Chronic. Stable (5) Rheumatoid arthritis: Plan: Chronic -Continue Hydroxychloroquine (6) Hypertension: Plan: Blood pressure adequately controlled at present -Hold Amlodipine and Lisinopril for now -Monitor (7) GERD (gastroesophageal reflux disease): Plan: Well controlled. Patient is on Omeprazole at home -Continue Protonix while inpatient F/E/N - LR at 125mL/hr, electrolytes WNL, continue to monitor, NPO for now Ppx - SCDs to bilateral LE Code - Full per discussion with patient Dispo - Admit to medical with telemetry Admission and Anticipated Discharge Date Admission Date: October 11, 2022 Subjective 67 yo male reports having nausea. Patient still with no BM. Review of Systems Review of Systems: All systems reviewed & are unremarkable except as noted in HPI & below Physical Exam Physical Exam: General: patient resting comfortably, NAD, non-toxic in appearance, AA&O x 4 Skin: warm, dry, intact, no rashes or lesions HEENT: NC/AT, PERRL, EOMI, anicteric sclera, conjunctiva without injection, external ear normal to inspection and nontender, nares patent, moist mucus membranes, dentition intact, no oropharyngeal lesions, neck supple, trachea midline, no LAD, no thyromegaly, no JVD Heart: +S1/S2, regular, no m/r/g Lungs: equal air entry bilaterally, no rales/rhonchi/wheezes Abd: negative BS, soft, ND, tender in RLQ with some voluntary guarding, no rebound tenderness, no masses/organomegaly/ascites Ext: warm, 2+ pulses in UE/LE bilaterally, no clubbing/cyanosis or edema Neuro: nonfocal, patient AA&O x 4, speech intact, no facial droop, moving all extremities on command with equal strength 5/5 Results & Data Results & Data Vital Signs (Past 12 Hours) Vital Signs Temp Pulse Pulse Resp BP Pulse Ox O2 Del Method 10/14/22 23:12 36.9 C 86 18 149/77 H 93 Room Air 10/14/22 18:23 36.8 C 79 16 131/82 93 Room Air 10/14/22 17:32 36.5 C 85 20 114/76 94 Room Air 10/14/22 14:12 68 10/14/22 11:41 37.2 C 71 18 131/79 95 Room Air PG Care Time/CCT Total # of Minutes Spent Total Time Spent with Patient: Total time spent is greater than 50% in coordination of care (as documented) at patient's floor/unit and/or counseling patient: Coding Level of Care Code 65061 SUB INP/OBS CARE 2/35MIN Diagnoses Abdominal pain R10.9 DM II (diabetes mellitus, type II), controlled E11.9 Benign prostatic hyperplasia with urinary obstruction N40.1; N13.8 Hyperlipidemia E78.5 Rheumatoid arthritis M06.9 Hypertension I10 Hypertension type: essential hypertension GERD (gastroesophageal reflux disease) K21.9 (6) Hypertension Hypertension type: essential hypertension Qualified Code(s): I10 - Essential (primary) hypertension
[2022-10-14] MEDS ORDERED: METOCLOPRAMIDE HCL INJ 5 MG/ML 2 ML VIAL IV PRN (23:58)
[2022-10-15] MEDS: ONDANSETRON INJ 2 MG/ML 2 ML VIAL IV PRN ×2 (01:55→07:41)
[2022-10-15] MEDS: MoRPHine SULFATE 4 MG/ML 1 ML CARP\\VIAL IV PRN ×3 (01:56→07:40)
[2022-10-15] MEDS ORDERED: ONDANSETRON INJ 2 MG/ML 2 ML VIAL IV STA (04:00)
[2022-10-15] MEDS ORDERED: diphenhydrAMINE 50 MG/ML VIAL IV STA (05:36)
[2022-10-15] MEDS: PIPERACILLIN/TAZOBACTAM 4.5 GM in DEXTROSE 5% 100 ML IV SCH ×3 (05:49→22:19)
[2022-10-15] MEDS: LEVOTHYROXINE SODIUM 50 MCG TABLET PO SCH (06:00)
[2022-10-15] MEDS: LACTATED RINGER'S 1,000 ML IV SCH ×3 (06:39→22:19)
[2022-10-15 06:44] LABS: BUN Creatinine Ratio 19.8 (10-20); Calcium 8.9 mg/dl (8.6-10.3); Creatinine Clr Calc Pharmacy 105.1 ml/min; Est GFR (African American) 102.1 ml/min; Est GFR (Non-African American) 88.1 ml/min; Potassium 4.2 mmol/L (3.5-5.1)
[2022-10-15 06:46] LABS: Hematocrit (blood only) 38.4 % (42.0-52.0); Hemoglobin 13.5 g/dl (14.0-18.0); Mean Corpuscular Hemoglobin 30.1 pg (25.0-34.0); Mean Corpuscular Hgb Conc 35.2 g/dL (32.0-36.0); Mean Corpuscular Volume 85.7 fL (80.0-100.0); Mean Platelet Volume 8.5 fL (9.4-12.4); Platelet Count 185 K/uL (130-400); RDW Coefficient of Variation 13.5 % (11.5-14.5); RDW Standard Deviation 42.5 fL (36.4-46.3); Red Blood Count 4.48 M/uL (4.70-6.10); White Blood Count 13.88 K/ul (4.8-10.8)
[2022-10-15] MEDS: TAMSULOSIN HCL 0.4 MG CAP PO SCH (08:06)
[2022-10-15] MEDS: GABAPENTIN 600 MG TAB PO SCH ×3 (08:06→21:10)
[2022-10-15] MEDS: SUCRALFATE 1 GM/10 ML UDC PO SCH ×3 (08:06→21:10)
[2022-10-15] MEDS: FINASTERIDE 5 MG TAB PO SCH (08:06)
[2022-10-15] MEDS: UMECLIDINIUM BROMIDE 62.5MCG/BLISTER 7 PUFFS/INHALER INH SCH (08:06)
[2022-10-15] MEDS: HYDROXYCHLOROQUINE SULFATE 200 MG TAB PO SCH ×2 (08:06→21:10)
[2022-10-15] MEDS: PANTOprazole 40 MG TAB PO SCH (08:06)
--- NOTE | 2022-10-15 09:35 | Surgery Progress Note ---
Date of Service October 15, 2022 Assessment & Plan (1) Right sided colitis: Plan: POD#4 laparoscopic assisted ileocecectomy WBC 13 (13), Hbg 13.5. Sodium is low at 129, will discuss with hospitalists if needs adjustment in IVF He is afebrile, apparently in aflutter, cardiology has been consulted Awaiting return of bowel function. KUB yesterday showed concern for ileus Given symptoms and KUB findings we will order for NGT to be placed to LIWS Incisions c/d/i and yoana drain serosanguineous Continue IV abx Encourage ambulation Will follow along closely Admission and Anticipated Discharge Date Admission Date: October 11, 2022 Supervising Physician Co-Signing Physician Notes Given, labs and image reviewed, agree with above. Status post laparoscopic assisted ileocecectomy for ischemic colitis, now with delayed return of bowel function. KUB yesterday confirmed diffuse dilation of the small bowel and colon. Vomited overnight. NG tube placed this morning with 1000 cc returned after advancement. Feeling better. Still no flatus. On exam he is afebrile with stable vitals. His abdomen is soft, slightly less distended. Right lower quadrant incision with jammie, no infection. Drain serosanguineous. Port sites without infection. WBC stable at 13. KUB from yesterday personally reviewed and interpreted agree with the assessment of small bowel dilation consistent with delayed return of bowel function. Continue NG tube, IV fluids, consider PPN. Appreciate medicine assistance in work-up for embolic source. We will await return of bowel function. No indication for CT scan at this time. Subjective Patient not feeling great. Dealing with nausea and apparently multiple bouts of emesis yesterday evening and into the night. No flatus/BM. Has been ambulating. Denies CP or SOB Physical Exam Physical Exam: awake/alert, no distress Gastrointestinal (Abdomen): Inspection/Auscultation: + abdomen distended, + abdominal surgical incision (c/d/i no signs of infection) and + abdominal surgical drain present (serosang) Percussion/Palpation: + abdomen tender (tender cassandra incisionally and around YOANA drain site) and abdomen soft Results & Data Vital Signs (Past 12 Hours) Vital Signs Temp Pulse Pulse Resp BP Pulse Ox O2 Del Method 10/15/22 07:44 36.7 C 80 16 157/86 H 93 Room Air 10/15/22 06:46 70 10/14/22 23:28 78 10/14/22 23:12 36.9 C 86 18 149/77 H 93 Room Air PG Care Time/CCT Total # of Minutes Spent Total Time Spent with Patient: Total time spent is greater than 50% in coordination of care (as documented) at patient's floor/unit and/or counseling patient: Coding Level of Care Code 06402 Post Operative Follow-Up Diagnoses Right sided colitis K52.9
--- NOTE | 2022-10-15 10:21 | XRay Report ---
SINGLE VIEW CHEST CLINICAL HISTORY: Enteric tube placement. FINDINGS: 2 AP, portable, upright chest radiographs are compared to study dated 10/10/2022 and correla cole with abdominal CT dated 10/11/2022. An enteric tube has been placed. The tip projects over the dis teresa esophagus. The cardiomediastinal silhouette is top normal for projection. There is bibasilar scar ring/atelectasis. No airspace consolidation or large pleural effusion is identified. No pneumothorax is seen. The bony thorax is grossly intact. Cholecystectomy clips are seen in the right upper quadran t. IMPRESSION: 1. An enteric tube has been placed. The tip projects over the distal esophagus. This should be advanc ed. 2. No airspace consolidation or large pleural effusion is identified. ACT 112: Negative or not required by law. Electronically signed by: Farzad Isidro M.D. 10/15/2022 10:19 AM
[2022-10-15] MEDS ORDERED: CHLORASEPTIC 1.4% SOLN 180 ML BTL MT PRN (10:29)
--- NOTE | 2022-10-15 10:36 | XRay Report ---
SINGLE VIEW CHEST CLINICAL HISTORY: Enteric tube repositioning. FINDINGS: An AP, portable, upright chest radiograph is compared to study performed earlier the same d ay 10/15/2022. The enteric tube is similar in position to previous. The tip projects over the distal e sophagus. The cardiomediastinal silhouette is top normal for projection. There is bibasilar scarring/ atelectasis. No airspace consolidation or large pleural effusion is identified. No pneumothorax is se en. The bony thorax is grossly intact. Cholecystectomy clips are seen in the right upper quadrant. IMPRESSION: 1. The enteric tube is similar in position to previous. The tip projects over the distal esophagus. T his should be advanced. 2. No airspace consolidation or large pleural effusion is identified. ACT 112: Negative or not required by law. Electronically signed by: Farzad Isidro M.D. 10/15/2022 10:35 AM
[2022-10-15] MEDS: METOPROLOL SUCC 25MG EXT REL TAB PO SCH (21:10)
[2022-10-15] MEDS: MoRPHine SULFATE 2 MG/ML CARP IV PRN (22:19)
--- NOTE | 2022-10-15 23:47 | Hospitalist Progress Note ---
Date of Service October 15, 2022 Assessment & Plan (1) Abdominal pain: Plan: Possible diverticulitis of large colon with perforation 67yo male presenting with abdominal pain that started yesterday 10/10/22 around 16:00. Pain initially central abdomen now located in the RLQ. He is non-toxic in appearance. Mild abdominal discomfort with palpation in the RLQ but abdomen is soft with out peritonitis. Labs significant for elevated WBC=17.29 with neutrophil predominance which is new. Mildly elevated BUN of 31 (increased from 19) and Cr of 1.47 (increased from 1). CT of the abdomen per STAT-rad with moderate inflammation of the right large bowel with small locules of adjacent pneumoperitoneum concerning for perforation. Small focal areas of portal venous gas which could reflect bowel ischemia. Lactate is normal. No anion gap -Admit to medical with telemetry -Maintain NPO status -Continue gentle IVF with LR -Pain control with Morphine PRN -Zosyn -Repeat BMP, CBC, Lactate now and again today at 16:00 -General Surgery consultation appreciated S/P R colon resection. Patient appears to be clinically improving. vitals improving. Patient not having any bowel movements, not passing gas. WIll consider relistor on 10/15 if no improvement. added compazine for nausea. ordered bubble study to rule out R to left cardiac shunt. Placed NG tube. Surgery will prefer to hold off relistor given concern of complications as patient recently had anastamosis. Early sepsis in the setting of right colon microperforation SOFA score of 3, Hypotension 90/56 MAP 67, Leukocytosis 17.43, platelet count 109, BUN 31, creatinine 1.47, serum lactate 3.4, IV NS bolus then lactated Ringer's primary, IV Zosyn, BC x2 Acute kidney injury: Creatinine has improved. (2) DM II (diabetes mellitus, type II), controlled: Plan: Diet controlled DM -Monitor blood sugar (3) Benign prostatic hyperplasia with urinary obstruction: Plan: Chronic -Continue Finasteride and Flomax -Bladder scan as needed (4) Hyperlipidemia: Plan: Chronic. Stable (5) Rheumatoid arthritis: Plan: Chronic -Continue Hydroxychloroquine (6) Hypertension: Plan: Blood pressure adequately controlled at present -Hold Amlodipine and Lisinopril for now -Monitor (7) GERD (gastroesophageal reflux disease): Plan: Well controlled. Patient is on Omeprazole at home -Continue Protonix while inpatient F/E/N - LR at 125mL/hr, electrolytes WNL, continue to monitor, NPO for now Ppx - SCDs to bilateral LE Code - Full per discussion with patient Dispo - Admit to medical with telemetry Admission and Anticipated Discharge Date Admission Date: October 11, 2022 Subjective Patient reports a difficult night as patient was having multiple episodes of emesis. Review of Systems Review of Systems: All systems reviewed & are unremarkable except as noted in HPI & below Physical Exam Physical Exam: General: patient resting comfortably, NAD, non-toxic in appearance, AA&O x 4 Skin: warm, dry, intact, no rashes or lesions HEENT: NC/AT, PERRL, EOMI, anicteric sclera, conjunctiva without injection, external ear normal to inspection and nontender, nares patent, moist mucus membranes, dentition intact, no oropharyngeal lesions, neck supple, trachea midline, no LAD, no thyromegaly, no JVD Heart: +S1/S2, regular, no m/r/g Lungs: equal air entry bilaterally, no rales/rhonchi/wheezes Abd: negative BS, soft, ND, tender in RLQ with some voluntary guarding, no rebound tenderness, no masses/organomegaly/ascites Ext: warm, 2+ pulses in UE/LE bilaterally, no clubbing/cyanosis or edema Neuro: nonfocal, patient AA&O x 4, speech intact, no facial droop, moving all extremities on command with equal strength 5/5 Results & Data Results & Data Vital Signs (Past 12 Hours) Vital Signs Temp Pulse Pulse Resp BP Pulse Ox O2 Del Method 10/15/22 22:51 37.0 C 73 18 142/83 H 92 Room Air 10/15/22 19:18 37.2 C 86 18 145/84 H 93 Room Air 10/15/22 16:00 36.5 C 75 16 153/83 H 93 Room Air 10/15/22 14:42 73 PG Care Time/CCT Total # of Minutes Spent Total Time Spent with Patient: Total time spent is greater than 50% in coordination of care (as documented) at patient's floor/unit and/or counseling patient: Coding Level of Care Code 16418 SUB INP/OBS CARE 2/35MIN Diagnoses Abdominal pain R10.9 DM II (diabetes mellitus, type II), controlled E11.9 Benign prostatic hyperplasia with urinary obstruction N40.1; N13.8 Hyperlipidemia E78.5 Rheumatoid arthritis M06.9 Hypertension I10 Hypertension type: essential hypertension GERD (gastroesophageal reflux disease) K21.9 (6) Hypertension Hypertension type: essential hypertension Qualified Code(s): I10 - Essential (primary) hypertension
[2022-10-16] MEDS: PIPERACILLIN/TAZOBACTAM 4.5 GM in DEXTROSE 5% 100 ML IV SCH ×3 (04:39→21:07)
[2022-10-16] MEDS: LACTATED RINGER'S 1,000 ML IV SCH ×3 (04:42→21:09)
[2022-10-16] MEDS: LEVOTHYROXINE SODIUM 50 MCG TABLET PO SCH (04:42)
--- NOTE | 2022-10-16 07:50 | Surgery Progress Note ---
Date of Service October 16, 2022 Assessment & Plan (1) Right sided colitis: Plan: POD#5 laparoscopic assisted ileocecectomy Blood work this AM is pending. He is afebrile NGT placed yesterday for n/v. 1.5L documented over last 12 hours Continue NGT/bowel rest while awaiting return of bowel function Incisions c/d/i and yoana drain serosanguineous Continue IV abx Encourage ambulation Will follow along closely Admission and Anticipated Discharge Date Admission Date: October 11, 2022 Supervising Physician Co-Signing Physician Notes Patient seen and examined, labs and imaging reviewed, agree with above. Status post laparoscopic assisted ileocecectomy for focal ischemic colitis. NG tube placed yesterday with drainage of bilious contents and relief of abdominal distention and nausea. He is feeling better today and has passed a small amount of gas. Afebrile with stable vitals. Abdomen soft, less distended, appropri ately tender to palpation, incisions without infection. YOANA drain serosanguineous. NG tube with bilious drainage, greater than 3 L. WBC elevated at 16, up from 13.9, otherwise labs unremarkable. We will continue NG tube until a more meaningful return of bowel function. If white blood cell count continues to elevate, may need CT scan. Continue YOANA drain until return of bowel function. Appreciate medicine assistance with work-up for embolic source. Subjective Patient feeling better after NGT placement. No current nausea/vomiting. Pain still present in lower abdomen, but improving. He feels some rumbling in his abdomen and believes he passed a small amount of gas Physical Exam Physical Exam: awake/alert, no distress Respiratory: normal respiratory effort Gastrointestinal (Abdomen): Inspection/Auscultation: + abdomen distended (improving), + abdominal surgical incision (c/d/i no signs of infection) and + abdominal surgical drain present (serosang) Percussion/Palpation: + abdomen tender (tender cassandra incisionally and around YOANA drain site) and abdomen soft Results & Data Vital Signs (Past 12 Hours) Vital Signs Temp Pulse Pulse Resp BP Pulse Ox O2 Del Method 10/16/22 07:00 36.9 C 71 18 147/82 H 94 Room Air 10/15/22 22:02 83 10/16/22 01:02 Room Air 10/15/22 22:51 37.0 C 73 18 142/83 H 92 Room Air PG Care Time/CCT Total # of Minutes Spent Total Time Spent with Patient: Total time spent is greater than 50% in coordination of care (as documented) at patient's floor/unit and/or counseling patient: Coding Level of Care Code 70871 Post Operative Follow-Up Diagnoses Right sided colitis K52.9
[2022-10-16] MEDS: MoRPHine SULFATE 4 MG/ML 1 ML CARP\\VIAL IV PRN (09:31)
[2022-10-16 09:56] LABS: Basophils # (auto) 0.08 K/uL (0-0.2); Basophils % (auto) 0.5 %; Eosinophils # (auto) 0.24 K/uL (0-0.50); Eosinophils % (auto) 1.5 %; Hematocrit (blood only) 37.4 % (42.0-52.0); Hemoglobin 13.4 g/dl (14.0-18.0); Immature Granulocytes # (auto) 0.24 K/uL (0.01-0.20); Immature Granulocytes % (auto) 1.5 %; Lymphocytes # (auto) 1.63 K/uL (1.2-3.4); Lymphocytes % (auto) 9.9 %; Mean Corpuscular Hemoglobin 29.8 pg (25.0-34.0); Mean Corpuscular Hgb Conc 35.8 g/dL (32.0-36.0); Mean Corpuscular Volume 83.3 fL (80.0-100.0); Mean Platelet Volume 8.5 fL (9.4-12.4); Monocytes # (auto) 1.25 K/uL (0.11-0.59); Monocytes % (auto) 7.6 %; Neutrophils # (auto) 12.96 K/uL (1.40-6.50); Platelet Count 203 K/uL (130-400); RDW Coefficient of Variation 13.7 % (11.5-14.5); Red Blood Count 4.49 M/uL (4.70-6.10)
[2022-10-16 10:10] LABS: BUN Creatinine Ratio 16.7 (10-20); Calcium 9.1 mg/dl (8.6-10.3); Creatinine Clr Calc Pharmacy 98.5 ml/min; Est GFR (African American) 95.8 ml/min; Est GFR (Non-African American) 82.6 ml/min; Potassium 3.7 mmol/L (3.5-5.1)
[2022-10-16] MEDS: FINASTERIDE 5 MG TAB PO SCH (11:02)
[2022-10-16] MEDS: PANTOprazole 40 MG TAB PO SCH (11:03)
[2022-10-16] MEDS: SUCRALFATE 1 GM/10 ML UDC PO SCH ×4 (11:03→19:11)
[2022-10-16] MEDS: TAMSULOSIN HCL 0.4 MG CAP PO SCH (11:03)
[2022-10-16] MEDS: HYDROXYCHLOROQUINE SULFATE 200 MG TAB PO SCH ×2 (11:03→19:11)
[2022-10-16] MEDS: GABAPENTIN 600 MG TAB PO SCH ×3 (11:03→19:11)
[2022-10-16] MEDS: UMECLIDINIUM BROMIDE 62.5MCG/BLISTER 7 PUFFS/INHALER INH SCH (11:10)
[2022-10-16] MEDS: ACETAMINOPHEN 1,000 MG/100 ML VIAL IV PRN ×2 (11:13→21:06)
--- NOTE | 2022-10-16 15:22 | Electrocardiogram Report ---
Test Reason : Blood Pressure : / mmHG Vent. Rate : 071 BPM Atrial Rate : 071 BPM P-R Int : 134 ms QRS Dur : 110 ms QT Int : 386 ms P-R-T Axes : 033 -04 -02 degrees QTc Int : 419 ms Normal sinus rhythm Normal ECG When compared with ECG of 10-OCT-2022 23:32, No significant change was found Confirmed by Michele Badillo ([id number]) on 10/16/2022 3:21:56 PM Referred By: REFERRED SELF Confirmed By:Michele Badillo
[2022-10-16] MEDS: MoRPHine SULFATE 2 MG/ML CARP IV PRN ×2 (17:04→19:08)
[2022-10-16] MEDS: METOPROLOL SUCC 25MG EXT REL TAB PO SCH (19:11)
--- NOTE | 2022-10-16 22:41 | Hospitalist Progress Note ---
Date of Service October 16, 2022 Assessment & Plan (1) Abdominal pain: Plan: Possible diverticulitis of large colon with perforation 67yo male presenting with abdominal pain that started yesterday 10/10/22 around 16:00. Pain initially central abdomen now located in the RLQ. He is non-toxic in appearance. Mild abdominal discomfort with palpation in the RLQ but abdomen is soft with out peritonitis. Labs significant for elevated WBC=17.29 with neutrophil predominance which is new. Mildly elevated BUN of 31 (increased from 19) and Cr of 1.47 (increased from 1). CT of the abdomen per STAT-rad with moderate inflammation of the right large bowel with small locules of adjacent pneumoperitoneum concerning for perforation. Small focal areas of portal venous gas which could reflect bowel ischemia. Lactate is normal. No anion gap -Admit to medical with telemetry -Maintain NPO status -Continue gentle IVF with LR -Pain control with Morphine PRN -Zosyn -Repeat BMP, CBC, Lactate now and again today at 16:00 -General Surgery consultation appreciated S/P R colon resection. Patient had a post-op ileus. Surgery would like to hold off relistor and try decompressing bowel with NG tube. Patient appears to be clinically improving. vitals improving. Patient not having any bowel movements, but passing gas on 10/16 ordered bubble study to rule out R to left cardiac shunt. Nurses concerned about atrial flutter on monitor, curbsided cardio: this was sinus tachycardia. Surgery will prefer to hold off relistor given concern of complications as patient recently had anastamosis. Early sepsis in the setting of right colon microperforation SOFA score of 3, Hypotension 90/56 MAP 67, Leukocytosis 17.43, platelet count 109, BUN 31, creatinine 1.47, serum lactate 3.4, IV NS bolus then lactated Ringer's primary, IV Zosyn, BC x2 Acute kidney injury: Creatinine has improved. (2) DM II (diabetes mellitus, type II), controlled: Plan: Diet controlled DM -Monitor blood sugar (3) Benign prostatic hyperplasia with urinary obstruction: Plan: Chronic -Continue Finasteride and Flomax -Bladder scan as needed (4) Hyperlipidemia: Plan: Chronic. Stable (5) Rheumatoid arthritis: Plan: Chronic -Continue Hydroxychloroquine (6) Hypertension: Plan: Blood pressure adequately controlled at present -Hold Amlodipine and Lisinopril for now -Monitor (7) GERD (gastroesophageal reflux disease): Plan: Well controlled. Patient is on Omeprazole at home -Continue Protonix while inpatient Ppx - SCDs to bilateral LE Code - Full per discussion with patient Admission and Anticipated Discharge Date Admission Date: October 11, 2022 Subjective Patient reports less nausea. PAtient is now passing gas. Review of Systems Review of Systems: All systems reviewed & are unremarkable except as noted in HPI & below Physical Exam Physical Exam: General: patient resting comfortably, NAD, non-toxic in appearance, AA&O x 4 HEENT: NC/AT, PERRL, EOMI no JVD Heart: +S1/S2, regular, no m/r/g Lungs: equal air entry bilaterally, no rales/rhonchi/wheezes Abd: less distended, +BS Ext: warm, 2+ pulses in UE/LE bilaterally, no clubbing/cyanosis or edema Neuro: nonfocal, patient AA&O x 4, speech intact, no facial droop, moving all extremities on command with equal strength 5/5 Results & Data Results & Data Vital Signs (Past 12 Hours) Vital Signs Temp Pulse Pulse Pulse Resp BP BP 10/16/22 19:27 37 C 72 18 168/80 H 10/16/22 16:38 66 10/16/22 15:47 36.4 C L 67 18 141/81 H 10/16/22 11:00 36.6 C 80 18 119/75 Pulse Ox O2 Del Method 10/16/22 19:27 93 Room Air 10/16/22 16:38 10/16/22 15:47 96 Room Air 10/16/22 11:00 93 Room Air PG Care Time/CCT Total # of Minutes Spent Total Time Spent with Patient: Total time spent is greater than 50% in coordination of care (as documented) at patient's floor/unit and/or counseling patient: Coding Level of Care Code 86834 SUB INP/OBS CARE 2/35MIN Diagnoses Abdominal pain R10.9 DM II (diabetes mellitus, type II), controlled E11.9 Benign prostatic hyperplasia with urinary obstruction N40.1; N13.8 Hyperlipidemia E78.5 Rheumatoid arthritis M06.9 Hypertension I10 Hypertension type: essential hypertension GERD (gastroesophageal reflux disease) K21.9 (6) Hypertension Hypertension type: essential hypertension Qualified Code(s): I10 - Essential (primary) hypertension
[2022-10-17] MEDS: LACTATED RINGER'S 1,000 ML IV SCH ×3 (04:44→20:52)
[2022-10-17] MEDS: PIPERACILLIN/TAZOBACTAM 4.5 GM in DEXTROSE 5% 100 ML IV SCH ×3 (04:44→20:52)
[2022-10-17 06:40] LABS: Basophils # (auto) 0.05 K/uL (0-0.2); Basophils % (auto) 0.4 %; Eosinophils # (auto) 0.22 K/uL (0-0.50); Eosinophils % (auto) 1.9 %; Hemoglobin 12.7 g/dl (14.0-18.0); Immature Granulocytes # (auto) 0.23 K/uL (0.01-0.20); Lymphocytes # (auto) 1.31 K/uL (1.2-3.4); Lymphocytes % (auto) 11.1 %; Mean Corpuscular Hgb Conc 35.3 g/dL (32.0-36.0); Mean Corpuscular Volume 84.9 fL (80.0-100.0); Mean Platelet Volume 8.2 fL (9.4-12.4); Monocytes # (auto) 1.04 K/uL (0.11-0.59); Monocytes % (auto) 8.8 %; Neutrophils # (auto) 8.92 K/uL (1.40-6.50); Neutrophils % (auto) 75.8 %; Platelet Count 184 K/uL (130-400); RDW Coefficient of Variation 13.5 % (11.5-14.5); RDW Standard Deviation 41.4 fL (36.4-46.3); Red Blood Count 4.24 M/uL (4.70-6.10); White Blood Count 11.77 K/ul (4.8-10.8)
[2022-10-17 06:50] LABS: BUN Creatinine Ratio 12.7 (10-20); Calcium 8.8 mg/dl (8.6-10.3); Creatinine Clr Calc Pharmacy 91.9 ml/min; Est GFR (Non-African American) 76.8 ml/min; Potassium 3.8 mmol/L (3.5-5.1)
--- NOTE | 2022-10-17 07:31 | Surgery Progress Note ---
Date of Service October 17, 2022 Assessment & Plan (1) Right sided colitis: Plan: POD#6 laparoscopic assisted ileocecectomy WBC down to 11 (16), Hbg 12.7, K 3.8, Cr 1. Vitals are stable and patient afebrile Overall he is feeling somewhat better each day NGT output 650cc over last 12 hours. Would continue for now, it is reassuring he is passing a bit more flatus Incisions c/d/i and yoana drain serosanguineous Continue IV abx Encourage ambulation Will follow along closely Admission and Anticipated Discharge Date Admission Date: October 11, 2022 Supervising Physician Co-Signing Physician Notes Patient seen and examined, labs and imaging reviewed, agree with above. Status post laparoscopic assisted ileocecectomy for focal ischemic colitis. Passing more flatus, continues to feel improvement. Afebrile with stable vitals. Abdomen soft, less distended, appropriately tender to palpation, incisions without infection. YOANA drain serosanguineous. NG tube with bilious drainage, ~650cc. WBC down to 11 from 16, otherwise labs unremarkable. We will continue NG tube, hopeful to d/c tomorrow if continues to improve. Continue YOANA drain for now. Appreciate medicine assistance with work-up for embolic source. Subjective Patient is feeling a little better each day. No nausea/vomiting. Pain improved, but still present mostly around YOANA drain. He is passing some flatus here and there. Physical Exam Physical Exam: awake/alert Constitutional: no acute distress Respiratory: normal respiratory effort Gastrointestinal (Abdomen): Inspection/Auscultation: + abdomen distended (improved), + abdominal surgical incision (c/d/i, no signs of infection.) and + abdominal surgical drain present (serosang.) Percussion/Palpation: + abdomen tender (some discomfort around YOANA drain incision) and abdomen soft Results & Data Vital Signs (Past 12 Hours) Vital Signs Temp Pulse Pulse Resp BP Pulse Ox O2 Del Method 10/17/22 03:29 37 C 66 18 145/79 H 95 Room Air 10/16/22 22:37 62 10/16/22 22:27 36.9 C 62 18 152/80 H 96 Room Air 10/16/22 23:36 Room Air 10/16/22 19:27 37 C 72 18 168/80 H 93 Room Air PG Care Time/CCT Total # of Minutes Spent Total Time Spent with Patient: Total time spent is greater than 50% in coordination of care (as documented) at patient's floor/unit and/or counseling patient: Coding Level of Care Code 70598 Post Operative Follow-Up Diagnoses Right sided colitis K52.9
[2022-10-17] MEDS: MoRPHine SULFATE 2 MG/ML CARP IV PRN ×2 (07:50→10:21)
[2022-10-17] MEDS: ACETAMINOPHEN 1,000 MG/100 ML VIAL IV PRN ×2 (08:27→17:09)
[2022-10-17] MEDS: UMECLIDINIUM BROMIDE 62.5MCG/BLISTER 7 PUFFS/INHALER INH SCH ×2 (08:31→09:21)
[2022-10-17] MEDS: FINASTERIDE 5 MG TAB PO SCH (09:19)
[2022-10-17] MEDS: SUCRALFATE 1 GM/10 ML UDC PO SCH ×4 (09:20→20:51)
[2022-10-17] MEDS: HYDROXYCHLOROQUINE SULFATE 200 MG TAB PO SCH ×2 (09:20→20:51)
[2022-10-17] MEDS: GABAPENTIN 600 MG TAB PO SCH ×3 (09:20→20:51)
[2022-10-17] MEDS: TAMSULOSIN HCL 0.4 MG CAP PO SCH (09:20)
[2022-10-17] MEDS: LEVOTHYROXINE SODIUM 25 MCG in SYRINGE 0 ML IV SCH (09:21)
[2022-10-17] MEDS: PANTOprazole 40 MG in SYRINGE 0 ML IV SCH (10:15)
--- NOTE | 2022-10-17 12:01 | XRay Report ---
XR KUB/Abdomen 1 view CLINICAL HISTORY: SBO TECHNIQUE: 1 view of the abdomen was obtained. Comparison: Comparison is made to abdomen radiograph 08/15/2019 FINDINGS: Surgical jammie and drain are unchanged. Degenerative changes are seen in the visualized skeleton. G as loops of small bowel are seen. No significant stool burden. IMPRESSION: Multiple gas-distended loops of small bowel are compatible with continued ileus/obstruction. No signi ficant stool burden is seen. ACT 112: Negative or not required by law. Electronically signed by: Elvis Lopez M.D. 10/17/2022 12:00 PM
--- NOTE | 2022-10-17 13:47 | Hospitalist Progress Note ---
Date of Service October 17, 2022 Assessment & Plan (1) Abdominal pain: Plan: Possible diverticulitis of large colon with perforation 67yo male presenting with abdominal pain that started yesterday 10/10/22 around 16:00. Pain initially central abdomen now located in the RLQ. He is non-toxic in appearance. Mild abdominal discomfort with palpation in the RLQ but abdomen is soft with out peritonitis. Labs significant for elevated WBC=17.29 with neutrophil predominance which is new. Mildly elevated BUN of 31 (increased from 19) and Cr of 1.47 (increased from 1). CT of the abdomen per STAT-rad with moderate inflammation of the right large bowel with small locules of adjacent pneumoperitoneum concerning for perforation. Small focal areas of portal venous gas which could reflect bowel ischemia. Lactate is normal. No anion gap Right-sided ischemic colitis C/B postoperative ileus S/p laparoscopic ilecectomy Flatus but no BM. Abdomen remains soft 10/17 NGT remains with 600 cc output this morning, not yet ready to have clamped/ progressed Continue n.p.o. Continue IV FM Breakthrough pain control morphine as needed Zosyn continued Continue to follow for e Sepsis 2/2 right colon microperforation Initially with sofa score of 3, hypotension, leukocytosis Hemodynamics stabilized, leukocytosis downtrending Continue antibiotics as noted Clinically improving JACQUIE In the setting of sepsis and colitis above Creatinine normalized, 1.02 on 10/17 BMP daily (2) DM II (diabetes mellitus, type II), controlled: Plan: Diet controlled DM -Monitor blood sugar (3) Benign prostatic hyperplasia with urinary obstruction: Plan: Chronic -Continue Finasteride and Flomax -Bladder scan as needed (4) Hyperlipidemia: Plan: Chronic. Stable (5) Rheumatoid arthritis: Plan: Chronic -Continue Hydroxychloroquine (6) Hypertension: Plan: Blood pressure adequately controlled at present -Hold Amlodipine and Lisinopril for now -Monitor (7) GERD (gastroesophageal reflux disease): Plan: Well controlled. Patient is on Omeprazole at home -Continue Protonix while inpatient Ppx - SCDs to bilateral LE Code - Full Diet: Remains n.p.o. Admission and Anticipated Discharge Date Admission Date: October 11, 2022 Subjective Seen at the bedside. He reports his abdomen feels mostly unchanged. He continues to have some intermittent pain but reports this is well controlled and resolves nearly completely after morphine. He has been passing a small amount of gas, but has had no stool passage. No fevers, chills, sweats. Denies chest pain, and shortness of breath. Review of Systems Review of Systems: All systems reviewed & are unremarkable except as noted in Subjective Physical Exam Physical Exam: General: A&Ox3. NAD. Cooperative. HEENT: Atraumatic, normocephalic. Vision/hearing grossly Pulm: CTAB A&P. -wheezes, -rales, -rhonchi. Symmetrical chest rise. No increased work of breathing. No respiratory distress. Cardiac: RRR, -mrg. Radial pulses intact and symmetrical. Abdominal: +mild ttp without rebound/guarding. soft. +yoana drain. well healing abdominal incisions without erythema Ext: warm, dry Results & Data Results & Data Vital Signs (Past 12 Hours) Vital Signs Temp Pulse Pulse Resp BP Pulse Ox O2 Del Method 10/17/22 08:10 70 10/17/22 07:56 36.4 C L 91 H 18 114/73 94 Room Air 10/17/22 03:29 37 C 66 18 145/79 H 95 Room Air PG Care Time/CCT Total # of Minutes Spent Total Time Spent with Patient: Total time spent is greater than 50% in coordination of care (as documented) at patient's floor/unit and/or counseling patient: Coding Level of Care Code 10815 SUB INP/OBS CARE 2/35MIN Diagnoses Abdominal pain R10.9 DM II (diabetes mellitus, type II), controlled E11.9 Benign prostatic hyperplasia with urinary obstruction N40.1; N13.8 Hyperlipidemia E78.5 Rheumatoid arthritis M06.9 Hypertension I10 Hypertension type: essential hypertension GERD (gastroesophageal reflux disease) K21.9 (6) Hypertension Hypertension type: essential hypertension Qualified Code(s): I10 - Essential (primary) hypertension
[2022-10-17] MEDS: METOPROLOL SUCC 25MG EXT REL TAB PO SCH (20:51)
[2022-10-18] MEDS: PIPERACILLIN/TAZOBACTAM 4.5 GM in DEXTROSE 5% 100 ML IV SCH (05:15)
[2022-10-18 06:32] LABS: Basophils # (auto) 0.04 K/uL (0-0.2); Basophils % (auto) 0.4 %; Eosinophils # (auto) 0.22 K/uL (0-0.50); Eosinophils % (auto) 2.2 %; Hematocrit (blood only) 35.6 % (42.0-52.0); Hemoglobin 12.7 g/dl (14.0-18.0); Immature Granulocytes # (auto) 0.21 K/uL (0.01-0.20); Immature Granulocytes % (auto) 2.1 %; Lymphocytes # (auto) 1.38 K/uL (1.2-3.4); Lymphocytes % (auto) 14.1 %; Mean Corpuscular Hemoglobin 30.2 pg (25.0-34.0); Mean Corpuscular Hgb Conc 35.7 g/dL (32.0-36.0); Mean Corpuscular Volume 84.6 fL (80.0-100.0); Mean Platelet Volume 8.4 fL (9.4-12.4); Monocytes # (auto) 0.89 K/uL (0.11-0.59); Monocytes % (auto) 9.1 %; Neutrophils # (auto) 7.07 K/uL (1.40-6.50); Neutrophils % (auto) 72.1 %; Platelet Count 185 K/uL (130-400); RDW Coefficient of Variation 13.4 % (11.5-14.5); RDW Standard Deviation 41.6 fL (36.4-46.3); Red Blood Count 4.21 M/uL (4.70-6.10); White Blood Count 9.81 K/ul (4.8-10.8)
[2022-10-18 06:58] LABS: BUN Creatinine Ratio 13.2 (10-20); Calcium 8.5 mg/dl (8.6-10.3); Creatinine Clr Calc Pharmacy 103.3 ml/min; Est GFR (African American) 102.1 ml/min; Est GFR (Non-African American) 88.1 ml/min; Potassium 3.7 mmol/L (3.5-5.1)
[2022-10-18] MEDS: UMECLIDINIUM BROMIDE 62.5MCG/BLISTER 7 PUFFS/INHALER INH SCH (09:22)
[2022-10-18] MEDS: GABAPENTIN 600 MG TAB PO SCH ×3 (09:30→21:26)
[2022-10-18] MEDS: FINASTERIDE 5 MG TAB PO SCH (09:34)
[2022-10-18] MEDS: HYDROXYCHLOROQUINE SULFATE 200 MG TAB PO SCH ×2 (09:35→21:26)
[2022-10-18] MEDS: TAMSULOSIN HCL 0.4 MG CAP PO SCH (09:35)
[2022-10-18] MEDS: SUCRALFATE 1 GM/10 ML UDC PO SCH ×3 (09:35→15:23)
--- NOTE | 2022-10-18 10:27 | Surgery Progress Note ---
Date of Service October 18, 2022 Assessment & Plan (1) Right sided colitis: Plan: POD#7 laparoscopic assisted ileocecectomy WBC 9,, Hbg 12.7, K 3.7, Cr 0.9. Vitals are stable and patient afebrile Overall he is feeling somewhat better each day NGT output 900cc over last 12 hours. Would consider keeping for now while awaiting more meaningful return of bowel funciton May need to consider some peripheral nutrition in near future Incisions c/d/i and yoana drain serosanguineous Continue IV abx Encourage ambulation Will follow along closely Dr. Yan covering the weekend Admission and Anticipated Discharge Date Admission Date: October 11, 2022 Supervising Physician Co-Signing Physician Notes Patient seen and examined, labs reviewed, agree with above. 1 week status post laparoscopic ileocecectomy for ischemic colitis. Continues to pass flatus, but NG tube output fairly moderate. It was not functioning last night and he noticed some increased discomfort and pain. That has resolved since working back up to low intermittent wall suction. He has been ambulating. Otherwise no pain. On exam he is afebrile with stable vitals, abdomen soft, moderately distended, nontender. Incisions without infection. YOANA drain serosanguineous. WBC normal. Will DC YOANA, stop antibiotics, patient should be on Lovenox for DVT prophylaxis. Please note, patient needs an extensive work-up for embolic source as this is the likely cause of his ischemic colitis following his cardiac work- up at last visit. Dr. Yan covering over the weekend. Subjective Patient feeling about the same as yesterday. He did have an episode last night where the NGT wasn't functioning well and he felt like things were "backing up". He is feeling better this AM with NGT working. He continues to pass a small amount of flatus, but no BM yet. Physical Exam Physical Exam: awake/alert Constitutional: no acute distress Respiratory: normal respiratory effort Gastrointestinal (Abdomen): Inspection/Auscultation: + abdominal surgical incision (c/d/i, no signs of infection.) and + abdominal surgical drain present (serosang.) Percussion/Palpation: + abdomen tender (some discomfort around YOANA drain incision) and abdomen soft Results & Data Vital Signs (Past 12 Hours) Vital Signs Temp Pulse Pulse Resp BP Pulse Ox O2 Del Method 10/18/22 07:58 36.9 C 69 18 143/72 H 95 Room Air 10/18/22 03:47 36.9 C 73 16 147/81 H 95 Room Air 10/17/22 23:13 36.7 C 72 18 158/88 H 94 Room Air 10/17/22 23:20 69 PG Care Time/CCT Total # of Minutes Spent Total Time Spent with Patient: Total time spent is greater than 50% in coordination of care (as documented) at patient's floor/unit and/or counseling patient: Coding Level of Care Code 87261 Post Operative Follow-Up Diagnoses Right sided colitis K52.9
[2022-10-18] MEDS: PANTOprazole 40 MG in SYRINGE 0 ML IV SCH (11:53)
[2022-10-18] MEDS: LACTATED RINGER'S 1,000 ML IV SCH (12:44)
[2022-10-18] MEDS ORDERED: TPN/PPN CONSULT PHARMACY PRN (12:48)
[2022-10-18 13:30] LABS: Magnesium 1.8 mg/dl (1.7-2.4)
[2022-10-18] MEDS ORDERED: DEXTROSE 10% 1,000 ML IV PRN (13:41)
[2022-10-18] MEDS: ENOXAPARIN INJ 40 MG/0.4 ML SYR SQ SCH (13:49)
--- NOTE | 2022-10-18 14:39 | Hospitalist Progress Note ---
Date of Service October 18, 2022 Assessment & Plan (1) Abdominal pain: Plan: Possible diverticulitis of large colon with perforation 67yo male presenting with abdominal pain that started yesterday 10/10/22 around 16:00. Pain initially central abdomen now located in the RLQ. He is non-toxic in appearance. Mild abdominal discomfort with palpation in the RLQ but abdomen is soft with out peritonitis. Labs significant for elevated WBC=17.29 with neutrophil predominance which is new. Mildly elevated BUN of 31 (increased from 19) and Cr of 1.47 (increased from 1). CT of the abdomen per STAT-rad with moderate inflammation of the right large bowel with small locules of adjacent pneumoperitoneum concerning for perforation. Small focal areas of portal venous gas which could reflect bowel ischemia. Lactate is normal. No anion gap Right-sided ischemic colitis C/B postoperative ileus S/p laparoscopic ilecectomy Flatus but no BM. Abdomen remains soft 10/17 NGT remains with continuous of significant output. Suction did temporarily malfunction on NGT last night, patient did notice progressive abdominal distention and pain following this and then when readjusted had improvement but significant output. Around 1 L over the last 12 hours. Essentially failed a clamp attempt, will continue NGT to suction Continue n.p.o. Continue IV FM Breakthrough pain control morphine as needed Zosyn continued Unclear etiology of his initial ischemic colitis. Limited TTE was performed to evaluate for intra-arterial shunt, no shunt was demonstrated with injection of contrast material. Blood cultures negative, patient is afebrile. Discussed with surgical team due to unclear precipitating event recommended more thorough evaluation of valves for vegetation/valvular disease. Do not recommend CHUCK at this point, will screen with TTE for abnormalities. Patient not able to tolerate temporary clamp for any p.o. meds, is on Protonix with Carafate held and metoprolol has been converted to IV every 6 hours orders while unable to tolerate any n.p.o. Due to prolonged n.p.o. status patient's been started on PPN Sepsis 2/2 right colon microperforation Initially with sofa score of 3, hypotension, leukocytosis Hemodynamics stabilized, leukocytosis downtrending Continue antibiotics as noted Clinically stabilized but without return of bowel function yet JACQUIE In the setting of sepsis and colitis above Creatinine normalized, 1.02 on 10/17 BMP daily (2) DM II (diabetes mellitus, type II), controlled: Plan: Diet controlled DM -Monitor blood sugar (3) Benign prostatic hyperplasia with urinary obstruction: Plan: Chronic -Continue Finasteride and Flomax -Bladder scan as needed (4) Hyperlipidemia: Plan: Chronic. Stable (5) Rheumatoid arthritis: Plan: Chronic -Continue Hydroxychloroquine (6) Hypertension: Plan: Blood pressure adequately controlled at present -Hold Amlodipine and Lisinopril for now -Monitor (7) GERD (gastroesophageal reflux disease): Plan: Well controlled. Patient is on Omeprazole at home -Continue Protonix while inpatient Ppx - SCDs to bilateral LE Code - Full Diet: Remains n.p.o. Admission and Anticipated Discharge Date Admission Date: October 11, 2022 Subjective Seen at the bedside. He reports that his suction stopped working last night for several hours, he noticed progressive worsening abdominal distention nausea and discomfort following this. This improved after it was returned to normal suction but had copious output afterwards. Essentially failed a clamping trial, will continue NGT to suction. Patient comfortable with this. He denies fever, chills, sweats, chest pain, chest pressure. Reports his abdomen was little more sore last night but currently feels well and similar to how it has the last few days although it is still slightly stretched. He is still slightly nauseous and cannot tolerate any pills Review of Systems Review of Systems: All systems reviewed & are unremarkable except as noted in Subjective Physical Exam Physical Exam: General: A&Ox3. NAD. Cooperative. HEENT: Atraumatic, normocephalic. Vision/hearing grossly intact. Pupils equal and reactive to light Pulm: CTAB A&P. -wheezes, -rales, -rhonchi. Symmetrical chest rise. No increased work of breathing. No respiratory distress. Cardiac: RRR, -mrg. Radial pulses intact and symmetrical. Abdominal: +mild ttp without rebound/guarding. Softly distended. +yoana drain. well healing abdominal incisions without erythema Ext: warm, dry Results & Data Results & Data Vital Signs (Past 12 Hours) Vital Signs Temp Pulse Resp BP Pulse Ox O2 Del Method 10/18/22 11:44 36.4 C L 80 18 136/91 96 Room Air 10/18/22 07:58 36.9 C 69 18 143/72 H 95 Room Air 10/18/22 03:47 36.9 C 73 16 147/81 H 95 Room Air PG Care Time/CCT Total # of Minutes Spent Total Time Spent with Patient: Total time spent is greater than 50% in coordination of care (as documented) at patient's floor/unit and/or counseling patient: Coding Level of Care Code 38967 SUB INP/OBS CARE 2/35MIN Diagnoses Abdominal pain R10.9 DM II (diabetes mellitus, type II), controlled E11.9 Benign prostatic hyperplasia with urinary obstruction N40.1; N13.8 Hyperlipidemia E78.5 Rheumatoid arthritis M06.9 Hypertension I10 Hypertension type: essential hypertension GERD (gastroesophageal reflux disease) K21.9 (6) Hypertension Hypertension type: essential hypertension Qualified Code(s): I10 - Essential (primary) hypertension
--- NOTE | 2022-10-18 14:49 | Pharmacy Report ---
Pharmacy PN Initial Consult - Date of Service October 18, 2022 - Scope Pharmacy has been consulted to manage parenteral nutrition orders and order appropriate labs. As part of the Nutrition Support Team guidelines, pharmacy will work in conjunction with dietary when determining the patients caloric needs. - Objective Height: 6 ft 1 in Weight: 105.8 kg Intake & Output (Last 24Hrs): Intake & Output 10/16/22 10/17/22 10/18/22 10/19/22 06:59 06:59 06:59 06:59 Intake Total 3001.667 / 3001.667 2942.334 / 2942.334 3487.083 / 3487.083 195 / 195 Output Total 5720 / 5720 3320 / 3320 3535 / 3535 1125 / 1125 Balance -2718.333 / -2718.333 -377.666 / -377.666 -47.917 / -47.917 -930 / -930 Weight 107.2 kg 105.1 kg 105.8 kg Laboratory Data (Last 24 Hrs):: 10/18/22 05:23 Sodium 134 L Potassium 3.7 Chloride 98 Carbon Dioxide 27 BUN 12 Creatinine 0.91 Glucose 105 H Calcium 8.5 L Phosphorus 3.0 Magnesium 1.8 Nutrition Assessment:: Please refer to the Notes section of the EMR for the most recent motel operator note. - Assessment * RD is a 67 year old male POD #7 laparoscopic assisted ileocecectomy * Patient has had prolonged NPO status and thus started on PPN * Electrolytes largely WNL (exception: mildly hyponatremic and hypocalcemic) * Patient still with extensive right nasogastric drainage * Macronutrient recs provided by dietary - appreciated (will start at goal 2 L PPN bag) - Plan For day 1 of PN administration, the following will be ordered: Macronutrients Amino acids 85 grams/day Dextrose 100 grams/day Lipids 50 grams/day Micronutrients Combined electrolytes 20 mL - contains 35 mEq Na, 20 meq K, 4.5 mEq Ca, 5 mEq Mg, 35 mEq Cl, 29.5 mEq acetate per 20 mL Sodium chloride 60 mEq Sodium acetate 60 mEq Potassium phosphate 21 mMol Potassium chloride 50 mEq Magnesium sulfate 4.06 mEq Calcium gluconate 4.65 mEq Multivitamins 10 mL Trace Elements 1 mL Additional additives: thiamine 100 mg, folic acid 1 mg Total volume 2129 mL to be infused over 24 hrs will provide 1180 kcal/day Final osmolarity 881 mOsm/L (maximum for PPN is 900 mOsm/L) Labs to be ordered per PN order protocol Pharmacy will follow and adjust parenteral nutrition orders on a daily basis. Thank you.
[2022-10-18] MEDS ORDERED: [UNRECOGNIZED DRUG - OTHER] IV SCH (16:00)
[2022-10-18] MEDS ORDERED: PERIPHERAL TPN IV SCH (16:00)
[2022-10-18] MEDS ORDERED: CLINOLIPID 20% IV FAT EMULSION 250 ML IV SCH (16:00)
[2022-10-18] MEDS: METOPROLOL TARTRATE 1 MG/ML VIAL IV SCH ×2 (18:38→23:42)
[2022-10-18] MEDS ORDERED: STOP CLINOLIPID SCH (22:00)
[2022-10-19] MEDS: MoRPHine SULFATE 2 MG/ML CARP IV PRN (04:54)
[2022-10-19] MEDS: METOPROLOL TARTRATE 1 MG/ML VIAL IV SCH ×4 (04:54→23:27)
--- NOTE | 2022-10-19 05:35 | Surgery Progress Note ---
Date of Service October 19, 2022 Assessment & Plan (1) Right sided colitis: Plan: Status post laparoscopic ileocecectomy secondary to ischemic colitis on 10/11/2022 (postop day #8) No malignancy noted on surgical pathology Continue analgesics as needed Provide antiemetics if needed Due to NG tube output would keep this modality in place until patient has improvement of bowel function Keep n.p.o. for the present time Patient is receiving parenteral nutrition which should continue until oral intake can be advanced Encourage use of incentive spirometer Continue periodic ambulation in the hallway Patient does have labs and a KUB ordered for this morning which are pending Lovenox is in place for DVT prevention Admission and Anticipated Discharge Date Admission Date: October 11, 2022 Supervising Physician Co-Signing Physician Notes feels better passing more gas abd non tender slightly distended KUB this am more colonic gas less small bowel distention Ng drainage dec leave in for today continue peripheral nutrition Subjective Patient is currently resting comfortably in bed. He only notes some minor pain at his surgical incisions and notes that this is markedly different from the pain he experienced at time of admission. He denies any nausea or vomiting. He denies any shortness of breath. He denies any fevers, shakes, or chills. He notes he is voiding without difficulty. He notes that he is passing flatus but has not had a bowel movement since surgery. He has been ambulating periodically in the hallway. I discussed with the shift stacker RN who notes that the patient's NG tube is drained approximately 450 cc over the past 12 hours. She does not report any additional issues. Physical Exam Respiratory: normal respiratory effort; no respiratory distress and no labored breathing Gastrointestinal (Abdomen): Abdomen is soft and nonrigid. There is minimal distention. Bowel sounds are present but hypoactive. Surgical incisions are clean, dry, and intact. There is no rebound tenderness or guarding. Patient only experienced minor discomfort with palpation near his surgical incisions. Musculoskeletal: No calf tenderness or lower extremity edema Results & Data Vital Signs (Past 12 Hours) Vital Signs Temp Pulse Pulse Resp BP BP Pulse Ox 10/19/22 04:05 36.7 C 62 18 138/78 95 10/18/22 23:42 70 158/79 H 10/18/22 23:30 36.5 C 70 20 158/79 H 96 06/23/23 23:24 73 10/18/22 18:41 36.4 C L 72 20 163/84 H 95 10/18/22 18:38 78 O2 Del Method 10/19/22 04:05 Room Air 10/18/22 23:42 10/18/22 23:30 Room Air 10/18/22 23:24 10/18/22 18:41 Room Air 10/18/22 18:38 PG Care Time/CCT Total # of Minutes Spent Total Time Spent with Patient: Total time spent is greater than 50% in coordination of care (as documented) at patient's floor/unit and/or counseling patient: Coding Level of Care Code None Diagnoses Right sided colitis K52.9
[2022-10-19 06:47] LABS: Basophils # (auto) 0.04 K/uL (0-0.2); Basophils % (auto) 0.5 %; Eosinophils # (auto) 0.18 K/uL (0-0.50); Eosinophils % (auto) 2.2 %; Hemoglobin 12.5 g/dl (14.0-18.0); Immature Granulocytes # (auto) 0.15 K/uL (0.01-0.20); Immature Granulocytes % (auto) 1.8 %; Lymphocytes # (auto) 1.23 K/uL (1.2-3.4); Mean Corpuscular Hemoglobin 30.2 pg (25.0-34.0); Mean Corpuscular Hgb Conc 35.7 g/dL (32.0-36.0); Mean Corpuscular Volume 84.5 fL (80.0-100.0); Mean Platelet Volume 8.2 fL (9.4-12.4); Monocytes # (auto) 0.86 K/uL (0.11-0.59); Monocytes % (auto) 10.5 %; Neutrophils # (auto) 5.74 K/uL (1.40-6.50); Platelet Count 191 K/uL (130-400); RDW Coefficient of Variation 13.2 % (11.5-14.5); RDW Standard Deviation 40.8 fL (36.4-46.3); Red Blood Count 4.14 M/uL (4.70-6.10)
[2022-10-19 07:13] LABS: BUN Creatinine Ratio 15.8 (10-20); Calcium 8.5 mg/dl (8.6-10.3); Est GFR (Non-African American) 83.7 ml/min; Magnesium 1.9 mg/dl (1.7-2.4); Phosphorus 2.7 mg/dl (2.5-4.9); Potassium 4.2 mmol/L (3.5-5.1)
[2022-10-19] MEDS: GABAPENTIN 600 MG TAB PO SCH ×3 (09:07→19:56)
[2022-10-19] MEDS: HYDROXYCHLOROQUINE SULFATE 200 MG TAB PO SCH ×2 (09:07→19:56)
[2022-10-19] MEDS: FINASTERIDE 5 MG TAB PO SCH (09:07)
[2022-10-19] MEDS: TAMSULOSIN HCL 0.4 MG CAP PO SCH (09:08)
--- NOTE | 2022-10-19 09:59 | Hospitalist Progress Note ---
Date of Service October 19, 2022 Assessment & Plan (1) Abdominal pain: Plan: Possible diverticulitis of large colon with perforation 67yo male presenting with abdominal pain that started 10/10/22 located in the RLQ. diagnosed with ischemic colitis, sepsis and microperforation, taken to OR 10/11/22 laproscopic assisted Ileocecectomy post operative ileus persists Breakthrough pain control morphine as needed Zosyn continued etiology of his initial ischemic colitis. Limited TTE no shunt was demonstrated with injection of contrast material. Blood cultures negative, patient is afebrile. Due to prolonged n.p.o. status patient's been started on PPN Sepsis 2/2 right colon microperforation Initially with sofa score of 3, hypotension, leukocytosis Hemodynamics stabilized, leukocytosis downtrending Continue antibiotics JACQUIE-resolved In the setting of sepsis and colitis above (2) Hypertension: Plan: Blood pressure adequately controlled at present -Hold Amlodipine and Lisinopril for now metoprolol has been converted to IV every 6 hours orders while unable to tolerate any n.p.o. (3) DM II (diabetes mellitus, type II), controlled: Plan: Diet controlled DM -Monitor blood sugar (4) Benign prostatic hyperplasia with urinary obstruction: Plan: Chronic -Continue Finasteride and Flomax -Bladder scan as needed (5) Rheumatoid arthritis: Plan: Chronic -Continue Hydroxychloroquine Plan Ppx - SCDs to bilateral LE Code - Full Diet: Remains n.p.o. Admission and Anticipated Discharge Date Admission Date: October 11, 2022 Subjective Patient was seen in the company of his family NG tube remains. Patient taking walks with the tube clamped for 30 minutes without nausea. Patient's had flatus but no bowel movements. Physical Exam Physical Exam: Patient is without distress no cardiopulmonary abnormalities abdomen is with hypoactive bowel sounds soft and nontender surgical scars healing well Abdomen is tympanic to percussion there is no acute abdomen present Results & Data Results & Data Vital Signs (Past 12 Hours) Vital Signs Temp Pulse Pulse Resp BP BP Pulse Ox 10/19/22 07:44 97.5 F L 72 20 113/71 94 10/19/22 04:05 98.1 F 62 18 138/78 95 10/18/22 23:42 70 158/79 H 10/18/22 23:30 97.7 F 70 20 158/79 H 96 10/18/22 23:24 73 O2 Del Method 10/19/22 07:44 Room Air 10/19/22 04:05 Room Air 10/18/22 23:42 10/18/22 23:30 Room Air 10/18/22 23:24 Laboratory Results Reviewed CBC reviewed chemistry compared abdominal x-rays and series without significant treatment. Ileus remains PG Care Time/CCT Total # of Minutes Spent Total Time Spent with Patient: Total time spent is greater than 50% in coordination of care (as documented) at patient's floor/unit and/or counseling patient: Coding Level of Care Code 57774 SUB INP/OBS CARE 2/35MIN Diagnoses Abdominal pain R10.9 Hypertension I10 Hypertension type: essential hypertension DM II (diabetes mellitus, type II), controlled E11.9 Benign prostatic hyperplasia with urinary obstruction N40.1; N13.8 Rheumatoid arthritis M06.9 (2) Hypertension Hypertension type: essential hypertension Qualified Code(s): I10 - Essential (primary) hypertension
[2022-10-19] MEDS: UMECLIDINIUM BROMIDE 62.5MCG/BLISTER 7 PUFFS/INHALER INH SCH (10:18)
[2022-10-19] MEDS ORDERED: MoRPHine SULFATE 2 MG/ML CARP IV PRN (10:27)
[2022-10-19] MEDS ORDERED: ACETAMINOPHEN 10MG/ML Custom 1,000 MG in EMPTY BAG 0 ML IV PRN (10:27)
[2022-10-19] MEDS ORDERED: ACETAMINOPHEN 1000 MG/100 ML IV IV PRN (10:34)
--- NOTE | 2022-10-19 10:48 | XRay Report ---
XR KUB/Abdomen 1 view CLINICAL HISTORY: eval SBO TECHNIQUE: 1 view of the abdomen was obtained. Comparison: Comparison is made to abdomen radiograph 10/17/2022 FINDINGS: Surgical jammie are seen in the right lower quadrant. Degenerative changes are seen in the visualize d skeleton. Multiple gas distended loops of small bowel are seen measuring up to 53 mm. No significan t stool is seen in large bowel however gas remains. IMPRESSION: Redemonstration of numerous distended loops of small bowel compatible with postsurgical ileus. ACT 112: Negative or not required by law. Electronically signed by: Elvis Lopez M.D. 10/19/2022 10:46 AM
[2022-10-19] MEDS: PANTOprazole 40 MG in SYRINGE 0 ML IV SCH (11:39)
[2022-10-19] MEDS: ENOXAPARIN INJ 40 MG/0.4 ML SYR SQ SCH (15:03)
[2022-10-19] MEDS ORDERED: CLINOLIPID 20% IV FAT EMULSION 250 ML IV SCH (16:00)
[2022-10-19] MEDS ORDERED: [UNRECOGNIZED DRUG - OTHER] IV SCH (16:00)
[2022-10-19] MEDS ORDERED: PERIPHERAL TPN IV SCH (16:00)
[2022-10-19] MEDS: STOP CLINOLIPID SCH (22:01)
--- NOTE | 2022-10-20 05:14 | Surgery Progress Note ---
Date of Service October 20, 2022 Assessment & Plan (1) Right sided colitis: Plan: Status post laparoscopic ileocecectomy secondary to ischemic colitis on 10/11/2022 (postop day #9) surgical pathology was negative for malignancy Continue analgesics as needed Continue antiemetics as needed NG tube was noted to have drained 900 cc over the past 24 hours. We will keep this in until patient has further improvement of bowel function KUB on 10/19/2022 showed findings consistent with a postoperative ileus Maintain n.p.o. status for the present time Continue parenteral nutrition until diet can be advanced and noted to be sufficient Encourage use of incentive spirometer Continue ambulation in the hallway Check a.m. labs when available Lovenox is in place for DVT prevention Admission and Anticipated Discharge Date Admission Date: October 11, 2022 Supervising Physician Co-Signing Physician Notes As per Francis Andersen physician catering assistant Patient continues to pass significant amount of flatus but has not had a bowel movement yet but feels that his rumbling in his stomach is increased NG drainage minimal noted light yellow in consistency At this point we will continue nonoperative management and continue with NG decompression Subjective Patient is resting comfortably in bed at the time of my exam. He denies any nausea or vomiting. He has not had a bowel movement since surgery but continues to pass flatus. He notes minimal abdominal pain near his surgical incisions. He denies any fevers, shakes, or chills. He denies shortness of breath. He continues to ambulate in the hallway. Physical Exam Gastrointestinal (Abdomen): Bowel sounds are present. Abdomen has slight distention noted. There is no rebound tenderness or guarding. Patient has slight tenderness to palpation over his surgical incisions. All incisions are clean, dry, and intact. Results & Data Vital Signs (Past 12 Hours) Vital Signs Temp Pulse Pulse Resp BP BP Pulse Ox 10/20/22 03:44 36.7 C 65 18 131/78 94 10/20/22 00:04 62 10/19/22 23:27 67 136/77 10/19/22 22:41 36.8 C 67 18 136/77 94 10/19/22 19:41 36.9 C 64 20 151/78 H 95 10/19/22 17:17 64 128/71 O2 Del Method 10/20/22 03:44 Room Air 10/20/22 00:04 10/19/22 23:27 10/19/22 22:41 Room Air 10/19/22 19:41 Room Air 10/19/22 17:17 PG Care Time/CCT Total # of Minutes Spent Total Time Spent with Patient: Total time spent is greater than 50% in coordination of care (as documented) at patient's floor/unit and/or counseling patient: Coding Level of Care Code None Diagnoses Right sided colitis K52.9
[2022-10-20] MEDS: METOPROLOL TARTRATE 1 MG/ML VIAL IV SCH ×4 (05:43→23:32)
[2022-10-20 07:36] LABS: BUN Creatinine Ratio 18.8 (10-20); Calcium 8.5 mg/dl (8.6-10.3); Creatinine Clr Calc Pharmacy 110.6 ml/min; Est GFR (Non-African American) 91.4 ml/min; Phosphorus 2.7 mg/dl (2.5-4.9)
[2022-10-20 07:56] LABS: Basophils # (auto) 0.05 K/uL (0-0.2); Basophils % (auto) 0.6 %; Eosinophils # (auto) 0.23 K/uL (0-0.50); Eosinophils % (auto) 2.6 %; Hematocrit (blood only) 35.9 % (42.0-52.0); Hemoglobin 12.6 g/dl (14.0-18.0); Immature Granulocytes % (auto) 1.1 %; Lymphocytes # (auto) 1.66 K/uL (1.2-3.4); Mean Corpuscular Hemoglobin 29.9 pg (25.0-34.0); Mean Corpuscular Hgb Conc 35.1 g/dL (32.0-36.0); Mean Corpuscular Volume 85.3 fL (80.0-100.0); Mean Platelet Volume 8.4 fL (9.4-12.4); Monocytes # (auto) 0.71 K/uL (0.11-0.59); Monocytes % (auto) 8.1 %; Neutrophils # (auto) 5.99 K/uL (1.40-6.50); Neutrophils % (auto) 68.6 %; Platelet Count 186 K/uL (130-400); RDW Coefficient of Variation 13.3 % (11.5-14.5); RDW Standard Deviation 41.2 fL (36.4-46.3); Red Blood Count 4.21 M/uL (4.70-6.10); White Blood Count 8.74 K/ul (4.8-10.8)
--- NOTE | 2022-10-20 08:26 | XRay Report ---
KUB CLINICAL HISTORY: eval for ileus resolution COMPARISON STUDY: CT of the abdomen and pelvis October 11, 2022. KUB October 19, 2022. FINDINGS: Right abdominal bowel anastomosis, skin jammie, cholecystectomy clips and a nasogastric tu be are noted. Tip of the nasogastric tube projects over the pylorus. Multiple loops of mildly dilated small bowel measure up to 5.2 cm in caliber. Small bowel dilatation has slightly decreased since patricia or exam. Paucity of colonic and rectal gas. IMPRESSION: Moderate small bowel dilatation, slightly decreased since prior. The findings could ref lect a postoperative ileus or small bowel obstruction. ACT 112: Negative or not required by law. Electronically signed by: Shivam Wylie M.D. 10/20/2022 8:24 AM
[2022-10-20] MEDS: GABAPENTIN 600 MG TAB PO SCH ×3 (09:11→20:13)
[2022-10-20] MEDS: HYDROXYCHLOROQUINE SULFATE 200 MG TAB PO SCH ×2 (09:11→20:13)
[2022-10-20] MEDS: FINASTERIDE 5 MG TAB PO SCH (09:11)
[2022-10-20] MEDS: TAMSULOSIN HCL 0.4 MG CAP PO SCH (09:12)
[2022-10-20] MEDS: LEVOTHYROXINE SODIUM 25 MCG in SYRINGE 0 ML IV SCH (09:29)
[2022-10-20] MEDS: UMECLIDINIUM BROMIDE 62.5MCG/BLISTER 7 PUFFS/INHALER INH SCH (09:29)
[2022-10-20] MEDS: PANTOprazole 40 MG in SYRINGE 0 ML IV SCH (10:34)
[2022-10-20] MEDS: ENOXAPARIN INJ 40 MG/0.4 ML SYR SQ SCH (13:42)
[2022-10-20] MEDS ORDERED: CLINOLIPID 20% IV FAT EMULSION 250 ML IV SCH (16:00)
[2022-10-20] MEDS ORDERED: [UNRECOGNIZED DRUG - OTHER] IV SCH (16:00)
[2022-10-20] MEDS ORDERED: PERIPHERAL TPN IV SCH (16:00)
--- NOTE | 2022-10-20 17:34 | Hospitalist Progress Note ---
Date of Service October 20, 2022 Assessment & Plan (1) Abdominal pain: Plan: Possible diverticulitis of large colon with perforation 67yo male presenting with abdominal pain that started 10/10/22 located in the RLQ. diagnosed with ischemic colitis, sepsis and microperforation, taken to OR 10/11/22 laproscopic assisted Ileocecectomy post operative ileus persists Pain is improved Zosyn continued etiology of his initial ischemic colitis. Limited TTE no shunt was demonstrated with injection of contrast material. Blood cultures negative, patient is afebrile. Due to prolonged n.p.o. status patient's been started on PPN continues n.p.o. status as of 10/20/2022 Sepsis 2/2 right colon microperforation Initially with sofa score of 3, hypotension, leukocytosis Hemodynamics stabilized, leukocytosis downtrending Continue antibiotics JACQUIE-resolved In the setting of sepsis and colitis above (2) Hypertension: Plan: Blood pressure adequately controlled at present -Hold Amlodipine and Lisinopril for now metoprolol has been converted to IV every 6 hours orders while unable to tolerate any n.p.o. (3) DM II (diabetes mellitus, type II), controlled: Plan: Diet controlled DM -Monitor blood sugar (4) Benign prostatic hyperplasia with urinary obstruction: Plan: Chronic -Continue Finasteride and Flomax -Bladder scan as needed (5) Rheumatoid arthritis: Plan: Chronic -Continue Hydroxychloroquine Plan Ppx - SCDs to bilateral LE Code - Full Diet: Remains n.p.o. Admission and Anticipated Discharge Date Admission Date: October 11, 2022 Subjective Patient seen in the presence of his he did have some flatus and liquid bowel movement abdominal x-ray still shows persistent dilated loops of bowel with improvement previous. Patient is able to ambulate for 30 minutes or so with the tube clamped. Surgery is not yet advance diet or allowed oral intake. Physical Exam Physical Exam: Patient is without distress no cardiopulmonary abnormalities abdomen is with hypoactive bowel sounds soft and nontender surgical scars healing well Abdomen is tympanic to percussion there is no acute abdomen present Results & Data Results & Data Vital Signs (Past 12 Hours) Vital Signs Temp Pulse Pulse Resp BP BP BP 10/20/22 17:25 67 131/78 10/20/22 15:23 97.7 F 66 19 126/75 10/20/22 15:22 67 06/25/23 09:37 66 10/20/22 11:42 66 131/78 10/20/22 08:12 10/20/22 07:25 97.5 F L 69 20 148/84 H 10/20/22 05:43 65 131/78 Pulse Ox O2 Del Method 10/20/22 17:25 10/20/22 15:23 95 Room Air 10/20/22 15:22 10/20/22 09:37 10/20/22 11:42 10/20/22 08:12 Room Air 10/20/22 07:25 95 Room Air 10/20/22 05:43 Laboratory Results Reviewed CBC reviewed chemistry PG Care Time/CCT Total # of Minutes Spent Total Time Spent with Patient: Total time spent is greater than 50% in coordination of care (as documented) at patient's floor/unit and/or counseling patient: Coding Level of Care Code 86970 SUB INP/OBS CARE 2/35MIN Diagnoses Abdominal pain R10.9 Hypertension I10 Hypertension type: essential hypertension DM II (diabetes mellitus, type II), controlled E11.9 Benign prostatic hyperplasia with urinary obstruction N40.1; N13.8 Rheumatoid arthritis M06.9 (2) Hypertension Hypertension type: essential hypertension Qualified Code(s): I10 - Essential (primary) hypertension
[2022-10-20] MEDS: STOP CLINOLIPID SCH (23:32)
[2022-10-21] MEDS: METOPROLOL TARTRATE 1 MG/ML VIAL IV SCH ×2 (06:19→12:37)
[2022-10-21 06:53] LABS: Calcium 8.4 mg/dl (8.6-10.3); Creatinine Clr Calc Pharmacy 105.6 ml/min; Est GFR (Non-African American) 89.7 ml/min; Magnesium 1.9 mg/dl (1.7-2.4); Phosphorus 2.9 mg/dl (2.5-4.9); Potassium 4.1 mmol/L (3.5-5.1)
[2022-10-21] MEDS: HYDROXYCHLOROQUINE SULFATE 200 MG TAB PO SCH (08:06)
[2022-10-21] MEDS: GABAPENTIN 600 MG TAB PO SCH ×2 (08:06→14:15)
[2022-10-21] MEDS: UMECLIDINIUM BROMIDE 62.5MCG/BLISTER 7 PUFFS/INHALER INH SCH (08:06)
[2022-10-21] MEDS: FINASTERIDE 5 MG TAB PO SCH (08:07)
[2022-10-21] MEDS: TAMSULOSIN HCL 0.4 MG CAP PO SCH (08:08)
[2022-10-21] MEDS: ENOXAPARIN INJ 40 MG/0.4 ML SYR SQ SCH (12:38)
[2022-10-21] MEDS: PANTOprazole 40 MG in SYRINGE 0 ML IV SCH (12:41)
--- NOTE | 2022-10-21 13:14 | Surgery Progress Note ---
Date of Service October 21, 2022 Assessment & Plan (1) S/P colon resection: Plan: Status post ileocecectomy for ischemic right colon, bowel function returned. Okay for discharge from general surgery standpoint once tolerates low fiber diet. Advance to low fiber diet Wean PPN Okay to discharge from general surgery standpoint after tolerates low fiber diet [place] removed Wound care instructions and activity restrictions reviewed, return precautions given Follow-up in general surgery clinic in 2-week Patient will need completion of his work-up for possible embolic source as an outpatient. Admission and Anticipated Discharge Date Admission Date: October 11, 2022 Subjective Status post laparoscopic assisted ileocecectomy for ischemic right colon. Over the weekend his bowel function returned and his NG tube was removed. He has tolerated clear liquids and full liquids. He is hungry. He is having multiple liquid bowel movements. Physical Exam Constitutional: WD/WN, vitals as above Gastrointestinal (Abdomen): normal bowel sounds, soft, nontender, no hepatosplenomegaly Inspection/Auscultation: + abdominal surgical incision (No infection. [place] removed, Steris placed) Results & Data Vital Signs (Past 12 Hours) Vital Signs Temp Pulse Pulse Resp BP BP BP 10/21/22 12:37 71 123/78 10/21/22 11:27 36.7 C 72 19 123/78 10/21/22 07:23 36.5 C 72 19 110/72 10/21/22 03:37 36.7 C 72 18 125/74 Pulse Ox O2 Del Method 10/21/22 12:37 10/21/22 11:27 97 Room Air 10/21/22 07:23 96 Room Air 10/21/22 03:37 93 Room Air Laboratory Results Laboratory Results - last 24 hr 10/20/22 10/20/22 10/21/22 16:14 20:37 05:51 Sodium 134 L Potassium 4.1 Chloride 104 Carbon Dioxide 24 Anion Gap 6 BUN 16 Creatinine 0.89 Est Cr Clr Drug Dosing 105.6 Est GFR ( Amer) 104.0 Est GFR (Non-Af Amer) 89.7 BUN/Creatinine Ratio 18.0 Glucose 117 H POC Glucose 103 H 99 Calcium 8.4 L Phosphorus 2.9 Magnesium 1.9 10/21/22 10/21/22 07:22 11:25 Sodium Potassium Chloride Carbon Dioxide Anion Gap BUN Creatinine Est Cr Clr Drug Dosing Est GFR ( Amer) Est GFR (Non-Af Amer) BUN/Creatinine Ratio Glucose POC Glucose 125 H 110 H Calcium Phosphorus Magnesium PG Care Time/CCT Total # of Minutes Spent Total Time Spent with Patient: Total time spent is greater than 50% in coordination of care (as documented) at patient's floor/unit and/or counseling patient: Coding Level of Care Code None Diagnoses S/P colon resection Z90.49
--- NOTE | 2022-10-21 15:17 | Discharge Summary ---
Date of Service October 21, 2022 Admission HPI Per Admitting Provider Kali Ellis is a pleasant 67yo male presenting with abdominal pain. Patient was recently admitted from 10/09- 10/10/22 with left sided chest discomfort. Workup included normal troponin series, normal EKG and normal dobutamine stress echo. Thought to be musculoskeletal in nature. Patient was discharged home in stable condition. On his way home at 16:00 he developed some central abdominal pain, severe 10/10, episodic. His pain persisted throughout the day. Now with predominantly RLQ pain as well as nausea with dry heaving. He had several episodes of non-bloody diarrhea. He has returned to the ER with these complaints. No fever, chills, abdominal distention. He reports eating normally during his hospitalization with normal BMs. No urinary complaints. No additional complaints at this time. In the ER he is afebrile, HD stable, NAD. Patient was evaluated by the Surgical team due to abdominal CT findings concerning for possible perforation. ER Course: Tylenol 1gm NSS x 1L Pepcid 20mg IV Magnesium 1gm Mmorphine 2mg Zosyn 4.5gm LR x 1L Principal Diagnosis Colon perforation status post laparoscopic ileocecectomy Prolonged postoperative ileus course now resolved Discharge Exam Patient awake alert appropriate he is NG tube has been removed he has no nausea or vomiting Normal active bowel sounds are present he has a healing right lower quadrant scar with jammie in place was given good wound care instructions by surgery Discharge Data Allergies Allergy/AdvReac Type Severity Reaction Status Date / Time No Known Allergies Allergy Verified 10/11/22 00:17 Consultations 10/11/22 01:44 Consult General Surgery Stat 10/11/22 02:01 ED Decision to Admit Stat Procedures Performed Operation Date: 10/11/22 08:25 Actual Procedures p Laparoscopic Assisted Ileocecectomy(Not Applicable) - Tomas Richardson, , FACS Ordered Studies 10/10/22 23:09 CT abd pelvis IV con only Stat Hospital Course (1) Abdominal pain: Colonic perforation with suspicion of ischemic colitis 67yo male presenting with abdominal pain that started 10/10/22 located in the RLQ. diagnosed with ischemic colitis, sepsis and microperforation, taken to OR 10/11/22 laparoscopic assisted Ileocecectomy post operative ileus was prolonged but resolved Antibiotics not continued at the time of discharge etiology of his initial ischemic colitis. Limited TTE no shunt was demonstrated with injection of contrast material. Blood cultures negative, patient is afebrile. Patient returns aspirin daily therapy at time of discharge Due to prolonged n.p.o. status patient's was on PPN Sepsis 2/2 right colon microperforation Initially with sofa score of 3, hypotension, leukocytosis Hemodynamics stabilized, leukocytosis downtrending Patient completed a 10-day course of antibiotics while inpatient JACQUIE-resolved In the setting of sepsis and colitis above (2) Hypertension: Patient blood pressures been controlled with intravenous metoprolol due to n.p.o. status. The patient will resume his metoprolol at time of discharge however he will hold his amlodipine altogether and restart his lisinopril at one half typical dose with a blood pressure recheck expected with his primary care physician's office within a weeks. (3) DM II (diabetes mellitus, type II), controlled: Diet controlled DM (4) Benign prostatic hyperplasia with urinary obstruction: Chronic -Continue Finasteride and Flomax (5) Rheumatoid arthritis: Chronic -Continue Hydroxychloroquine Plan Code - Full Total Time Total Time Spent Total Time Spent (In Minutes): It required greater than 30 minutes to prepare this patient for discharge Discharge Plan Discharge Items Patient Disposition: Home - Self-Care Reason For Visit: RLQ ABDOMINAL PAIN Discharge Diagnosis: Colon perforation status post laparoscopic ileocecectomy Prolonged postoperative ileus course now resolved Activity: Per Instructions section Lifting: No more than 10 pounds Bathing Comment: may shower; no soaking in tubs/pools x 2 weeks Driving/Machine Use: no driving while taking narcotics for pain Non-emergency contact: Primary Care Provider and Surgeon Call non-emergency contact if: you have any medication questions, you have a fever, your temperature is above 101.5, your wound has increased redness, your wound has increased drainage and your wound pain has increased Follow-up/Referrals: Amparo Chadwick DO [Primary Care Provider] - Tomas Richardson DO, FACS [Physician] - (Please call to schedule follow up in clinic within 1 week) Diet: Low Fiber Addtl Attending Provider Instructions: Please follow postsurgical care instructions Advance her diet to low fiber diet Use pain medications carefully if needed Your blood pressures have been well controlled on less blood pressure medication than usual for you at home. Because of this regard I asked that you do not restart your amlodipine for at least a week and that when you restart your lisinopril please start at one half the usual dose. Your lisinopril dose was not changed on the instructions included with this document for the fact that it is expected that after 1 week time you may return to usual lisinopril dose it would be hopeful that within 1 week from discharge she do follow-up with your family physician for blood pressure check to have further advice on restarting her blood pressure medications Pending Studies at Discharge: Yes Studies:: surgical pathology Stand-Alone Forms: My [facility] [employer], Smoking Cessation Medications and DC Order Prescriptions: New tramadol 50 mg tablet 50 - 100 mg PO TID PRN (Reason: pain) Qty: 20 0RF Continued atorvastatin 40 mg tablet 40 mg PO QAM Qty: 90 3RF metoprolol succinate 25 mg tablet extended release 24 hr 25 mg PO HS Qty: 90 3RF tadalafil 5 mg tablet 5 mg PO DAILY Qty: 90 3RF finasteride 5 mg tablet 5 mg PO QAM Qty: 90 3RF levothyroxine 50 mcg tablet 50 mcg PO DAILY Qty: 90 1RF lisinopril 40 mg tablet 40 mg PO QAM Qty: 90 3RF omeprazole 20 mg capsule,delayed release(DR/EC) 40 mg PO QAM Qty: 180 3RF Spiriva Respimat 2.5 mcg/actuation mist 2 puff inhalation QAM Qty: 4 5RF tamsulosin [Flomax] 0.4 mg capsule 0.4 mg PO QAM Qty: 90 3RF hydroxychloroquine 200 mg Tablet 200 mg PO BID aspirin 81 mg Tablet,Delayed Release (Dr/Ec) 81 mg PO QAM gabapentin 600 mg tablet 600 mg PO TID Held amlodipine 10 mg tablet 10 mg PO QAM Qty: 90 3RF Hold Instructions: Resume on 10/28/22. Discharge Orders: Discharge Order (Routine); Ordered 10/21/22 Ordered By: Mango Marks Admission Data Admit Date/Time: 10/11/22 02:26 Attending Provider: Mango Marks Admit Provider: Yana Fallon Primary Care Provider: Amparo Chadwick. Other Providers: Tomas Richardson ; Vasyl,Yana M Coding Level of Care Code 58748 INP/OBS DISCH >30 MIN Diagnoses Abdominal pain R10.9 Hypertension I10 Hypertension type: essential hypertension DM II (diabetes mellitus, type II), controlled E11.9 Benign prostatic hyperplasia with urinary obstruction N40.1; N13.8 Rheumatoid arthritis M06.9
[2022-10-21] MEDS ORDERED: [UNRECOGNIZED DRUG - REMARK] ONE (15:59)
== END 2022-10-21 18:00 | disposition home or self-care (01) | DRG 854 ==
LOC: ED 22:28 → SUATTDRO 10-11 02:26 → 2N 10-11 02:26 → 2S 10-18 18:20

== ENCOUNTER 2023-03-31 13:13 | Observation (INO) ==
--- NOTE | 2023-03-31 13:20 | ED Triage Note ---
Date of Service March 31, 2023 Provider in Triage Author: Samantha Ayers History of Present Illness This patient was briefly evaluated while in triage. An abbreviated physical exam was performed. This patient is a 68-year-old Male who presents to the ED for evaluation of chest pain. Reports substernal chest pain with radiation into shoulder blades. Symptoms started Friday and have been intermittent. Notes associated mild SOB. Denies fever/chills, n/v, abd pain, cough. Denies history of MS. Follows with [facility]. Physical Exam Constitutional: alert and oriented x3. no acute distress. HEENT: normocephalic, atraumatic. normal conjunctiva.PERRLA. EOM's grossly intact. Respiratory: lungs are clear to auscultation without wheezes, rhonchi, or rales bilaterally. equal chest rise. normal respiratory effort, no accessory muscle use. Cardiovascular: normal heart sounds without murmur. regular rate and rhythm. GI: abdomen is soft, nontender. No palpable masses. No rebound tenderness or guarding. MSK: moves all 4 extremities spontaneously Psych:appropriate mood and affect. Initial orders for labs and / or imaging were placed and patient was placed in the waiting area until a bed is available. Please see further documentation for the full ED course.
[2023-03-31 14:09] LABS: Albumin Globulin Ratio 1.9 (0.9-2); Albumin Level 4.5 gm/dl (3.4-5.0); BUN Creatinine Ratio 16.7 (10-20); Bilirubin,Total 0.9 mg/dl (0.2-1.0); Calcium 9.4 mg/dl (8.6-10.3); Creatinine Clr Calc Pharmacy 104.9 ml/min; Est GFR (African American) 102.8 ml/min; Est GFR (Non-African American) 88.7 ml/min; Globulin 2.4 gm/dl (2.5-4.0); Potassium 4.2 mmol/L (3.5-5.1); Total Protein 6.9 gm/dl (6.0-8.3)
[2023-03-31 14:12] LABS: Basophils # (auto) 0.03 K/uL (0.00-0.20); Basophils % (auto) 0.5 %; Eosinophils # (auto) 0.11 K/uL (0.00-0.50); Eosinophils % (auto) 1.8 %; Hematocrit (blood only) 42.5 % (42.0-52.0); Hemoglobin 14.8 g/dl (14.0-18.0); Immature Granulocytes # (auto) 0.04 K/uL (0.01-0.20); Immature Granulocytes % (auto) 0.6 %; Lymphocytes # (auto) 1.35 K/uL (1.20-3.40); Lymphocytes % (auto) 21.8 %; Mean Corpuscular Hemoglobin 28.5 pg (25.0-34.0); Mean Corpuscular Hgb Conc 34.8 g/dL (32.0-36.0); Mean Corpuscular Volume 81.9 fL (80.0-100.0); Monocytes # (auto) 0.49 K/uL (0.11-0.59); Monocytes % (auto) 7.9 %; Neutrophils # (auto) 4.18 K/uL (1.40-6.50); Neutrophils % (auto) 67.4 %; Platelet Count 120 K/uL (130-400); RDW Coefficient of Variation 13.4 % (11.5-14.5); RDW Standard Deviation 39.6 fL (36.4-46.3); Red Blood Count 5.19 M/uL (4.70-6.10)
[2023-03-31 14:15] LABS: Troponin I High Sensitivity 3.5 pg/ml (0-20)
[2023-03-31 14:30] LABS: INR 1.1 (0.9-1.1); Partial Thromboplastin Time 28.8 Seconds (21.0-31.0); Prothrombin Time 11.7 Seconds (9.0-12.0)
--- NOTE | 2023-03-31 14:30 | XRay Report ---
XR chest 1V not portable HISTORY: Chest pain, nonspecific COMPARISON: Chest 10/15/2022. FINDINGS: The lungs are clear. Cardiac silhouette is normal in size. No pleural effusions. No pneumot horax. IMPRESSION: No acute process. ACT 112: Negative or not required by law. Electronically signed by: Skyler Naylor M.D. 03/31/2023 2:29 PM
--- NOTE | 2023-03-31 15:50 | Electrocardiogram Report ---
Test Reason : Blood Pressure : / mmHG Vent. Rate : 076 BPM Atrial Rate : 076 BPM P-R Int : 134 ms QRS Dur : 090 ms QT Int : 368 ms P-R-T Axes : 050 017 056 degrees QTc Int : 414 ms Sinus rhythm with occasional Premature ventricular complexes Otherwise normal ECG When compared with ECG of 15-OCT-2022 06:07, Premature ventricular complexes are now Present T wave inversion no longer evident in Inferior leads Confirmed by Michele Badillo ([id number]) on 03/31/2023 3:50:00 PM Referred By: Confirmed By:Michele Badillo
[2023-03-31] MEDS ORDERED: NITROGLYCERIN SL 0.4 MG/TAB TAB SL STA (18:20)
--- NOTE | 2023-03-31 18:20 | Emergency Department Note ---
Impression & Plan Chest pain, Shortness of breath ED Provider Note NAME: YESICA COFFEY AGE: 68 SEX: M : 1955 ARRIVES VIA: Walk-In INFORMANT: Patient ED PROVIDER(S): Chinedu Beth DO CHIEF COMPLAINT: chest pain HPI: Patient is a 68-year-old male with a past medical history of diabetes, hypertension, hyperlipidemia, ischemic colitis who presents to the ER for midsternal chest tightness which is in the middle of the chest and does go through to the back. Is associated with some shortness of breath. Has been off and on since this past Friday. Denies any dysuria, urgency, or frequency. No weakness or numbness in the arms or legs. No other exacerbating or remitting factors. Does have an extensive family history of CAD. ADDITIONAL HISTORY OBTAINED: Per HPI Chronic Medical/Social Conditions Affecting Care: Per HPI PAST MEDICAL HISTORY:See Below PAST SURGICAL HISTORY:See Below FAMILY HISTORY:See Below SOCIAL HISTORY:See Below HOME MEDICATIONS:See Below ALLERGIES:See Below VITALS:See Below PHYSICAL EXAMINATION: GENERAL: Sitting up in bed, alert, well appearing, well nourished, no distress, non-toxic EYE EXAM: normal conjunctiva. OROPHARYNX: no exudate, no erythema, lips, buccal mucosa, and tongue normal and mucous membranes are moist NECK: supple, no nuchal rigidity, no adenopathy, non-tender LUNGS: Clear to auscultation. Normal chest wall mechanics HEART: no murmurs, S1 normal and S2 normal ABDOMEN: abdomen soft, non-tender, normo-active bowel sounds, no masses, no rebound or guarding. UPPER EXTREMITIES: upper extremities are grossly normal. LOWER EXTREMITIES: No pitting edema. Calves are equal bilaterally NEURO EXAM: Normal sensorium, cranial nerves II-XII grossly intact, normal speech, no gross weakness of arms, no gross weakness of legs. MEDICAL DECISION MAKING: Patient is a 68-year-old male who presents ER for above-stated complaint. IV was established blood work is obtained. External records were reviewed as described below. Labs show no significant leukocytosis or anemia. INR was unremarkable. BMP LFTs bilirubin and troponin was negative. Lipase was normal. Chest x-ray and EKG were non-diagnostic. He was given aspirin nitro and morphine. With his risk factors he was moderate risk per heart score and consequently was discussed with the hospitalist for further evaluation management treatment. External Records Reviewed: Saw Dr. Guajardo on 02/2023 for lateral epicondylitis Consults/Care Managements Discussions: Per MDM Triage Nursing notes reviewed. Limited review of prior medical records performed Vital Signs: reviewed and remarkable for HTN Differential diagnosis: Cardiac ischemia, aortic dissection, pulmonary embolism, pneumothorax, pneumonia, pericarditis, myocarditis, esophageal rupture, GERD, cholecystitis, pancreatitis, musculoskeletal, as well as other pathologies. ER treatment provided: See below Diagnostics interpreted by me include EKG and cardiac monitoring as listed below: -Cardiac Monitoring: An order was placed for continuous cardiac monitoring. The monitor shows a rate of 70 with sinus rhythm. -ECG: Sinus rhythm rate of 76 Normal axis PVCs QTc 414 -Laboratory studies:Interpreted by me as stated above in MDM and shown below. 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 Pulmonary nodule Hyperlipidemia Rupture of left rectus femoris tendon Rheumatoid arthritis Peripheral neuropathy GERD (gastroesophageal reflux disease) Hypertension Surgical History S/P colon resection (10/11/22) History of colonoscopy History of esophagogastroduodenoscopy (EGD) History of tooth extraction Status post surgery (2009) S/P repair of hydrocele History of appendectomy History of cholecystectomy Hx of cardiac cath (~01/2008) Family History Sister Breast cancer, Onset Age: 40 Father Myocardial infarction Uncle Myocardial infarction Grandfather (Maternal) Myocardial infarction Mother Diabetes Denies family history of Ovarian cancer Prostate cancer Colorectal cancer Social History Smoking Status: Never smoker Second Hand Exposure: No; Do You Dip or Chew Tobacco: No; Hx Alcohol Use: Yes Alcohol type: beer Alcohol Intake Frequency: Monthly or Less Hx Substance Use: No Preferred Language: Romanian Communication Ability: Effective Visual Impairment: Limited Hearing Ability: Normal Orange Peel Operator Required: No Beliefs That Will Affect Care: None marital status: Current Living Situation: Spouse Current Living Situation Comment: lives at home with current occupational status: retired How many Children do You have: 2 Feels Safe at Home: Yes Safety Concerns: Feels Safe At This Time Childhood Exposure to Second-Hand Smoke: No Diet: regular caffeine: Yes during the past year weight has: remained stable Dental Care, Regularly: No Physical Activity Frequency: Daily Seatbelt Use: always Sunscreen Use: No Assistive Devices: Denture - Upper and Glasses Allergies Allergies Allergy/AdvReac Type Severity Reaction Status Date / Time No Known Allergies Allergy Verified 03/31/23 19:54 Home Meds Home Medications Medication Instructions Recorded Confirmed aspirin 81 mg tablet,delayed 81 mg PO QAM 12/30/18 03/31/23 release hydroxychloroquine 200 mg tablet 200 mg PO BID 12/18/19 03/31/23 gabapentin 600 mg tablet 600 mg PO TID 09/21/22 03/31/23 atorvastatin 40 mg tablet 40 mg PO QAM 03/18/23 03/31/23 metoprolol succinate 25 mg 25 mg PO BID 03/18/23 03/31/23 tablet,extended release 24 hr (Toprol XL) lisinopril 40 mg tablet 20 mg PO QAM blood pressure 03/31/23 03/31/23 Previous Rx's Medication Instructions Recorded omeprazole 20 mg capsule,delayed 40 mg (2 x 20 mg) PO QAM acid 09/26/22 release refulx #180 caps finasteride 5 mg tablet 5 mg PO QAM #90 tabs 12/16/22 tadalafil 5 mg tablet (Cialis) 5 mg PO DAILY #90 tabs 01/31/23 tamsulosin 0.4 mg capsule (Flomax) 0.4 mg PO QAM #90 caps 02/27/23 levothyroxine 50 mcg tablet 50 mcg PO QAM #90 tabs 03/28/23 tiotropium bromide 2.5 2 puff inhalation QAM #4 grams 03/28/23 mcg/actuation mist for inhalation (Spiriva Respimat) Results & Data (ED) Vital Signs Vital Signs - 24 hr 03/31/23 13:16 03/31/23 18:09 03/31/23 18:09 Temperature 36.7 C Temperature Source Temporal Artery Scan Pulse Rate 80 Pulse Rate [Left Finger] 73 Pulse Rate from SpO2 Sensor Respiratory Rate 18 20 Respiratory Effort / Characteristics Non-Labored Spontaneous Respiratory Depth Normal Blood Pressure 179/89 H Blood Pressure [Left Arm] 172/100 H Blood Pressure Mean 119 Blood Pressure Mean [Left Arm] 124 Blood Pressure Position Sitting Pulse Oximetry 96 96 96 Oxygen Delivery Method Room Air Room Air Room Air Sepsis Recent Fever Within 48 Hours No Sepsis New/Unexplained Change in Mental Status No Sepsis Action Taken by Nursing No Action Required 03/31/23 19:08 03/31/23 19:23 03/31/23 19:31 Temperature Temperature Source Pulse Rate 70 73 71 Pulse Rate [Left Finger] Pulse Rate from SpO2 Sensor 70 66 Respiratory Rate 15 14 Respiratory Effort / Characteristics Respiratory Depth Blood Pressure 156/81 H 146/79 H Blood Pressure [Left Arm] Blood Pressure Mean 106 101 Blood Pressure Mean [Left Arm] Blood Pressure Position Pulse Oximetry 96 96 Oxygen Delivery Method Room Air Sepsis Recent Fever Within 48 Hours Sepsis New/Unexplained Change in Mental Status Sepsis Action Taken by Nursing 03/31/23 20:00 Temperature Temperature Source Pulse Rate 68 Pulse Rate [Left Finger] Pulse Rate from SpO2 Sensor 70 Respiratory Rate 16 Respiratory Effort / Characteristics Respiratory Depth Blood Pressure 152/89 H Blood Pressure [Left Arm] Blood Pressure Mean 110 Blood Pressure Mean [Left Arm] Blood Pressure Position Pulse Oximetry 97 Oxygen Delivery Method Room Air Sepsis Recent Fever Within 48 Hours Sepsis New/Unexplained Change in Mental Status Sepsis Action Taken by Nursing Laboratory Data 03/31/23 13:38 03/31/23 13:38 Lab Results 03/31/23 Range/Units 13:38 WBC 6.20 (4.8-10.8) K/ul RBC 5.19 (4.70-6.10) M/uL Hgb 14.8 (14.0-18.0) g/dl Hct 42.5 (42.0-52.0) % MCV 81.9 (80.0-100.0) fL MCH 28.5 (25.0-34.0) pg MCHC 34.8 (32.0-36.0) g/dL RDW Std Deviation 39.6 (36.4-46.3) fL RDW Coeff of Alyssa 13.4 (11.5-14.5) % Plt Count 120 L (130-400) K/uL MPV 9.0 L (9.4-12.4) fL Immature Gran % (Auto) 0.6 % Neut % (Auto) 67.4 % Lymph % (Auto) 21.8 % Lake % (Auto) 7.9 % Eos % (Auto) 1.8 % Baso % (Auto) 0.5 % Neut # (Auto) 4.18 (1.40-6.50) K/uL Lymph # (Auto) 1.35 (1.20-3.40) K/uL Lake # (Auto) 0.49 (0.11-0.59) K/uL Eos # (Auto) 0.11 (0.00-0.50) K/uL Baso # (Auto) 0.03 (0.00-0.20) K/uL Immature Gran # (Auto) 0.04 (0.01-0.20) K/uL PT 11.7 (9.0-12.0) Seconds INR 1.1 (0.9-1.1) APTT 28.8 (21.0-31.0) Seconds PTT Ratio 1.0 Sodium 138 (136-145) mmol/L Potassium 4.2 (3.5-5.1) mmol/L Chloride 105 (98-107) mmol/L Carbon Dioxide 27 (21-32) mmol/L Anion Gap 6 (3-11) BUN 15 (6-23) mg/dl Creatinine 0.90 (0.6-1.4) mg/dl Est Cr Clr Drug Dosing 104.9 ml/min Est GFR ( Amer) 102.8 ml/min Est GFR (Non-Af Amer) 88.7 ml/min BUN/Creatinine Ratio 16.7 (10-20) Glucose 156 H (70-99(Fasting)) mg/dl Calcium 9.4 (8.6-10.3) mg/dl Total Bilirubin 0.9 (0.2-1.0) mg/dl AST 23 (13-39) U/L ALT 27 (7-52) U/L Alkaline Phosphatase 60 (34-104) U/L Troponin I High Sens 3.5 (0-20) pg/ml Total Protein 6.9 (6.0-8.3) gm/dl Albumin 4.5 (3.4-5.0) gm/dl Globulin 2.4 L (2.5-4.0) gm/dl Albumin/Globulin Ratio 1.9 (0.9-2) Lipase 17 (11-82) U/L Administered Medications Acetaminophen (Acetaminophen 500 Mg Tab) 1,000 mg PO Q8 BENITO Stop: 04/30/23 22:19 Last Admin: 03/31/23 23:50 Dose: 1,000 mg Documented By: NADEEM Apixaban (Apixaban 5 Mg Tablet) 5 mg PO BID BENITO Stop: 04/30/23 22:19 Last Admin: 03/31/23 23:50 Dose: 5 mg Documented By: NADEEM Gabapentin (Gabapentin 600 Mg Tab) 600 mg PO TID [facility] Stop: 04/30/23 22:19 Last Admin: 03/31/23 23:50 Dose: 600 mg Documented By: NADEEM Hydroxychloroquine Sulfate (Hydroxychloroquine Sulfate 200 Mg Tab) 200 mg PO BID BENITO Stop: 04/30/23 22:19 Last Admin: 03/31/23 23:49 Dose: 200 mg Documented By: NADEEM Metoprolol Succinate (Metoprolol Succ 25mg Ext Rel Tab) 25 mg PO BID [facility] Stop: 04/30/23 22:19 Last Admin: 03/31/23 23:49 Dose: 25 mg Documented By: NADEEM Miscellaneous (Tadalafil [Cialis] 5 Mg - Order Awaiting Action) 1 each N/A QS [facility] Stop: 05/01/23 00:00 Last Admin: 04/01/23 00:01 Dose: Not Given Documented By: NADEEM Ondansetron HCl (Ondansetron Inj 2 Mg/Ml 2 Ml Vial) 4 mg IV Q6H PRN PRN Reason: Nausea Stop: 04/30/23 22:14 Last Admin: 03/31/23 22:14 Dose: 4 mg Documented By: ELIZABETH Discontinued Medications Aspirin (Aspirin Chew 324 Mg) 324 mg PO NOW STA Stop: 03/31/23 20:37 Last Admin: 03/31/23 20:40 Dose: 324 mg Documented By: KYUNG Morphine Sulfate (Morphine Sulfate 10 Mg/Ml Carp/Vial) 6 mg IV NOW STA Stop: 03/31/23 18:58 Last Admin: 03/31/23 19:31 Dose: 6 mg Documented By: KYUNG Nitroglycerin (Nitroglycerin Sl 0.4 Mg/Tab Tab) 0.4 mg SL NOW STA Stop: 03/31/23 18:21 Last Admin: 03/31/23 18:48 Dose: 0.4 mg Documented By: ILDA Imaging Data Radiologist's Impression: Chest X-Ray 03/31/23 13:28 XR chest 1V not portable HISTORY: Chest pain, nonspecific COMPARISON: Chest 10/15/2022. FINDINGS: The lungs are clear. Cardiac silhouette is normal in size. No pleural effusions. No pneumothorax. IMPRESSION: No acute process. ACT 112: Negative or not required by law. Electronically signed by: Skyler Naylor M.D. 03/31/2023 2:29 PM Discharge Plan Visit Data Chief Complaint: Chest Pain Stated Complaint: CHEST PAIN, MIDDLE SHOULDER/BACK PAIN ED Provider: Chinedu Beth Discharge Problem: Chest pain, Shortness of breath Patient Disposition: Admitted As Inpatient Discharge Instructions Interventions: ED Discharge Assessment Last Done: 03/31/23 22:19 Discharge Problem: Chest pain Qualifiers: Chest pain type: unspecified Qualified Code(s): R07.9 - Chest pain, unspecified
[2023-03-31] MEDS ORDERED: MoRPHine SULFATE 10 MG/ML CARP/VIAL IV STA (18:57)
--- NOTE | 2023-03-31 20:16 | History & Physical Report ---
Date of Service March 31, 2023 Assessment & Plan (1) Chest pain: Plan: -Pt presents with intermittent, self-resolving midsternal chest pain radiating to shoulder blades x1 week -EKG does not suggest ischemia, negative troponin x1 -Will repeat 1 more troponin -Repeat TTE ordered -Most recent CHUCK 10/2022- EF 55-60%, no WMA -I suspect his pain is more musculoskeletal in nature than cardiac source in background of his recent increase in physical activity and known history of degenerative arthritis of thoracic spine, along with no improvement with nitroglycerin -Also has history of negative catheterization and multiple negative stress tests -Pain control- scheduled Tylenol, Voltaren PRN -Telemetry monitoring (2) Paroxysmal atrial fibrillation: Plan: -Previous history of observed pAF via ZIO monitoring in 10/2022 with CHASTEVASC of at least 3 -As pt is due to start Eliquis as outpatient per last [facility] cardiology note, will start here in hospital -Currently NSR -Continue metoprolol -Anticoagulation with Eliquis 5 mg BID -Per pt, he is to discontinue daily aspirin after starting Eliquis -Given he does not appear to have CAD, we will discontinue daily aspirin as Eliquis is initiated -Telemetry monitoring (3) Rheumatoid arthritis: Plan: -Not in acute flare -Continue hydroxychloroquine (4) Degenerative arthritis of thoracic spine: Plan: -This may be contributing to his pain between shoulder blades -Voltaren PRN (5) COPD (chronic obstructive pulmonary disease): Plan: -Not in exacerbation -Continue Spiriva -Stable respiratory status at present (6) DM II (diabetes mellitus, type II), controlled: Plan: -Diet-controlled diabetes with last A1C 5.4% in 11/2022 -Deferring BSG checks/SQ insulin for now (7) GERD (gastroesophageal reflux disease): Plan: -Continue omeprazole (8) Hyperlipidemia: Plan: -Continue atorvastatin 40 mg (9) Peripheral neuropathy: Plan: -Continue gabapentin (10) Hypertension: Plan: -BP stable -Continue lisinopril, metoprolol (11) Benign prostatic hyperplasia with urinary obstruction: Plan: -Continue tadalafil, tamsulosin, finasteride (12) Hypothyroidism: Plan: -Continue levothyroxine Plan FENGI: Heart healthy, DM2 Code status: Full DVT prophylaxis: Eliquis Isolation: None Unit: Medical/surgical with telemetry Disposition planning: Likely home History of Present Illness Chief Complaint: Chest pain Primary Care Provider: Amparo Chadwick DO Pt is 68 yo M with PMH COPD, HTN, HLD, RA, BPH, DM2 w/ neuropathy, GERD, hypothyroidism and recently diagnosed pAF presenting with chest pain. Pt reports sudden onset of acute chest pain on 03/29- midsternal, sensation of heaviness/pressure, 4/10 severity, radiation to middle of shoulder blades, transient and self-resolving in few minutes, not associated with dyspnea or nausea, no relation with exertion. Pain would occur intermittently since then but today it lasted longer without resolution so pt came to ED. He does report being much more active recently with hunting and outdoor work, which has caused generalized soreness with quality similar to his current chest pain. Of note, pt was diagnosed with paroxysmal atrial fibrillation/flutter in 10/2022 from outpatient cardiac monitoring and was due to start Eliquis but has not received the medication yet from pharmacy. He denies any recent palpitations, lightheadedness, syncope, etc. Pt arrived to ER hemodynamically stable. Initial evaluation unremarkable, including negative troponin x1. EKG NSR w/ some PVCs but no acute ST abnormality. ER interventions include nitroglycerin SL x1 and morphine 6 mg IV. At present, pt reports no particular relief from nitroglycerin + morphine but notes the pain is rather mild. He had a negative cardiac catheterization in 2007 and multiple negative stress tests over the years with most recent in 09/2022. He did recently complete a course of doxycycline for tick bites (prescribed by urgent care) due to myalgias but did not have Lyme testing, also recently completed oral steroid taper due to L lateral epicondylitis. Allergies Allergy/AdvReac Type Severity Reaction Status Date / Time No Known Allergies Allergy Verified 03/31/23 19:54 Home Medications Medication Instructions Recorded Confirmed Type aspirin 81 mg tablet,delayed 81 mg PO QAM 12/30/18 03/31/23 History release hydroxychloroquine 200 mg tablet 200 mg PO BID 12/18/19 03/31/23 History gabapentin 600 mg tablet 600 mg PO TID 09/21/22 03/31/23 History omeprazole 20 mg capsule,delayed 40 mg (2 x 20 mg) PO QAM acid 09/26/22 03/31/23 Rx release refulx #180 caps finasteride 5 mg tablet 5 mg PO QAM #90 tabs 12/16/22 03/31/23 Rx tadalafil 5 mg tablet (Cialis) 5 mg PO DAILY #90 tabs 01/31/23 03/31/23 Rx tamsulosin 0.4 mg capsule (Flomax) 0.4 mg PO QAM #90 caps 02/27/23 03/31/23 Rx atorvastatin 40 mg tablet 40 mg PO QAM 03/18/23 03/31/23 History metoprolol succinate 25 mg 25 mg PO BID 03/18/23 03/31/23 History tablet,extended release 24 hr (Toprol XL) levothyroxine 50 mcg tablet 50 mcg PO QAM #90 tabs 03/28/23 03/31/23 Rx tiotropium bromide 2.5 2 puff inhalation QAM #4 grams 03/28/23 03/31/23 Rx mcg/actuation mist for inhalation (Spiriva Respimat) lisinopril 40 mg tablet 20 mg PO QAM blood pressure 03/31/23 03/31/23 History Past Med/Surg History Medical History COPD (chronic obstructive pulmonary disease) DM II (diabetes mellitus, type II), controlled Emphysema, unspecified 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 Pulmonary nodule Hyperlipidemia Rupture of left rectus femoris tendon Rheumatoid arthritis Peripheral neuropathy GERD (gastroesophageal reflux disease) Hypertension Surgical History S/P colon resection (10/11/22) History of colonoscopy History of esophagogastroduodenoscopy (EGD) History of tooth extraction Status post surgery (2009) S/P repair of hydrocele History of appendectomy History of cholecystectomy Hx of cardiac cath (~01/2008) Family History Sister Breast cancer, Onset Age: 40 Father Myocardial infarction Uncle Myocardial infarction Grandfather (Maternal) Myocardial infarction Mother Diabetes Denies family history of Ovarian cancer Prostate cancer Colorectal cancer Social History Smoking Status: Never smoker Second Hand Exposure: No; Do You Dip or Chew Tobacco: No; Hx Alcohol Use: Yes Alcohol type: beer Alcohol Intake Frequency: Monthly or Less Hx Substance Use: No Preferred Language: British Communication Ability: Effective Visual Impairment: Limited Hearing Ability: Normal Electronic Device Monitor Required: No Beliefs That Will Affect Care: None marital status: Current Living Situation: Spouse Current Living Situation Comment: lives at home with current occupational status: retired How many Children do You have: 2 Feels Safe at Home: Yes Childhood Exposure to Second-Hand Smoke: No Diet: regular caffeine: Yes during the past year weight has: remained stable Dental Care, Regularly: No Physical Activity Frequency: Daily Seatbelt Use: always Sunscreen Use: No Assistive Devices: Denture - Upper and Glasses Review of Systems Review of Systems: Per HPI/Subjective Physical Exam Physical Exam: General: well-appearing, no acute distress HEENT: PERRL, EOMI, conjunctivae clear without injection, anicteric sclerae, moist mucous membranes, clear oropharynx without exudate or erythema Neck: supple, trachea midline, no thyromegaly, no JVD, no cervical lymphadenopathy CV: RRR, normal S1 and S2, no murmurs Resp: CTAB, no increased work of breathing, no crackles or wheezes Abd: Soft, nontender, nondistended, no guarding or rebound, no hepatosplenomegaly MSK: Normal bulk of all four extremities Neuro: AOx3, no focal motor or sensory deficits Skin: no rashes or lesions, warm and dry Ext: no LE peripheral edema or erythema, capillary refill <2s in all four extremities, 2+ LE peripheral pulses b/l Results & Data Results & Data Vital Signs (Past 12 Hours) Vital Signs Temp Pulse Pulse Resp BP BP Pulse Ox 03/31/23 19:23 73 03/31/23 19:08 70 15 156/81 H 96 03/31/23 18:09 96 03/31/23 18:09 73 20 172/100 H 96 03/31/23 13:16 36.7 C 80 18 179/89 H 96 O2 Del Method 03/31/23 19:23 03/31/23 19:08 03/31/23 18:09 Room Air 03/31/23 18:09 Room Air 03/31/23 13:16 Room Air Supervising Physician Co-Signing Physician Notes Attending addendum: I have physically seen this patient, have supervised the medical residents activities, and agree with the H&P unless as otherwise noted. Assessment and Plan: Chest pain/paroxysmal atrial fibrillation/hypertension/hypercoagulable state- The patient will be admitted to telemetry for serial cardiac enzymes, serial EKG's, cardiac rhythm monitoring and a 2-D echocardiogram with Dopplers. Continue aspirin, lisinopril, metoprolol succinate Rheumatoid arthritis- At baseline symptomatology Continue hydroxychloroquine 20 mg p.o. twice daily BPH with LUTS- Continue finasteride and tamsulosin Diabetes mellitus- Placed on Accu-Cheks before meals and at bedtime with NovoLog coverage Check hemoglobin A1c Remaining orders and notations as noted Ciak for Resident Activity Tracking Resident Involvement: Resident Care Provided Care Provided: Adult Hospital Medicine (1) Chest pain Chest pain type: unspecified Qualified Code(s): R07.9 - Chest pain, unspecified (10) Hypertension Hypertension type: essential hypertension Qualified Code(s): I10 - Essential (primary) hypertension
[2023-03-31] MEDS ORDERED: ASPIRIN CHEW 324 MG PO STA (20:36)
--- OUTSIDE RECORDS SUMMARY | 2023-03-31 20:49 | External Medical Summary | Summary of Care ---
Author Name Unknown Organization [facility] Address [address] [facility] [place] [address] Phone [phone] Care Team Providers Care Signal Manager Name Role Phone DinotamaraAmparoe Primary Care Provider [phone]- [phone] Reason for Visit * Reason Onset Date Comments Follow Up 03/14/2023 Encounter Details Date Type Department Care Team (Late st Contact Info) Description 03/14/2023 Telephone Cardiology, [facility] [address] [place] [address] Gagan Oglesby DO [address] [place] [address] Follow Up Allergies No known active allergiesdocumented as of this encounter (statuses as of 03/26/2023) Medications Medication Sig Dispensed Refills Start Date End Date Status Lisinopril 40 MG Oral Tablet Take 0.5 Tablets by mouth in the morning. 0 Active SPIRIVA RESPIMAT 2.5 MCG/ACT Inhale 2 Puffs by mouth every morning. 0 03/13/2018 Active Omeprazole 20 MG Oral Capsule Delayed Release Take 2 Capsules by mouth in the morning. 5 04/05/2019 Active Gabapentin 600 MG Oral Tablet Take 1 Tablet by mouth in the morning and 1 Tablet at noon and 1 Tablet before bedtime. 0 Active Hydroxychloroquine Sulfate 200 MG Oral Tablet (Plaquenil) Take 1 Tablet by mouth in the morning and 1 Tablet before bedtime. 0 Active Tamsulosin HCl 0.4 MG Oral Capsule (Flomax) Take 1 Capsule by mouth in the morning. 0 Active Atorvastatin Calcium 40 MG Oral Tablet (Lipitor) Take 1 Tablet by mouth at bedtime. 0 09/25/2021 Active Tadalafil 5 MG Oral Tablet (Cialis) Take 1 Tablet by mouth in the morning. 0 11/13/2021 Active Levothyroxine Sodium 50 MCG Oral Tablet (Levoxyl) Take 1 Tablet by mouth daily first thing in the morning. 0 09/06/2022 Active Finasteride 5 MG Oral Tablet (Proscar) Take 1 Tablet by mouth in the morning. 0 07/17/2022 Active Metoprolol Succinate ER 25 MG Oral Tablet Extended Release 24 Hour (toPROL XL) Take 1 Tablet by mouth in the morning and 1 Tablet before bedtime. 180 Tablet 3 03/13/2023 Active Apixaban 5 MG Oral Tablet (Eliquis) Take 1 Tablet by mouth in the morning and 1 Tablet before bedtime. 180 Tablet 3 03/14/2023 Active documented as of this encounter (statuses as of 03/26/2023) Active Problems Problem Noted Date Diagnosed Date PAF (paroxysmal atrial fibrillation) 03/13/2023 Hypertriglyceridemia 04/08/2018 COPD, severity to be determined 04/14/2002 Essential hypertension with goal blood pressure less than 130/80 Overview: Modified per HTN protocol #16. GERD (gastroesophageal reflux disease) Chest pain, non-cardiac Overview: card cath negative for CAD documented as of this encounter (statuses as of 03/26/2023) Social History Tobacco Use Types Packs/Day Years Used Date Smoking Tobacco: Never Smokeless Tobacco: Former Snuff Alcohol Use Standard Drinks/Week Comments Yes 0 (1 standard drink = 0.6 oz pur e alcohol) rare Sex and Gender Information Value Date Recorded Sex Assigned at Not on file Gender Identity Not on file Sexual Orientation Not on file Job Start Date Occupation Industry Not on file Not on file Not on file documented as of this encounter Miscellaneous Notes * Telephone Encounter - Lissa Santamaria LPN - 03/26/2023 3:33 PM EST Attempted to reach pt by phone for follow up. No answer. Left message on machine for pt to call back. Also sent my chart message. * Telephone Encounter - Gagan Oglesby DO - 03/14/2023 3:52 PM EST I reviewed the patient's lab work as performed at [facility] Hemoglobin, platelets, kidney function within normal limits Discontinue aspirin. Start Eliquis due to history of ischemic colitis felt to be due to a cardioembolic event with suggestion of paroxysmal atrial fibrillation on recent Zio patch. I attempted to reach the patient. Nobody picked up his mobile phone, and I was unable to leave a message. I left a voicemail message on his home answering machine that I was sending a prescription for Eliquis 5 milligrams twice daily to his pharmacy on file, [facility]. The electronic record predicts a 40 dollar [id number] cost for a 90 day supply of Eliquis. Cardiology nursing: Please follow-up with him by phone next week to ensure that he received the message. Stop aspirin when he starts the Eliquis. Gagan Oglesby DO documented in this encounter Plan of Treatment Health Maintenance Due Date Last Done Comments COVID-19 Vaccine (#1) 1962 Pneumococcal Vaccine: 65+ Years (1 - PCV) 1963 Depression Screening 1969 Albumin/Creatinine Ratio 1975 Alpha-1 Antitrypsin 1975 Hepatitis C Screening 1975 DTaP,Tdap,and Td Vaccines (1 - Tdap) 01/30/1976 Zoster Vaccines (1 of 2) 01/30/1976 Cologuard 2002 Colonoscopy 2002 Colorectal Cancer Screening 2002 Fecal Occult Blood Test 2002 Sigmoidoscopy 2002 TSH 04/16/2020 04/16/2019, 09/27, 10/11/2010, Additional history exists Influenza Vaccine (FLU shot) (#1) 2022 GFR 03/13/2024 03/13/2023, 10/27, 05/03/2022, Additional history exists O2 ASSESSMENT COMPLETED IN PAST YEAR FOR COPD 03/13/2024 03/13/2023 Lipid Panel 12/10/2026 12/10/2021, 03/28, 03/31/2018, Additional history exists GARDASIL-HPV IMMUNIZATION SERIES Aged Out No longer eligible based on patient's age to complete this topic Hepatitis B Aged Out No longer eligi ble based on patient's age to complete this topic MENINGOCOCCAL (MENACTRA/MENVEO) Aged Out No longer eligible based on patient's age to complete this topic documented as of this encounter Medical Devices Not on filedocumented as of this encounter Care Teams Signal Manager Relationship Specialty Start Date End Date Amapro Chadwick DO [address] [facility] [address] [place] [address] PCP - General Family Medicine 10/07/22 documented as of this encounter
--- OUTSIDE RECORDS SUMMARY | 2023-03-31 20:49 | External Medical Summary | Summary of Care ---
Author Name Unknown Organization [facility] Address [address] [place] [address] Phone [phone] Care Team Providers Care Dry Food Products Mixer Name Role Phone DinotamraaAmparoe Primary Care Provider +1- [phone] Reason for Visit * Reason Onset Date Comments Follow Up 03/14/2023 Encounter Details Date Type Department Care Team (Late st Contact Info) Description 03/14/2023 Telephone Cardiology, [facility] [address] [place] [address] Gagan Oglesby DO [address] [place] [address] Follow Up Allergies No known active allergiesdocumented as of this encounter (statuses as of 03/28/2023) Medications Medication Sig Dispensed Refills Start Date [...] as of this encounter (statuses as of 03/28/2023) Active Problems Problem Noted Date Diagnosed Date PAF (paroxysmal atrial fibrillation) 03/13/2023 Hypertriglyceridemia 04/08/2018 COPD, severity to be determined 04/14/2002 Essential hypertension with goal blood pressure less than 130/80 Overview: Modified per HTN protocol #16. GERD (gastroesophageal reflux disease) Chest pain, non-cardiac Overview: card cath negative for CAD documented as of this encounter (statuses as of 03/28/2023) Social History Tobacco Use Types Packs/Day Years [...] the patient's lab work as performed at [facility] Hemoglobin, platelets, kidney function within normal limits [...] twice daily to his pharmacy on file, [facility]. The electronic record predicts a 40 dollar [id number] cost for a 90 day supply of [...] filedocumented as of this encounter Care Teams Dry Food Products Mixer Relationship Specialty Start Date End Date Amparo Chadwick DO [address] [facility] [address] [place] [address] PCP - General Family Medicine 10/07/22 documented as of this encounter
[2023-03-31] MEDS ORDERED: ONDANSETRON INJ 2 MG/ML 2 ML VIAL IV PRN (22:02)
[2023-03-31 22:07] LABS: D Dimer < 190 ug/L FEU (0-500)
[2023-03-31] MEDS ORDERED: DICLOFENAC SOD 1% GEL 100 GM TUBE EXT PRN (22:20)
[2023-03-31 22:30] LABS: Lyme Ab IgG w/WB Rflx Negative (Negative); Lyme Ab IgM w/WB Rflx Negative (Negative)
[2023-03-31] MEDS: METOPROLOL SUCC 25MG EXT REL TAB PO SCH (23:49)
[2023-03-31] MEDS: HYDROXYCHLOROQUINE SULFATE 200 MG TAB PO SCH (23:49)
[2023-03-31] MEDS: ACETAMINOPHEN 500 MG TAB PO SCH (23:50)
[2023-03-31] MEDS: GABAPENTIN 600 MG TAB PO SCH (23:50)
[2023-03-31] MEDS: APIXABAN 5 MG TABLET PO SCH (23:50)
[2023-04-01 02:22] VITALS: O2SAT 97
[2023-04-01] MEDS: ACETAMINOPHEN 500 MG TAB PO SCH (05:37)
[2023-04-01] MEDS ORDERED: LEVOTHYROXINE SODIUM 50 MCG TABLET PO SCH (06:30)
[2023-04-01 07:14] LABS: Hematocrit (blood only) 41.1 % (42.0-52.0); Hemoglobin 14.4 g/dl (14.0-18.0); Mean Corpuscular Hemoglobin 28.6 pg (25.0-34.0); Mean Corpuscular Volume 81.7 fL (80.0-100.0); Mean Platelet Volume 8.7 fL (9.4-12.4); Platelet Count 111 K/uL (130-400); RDW Coefficient of Variation 13.6 % (11.5-14.5); RDW Standard Deviation 40.1 fL (36.4-46.3); Red Blood Count 5.03 M/uL (4.70-6.10); White Blood Count 6.65 K/ul (4.8-10.8)
[2023-04-01 07:43] LABS: BUN Creatinine Ratio 17.6 (10-20); Calcium 9.4 mg/dl (8.6-10.3); Creatinine Clr Calc Pharmacy 108.5 ml/min; Est GFR (African American) 105.2 ml/min; Est GFR (Non-African American) 90.8 ml/min; Magnesium 1.8 mg/dl (1.7-2.4); Potassium 4.2 mmol/L (3.5-5.1)
[2023-04-01] MEDS: METOPROLOL SUCC 25MG EXT REL TAB PO SCH (07:58)
[2023-04-01] MEDS: APIXABAN 5 MG TABLET PO SCH (07:59)
[2023-04-01] MEDS: HYDROXYCHLOROQUINE SULFATE 200 MG TAB PO SCH (07:59)
[2023-04-01] MEDS: GABAPENTIN 600 MG TAB PO SCH (07:59)
--- NOTE | 2023-04-01 08:46 | Hospitalist Progress Note ---
Date of Service April 01, 2023 Assessment & Plan Plan [facility] [address] History & Physical Report ISigned Patient: YESICA COFFEY Admit Date: 03/31/23 MR#: [id number] Att Phy: Acct ID: [id number] Whitney Phy: Netta Amparotamara Dunne DO Date: 1955 Fam Phy: Age: 68 Location: ED Sex: M Room/Bed: cc: ~ *NOTICE TO RECEIVING CONSTITUTION PARTY/AGENCY This information is strictly Confidential and protected under [place] law. [place] law prohibits you from making any further disclosure of this information unless further disclosure is expressly permitted by the written consent of the person to whom it pertains or is authorized by law. A general authorization for the release of medical or other information is not sufficient for this purpose. Hospital accepts no responsibility if the information is made available to any other person, INCLUDING THE PATIENT. Date of Service March 31, 2023 Assessment & Plan (1) Chest pain: -Pt presents with intermittent, self-resolving midsternal chest pain radiating to shoulder blades x1 week -EKG does not suggest ischemia, negative troponin x1 -Will repeat 1 more troponin -Repeat TTE ordered -Most recent CHUCK 10/2022- EF 55-60%, no WMA -I suspect his pain is more musculoskeletal in nature than cardiac source in background of his recent increase in physical activity and known history of degenerative arthritis of thoracic spine, along with no improvement with nitroglycerin -Also has history of negative catheterization and multiple negative stress tests -Pain control- scheduled Tylenol, Voltaren PRN -Telemetry monitoring (2) Paroxysmal atrial fibrillation: -Previous history of observed pAF via ZIO monitoring in 10/2022 with CHASTEVASC of at least 3 -As pt is due to start Eliquis as outpatient per last [facility] cardiology note, will start here in hospital -Currently NSR -Continue metoprolol -Anticoagulation with Eliquis 5 mg BID -Per pt, he is to discontinue daily aspirin after starting Eliquis -Given he does not appear to have CAD, we will discontinue daily aspirin as Eliquis is initiated -Telemetry monitoring (3) Rheumatoid arthritis: -Not in acute flare -Continue hydroxychloroquine (4) Degenerative arthritis of thoracic spine: -This may be contributing to his pain between shoulder blades -Berny CHAWLA (5) COPD (chronic obstructive pulmonary disease): -Not in exacerbation -Continue Spiriva -Stable respiratory status at present (6) DM II (diabetes mellitus, type II), controlled: -Diet-controlled diabetes with last A1C 5.4% in 11/2022 -Deferring BSG checks/SQ insulin for now (7) GERD (gastroesophageal reflux disease): -Continue omeprazole (8) Hyperlipidemia: -Continue atorvastatin 40 mg (9) Peripheral neuropathy: -Continue gabapentin (10) Hypertension: -BP stable -Continue lisinopril, metoprolol (11) Benign prostatic hyperplasia with urinary obstruction: -Continue tadalafil, tamsulosin, finasteride (12) Hypothyroidism: -Continue levothyroxine Plan FENGI: Heart healthy, DM2 Code status: Full DVT prophylaxis: Eliquis Isolation: None Unit: Medical/surgical with telemetry Disposition planning: Likely home Admission and Anticipated Discharge Date Admission Date: March 31, 2023 Subjective Chief Complaint: Chest pain Primary Care Provider: Amparo Chadwick DO Pt is 68 yo M with PMH COPD, HTN, HLD, RA, BPH, DM2 w/ neuropathy, GERD, hypothyroidism and recently diagnosed pAF presenting with chest pain. Pt reports sudden onset of acute chest pain on 03/29- midsternal, sensation of heaviness/pressure, 4/10 severity, radiation to middle of shoulder blades, transient and self-resolving in few minutes, not associated with dyspnea or nausea, no relation with exertion. Pain would occur intermittently since then but today it lasted longer without resolution so pt came to ED. He does report being much more active recently with hunting and outdoor work, which has caused generalized soreness with quality similar to his current chest pain. Of note, pt was diagnosed with paroxysmal atrial fibrillation/flutter in 10/2022 from outpatient cardiac monitoring and was due to start Eliquis but has not received the medication yet from pharmacy. He denies any recent palpitations, lightheadedness, syncope, etc. Pt arrived to ER hemodynamically stable. Initial evaluation unremarkable, including negative troponin x1. EKG NSR w/ some PVCs but no acute ST abnormality. ER interventions include nitroglycerin SL x1 and morphine 6 mg IV. At present, pt reports no particular relief from nitroglycerin + morphine but notes the pain is rather mild. He had a negative cardiac catheterization in 2007 and multiple negative stress tests over the years with most recent in 09/2022. He did recently complete a course of doxycycline for tick bites (prescribed by urgent care) due to myalgias but did not have Lyme testing, also recently completed oral steroid taper due to L lateral epicondylitis. Results & Data Results & Data Vital Signs (Past 12 Hours) Vital Signs Temp Pulse Pulse Resp BP Pulse Ox Pulse Ox 04/01/23 08:15 36.5 C 61 20 165/91 H 04/01/23 07:47 36.5 C 58 L 16 150/83 H 97 04/01/23 07:00 55 L 04/01/23 02:21 36.5 C 61 18 135/74 97 04/01/23 00:43 59 L 03/31/23 23:34 36.6 C 64 18 144/79 H 94 03/31/23 22:20 94 03/31/23 22:20 36.6 C 64 18 144/79 H 94 O2 Del Method O2 Del Method 04/01/23 08:15 Room Air 04/01/23 07:47 Room Air 04/01/23 07:00 04/01/23 02:21 Room Air 04/01/23 00:43 03/31/23 23:34 Room Air 03/31/23 22:20 Room Air 03/31/23 22:20 Room Air
[2023-04-01] MEDS ORDERED: FINASTERIDE 5 MG TAB PO SCH (09:00)
[2023-04-01] MEDS ORDERED: UMECLIDINIUM BROMIDE 62.5MCG/BLISTER 7 PUFFS/INHALER INH SCH (09:00)
[2023-04-01] MEDS ORDERED: TAMSULOSIN HCL 0.4 MG CAP PO SCH (09:00)
[2023-04-01] MEDS ORDERED: PANTOprazole 40 MG TAB PO SCH (09:00)
[2023-04-01] MEDS ORDERED: ATORVASTATIN 40 MG TAB PO SCH (09:00)
[2023-04-01] MEDS ORDERED: lisinopril 20 MG TAB PO SCH (09:00)
[2023-04-01 11:19] VITALS: BP 128/70; PULSE 69; RESP 16; TEMP 97.9
--- NOTE | 2023-04-01 11:29 | Discharge Summary ---
Date of Service April 01, 2023 Admission HPI Per Admitting Provider Pt is 68 yo M with PMH COPD, HTN, HLD, RA, BPH, DM2 w/ neuropathy, GERD, hypothyroidism and recently diagnosed pAF presenting with chest pain. Pt reports sudden onset of acute chest pain on 12- midsternal, sensation of heaviness/pressure, 4/10 severity, radiation to middle of shoulder blades, transient and self-resolving in few minutes, not associated with dyspnea or nausea, no relation with exertion. Pain would occur intermittently since then but today it lasted longer without resolution so pt came to ED. Reported being much more active recently with hunting, outdoor work, climbing trees to reach look-out posts, which has caused generalized soreness with quality similar to his current chest pain. Of note, pt was diagnosed with paroxysmal atrial fibrillation/flutter in 10/2022 from outpatient cardiac monitoring and was due to start Eliquis but has not received the medication yet from pharmacy. He denies any recent palpitations, lightheadedness, syncope, etc. Pt arrived to ER hemodynamically stable. Initial evaluation unremarkable, patient has had negative troponin x 2. EKG NSR w/ some PVCs, o acute ST abnormality. ER interventions include nitroglycerin SL x 1 and morphine 6 mg IV. At present, pt reports no particular relief from nitroglycerin + morphine but notes the pain is rather mild. He had a negative cardiac catheterization in 2007 and multiple negative stress tests over the years with most recent in 09/2022. He did recently complete a course of doxycycline for tick bites (prescribed by urgent care) due to myalgias but did not have Lyme testing, also recently completed oral steroid taper due to L lateral epicondylitis. Admission Exam Per Admitting Provider Physical Exam: General: well-appearing, no acute distress HEENT: PERRL, EOMI, conjunctivae clear without injection, anicteric sclerae, moist mucous membranes, clear oropharynx without exudate or erythema Neck: supple, trachea midline, no thyromegaly, no JVD, no cervical lymphadenopathy CV: RRR, normal S1 and S2, no murmurs Resp: CTAB, no increased work of breathing, no crackles or wheezes Abd: Soft, nontender, nondistended, no guarding or rebound, no hepatosplenomegaly MSK: Normal bulk of all four extremities Neuro: AOx3, no focal motor or sensory deficits Skin: no rashes or lesions, warm and dry Ext: no LE peripheral edema or erythema, capillary refill <2s in all four extremities, 2+ LE peripheral pulses b/l Principal Diagnosis Musculoskeletal chest pain Discharge Exam Constitutional WD/WN, vitals as above Respiratory normal respiratory effort, lungs clear to auscultation Cardiovascular RRR, no murmur, no edema Gastrointestinal (Abdomen) normal bowel sounds, soft, nontender, no hepatosplenomegaly Musculoskeletal Head/Neck/Chest: + chest tenderness Spine: + thoracic spinal tenderness (between shoulder blades pain reproducible w/ palpation) and + paraspinal tenderness Neurologic moves all extremities and awake no numbness or tingling in arms, hands, or fingers Psychiatric A+Ox3, euthymic affect Discharge Data Allergies Allergy/AdvReac Type Severity Reaction Status Date / Time No Known Allergies Allergy Verified 03/31/23 19:54 Consultations 03/31/23 20:36 ED Decision to Admit Stat Hospital Course (1) Chest pain: (2) Paroxysmal atrial fibrillation: (3) Rheumatoid arthritis: (4) Degenerative arthritis of thoracic spine: (5) COPD (chronic obstructive pulmonary disease): (6) DM II (diabetes mellitus, type II), controlled: (7) GERD (gastroesophageal reflux disease): (8) Hyperlipidemia: (9) Peripheral neuropathy: (10) Hypertension: (11) Benign prostatic hyperplasia with urinary obstruction: (12) Hypothyroidism: [place] [address] History & Physical Report ISigned Patient: YESICA COFFEY Admit Date: 03/31/23 MR#: [id number] Att Phy: Acct ID: [id number] Whitney Phy: Amparo Chadwick DO Date: 1955 Fam Phy: Age: 68 Location: ED Sex: M Room/Bed: cc: ~ *NOTICE TO RECEIVING REPUBLICAN/AGENCY This information is strictly Confidential and protected under [place] law. [place] law prohibits you from making any further disclosure of this information unless further disclosure is expressly permitted by the written consent of the person to whom it pertains or is authorized by law. A general authorization for the release of medical or other information is not sufficient for this purpose. Hospital accepts no responsibility if the information is made available to any other person, INCLUDING THE PATIENT. Date of Service March 31, 2023 Assessment & Plan (1) Chest pain -Pt presents with intermittent, self-resolving midsternal chest pain radiating to shoulder blades x1 week -EKG --> NSR, does not suggest ischemia, negative troponin x 2 -Most recent CHUCK 10/2022- EF 55-60%, no WMA - TTE (12.05.23): No significant abnormal findings. Grade 1 diastolic dysfunction. EF 50-55%. LV nml in size. No sig valvular dz. - Pain most likely musculoskeletal in nature: recent increase in physical activity, known history of degenerative arthritis of thoracic spine, no improvement with SL nitroglycerin - History of negative catheterization and multiple negative stress tests -Pain control- scheduled Tylenol, Voltaren PRN (2) Paroxysmal atrial fibrillation -Previous history of observed pAF via ZIO monitoring in 10/2022 with CHADSVASC of at least 3 -As pt is due to start Eliquis as outpatient per last [facility] cardiology note, will start here in hospital -Currently NSR -Continue metoprolol -Anticoagulation with Eliquis 5 mg BID -Per pt, he is to discontinue daily aspirin after starting Eliquis -Given he does not appear to have CAD, we will discontinue daily aspirin as Svetlana heather is initiated (3) Rheumatoid arthritis -Not in acute flare -Continue hydroxychloroquine (4) Degenerative arthritis of thoracic spine -This may be contributing to his pain between shoulder blades -Voltaren PRN (5) COPD (chronic obstructive pulmonary disease) -Not in exacerbation -Continue Spiriva -Stable respiratory status at present (6) T2DM, controlled -Diet-controlled diabetes with last A1C 5.4% in 11/2022 -Deferring BSG checks/SQ insulin for now (7) GERD -Continue omeprazole (8) Hyperlipidemia -Continue atorvastatin 40 mg (9) Peripheral neuropathy -Continue gabapentin (10) Hypertension -BP intermittently elevated (SBP > 160), but stable -Continue lisinopril, metoprolol (11) Benign prostatic hyperplasia with urinary obstruction -Continue tadalafil, tamsulosin, finasteride (12) Hypothyroidism -Continue levothyroxine Plan FENGI: Heart healthy, DM2 Code status: Full DVT prophylaxis: Eliquis Isolation: None Unit: Medical/surgical with telemetry Disposition planning: Likely home Total Time Total Time Spent Total Time Spent (In Minutes): <30 Discharge Plan Discharge Items Patient Disposition: Home - Self-Care Reason For Visit: CHEST PAIN Discharge Diagnosis: musculoskeletal chest and back pain Activity: Resume your previous activity Non-emergency contact: Primary Care Provider Call non-emergency contact if: you have any medication questions and you have a fever Follow-up/Referrals: Amparo Chadwick DO [Primary Care Provider] - 04/14/23 8:20 am Diet: Carb Consistent or DM2 Addtl Attending Provider Instructions: You were admitted to the hospital for chest and back pain . You were treated with home medications and Voltaren, 1%, gel. A discharge summary will be sent to your primary care physician to ensure continuity of care. Please bring this discharge summary with you to your next office appointment so that your provider can review it at that time. Follow-up appointments: We have requested a follow-up appointment with your primary care physician within one week of discharge. Please call their office if you do not hear from them. Keep all your follow-up appointments as already scheduled. If you cannot make an appointment, notify your provider. Medications: Your medication list has been reviewed and reconciled upon discharge to ensure accuracy and continuity of care. An updated list of all your medications is included with your hospital discharge paperwork. Please review this list closely, and make note of any changes. Take your medications as instructed; do not skip a dose of your medicines. Make sure all of your doctors know every medicine you are taking (including nedg-ftj-agjludo medicines, vitamins, and supplements). Call your primary care provider before taking any new medicines (including yaoh-ues-ppkpaha medicines, vitamins, and supplements), because some of these may interact with your current medications, or may make your symptoms worse. Tell your primary care provider if you cannot afford your medications. CONTACT YOUR PRIMARY CARE PROVIDER if you experience any of the following: chest pain with exertion, shortness of breath Difficulty following your treatment plan, or difficulty taking medications CALL 911 OR GO TO THE EMERGENCY DEPARTMENT if you experience any of the following: Sudden, severe abdominal pain or nausea/vomiting Severe chest pain, or chest pain that radiates (moves) to your jaw or arm Sudden, severe shortness of breath or difficulty breathing Thank you for allowing us to participate in your care Pending Studies at Discharge: No Stand-Alone Forms: My [facility], Smoking Cessation Medications and DC Order Prescriptions: Continued omeprazole 20 mg capsule,delayed release(DR/EC) 40 mg PO QAM Qty: 180 3RF tadalafil [Cialis] 5 mg tablet 5 mg PO DAILY Qty: 90 3RF tamsulosin [Flomax] 0.4 mg capsule 0.4 mg PO QAM Qty: 90 0RF levothyroxine 50 mcg tablet 50 mcg PO QAM Qty: 90 3RF Spiriva Respimat 2.5 mcg/actuation mist 2 puff inhalation QAM Qty: 4 5RF metoprolol succinate [Toprol XL] 25 mg tablet extended release 24 hr 25 mg PO BID atorvastatin 40 mg tablet 40 mg PO QAM finasteride 5 mg tablet 5 mg PO QAM Qty: 90 3RF hydroxychloroquine 200 mg Tablet 200 mg PO BID aspirin 81 mg Tablet,Delayed Release (Dr/Ec) 81 mg PO QAM lisinopril 40 mg tablet 20 mg PO QAM gabapentin 600 mg tablet 600 mg PO TID Discharge Orders: Discharge Order (Routine); Ordered 04/01/23 Ordered By: Duy Mendoza/Other Patient Handouts: AFib Dc, ED Chest Pain, Noncardiac Admission Data Admit Date/Time: 03/31/23 20:14 Attending Provider: Chinedu Salgado Admit Provider: Vannesa Ascencio Primary Care Provider: Amparo Chadwick Other Providers: Eze Wing Other Interventions: Discharge Summary Assessment (RN) Last Done: 04/01/23 10:16 Supervising Physician Co-Signing Physician Notes I personally examined the patient and verified all perkins points of history and exam, discussed case, and agree with decision making with Dr Vega overall feeling better and feeling up to going home. Was mostly concerned that it could be cardiac, but felt like it was most likely muscular. Vitals noted, in general he is awake and alert pleasant no distress. HEENT normocephalic atraumatic mucous membranes moist. Breathing unlabored no accessory muscle use good effort. Skin shows no rashes no pallor or icterus. Neuro without focal deficits. Chest painalmost certainly musculoskeletal. GA ruled out. Has had multiple reassuring stress test. Safe/stable for home. Otherwise as above.
--- NOTE | 2023-04-01 13:41 | Electrocardiogram Report ---
Test Reason : Blood Pressure : / mmHG Vent. Rate : 081 BPM Atrial Rate : 081 BPM P-R Int : 118 ms QRS Dur : 090 ms QT Int : 382 ms P-R-T Axes : 038 003 036 degrees QTc Int : 443 ms Sinus rhythm with occasional Premature ventricular complexes Otherwise normal ECG When compared with ECG of 31-MAR-2023 13:27, No significant change was found Confirmed by Michele Badillo ([id number]) on 04/01/2023 1:40:44 PM Referred By: REFERRED SELF Confirmed By:Michele Badillo
--- NOTE | 2023-04-01 17:36 | Billing Data ---
Date of Service April 01, 2023 Coding Level of Care Code 50487 IN/OBS DISCH 30 MIN/LESS
--- NOTE | 2023-04-01 18:13 | Discharge Summary ---
Date of Service April 01, 2023 Admission HPI Per Admitting Provider Pt is 68 yo M with PMH COPD, HTN, HLD, RA, BPH, DM2 w/ neuropathy, GERD, hypothyroidism and recently diagnosed pAF presenting with chest pain. Pt reports sudden onset of acute chest pain on 12- midsternal, sensation of heaviness/pressure, 4/10 severity, radiation to middle of shoulder blades, transient and self-resolving in few minutes, not associated with dyspnea or nausea, no relation with exertion. Pain would occur intermittently since then but today it lasted longer without resolution so pt came to ED. Reported being much more active recently with hunting, outdoor work, climbing trees to reach look-out posts, which has caused generalized soreness with quality similar to his current chest pain. Of note, pt was diagnosed with paroxysmal atrial fibrillation/flutter in 10/2022 from outpatient cardiac monitoring and was due to start Eliquis but has not received the medication yet from pharmacy. He denies any recent palpitations, lightheadedness, syncope, etc. Pt arrived to ER hemodynamically stable. Initial evaluation unremarkable, patient has had negative troponin x 2. EKG NSR w/ some PVCs, o acute ST abnormality. ER interventions include nitroglycerin SL x 1 and morphine 6 mg IV. At present, pt reports no particular relief from nitroglycerin + morphine but notes the pain is rather mild. He had a negative cardiac catheterization in 2007 and multiple negative stress tests over the years with most recent in 09/2022. He did recently complete a course of doxycycline for tick bites (prescribed by urgent care) due to myalgias but did not have Lyme testing, also recently completed oral steroid taper due to L lateral epicondylitis. Admission Exam Per Admitting Provider Physical Exam: General: well-appearing, no acute distress HEENT: PERRL, EOMI, conjunctivae clear without injection, anicteric sclerae, moist mucous membranes, clear oropharynx without exudate or erythema Neck: supple, trachea midline, no thyromegaly, no JVD, no cervical lymphadenopathy CV: RRR, normal S1 and S2, no murmurs Resp: CTAB, no increased work of breathing, no crackles or wheezes Abd: Soft, nontender, nondistended, no guarding or rebound, no hepatosplenomegaly MSK: Normal bulk of all four extremities Neuro: AOx3, no focal motor or sensory deficits Skin: no rashes or lesions, warm and dry Ext: no LE peripheral edema or erythema, capillary refill <2s in all four extremities, 2+ LE peripheral pulses b/l Principal Diagnosis musculoskeletal pain Discharge Exam Constitutional WD/WN, vitals as above Respiratory normal respiratory effort, lungs clear to auscultation Cardiovascular RRR, no murmur, no edema Gastrointestinal (Abdomen) normal bowel sounds, soft, nontender, no hepatosplenomegaly Musculoskeletal Head/Neck/Chest: + chest tenderness Spine: + thoracic spinal tenderness (between shoulder blades pain reproducible w/ palpation) and + paraspinal tenderness Neurologic moves all extremities and awake Psychiatric A+Ox3, euthymic affect Discharge Data Allergies Allergy/AdvReac Type Severity Reaction Status Date / Time No Known Allergies Allergy Verified 03/31/23 19:54 Consultations 03/31/23 20:36 ED Decision to Admit Stat Hospital Course (1) Chest pain: (2) Paroxysmal atrial fibrillation: (3) Rheumatoid arthritis: (4) Degenerative arthritis of thoracic spine: (5) COPD (chronic obstructive pulmonary disease): (6) DM II (diabetes mellitus, type II), controlled: (7) GERD (gastroesophageal reflux disease): (8) Hyperlipidemia: (9) Peripheral neuropathy: (10) Hypertension: (11) Benign prostatic hyperplasia with urinary obstruction: (12) Hypothyroidism: Plan [facility] [place] [address] History & Physical Report ISigned Patient: YESICA COFFEY Admit Date: 03/31/23 MR#: [id number] Att Phy: Acct ID: [id number] Whitney Phy: Amparo Chadwick DO Date: 1955 Fam Phy: Age: 68 Location: ED Sex: M Room/Bed: cc: ~ *NOTICE TO RECEIVING GREEN PARTY/AGENCY This information is strictly Confidential and protected under [place] law. [place] law prohibits you from making any further disclosure of this information unless further disclosure is expressly permitted by the written consent of the person to whom it pertains or is authorized by law. A general authorization for the release of medical or other information is not sufficient for this purpose. Hospital accepts no responsibility if the information is made available to any other person, INCLUDING THE PATIENT. Date of Service March 31, 2023 Assessment & Plan (1) Chest pain -Pt presents with intermittent, self-resolving midsternal chest pain radiating to shoulder blades x1 week -EKG --> NSR, does not suggest ischemia, negative troponin x 2 -Most recent CHUCK 10/2022- EF 55-60%, no WMA - TTE (04.01.23): No significant abnormal findings. Grade 1 diastolic dysfunction. EF 50-55%. LV nml in size. No sig valvular dz. - Pain most likely musculoskeletal in nature: recent increase in physical activity, known history of degenerative arthritis of thoracic spine, no improvement with SL nitroglycerin - History of negative catheterization and multiple negative stress tests -Pain control- scheduled Tylenol, Voltaren PRN (2) Paroxysmal atrial fibrillation -Previous history of observed pAF via ZIO monitoring in 10/2022 with CHADSVASC of at least 3 -As pt is due to start Eliquis as outpatient per last [facility] cardiology note, will start here in hospital -Currently NSR -Continue metoprolol -Anticoagulation with Eliquis 5 mg BID -Per pt, he is to discontinue daily aspirin after starting Eliquis -Given he does not appear to have CAD, we will discontinue daily aspirin as Eliquis is initiated (3) Rheumatoid arthritis -Not in acute flare -Continue hydroxychloroquine (4) Degenerative arthritis of thoracic spine -This may be contributing to his pain between shoulder blades -Voltaren PRN (5) COPD (chronic obstructive pulmonary disease) -Not in exacerbation -Continue Spiriva -Stable respiratory status at present (6) T2DM, controlled -Diet-controlled diabetes with last A1C 5.4% in 11/2022 -Deferring BSG checks/SQ insulin for now (7) GERD -Continue omeprazole (8) Hyperlipidemia -Continue atorvastatin 40 mg (9) Peripheral neuropathy -Continue gabapentin (10) Hypertension -BP intermittently elevated (SBP > 160), but stable -Continue lisinopril, metoprolol (11) Benign prostatic hyperplasia with urinary obstruction -Continue tadalafil, tamsulosin, finasteride (12) Hypothyroidism -Continue levothyroxine Plan FENGI: Heart healthy, DM2 Code status: Full DVT prophylaxis: Eliquis Isolation: None Unit: Medical/surgical with telemetry Disposition planning: Likely home Total Time Total Time Spent Total Time Spent (In Minutes): see attending attestation Discharge Plan Discharge Items Patient Disposition: Home - Self-Care Reason For Visit: CHEST PAIN Discharge Diagnosis: musculoskeletal chest and back pain Activity: Resume your previous activity Non-emergency contact: Primary Care Provider Call non-emergency contact if: you have any medication questions and you have a fever Follow-up/Referrals: Amparo Chadwick DO [Primary Care Provider] - 04/14/23 8:20 am Diet: Carb Consistent or DM2 Addtl Attending Provider Instructions: You were admitted to the hospital for chest and back pain . You were treated with home medications and Voltaren, 1%, gel. A discharge summary will be sent to your primary care physician to ensure continuity of care. Please bring this discharge summary with you to your next office appointment so that your provider can review it at that time. Follow-up appointments: We have requested a follow-up appointment with your primary care physician within one week of discharge. Please call their office if you do not hear from them. Keep all your follow-up appointments as already scheduled. If you cannot make an appointment, notify your provider. Medications: Your medication list has been reviewed and reconciled upon discharge to ensure accuracy and continuity of care. An updated list of all your medications is included with your hospital discharge paperwork. Please review this list closely, and make note of any changes. Take your medications as instructed; do not skip a dose of your medicines. Make sure all of your doctors know every medicine you are taking (including srtq-vlk-nrgmnxp medicines, vitamins, and supplements). Call your primary care provider before taking any new medicines (including biay-nwh-ezxlwhv medicines, vitamins, and supplements), because some of these may interact with your current medications, or may make your symptoms worse. Tell your primary care provider if you cannot afford your medications. CONTACT YOUR PRIMARY CARE PROVIDER if you experience any of the following: chest pain with exertion, shortness of breath Difficulty following your treatment plan, or difficulty taking medications CALL 911 OR GO TO THE EMERGENCY DEPARTMENT if you experience any of the f ollowing: Sudden, severe abdominal pain or nausea/vomiting Severe chest pain, or chest pain that radiates (moves) to your jaw or arm Sudden, severe shortness of breath or difficulty breathing Thank you for allowing us to participate in your care Pending Studies at Discharge: No Stand-Alone Forms: [facility], Sm[facility] Cess[facility] Medications and DC Order Prescriptions: Continued omeprazole 20 mg capsule,delayed release(DR/EC) 40 mg PO QAM Qty: 180 3RF tadalafil [Cialis] 5 mg tablet 5 mg PO DAILY Qty: 90 3RF tamsulosin [Flomax] 0.4 mg capsule 0.4 mg PO QAM Qty: 90 0RF levothyroxine 50 mcg tablet 50 mcg PO QAM Qty: 90 3RF Spiriva Respimat 2.5 mcg/actuation mist 2 puff inhalation QAM Qty: 4 5RF metoprolol succinate [Toprol XL] 25 mg tablet extended release 24 hr 25 mg PO BID atorvastatin 40 mg tablet 40 mg PO QAM finasteride 5 mg tablet 5 mg PO QAM Qty: 90 3RF hydroxychloroquine 200 mg Tablet 200 mg PO BID aspirin 81 mg Tablet,Delayed Release (Dr/Ec) 81 mg PO QAM lisinopril 40 mg tablet 20 mg PO QAM gabapentin 600 mg tablet 600 mg PO TID Discharge Orders: Discharge Order (Routine); Ordered 04/01/23 Ordered By: Duy Mednoza/Other Patient Handouts: AFib Dc, ED Chest Pain, Noncardiac Admission Data Admit Date/Time: 03/31/23 20:14 Attending Provider: Chinedu Salgado Admit Provider: Vannesa Ascencio Primary Care Provider: Amparo Chadwick Other Providers: Eze Wing Other Interventions: Discharge Summary Assessment (RN) Last Done: 04/01/23 10:16
--- NOTE | 2023-04-02 04:55 | Billing Data ---
Date of Service April 02, 2023 Coding Level of Care Code 74797 INT INP/OBS CARE
[2023-04-04 09:09] LABS: Ehrlichia chaff DNA Bld Negative (Negative)
[2023-04-04 14:17] LABS: Babesia microti DNA Not Detected (Not Detected)
== END 2023-04-01 13:14 | disposition home or self-care (01) ==
LOC: EDINP 13:13 → ED 13:13 → SUATTDRO 20:14 → 2N 22:19